=== PATIENT | female | born 1950 | race Caucasian/White ===

== ENCOUNTER 2020-07-26 09:29 | Inpatient (IN) | payer MEDICARE, MEDICAID, SELFPAY ==
[2020-07-26] VITALS (23 sets, daily range): BP systolic 81–150; BP diastolic 50–74; PULSE 65–108; RESP 18–30; TEMP 34.8–37.7; O2SAT 77–100; BMI 16.1; BMI 17.1
--- NOTE | 2020-07-26 | XR_ITS ---
EXAMINATION: XR CHEST CLINICAL INFORMATION: Central line placement. COMPARISON: Chest CT from today. TECHNIQUE: Frontal view of the chest was obtained. FINDINGS: Support devices: Endotracheal tube tip is positioned approximately 3 cm proximal to kojo. A nasogastric tube is seen with tip overlying the left upper quadrant the level the gastric fundus. A right central venous catheter seen with tip terminating in the superior vena cava. There is generalized hyperinflation with minimal blunting of the costophrenic angles bilaterally. An opacity seen in the left apex. The heart and mediastinal structures are unremarkable. XR/XR chest 1V IMPRESSION: 1. Interval right internal jugular catheter placement that appears in good position. No pneumothorax. 2. Left apical opacity consistent with the patient's known left apical mass. 3. COPD.
--- NOTE | 2020-07-26 09:36 | ECG_ITS ---
Test Reason : UNRESPONSIVE Blood Pressure : / mmHG Vent. Rate : 101 BPM Atrial Rate : 101 BPM P-R Int : 130 ms QRS Dur : 082 ms QT Int : 344 ms P-R-T Axes : 087 083 068 degrees QTc Int : 446 ms Sinus tachycardia Possible left atrial enlargement Borderline ECG No previous ECGs available Referred By: Taya Madison Electronically Signed By:Jared Wisdom
--- NOTE | 2020-07-26 09:36 | CT_ITS ---
EXAMINATION: CT CHEST WITHOUT CONTRAST CLINICAL INFORMATION: Hypoxia. COMPARISON: None TECHNIQUE: Multidetector volumetric CT imaging of the chest was done. Axial MIP volume rendering provided. Sagittal and coronal reformatted images were obtained. This CT examination was performed using dose optimization techniques as appropriate, variously including the following: *Automated exposure control *Adjustment of mA and/or kV according to patient size (this includes techniques or standardized protocols for targeted exams where dose is matched to indication/reason for exam; i.e. extremities or head) *Use of iterative reconstruction technique DLP: 752 mGy-cm FINDINGS: LUNGS/PLEURA/AIRWAYS: Severe diffuse centrilobular emphysema is seen. An irregular mass is seen in the left apex measuring approximately 3.1 x 2.2 x 2.2 cm (image 29, series 19; image 52, series 17). There is tethering to the adjacent left apical pleural with mild thickening as well as posteriorly to the major fissure. An adjacent fissural nodule measures 0.8 cm (image 105, series 17). A few scattered nodules are seen as well. A nodule posteromedially in the superior segment of the left lower lobe measures 0.4 cm (image 197, series 17). A nodule posteriorly in the superior segment of the right lower lobe measures 0.4 cm (image 199, series 17). Linear atelectasis versus scarring is seen at the lung bases. There are no pleural effusions. The airways are patent.Endotracheal tube is seen with tip approximately 2 cm superior to the kojo. MEDIASTINUM: Enteric tube is incompletely visualized, but seen extending into the visualized stomach. The thyroid gland is unremarkable. Mild atherosclerosis is seen in the aortic arch and descending aorta without significant ectasia. Mild to moderate coronary artery calcifications. No pericardial effusion. AXILLA: No lymphadenopathy. UPPER ABDOMEN: Unremarkable. OSSEOUS STRUCTURES: Superior endplate compression deformity at T9 without other significant abnormality. CT/CT chest wo con IMPRESSION: 1. Left apical mass concerning for malignancy. Further evaluation with PET/CT scan and/or CT-guided biopsy is recommended. An adjacent left major fissural lymph node is abnormally enlarged and may be metastatic. Other smaller pulmonary nodules measuring up to 0.4 cm are nonspecific. 2. Diffuse severe centrilobular emphysema. No acute cardiopulmonary process. 3. Superior endplate compression deformity without overt underlying abnormality does not appear acute. Correlate with physical exam. This critical result was discussed with Jerry Grace APRN at 12:10 PM on 07/26/2020 and it was ascertained that the content and urgency of the report was understood at the time of direct communication.
--- NOTE | 2020-07-26 09:36 | CT_ITS ---
EXAMINATION: CT HEAD WITHOUT CONTRAST CLINICAL INFORMATION: Altered mental status. COMPARISON: None TECHNIQUE: Contiguous axial imaging was performed from the skull base to vertex without intravenous administration of contrast. This CT examination was performed using dose optimization techniques as appropriate, variously including the following: *Automated exposure control *Adjustment of mA and/or kV according to patient size (this includes techniques or standardized protocols for targeted exams where dose is matched to indication/reason for exam; i.e. extremities or head) *Use of iterative reconstruction technique DLP: 611 mGy-cm FINDINGS: A metallic lead overlying the soft tissues of the head creates artifacts anteriorly. There is no evidence of acute intracranial hemorrhage or territorial infarction. No abnormal mass effect or midline shift is seen. Anderson to white matter differentiation is well preserved. Mild age-appropriate volume loss. No extra-axial fluid collections are identified. The ventricles are normal in size. There is no abnormal attenuation within the brain parenchyma. Carotid artery calcifications are seen at the level of the carotid siphon. The osseous structures and soft tissues are normal. The mastoid air cells and visualized portions of the paranasal sinuses are well aerated. CT/CT head/brain wo con IMPRESSION: No acute intracranial pathology.
--- NOTE | 2020-07-26 09:38 | ED_ITS ---
HPI - SOB/Dyspnea General Chief Complaint: Dyspnea Stated Complaint: SOB,COPD,LETHARGIC,COUGH Time Seen by Provider: 07/26/20 09:35 Source: EMS Mode of arrival: EMS Limitations: altered mental status History of Present Illness HPI Narrative: found 68% by EMS on 2L NC, AMS - cyanotic, given duoneb, CPAP highest sat 78%, IV 125mg solumedrol, 2GM magnesium, IM epi - no improvement en route, FULL CODE per EMS, son found patient altered on his way to work, told EMS she was just treated at [facility] for lung infection MD elicited complaint: shortness of breath (AMS) Pertinent past history: COPD Onset (ago): unknown Context: recent illness Timing: constant Severity: severe Exacerbating factors: nothing Relieving factors: nothing Known history of: COPD Associated symptoms: other (AMS) Treatment prior to arrival: oxygen, bronchodilator, NIPPV and other (IV steroids, IV magnesium) Related Data Allergies Allergy/AdvReac Type Severity Reaction Status Date / Time amoxicillin [AMOXICILLIN] Allergy Unknown HIVES Verified 07/26/20 09:52 Sulfa (Sulfonamide Allergy Unknown DIFFICULTY Verified 07/26/20 09:52 Antibiotics) BREATHING [SULFA (SULFONAMIDE ANTIBIOTICS)] cephalexin [From Keflex] Allergy Unknown Verified 07/26/20 09:52 Review of Systems Review of Systems: ROS unable to be obtained due to altered mental status, severe respiratory distress PMFSH Past Medical History Attestation statement: The following information was validated with the patient. Source: unable to obtain Medical History (Updated 07/26/20 @ 12:19 by Taya Madison DO) COPD (chronic obstructive pulmonary disease) Pneumonia Social History Social History (Updated 07/26/20 @ 09:56 by Taya Madison DO) Smoking Status: Current some day smoker Use of substances other than those prescribed or required for medical reasons: No Advance Directives: No Advance Directives Information Provided: No Physical Exam Vital Signs: Vital Signs: Last Vital Signs Temp 94.6 F L 07/26/20 11:30 Pulse 81 07/26/20 11:50 Resp 18 07/26/20 11:50 BP 81/55 L 07/26/20 11:50 Pulse Ox 98 07/26/20 11:50 Body Mass Index 17.1 Appearance: Cyanotic, altered, disoriented, unable to speak, severe acute distress. frail, cachectic Eyes: Pupils equal, round and reactive to light. ENT: central cyanosis, dry MMM Neck: Normal inspection. Neck supple. + bilateral JVD CVS: Normal heart rate and rhythm. Pulses normal. Respiratory: Severe respiratory distress. Breath sounds decrease throughout, poor effort Abdomen: Soft and non-tender. Skin: Skin warm and dry. Normal skin color. Normal skin turgor. Extremities: No lower extremity edema. No calf ttp Neuro: Confused, altered, unable to perform exam. Course Course Course Narrative: hypotension post RSI likely related to medications and not infection or severe sepsis, 1500cc bolus ordered at this time discussion with son [id number]: patient was not at [facility] it was a zoom call - she started prednisone yesterday, no antibiotics, he did not see her since last night before bed, agrees to central line if she needs it. he plans to go home, wants to be called with updates BP 170/90 now was transient due to RSI medications fluids held given JVD is not on diuretics at home BP stable at this time pateint given 2mg versed after CT scan - her BP bottomed to 40 systolic afterwards - this is directly related to the medication and not infection or severe sepsis, she was given 50mcg push of phenylephrine with BP > 100 response, HR remained 80s BPs still dip down at times, will place central line for access given verbal okay by son on initial arrival - BP have been somewhat soft low 90s, has put out 300cc of urine after 1000cc fluid Dr. Pérez to admit 1218pm Procedures Central Line Placement Right IJ: Time Out Performed: Yes Patient Placed on Monitor/Pulse Ox: Yes MD Prep: mask, gown and gloves Central Line Prep: Chlorhexidine scrub and sterile drapes applied Local Anesthetic: lidocaine 1% Amount of anesthesia used (mL): 3 Ultrasound Used for Placement: Yes Central Line Lumen Inserted: triple Post Procedure: sutured in place, good blood return, all ports aspirated, flushed, capped and sterile dressing applied Post Procedure X-Ray: tip of catheter in good position and no pneumothorax seen Patient Tolerated Procedure: well Complications: none EJ/Peripheral Line Neck L: Time Out Performed: Yes Skin Cleansed in Sterile Fashion: Yes Size (gauge): 18 IV Secured and Dressing Applied: Yes Patient Tolerated Procedure: well and no complications Intubation Time out performed: Yes sedative: Etomidate Mg Given: 10 paralytic: Rocuronium Mg Given: 50 Laryngoscope: Schaefer ET Tube Size: 7.5 ET Tube Uncuffed: Yes Tube Secured Depth (cm): 22 Tube Secured Location: teeth Tube Placement Confirmation: visualized tube passing through cords, equal breath sounds bilaterally and confirmation by capnometry Patient Tolerated Procedure: well Intubation Complications: none MDM - SOB/Dyspnea MDM Narrative Medical decision making narrative: 69 yo female only known history of COPD on home O2 just seen at [facility] for lung infection records requested came in altered with cyanosis and 74% on NIPPV she was in severe distress at this time she required intubation for respiratory failure, already given mag and steroids, labs, ABG, CT chest and head for AMS/pneumonia, start empiric levofloxacin, planned admit to ICU Lab Data Result diagrams: 07/26/20 10:05 07/26/20 10:05 Labs: Lab Results 07/26/20 07/26/20 07/26/20 Range/Units 10:05 10:05 10:05 WBC 7.9 (4.8-10.8) X10*3/uL RBC 4.15 L (4.20-5.50) X10*6/uL Hgb 11.8 L (12.0-16.0) g/dl Hct 38.8 (37-47) % MCV 93.5 (80-98) fL MCH 28.4 (27.0-33.0) pg MCHC 30.4 L (31.0-35.0) g/dl RDW 12.2 (11.0-16.0) % Plt Count 188 (160-400) X10*3/uL MPV 10.1 (9.4-12.3) fL Immature Gran % (Auto) 0.4 (0.0-0.4) % Neut % (Auto) 75.7 H (45-73) % Lymph % (Auto) 17.1 L (20-40) % Gillespie % (Auto) 6.2 (2-11) % Eos % (Auto) 0.1 (0-4) % Baso % (Auto) 0.5 (0-2) % Lymph # (Auto) 1.3 (1.2-4.9) X10*3/uL Gillespie # (Auto) 0.5 (0.1-1.2) X10*3/uL Eos # (Auto) 0.0 (0.0-0.4) X10*3/uL Baso # (Auto) 0.0 (0.0-0.2) X10*3/uL Abs Immat Gran (auto) 0.03 (0.00-0.03) X10*3/uL Absolute Neuts (auto) 5.9 (2.0-8.3) X10*3/uL Absolute Nucleated RBC 0.000 (0.0-0.012) X10*3/uL Nucleated RBC % (auto) 0.0 (0.0-0.2) /100WBC PT (10.8-13.0) SEC INR (0.9-1.1) APTT (24.1-38.0) SEC ABG pH (7.35-7.45) ABG pCO2 (32-45) mmhg ABG pO2 (83-108) mmhg ABG HCO3 (22-26) mmol/l ABG O2 Saturation % ABG Base Excess Oxygen Given Sodium 148 H (135-145) mmol/L Potassium 4.2 (3.3-5.1) mmol/l Chloride 99 (96-108) mmol/L Carbon Dioxide 41 H* (22-29) mmol/L Anion Gap 12 (12-20) BUN 21 H (9-16) mg/dL Creatinine 0.65 (0.5-1.4) mg/dL Estim Creat Clear Calc 51.2 Estimated GFR > 60 Random Glucose 195 H (60-115) mg/dL Lactic Acid (0.5-2.0) mmol/L Calcium 8.6 (8.4-10.2) mg/dL Magnesium 3.0 H (1.6-2.6) mg/dL Ferritin 268 H (10-250) ng/mL Total Bilirubin 0.3 (0.0-1.0) mg/dL Direct Bilirubin < 0.2 (0.0-0.5) mg/dL AST 43 H (5-31) U/L ALT 36 H (0-31) U/L Alkaline Phosphatase 78 (39-117) U/L Lactate Dehydrogenase 270 H (122-220) U/L Troponin I High Sens (<3.5-17.0) ng/L B-Natriuretic Peptide Cancelled Total Protein 5.7 L (6.5-8.0) g/dL Albumin 3.5 (3.5-5.0) g/dL Procalcitonin ng/mL Urine Color Urine Appearance Urine pH (5.0-8.0) Ur Specific [place] (1.005-1.025) Urine Protein (NEG-TRACE) MG/DL Urine Glucose (UA) (NEG) MG/DL Urine Ketones (NEG) MG/DL Urine Blood (NEG) Urine Nitrite (NEG) Ur Leukocyte Esterase (NEG) Urine RBC (0) /HPF Urine WBC (0-4) /HPF Ur Squamous Epith Cells /LPF Amorphous Sediment /LPF Urine Bacteria /LPF Hyaline Casts /LPF Granular Casts /LPF Urine Mucus /LPF Ethyl Alcohol mg/dL COVID-19 (STEFF) (Negative) COVID-19 Clin Com 07/26/20 07/26/20 07/26/20 Range/Units 10:05 10:05 10:06 WBC (4.8-10.8) X10*3/uL RBC (4.20-5.50) X10*6/uL Hgb (12.0-16.0) g/dl Hct (37-47) % MCV (80-98) fL MCH (27.0-33.0) pg MCHC (31.0-35.0) g/dl RDW (11.0-16.0) % Plt Count (160-400) X10*3/uL MPV (9.4-12.3) fL Immature Gran % (Auto) (0.0-0.4) % Neut % (Auto) (45-73) % Lymph % (Auto) (20-40) % Gillespie % (Auto) (2-11) % Eos % (Auto) (0-4) % Baso % (Auto) (0-2) % Lymph # (Auto) (1.2-4.9) X10*3/uL Gillespie # (Auto) (0.1-1.2) X10*3/uL Eos # (Auto) (0.0-0.4) X10*3/uL Baso # (Auto) (0.0-0.2) X10*3/uL Abs Immat Gran (auto) (0.00-0.03) X10*3/uL Absolute Neuts (auto) (2.0-8.3) X10*3/uL Absolute Nucleated RBC (0.0-0.012) X10*3/uL Nucleated RBC % (auto) (0.0-0.2) /100WBC PT 12.3 (10.8-13.0) SEC INR 1.0 (0.9-1.1) APTT 24.0 L (24.1-38.0) SEC ABG pH (7.35-7.45) ABG pCO2 (32-45) mmhg ABG pO2 (83-108) mmhg ABG HCO3 (22-26) mmol/l ABG O2 Saturation % ABG Base Excess Oxygen Given Sodium (135-145) mmol/L Potassium (3.3-5.1) mmol/l Chloride (96-108) mmol/L Carbon Dioxide (22-29) mmol/L Anion Gap (12-20) BUN (9-16) mg/dL Creatinine (0.5-1.4) mg/dL Estim Creat Clear Calc Estimated GFR Random Glucose (60-115) mg/dL Lactic Acid 1.5 (0.5-2.0) mmol/L Calcium (8.4-10.2) mg/dL Magnesium (1.6-2.6) mg/dL Ferritin (10-250) ng/mL Total Bilirubin (0.0-1.0) mg/dL Direct Bilirubin (0.0-0.5) mg/dL AST (5-31) U/L ALT (0-31) U/L Alkaline Phosphatase (39-117) U/L Lactate Dehydrogenase (122-220) U/L Troponin I High Sens 12.5 (<3.5-17.0) ng/L B-Natriuretic Peptide 47 Total Protein (6.5-8.0) g/dL Albumin (3.5-5.0) g/dL Procalcitonin ng/mL Urine Color Urine Appearance Urine pH (5.0-8.0) Ur Specific [place] (1.005-1.025) Urine Protein (NEG-TRACE) MG/DL Urine Glucose (UA) (NEG) MG/DL Urine Ketones (NEG) MG/DL Urine Blood (NEG) Urine Nitrite (NEG) Ur Leukocyte Esterase (NEG) Urine RBC (0) /HPF Urine WBC (0-4) /HPF Ur Squamous Epith Cells /LPF Amorphous Sediment /LPF Urine Bacteria /LPF Hyaline Casts /LPF Granular Casts /LPF Urine Mucus /LPF Ethyl Alcohol mg/dL COVID-19 (STEFF) (Negative) COVID-19 Clin Com 07/26/20 07/26/20 07/26/20 Range/Units 10:10 10:21 10:21 WBC (4.8-10.8) X10*3/uL RBC (4.20-5.50) X10*6/uL Hgb (12.0-16.0) g/dl Hct (37-47) % MCV (80-98) fL MCH (27.0-33.0) pg MCHC (31.0-35.0) g/dl RDW (11.0-16.0) % Plt Count (160-400) X10*3/uL MPV (9.4-12.3) fL Immature Gran % (Auto) (0.0-0.4) % Neut % (Auto) (45-73) % Lymph % (Auto) (20-40) % Gillespie % (Auto) (2-11) % Eos % (Auto) (0-4) % Baso % (Auto) (0-2) % Lymph # (Auto) (1.2-4.9) X10*3/uL Gillespie # (Auto) (0.1-1.2) X10*3/uL Eos # (Auto) (0.0-0.4) X10*3/uL Baso # (Auto) (0.0-0.2) X10*3/uL Abs Immat Gran (auto) (0.00-0.03) X10*3/uL Absolute Neuts (auto) (2.0-8.3) X10*3/uL Absolute Nucleated RBC (0.0-0.012) X10*3/uL Nucleated RBC % (auto) (0.0-0.2) /100WBC PT (10.8-13.0) SEC INR (0.9-1.1) APTT (24.1-38.0) SEC ABG pH 7.36 (7.35-7.45) ABG pCO2 61 H* (32-45) mmhg ABG pO2 156 H (83-108) mmhg ABG HCO3 35 H (22-26) mmol/l ABG O2 Saturation 99.2 % ABG Base Excess 6.9 Oxygen Given 40% Sodium (135-145) mmol/L Potassium (3.3-5.1) mmol/l Chloride (96-108) mmol/L Carbon Dioxide (22-29) mmol/L Anion Gap (12-20) BUN (9-16) mg/dL Creatinine (0.5-1.4) mg/dL Estim Creat Clear Calc Estimated GFR Random Glucose (60-115) mg/dL Lactic Acid (0.5-2.0) mmol/L Calcium (8.4-10.2) mg/dL Magnesium (1.6-2.6) mg/dL Ferritin (10-250) ng/mL Total Bilirubin (0.0-1.0) mg/dL Direct Bilirubin (0.0-0.5) mg/dL AST (5-31) U/L ALT (0-31) U/L Alkaline Phosphatase (39-117) U/L Lactate Dehydrogenase (122-220) U/L Troponin I High Sens (<3.5-17.0) ng/L B-Natriuretic Peptide Total Protein (6.5-8.0) g/dL Albumin (3.5-5.0) g/dL Procalcitonin 0.03 ng/mL Urine Color Urine Appearance Urine pH (5.0-8.0) Ur Specific [place] (1.005-1.025) Urine Protein (NEG-TRACE) MG/DL Urine Glucose (UA) (NEG) MG/DL Urine Ketones (NEG) MG/DL Urine Blood (NEG) Urine Nitrite (NEG) Ur Leukocyte Esterase (NEG) Urine RBC (0) /HPF Urine WBC (0-4) /HPF Ur Squamous Epith Cells /LPF Amorphous Sediment /LPF Urine Bacteria /LPF Hyaline Casts /LPF Granular Casts /LPF Urine Mucus /LPF Ethyl Alcohol < 10 mg/dL COVID-19 (STEFF) (Negative) COVID-19 Clin Com 07/26/20 07/26/20 Range/Units 10:35 10:35 WBC (4.8-10.8) X10*3/uL RBC (4.20-5.50) X10*6/uL Hgb (12.0-16.0) g/dl Hct (37-47) % MCV (80-98) fL MCH (27.0-33.0) pg MCHC (31.0-35.0) g/dl RDW (11.0-16.0) % Plt Count (160-400) X10*3/uL MPV (9.4-12.3) fL Immature Gran % (Auto) (0.0-0.4) % Neut % (Auto) (45-73) % Lymph % (Auto) (20-40) % Gillespie % (Auto) (2-11) % Eos % (Auto) (0-4) % Baso % (Auto) (0-2) % Lymph # (Auto) (1.2-4.9) X10*3/uL Gillespie # (Auto) (0.1-1.2) X10*3/uL Eos # (Auto) (0.0-0.4) X10*3/uL Baso # (Auto) (0.0-0.2) X10*3/uL Abs Immat Gran (auto) (0.00-0.03) X10*3/uL Absolute Neuts (auto) (2.0-8.3) X10*3/uL Absolute Nucleated RBC (0.0-0.012) X10*3/uL Nucleated RBC % (auto) (0.0-0.2) /100WBC PT (10.8-13.0) SEC INR (0.9-1.1) APTT (24.1-38.0) SEC ABG pH (7.35-7.45) ABG pCO2 (32-45) mmhg ABG pO2 (83-108) mmhg ABG HCO3 (22-26) mmol/l ABG O2 Saturation % ABG Base Excess Oxygen Given Sodium (135-145) mmol/L Potassium (3.3-5.1) mmol/l Chloride (96-108) mmol/L Carbon Dioxide (22-29) mmol/L Anion Gap (12-20) BUN (9-16) mg/dL Creatinine (0.5-1.4) mg/dL Estim Creat Clear Calc Estimated GFR Random Glucose (60-115) mg/dL Lactic Acid (0.5-2.0) mmol/L Calcium (8.4-10.2) mg/dL Magnesium (1.6-2.6) mg/dL Ferritin (10-250) ng/mL Total Bilirubin (0.0-1.0) mg/dL Direct Bilirubin (0.0-0.5) mg/dL AST (5-31) U/L ALT (0-31) U/L Alkaline Phosphatase (39-117) U/L Lactate Dehydrogenase (122-220) U/L Troponin I High Sens (<3.5-17.0) ng/L B-Natriuretic Peptide Total Protein (6.5-8.0) g/dL Albumin (3.5-5.0) g/dL Procalcitonin ng/mL Urine Color YELLOW Urine Appearance HAZY Urine pH 5.5 (5.0-8.0) Ur Specific [place] >= 1.030 H (1.005-1.025) Urine Protein 1+ H (NEG-TRACE) MG/DL Urine Glucose (UA) NEG (NEG) MG/DL Urine Ketones NEG (NEG) MG/DL Urine Blood TRACE (NEG) Urine Nitrite NEG (NEG) Ur Leukocyte Esterase NEG (NEG) Urine RBC 0-2 (0) /HPF Urine WBC 1-4 (0-4) /HPF Ur Squamous Epith Cells 2+ /LPF Amorphous Sediment 2+ /LPF Urine Bacteria NONE /LPF Hyaline Casts 10-14 /LPF Granular Casts 0-2 /LPF Urine Mucus 2+ /LPF Ethyl Alcohol mg/dL COVID-19 (STEFF) Negative (Negative) COVID-19 Clin Com See Note ECG Data Attestation: I personally reviewed and interpreted this ECG as follows: ECG interpretation date: 07/26/20 ECG interpretation time: 10:23 Interpretation: Rate: 101 Rhythm: sinus tachycardia [place]: normal biatrial enlargement Normal ELADIA. Normal QRS complex. ST T wave : normal no GAUTAM qTC: normal prior studies: no acute ischemia, not available The study has been interpreted contemporaneously by me. . Critical Care Time Critical Care Time Critical Care Time: Yes Total Critical Care Time: 90 Attestation: intubation, vent management, ABG, EKG, repeat checks, discussion with son I attest to this time spent taking care of the patient Discharge Plan Discharge Clinical Impression: Acute exacerbation of chronic obstructive airways disease, Lung mass Respiratory failure Qualifiers: Chronicity: acute on chronic Respiratory failure complication: hypoxia Qualified Code(s): J96.21 - Acute and chronic respiratory failure with hypoxia Patient Disposition: Admitted As Inpatient
[2020-07-26] MEDS: Rocuronium Bromide 50 MG/5 ML VIAL IVPUSH (09:42)
[2020-07-26] MEDS: Etomidate 20 MG/10 ML VIAL 10 MG IVPUSH (09:42)
[2020-07-26] MEDS: fentaNYL citrate/NS 1,000 MCG/100 ML PLAST..BAG 2.5 MCG IVCONT ×2 (09:43→23:53)
[2020-07-26] MEDS: 0.9 % Sodium Chloride 500 ML IV ×2 (09:45→11:36)
[2020-07-26] MEDS: Albuterol Sulfate (0.083%) 2.5 MG/3 ML VIAL.NEB 5 MG INHALE (09:46)
[2020-07-26 10:20] LABS: MANUAL DIFF FLAG NO
[2020-07-26 10:23] LABS: Pt Ventilation O2% 40%
[2020-07-26 10:26] LABS: Basophils Percent Auto 0.5 % (0-2); Eosinophils Percent Auto 0.1 % (0-4); Hematocrit 38.8 % (37-47); Hemoglobin 11.8 g/dl (12.0-16.0); Imm Gran Abs Auto 0.03 X10*3/uL (0.00-0.03); Imm Gran Pct Auto 0.4 % (0.0-0.4); Lymphocytes Absolute Auto 1.3 X10*3/uL (1.2-4.9); Lymphocytes Percent Auto 17.1 % (20-40); Mean Corpuscular HGB Conc 30.4 g/dl (31.0-35.0); Mean Corpuscular Hemoglobin 28.4 pg (27.0-33.0); Mean Corpuscular Volume 93.5 fL (80-98); Mean Platelet Volume 10.1 fL (9.4-12.3); Monocytes Absolute Auto 0.5 X10*3/uL (0.1-1.2); Monocytes Percent Auto 6.2 % (2-11); Neutrophils Absolute Auto 5.9 X10*3/uL (2.0-8.3); Neutrophils Percent Auto 75.7 % (45-73); Platelet Count 188 X10*3/uL (160-400); Red Blood Count 4.15 X10*6/uL (4.20-5.50); Red Cell Distribution Width 12.2 % (11.0-16.0); White Blood Count 7.9 X10*3/uL (4.8-10.8)
[2020-07-26] MEDS: Midazolam HCl/NS 50 MG/50 ML PLAST..BAG IVCONT (10:30)
[2020-07-26] MEDS: levoFLOXacin/D5W 500 MG/100 ML PIGGYBACK 100 MG IV (10:31)
[2020-07-26 10:40] LABS: pH ABG 7.36 (7.35-7.45)
[2020-07-26 10:41] LABS: Base Excess ABG 6.9; HCO3 ABG 35 mmol/l (22-26); Oxygen Saturation ABG 99.2 %; PO2 ABG 156 mmhg (83-108)
[2020-07-26 10:44] LABS: ABG PCO2 61 mmhg (32-45)
[2020-07-26 10:45] LABS: Glucose Urine UA NEG (NEG); Leukocyte Esterase Urine NEG (NEG); Nitrite Urine NEG (NEG); PH 5.5 (5.0-8.0); Specific Gravity - Urine >= 1.030 (1.005-1.025); Urine Blood TRACE (NEG); Urine Ketones NEG (NEG); Urine Protein 1+ MG/DL (NEG-TRACE)
--- NOTE | 2020-07-26 10:46 | PC.NURSE ---
Son states pt had telehealth appt and given one dose of prednisone. Last seen well was last night, found this am to be in resp distress and semi unresponsive. Upon EMS arrival pt tripod, tachypenic with no lung sounds, sat 78% with home 02. Pt arrived to ED in resp distress, on CPAP from the field without much relief. Intubated by Dr Madison successfully with 7.5 tube, 23 HENRY. AC settings on vent 24 350, 5 and 40% Fi02. Skin pale, cool to touch, cyanotic to fingertips and toes. temp sensing isaac reading 93.7 core temp. Pt sedated with Fentanyl 50mcg/hr and Versed 2mg/hr. OG tube placed after intubation, yellow stomach contents noted in tube, +placement via auscultation, awaiting imaging verification. Two peripheral lines from EMS infiltrated, left EJ placed by Dr Madison and two additional lines to b/l AC placed by staff. Vitals stable at this time, see paper print out for additional vitals. Pt to CT scan with Micha KINGSLEY at this time
[2020-07-26 10:50] LABS: Lactic Acid 1.5 mmol/L (0.5-2.0)
[2020-07-26 10:50] LABS: Prothrombin Time 12.3 SEC (10.8-13.0)
[2020-07-26 10:50] LABS: Appearance Urine HAZY; Color Urine YELLOW
[2020-07-26 10:55] LABS: Ethanol < 10 mg/dL
[2020-07-26 10:57] LABS: Amorphous Sediment Urine 2+ /LPF; Granular Casts Urine 0-2 /LPF; Mucus Urine 2+ /LPF; RBC Urine 0-2 /HPF (0); Squamous Epithelial Cell Urine 2+ /LPF; UACC CULT YES
[2020-07-26 11:00] LABS: COVID-19 Test Negative (Negative); IDNOW Serial# 9DD0AD1C
[2020-07-26 11:00] LABS: B Type Natriuretic Peptide 47 pg/mL (<100); Troponin-I High Sensitivity 12.5 ng/L (<3.5-17.0)
[2020-07-26] MEDS: Midazolam HCl/PF 2 MG/2 ML VIAL IVPUSH (11:00)
[2020-07-26 11:14] LABS: Procalcitonin 0.03 ng/mL
[2020-07-26 11:15] LABS: Alanine Aminotransferase 36 U/L (0-31); Albumin Level 3.5 g/dL (3.5-5.0); Alkaline Phosphatase 78 U/L (39-117); Anion Gap 12 (12-20); Aspartate Amino Transferase 43 U/L (5-31); Bilirubin Direct < 0.2 mg/dL (0.0-0.5); Bilirubin Total 0.3 mg/dL (0.0-1.0); Blood Urea Nitrogen 21 mg/dL (9-16); Calcium 8.6 mg/dL (8.4-10.2); Carbon Dioxide 41 mmol/L (22-29); Chloride 99 mmol/L (96-108); Creatinine Clr Calc Pharmacy 51.2; Estimated Glomerular Filt Rate > 60; Glucose Random 195 mg/dL (60-115); Lactate Dehydrogenase 270 U/L (122-220); Potassium 4.2 mmol/l (3.3-5.1); Sodium 148 mmol/L (135-145); Total Protein 5.7 g/dL (6.5-8.0)
[2020-07-26 11:18] LABS: Ferritin 268 ng/mL (10-250)
[2020-07-26] MEDS: 0.9 % Sodium Chloride 1,000 ML 999 ML IVCONT (11:32)
[2020-07-26] MEDS: Phenylephrine HCL 10 MG/ML VIAL IVPUSH (11:33)
--- NOTE | 2020-07-26 12:27 | PC.NURSE ---
fentanyl increased from 50mcg/hr to 75 mcg /hr
--- NOTE | 2020-07-26 12:50 | P.HPCC_ITS ---
History of Present Illness Date of Service: 07/26/20 Chief Complaint: Shortness of breast 69-year-old lady, active 40+ pack-year smoker, with underlying history of COPD admitted on 07/26/2020 with several day history of progressive dyspnea. Patient has been started on p.o. prednisone by her PCP one day prior for COPD exacerbation. Patient has been seen by her son in the morning on the day of admission and was noted to be altered and short of breath. EMS was called and patient was noted to be significantly hypoxic. She has been transferred to emergency room where she was intubated for acute hypoxic and hypercapnic respiratory failure secondary to COPD exacerbation. Review of Systems Review of Systems: Yes unobtainable due to endotracheal tube and Unobtainable due to mental status PMFSH Past Medical History Medical History COPD (chronic obstructive pulmonary disease) Pneumonia Social History Social History Smoking Status: Current some day smoker Use of substances other than those prescribed or required for medical reasons: No Advance Directives: No Advance Directives Information Provided: No Meds Allergies Allergy/AdvReac Type Severity Reaction Status Date / Time amoxicillin [AMOXICILLIN] Allergy Unknown HIVES Verified 07/26/20 09:52 Sulfa (Sulfonamide Allergy Unknown DIFFICULTY Verified 07/26/20 09:52 Antibiotics) BREATHING [SULFA (SULFONAMIDE ANTIBIOTICS)] cephalexin [From Keflex] Allergy Unknown Verified 07/26/20 09:52 Physical Exam Vital Signs: Vital Signs: Last Vital Signs Temp 95 F L 07/26/20 12:22 Pulse 85 07/26/20 12:22 Resp 24 H 07/26/20 12:22 BP 92/53 L 07/26/20 12:22 Pulse Ox 100 07/26/20 12:22 Body Mass Index 17.1 Const: General: no acute distress and other (Sedated on the vent) Nutritional Appearance: cachectic Eyes: Sclerae: sclerae normal Neck: Neck: Yes no lymphadenopathy, Yes trachea midline and Yes supple Resp: Auscultation: wheezes expiratory wheezes Cardio: Rate: regular rate Rhythm: regular rhythm Heart sounds: no gallops, no murmurs and no rubs GI: Palpation (GI): Soft to palpation and Other GI palpation findings present ( Nontender) Auscultation: normal bowel sounds Extrem: General: Yes no pedal edema, No clubbing and No cyanosis Results Labs CBC and Chem 7: 07/26/20 10:05 07/26/20 10:05 Labs: Laboratory Results - last 24 hr 07/26/20 07/26/20 07/26/20 10:05 10:05 10:05 MCV 93.5 MCH 28.4 MCHC 30.4 L RDW 12.2 Plt Count 188 MPV 10.1 Immature Gran % (Auto) 0.4 Neut % (Auto) 75.7 H Lymph % (Auto) 17.1 L Saunders % (Auto) 6.2 Eos % (Auto) 0.1 Baso % (Auto) 0.5 Lymph # (Auto) 1.3 Saunders # (Auto) 0.5 Eos # (Auto) 0.0 Baso # (Auto) 0.0 Abs Immat Gran (auto) 0.03 Absolute Neuts (auto) 5.9 Absolute Nucleated RBC 0.000 Nucleated RBC % (auto) 0.0 PT INR APTT ABG pH ABG pCO2 ABG pO2 ABG HCO3 ABG O2 Saturation ABG Base Excess Oxygen Given Anion Gap 12 Estim Creat Clear Calc 51.2 Estimated GFR > 60 Random Glucose 195 H Lactic Acid Calcium 8.6 Magnesium 3.0 H Ferritin 268 H Total Bilirubin 0.3 Direct Bilirubin < 0.2 AST 43 H ALT 36 H Alkaline Phosphatase 78 Lactate Dehydrogenase 270 H Troponin I High Sens B-Natriuretic Peptide Cancelled Total Protein 5.7 L Albumin 3.5 Procalcitonin Urine Color Urine Appearance Urine pH Ur Specific [place] Urine Protein Urine Glucose (UA) Urine Ketones Urine Blood Urine Nitrite Ur Leukocyte Esterase Urine RBC Urine WBC Ur Squamous Epith Cells Amorphous Sediment Urine Bacteria Hyaline Casts Granular Casts Urine Mucus Ethyl Alcohol COVID-19 (STEFF) COVID-19 Clin Com 07/26/20 07/26/20 07/26/20 10:05 10:05 10:06 MCV MCH MCHC RDW Plt Count MPV Immature Gran % (Auto) Neut % (Auto) Lymph % (Auto) Saunders % (Auto) Eos % (Auto) Baso % (Auto) Lymph # (Auto) Saunders # (Auto) Eos # (Auto) Baso # (Auto) Abs Immat Gran (auto) Absolute Neuts (auto) Absolute Nucleated RBC Nucleated RBC % (auto) PT 12.3 INR 1.0 APTT 24.0 L ABG pH ABG pCO2 ABG pO2 ABG HCO3 ABG O2 Saturation ABG Base Excess Oxygen Given Anion Gap Estim Creat Clear Calc Estimated GFR Random Glucose Lactic Acid 1.5 Calcium Magnesium Ferritin Total Bilirubin Direct Bilirubin AST ALT Alkaline Phosphatase Lactate Dehydrogenase Troponin I High Sens 12.5 B-Natriuretic Peptide 47 Total Protein Albumin Procalcitonin Urine Color Urine Appearance Urine pH Ur Specific [place] Urine Protein Urine Glucose (UA) Urine Ketones Urine Blood Urine Nitrite Ur Leukocyte Esterase Urine RBC Urine WBC Ur Squamous Epith Cells Amorphous Sediment Urine Bacteria Hyaline Casts Granular Casts Urine Mucus Ethyl Alcohol COVID-19 (STEFF) COVID-19 [facility] 07/26/20 07/26/20 07/26/20 10:10 10:21 10:21 MCV MCH MCHC RDW Plt Count MPV Immature Gran % (Auto) Neut % (Auto) Lymph % (Auto) Saunders % (Auto) Eos % (Auto) Baso % (Auto) Lymph # (Auto) Saunders # (Auto) Eos # (Auto) Baso # (Auto) Abs Immat Gran (auto) Absolute Neuts (auto) Absolute Nucleated RBC Nucleated RBC % (auto) PT INR APTT ABG pH 7.36 ABG pCO2 61 H* ABG pO2 156 H ABG HCO3 35 H ABG O2 Saturation 99.2 ABG Base Excess 6.9 Oxygen Given 40% Anion Gap Estim Creat Clear Calc Estimated GFR Random Glucose Lactic Acid Calcium Magnesium Ferritin Total Bilirubin Direct Bilirubin AST ALT Alkaline Phosphatase Lactate Dehydrogenase Troponin I High Sens B-Natriuretic Peptide Total Protein Albumin Procalcitonin 0.03 Urine Color Urine Appearance Urine pH Ur Specific [place] Urine Protein Urine Glucose (UA) Urine Ketones Urine Blood Urine Nitrite Ur Leukocyte Esterase Urine RBC Urine WBC Ur Squamous Epith Cells Amorphous Sediment Urine Bacteria Hyaline Casts Granular Casts Urine Mucus Ethyl Alcohol < 10 COVID-19 (STEFF) COVID-19 [facility] 07/26/20 07/26/20 10:35 10:35 MCV MCH MCHC RDW Plt Count MPV Immature Gran % (Auto) Neut % (Auto) Lymph % (Auto) Saunders % (Auto) Eos % (Auto) Baso % (Auto) Lymph # (Auto) Saunders # (Auto) Eos # (Auto) Baso # (Auto) Abs Immat Gran (auto) Absolute Neuts (auto) Absolute Nucleated RBC Nucleated RBC % (auto) PT INR APTT ABG pH ABG pCO2 ABG pO2 ABG HCO3 ABG O2 Saturation ABG Base Excess Oxygen Given Anion Gap Estim Creat Clear Calc Estimated GFR Random Glucose Lactic Acid Calcium Magnesium Ferritin Total Bilirubin Direct Bilirubin AST ALT Alkaline Phosphatase Lactate Dehydrogenase Troponin I High Sens B-Natriuretic Peptide Total Protein Albumin Procalcitonin Urine Color YELLOW Urine Appearance HAZY Urine pH 5.5 Ur Specific [place] >= 1.030 H Urine Protein 1+ H Urine Glucose (UA) NEG Urine Ketones NEG Urine Blood TRACE Urine Nitrite NEG Ur Leukocyte Esterase NEG Urine RBC 0-2 Urine WBC 1-4 Ur Squamous Epith Cells 2+ Amorphous Sediment 2+ Urine Bacteria NONE Hyaline Casts 10-14 Granular Casts 0-2 Urine Mucus 2+ Ethyl Alcohol COVID-19 (STEFF) Negative COVID-19 Clin Com See Note Imaging Radiologist's Impressions: Impressions Chest X-Ray 07/26/20 00:00 IMPRESSION: 1. Interval right internal jugular catheter placement that appears in good position. No pneumothorax. 2. Left apical opacity consistent with the patient's known left apical mass. 3. COPD. Chest CT 07/26/20 09:36 IMPRESSION: 1. Left apical mass concerning for malignancy. Further evaluation with PET/CT scan and/or CT-guided biopsy is recommended. An adjacent left major fissural lymph node is abnormally enlarged and may be metastatic. Other smaller pulmonary nodules measuring up to 0.4 cm are nonspecific. 2. Diffuse severe centrilobular emphysema. No acute cardiopulmonary process. 3. Superior endplate compression deformity without overt underlying abnormality does not appear acute. Correlate with physical exam. This critical result was discussed with Jerry Grace APRN at 12:10 PM on 07/26/2020 and it was ascertained that the content and urgency of the report was understood at the time of direct communication. Head CT 07/26/20 09:36 IMPRESSION: No acute intracranial pathology. Assessment and Plan (1) Acute on chronic respiratory failure with hypoxia and hypercapnia: Status: Acute Assessment: 69-year-old lady, active smoker, admitted with acute hypoxic and hypercapnic respiratory failure secondary to COPD exacerbation requiring intubation and ventilatory support. Plan: Neuro: No acute issues. Cardiac: Hypotension secondary to requirements for sedation. No evidence of sepsis. Pulmonary: Acute hypoxic and hypercapnic respiratory failure secondary to COPD exacerbation requiring ventilatory support. Continue systemic glucocorticoids and bronchodilators. Continue to titrate off ventilatory support as tolerated. Started on azithromycin for anti-inflammatory effect in COPD exacerbations. CT chest with evidence of a left apical mass, to be further evaluated on outpatient basis. Renal: No acute issues. Endo: No acute issues. GI: No acute issues. ID: No acute issues Heme/Onc: No acute issues. Psych: No acute issues. Miscellaneous: No acute issues. Prophylaxis: Heparin, famotidine Diet: Tube feeds Critical care time spent: 45 minutes (2) Acute exacerbation of chronic obstructive airways disease: Status: Acute (3) Lung mass: Status: Acute (4) Severe protein-calorie malnutrition: Status: Acute Critical Care Time 45
[2020-07-26 13:27] LABS: PO2 ABG 383 mmhg (83-108); Pt Ventilation O2% 100%; pH ABG 7.31 (7.35-7.45)
[2020-07-26] MEDS: propofoL 1,000 MG/100 ML VIAL 4.76 MG IVCONT (13:27)
[2020-07-26 13:28] LABS: Base Excess ABG 3.7; HCO3 ABG 32 mmol/l (22-26); Oxygen Saturation ABG 99.7 %
[2020-07-26 13:29] LABS: ABG PCO2 65 mmhg (32-45)
[2020-07-26] MEDS: Heparin Sodium,Porcine 5,000 UNIT/ML VIAL 5000 UNIT SUBCUT ×2 (13:43→20:09)
[2020-07-26] MEDS: Albumin Human 25 % 100 ML IV ×2 (13:47→18:20)
[2020-07-26] MEDS: Chlorhexidine Gluc Oral Rinse 15 ML MOUTHWASH BUCCAL ×2 (13:47→20:09)
[2020-07-26] MEDS: Albuterol/Iprat 2.5/0.5MG 3 ML AMPUL.NEB INHALE (17:28)
--- NOTE | 2020-07-26 18:35 | PC.NURSE ---
PT ARRIVED VIA STRETCHER AND INTUBATED FROM ED AT 1245. PT SEDATED WITH FENANYL GTT FROM ED AND PROPOFOL GTT STARTED IN ICU. AWAKENS EASILY WITH TOUGH AND REPOSITIONING, ABLE TO FOLLOW SIMPLE COMMANDS. LEVOPHED GTT STARTED IN ED AND TITRATED PER MD ORDER. VENT SETTINGS INITALLY AC 24 TV 350 PEEP 5 FI02 100%, ABGS DRAWN AND VENT SETTINGS ADJUSTED. CURRENT VENT SETTINGS AC 26 TV 375 PEEP 5 FI02 30% ETT 7.5, 25 AT THE LIP. TUBE FEED STARTED AT 20 ML/HR AT 1430 AND INCREASED TO CURRENT RATE OF 30 ML/HR PER MD ORDER. TREJO OUTPUT 5-10 ML/HR. MD NOTIFIED. POC AT 1800 WAS 155, NO INSULIN GIVEN PER AUDIT SPECIALIST. Q2H REPO, BARRIER CREAM APPLIED, PINK FOAM TO COCCYX FOR PROTECTION. TOES NOTED TO BE CYONOTIC AND COLD WITH FAINT PULSES NOTED, SOCKS APPLIED AND ELEVATED ON PILLOWS. VANIA GIANG [phone] WILL BE PRIMARY CONTACT FOR ALL UPDATES. PT LIVES WITH VANIA KNOX AND RECEIVES HELP FROM AN STAND UP COMEDIAN FROM [facility]. BOTH SONS UPDATED BY THIS RN.
[2020-07-26 18:37] LABS: Glucose, Whole Blood 155 mg/dL (60-115)
[2020-07-26] MEDS: propofoL 1,000 MG/100 ML VIAL 8.34 MG IVCONT (20:09)
[2020-07-26] MEDS: Famotidine/PF 20 MG/2 ML VIAL IVPUSH (20:09)
[2020-07-27] VITALS (34 sets, daily range): BP systolic 100–141; BP diastolic 36–66; PULSE 63–95; RESP 12–34; TEMP 36.7–37.7; O2SAT 90–100; BMI 16.5
[2020-07-27 00:21] LABS: Glucose, Whole Blood 173 mg/dL (60-115)
[2020-07-27] MEDS: Albumin Human 25 % 100 ML IV ×2 (00:55→08:45)
[2020-07-27] MEDS: Albuterol/Iprat 2.5/0.5MG 3 ML AMPUL.NEB INHALE ×5 (01:07→23:53)
[2020-07-27] MEDS: propofoL 1,000 MG/100 ML VIAL 11.91 MG IVCONT ×2 (05:03→13:01)
[2020-07-27] MEDS: Chlorhexidine Gluc Oral Rinse 15 ML MOUTHWASH BUCCAL ×3 (05:03→20:44)
[2020-07-27] MEDS: Heparin Sodium,Porcine 5,000 UNIT/ML VIAL 5000 UNIT SUBCUT ×3 (05:03→20:44)
[2020-07-27 05:04] LABS: Glucose, Whole Blood 186 mg/dL (60-115)
[2020-07-27] MEDS: Insulin Lispro 100 UNIT/ML 3 ML VIAL SUBCUT ×2 (05:04→23:55)
[2020-07-27 05:51] LABS: Hemoglobin 9.2 g/dl (12.0-16.0); Neutrophils Absolute Auto 7.8 X10*3/uL (2.0-8.3); PLT CLUMP 1; SCAN SMEAR FLAG 1
[2020-07-27 05:53] LABS: Hematocrit 28.3 % (37-47); Imm Gran Abs Auto 0.04 X10*3/uL (0.00-0.03); Imm Gran Pct Auto 0.5 % (0.0-0.4); Lymphocytes Absolute Auto 0.5 X10*3/uL (1.2-4.9); Lymphocytes Percent Auto 5.3 % (20-40); Mean Corpuscular HGB Conc 32.5 g/dl (31.0-35.0); Mean Corpuscular Hemoglobin 28.8 pg (27.0-33.0); Mean Corpuscular Volume 88.7 fL (80-98); Mean Platelet Volume 10.5 fL (9.4-12.3); Monocytes Absolute Auto 0.3 X10*3/uL (0.1-1.2); Monocytes Percent Auto 3.7 % (2-11); Neutrophils Percent Auto 90.5 % (45-73); Platelet Count 144 X10*3/uL (160-400); Red Blood Count 3.19 X10*6/uL (4.20-5.50); Red Cell Distribution Width 12.2 % (11.0-16.0); White Blood Count 8.6 X10*3/uL (4.8-10.8)
[2020-07-27 05:57] LABS: MANUAL DIFF FLAG SCAN
[2020-07-27 06:05] LABS: Base Excess VBG 3.8 mmol/L; HCO3 VBG 28 mmol/L; Oxygen Saturation VBG 83.1 %; PCO2 VBG 38 mmhg; PO2 VBG 43 mmhg; pH VBG 7.48 (7.32-7.43)
[2020-07-27 06:19] LABS: SLIDE REVIEW VERIFIED
--- NOTE | 2020-07-27 06:29 | PC.NURSE ---
Aren updated at start of shift. Wanted to inform nursing staff that patient will be extremely anxious when sedation is turned off. He reports that she is very afraid of being intubated and will probably try to self-extubate. Patient rouses easily. Fearful/anxious. Tremulous. Tearful. Follows commands at times, mostly agitated and restless. Propofol up to 50 mcg/kg/min for comfort. Remains on levo for bp support. SR 70's-90's. Mostly synchronous with vent. Overbreathes w/ RR up to 28-30. Satting 99-100% on 30% fio2. Tolerating tube feed at goal with max residual 80 cc. No stool. UOP total 200 cc this shift. TRAINING ADMINISTRATOR aware. Toes cyanotic, improving over course of shift. Buttocks pink, blanchable, intact. Foam applied. Repo Q2H. Airloss in place. Will request Fyber system this am.
[2020-07-27 06:35] LABS: Albumin Level 4.1 g/dL (3.5-5.0); Anion Gap 10 (12-20); Blood Urea Nitrogen 31 mg/dL (9-16); Calcium 9.1 mg/dL (8.4-10.2); Carbon Dioxide 34 mmol/L (22-29); Chloride 104 mmol/L (96-108); Creatinine Clr Calc Pharmacy 41.1; Estimated Glomerular Filt Rate > 60; Glucose Random 165 mg/dL (60-115); Magnesium 2.3 mg/dL (1.6-2.6); Phosphorus 0.7 mg/dL (2.7-4.5); Potassium 4.1 mmol/l (3.3-5.1); Sodium 144 mmol/L (135-145)
[2020-07-27 08:22] LABS: Glucose, Whole Blood 225 mg/dL (60-115)
[2020-07-27] MEDS: Famotidine/PF 20 MG/2 ML VIAL IVPUSH ×2 (08:52→20:44)
[2020-07-27] MEDS: Potassium Phosphate 30 MMOL in 0.9 % Sodium Chloride 500 ML 85 MMOL IV (08:54)
--- NOTE | 2020-07-27 11:00 | CA_ITS ---
Transthoracic Echocardiogram Patient (Last, First, Middle): Mariam Thakkar, Gender: Female Date of : 1950 Age: 69 Procedure Date: 07/27/2020 Procedure Type: Transthoracic Echocardiogram Location: ICU Height: 152.4 cm Weight: 38.1 kg BSA: 1.29 m2 Heart Rate: bpm BP: 126 / 56 mmHg Pharmacy Technician Assistant: ERICA Referring MD: Deng Ruiz Adjunct Political Science Instructor: Francisco J Smith MD Symptoms: acute resp failure w bulging JVD; r/o right heart failure Study Quality: Fair ECG Rhythm: Sinus Conclusions: - 1. Normal LV systolic and diastolic function 2. RV size appears mildly dilated but these are off axis views 3. Oapl-qu-hwwzetje TR 4. RV systolic pressure cannot be accurately calculated but RV to RA gradient is at 32 mm of mercury 5. Right atrial pressure difficult to calculate as patient is on positive-pressure ventilator 6. No pericardial effusion Findings Left Ventricle Normal left ventricular size, thickness, and systolic function. The visually estimated ejection fraction is between 60-65%. Diastolic function is normal for age. Right Ventricle Mildly increased right ventricular cavity size. There is normal right ventricular systolic function. Atria Both atria are normal in size. There is no evidence of interatrial shunt. Aortic Valve The aortic valve structure and function is likely normal. There is no aortic valve stenosis. There is no aortic valve regurgitation. Mitral Valve Normal mitral valve structure and function. There is trace mitral valve regurgitation. There is no mitral valve stenosis. Pulmonic Valve The pulmonic valve was not well visualized. Tricuspid Valve Likely normal tricuspid valve structure and function. There is mild to moderate tricuspid valve regurgitation. Great Vessels All visible segments of the aorta are normal in size. Venous The inferior vena cava is collapsed, consistent with reduced intravascular volume and collapses less than 50% with inspiration. patient on positive pressure ventilation Pericardium/Pleural There is no evidence of pericardial effusion. Prior Study Comparison No prior study available for comparison. Measurements 2D Linear Measurements IVSd: 0.75 0.6-0.9/0.6-1.0 cm LVIDd: 2.74 3.9-5.3/4.2-5.9 cm LVIDd Index: 2.12 2.4-3.2/2.2-3.1 cm/m2 LVIDs: 1.46 2.0-3.6 cm LVPWd: 0.77 0.7-1.1 cm Ao Root: 2.80 2.1-3.5 cm LA Diam: 2.80 2.7-3.8/3.0-4.0 cm LAIDs Index: 2.17 1.5-2.3 cm/m2 LV Mass: 58.44 67-162/88-224 g LV Mass Index: 45.30 43-95/49-115 g/m2 LVOT Diam: 2.00 3.0+(-)1.3 cm Mitral Valve MV Pk E: 0.90 MV PK A: 0.71 MV Decel Time: 190.00 E/A: 1.30 E'Lateral: 7.54 E'Medial: 7.64 E/E' Med: 11.80 E/E' Lat: 12.00 PHT: 56.00 MVA PHT: 3.93 Decel [place]: 4.75 Aortic Valve AoV Pk Boris: 1.33 AoV Mn Boris: 0.79 AoV VTI: 0.30 AoV Pk Grad: 7.00 Aov Mn Grad: 3.00 REHAN Cont.VTI: 1.66 LVOT LVOT Pk Boris: 0.64 LVOT Mn Boris: 0.43 LVOT VTI: 0.16 LVOT Pk Grad: 2.00 LVOT Mn Grad: 1.00 LVOT Diam: 2.00 LVOT Area: 3.14 Diastolic Function MV Pk E: 0.90 MV Pk A: 0.71 E/A: 1.30 E'Medial: 7.64 E/E' Med: 11.80 E' Laterial: 7.54 E/E' Lat: 12.00 Tricuspid Valve TR Pk Boris: 2.81 TR Pk Grad: 32.00 Great Vessels Aorta Ao Root-2D: 2.80 2.0-3.7 cm Ao Asc: 3.30 2.1-3.4 cm Pulmonary Valve PV Pk Boris: 0.98 Peak PV Grad: 4.00 Updated in Other Vendor System with Status of Final Francisco J Smith MD electronically signed on 07/27/2020 4:41:05 PM with status of Final
--- NOTE | 2020-07-27 11:06 | MHC.CLN ---
RECOMMEND PROMOTE AT MAX GOAL RATE 45CC/HR PROVIDES 1080KCALS (1394 WITH SEDATION; 35KCALS/KG), 67.5G PROTEIN (1.7G/KG), 906CC WATER FROM FORMULA. PT WITH SEVERE MALNUTRITION. MONITOR FOR RE-FEEDING, LYTES, TOELRANCE AND RESIDUALS
[2020-07-27] MEDS: fentaNYL citrate/NS 1,000 MCG/100 ML PLAST..BAG 7.5 MCG IVCONT (11:07)
[2020-07-27 12:02] LABS: Glucose, Whole Blood 148 mg/dL (60-115)
--- NOTE | 2020-07-27 12:07 | MHC.CM.PN ---
Spoke with son, Aren, HCP [phone]. Per Aren, his mother has been failing over the last year. Has always been thin, but has been failing over the past 2 weeks. He lives in [place]. and last saw his mother last year, but speaks to her frequently and she has been too weak to speak with him lately. Aren tells me she has services through [facility], with a PCP 20 hours a week. Aren tells CM that his mother was in [facility] for rehab and contracted [facility] in March. Aren cannot confirm her PCP. Aren does tell me his mother has a psychiatrist and therapist, as she has panic and anxiety. Has not been diagnosed with depression, but Aren feels she is depressed and then does not eat. Aren tells me pt lives with his brother,Nick, who works 12 hour days for [employer] and his mother spends much time alone. He tells CM pt uses a walker and home oxygen. Call placed to [facility] and [facility] to verify service and HCP. Aren tells CM that Dr. Ruiz spoke to him today and informed him that his mother has a mass in her chest, as well as her current conditon. Intubated and vented. IMM reviewed with Aren and copy mailed per protocol. Will continue to follow for d/c needs.
[2020-07-27 12:31] LABS: SARS COV2 IgG Positive (Negative)
--- NOTE | 2020-07-27 14:26 | MHC.CM.PN ---
Received fax from [facility], including last visit and HCP. Of note, pt reported she did not feel safe at home and felt she needed to go to rehab in April. PT evaluation found her balance and coordination lacking, being impacted by her COPD. Also received her HCP. Will scan into [facility] and have scanned into her medical record.
[2020-07-27] MEDS: Azithromycin 500 MG in 0.9 % Sodium Chloride 250 ML 125 MG IV (14:38)
--- NOTE | 2020-07-27 15:52 | PM.CCPN ---
Subjective Subjective Date of Service: 07/28/20 Interval History: Mrs. Thakkar was admitted to ICU yesterday (07/26) for acute hypoxemic and hypercarbic respiratory failure. The patient is a 69-year-old female with a long history smoking and COPD. There is a question of whether she wears oxygen at home. In April, the patient had an ER visit at [facility] on April 29. Those records indicate that the patient was cachectic at that time, and that she had tested COVID positive 2 months earlier. She was treated that day in the ER for shortness of breath. She stayed in the ER overnight being treated with bronchodilators and steroids. During the course of her evaluation, she underwent a COVID PCR test which was negative, and a CT angiogram to rule out pulmonary embolism. There was no pulmonary embolism, but she was noted to have a 3.5 cm mass in her left upper lobe that was very suggestive of a malignancy. According to those chart notes, she was told about that left upper lobe mass and the implications there of. By the next day she was well enough to go to [place] for rehab. At baseline, the patient lives at home with her son. She lives in a single floor house (no stairs). She gets around by holding onto furniture. Does not use any aids. She has [employer] help. Her son is a [employer] boom truck driver, works 12hrs/day, doesn?t have much time to support his mother. I spoke by telephone today at some length with her other son Aren ([phone]) who lives in [place]. Neither of the two sons had in the idea that she has a lung mass that is probably a malignancy. When I asked Aren why she only weighs 86 lb, he couldn?t give me a good explanation. As far as he knew, she was eating OK. He also was of the understanding that she had stopped smoking months ago, but the patient had recently told him that she was smoking up until a week ago. Yesterday, EMS was called to the house in the morning because of altered mental status and shortness of breath culminating several days of dyspnea. At the scene, the patient was found to have a sat of 68% on 2L NC, with cyanosis and AMS. She was given DuoNeb, CPAP, solumedrol, magnesium, and IM epi - with no improvement en route. The patient was brought in by ambulance to the ED. Labs in the ED showed a bicarb of 41 (suggesting chronic CO2 retention). A blood gas in the ED supposedly on 40% oxygen showed 7.36/61/156/+6. The patient was intubated for acute hypoxic and hypercapnic respiratory failure secondary to COPD exacerbation. She was then admitted to ICU and started on a regimen of bronchodilators, steroids, Zithromax, and propofol/fentanyl for sedation. On exam this morning, she?s on Fent 75ug, propofol 50ug, and Levophed 0.09ug. She is well sedated. See vital signs below. Heart rate is 95. Blood pressure 124/63. On AC 16/380/25%/+5, PIP is 20cm, auto PEEP is +1, respiratory rate is 16, ETCO2 is 46, and the sat is 93%. She is afebrile. She has bulging JVD to the angle of the mandible. Chest is clear to auscultation, but I am unable to hear the expiratory phase. There is no wheeze but the expiratory phase seems slightly prolonged. Abdomen is benign. She has no peripheral edema. She is cachectic. LABORATORY DATA: As below. ECHOCARDIOGRAM: I watched the tech do the bedside echo. Findings: 1. The left ventricle is hyperdynamic with ejection fraction greater than 60%. No regional wall motion abnormalities were noted. 2. Right ventricle was top-normal sized or mildly dilated. 3. Tricuspid valve continuous wave Doppler signal measured 2.5 m/sec (gradient 25mm) 4. IVC was dilated with minimal inspiratory collapse, if any. Estimated CVP 15 mm. Estimated RVSP is therefore 40 mm. IMPRESSION: 1. Heavy tobacco abuse. 2. COPD with chronic CO2 retention 3. Acute on chronic respiratory failure with hypoxia and hypercapnia: 4. COPD exacerbation. Continue bronchodilators. Wean steroids. Continue Zithromax for anti-inflammatory effect. 5. Hypotension. Secondary to requirements for sedation. No evidence of sepsis. 6. ? Left apical malignancy. Workup as an outpatient. Will have Oncology see the patient while she is here. 7. Severe protein calorie malnutrition. Needs long-term solution. She might need a PEG. Critical care time (including extended d/w social work/case management, extended tel call with son, and extended rev of [facility] records): 90+ min. Physical Exam Vital Signs: Vital Signs: Last Vital Signs Temp 98.2 F 07/27/20 15:00 Pulse 89 07/27/20 15:00 Resp 16 07/27/20 15:00 BP 117/59 L 07/27/20 15:00 Pulse Ox 94 07/27/20 15:00 Body Mass Index 16.5 Objective Data Labs CBC & Chem 7: 07/27/20 05:25 07/28/20 08:55 Labs: Laboratory Results - last 24 hr 07/26/20 07/26/20 07/27/20 09:33 18:31 00:16 WBC RBC Hgb Hct MCV MCH MCHC RDW Plt Count MPV Immature Gran % (Auto) Neut % (Auto) Lymph % (Auto) Bailey % (Auto) Eos % (Auto) Baso % (Auto) Lymph # (Auto) Bailey # (Auto) Eos # (Auto) Baso # (Auto) Abs Immat Gran (auto) Absolute Neuts (auto) Absolute Nucleated RBC Nucleated RBC % (auto) Smear Tech's Comments VBG pH VBG pCO2 VBG pO2 VBG HCO3 VBG O2 Saturation VBG Base Excess Sodium Potassium Chloride Carbon Dioxide Anion Gap BUN Creatinine Estim Creat Clear Calc Estimated GFR POC Glucose 225 H 155 H 173 H Random Glucose Calcium Phosphorus Magnesium Albumin SARS-CoV-2 IgG Ab 07/27/20 07/27/20 07/27/20 05:01 05:25 05:25 WBC 8.6 RBC 3.19 L D Hgb 9.2 L D Hct 28.3 L D MCV 88.7 MCH 28.8 MCHC 32.5 RDW 12.2 Plt Count 144 L MPV 10.5 Immature Gran % (Auto) 0.5 H Neut % (Auto) 90.5 H Lymph % (Auto) 5.3 L Bailey % (Auto) 3.7 Eos % (Auto) 0.0 Baso % (Auto) 0.0 Lymph # (Auto) 0.5 L Bailey # (Auto) 0.3 Eos # (Auto) 0.0 Baso # (Auto) 0.0 Abs Immat Gran (auto) 0.04 H Absolute Neuts (auto) 7.8 Absolute Nucleated RBC 0.000 Nucleated RBC % (auto) 0.0 Smear Tech's Comments VERIFIED VBG pH VBG pCO2 VBG pO2 VBG HCO3 VBG O2 Saturation VBG Base Excess Sodium 144 Potassium 4.1 Chloride 104 Carbon Dioxide 34 H Anion Gap 10 L BUN 31 H Creatinine 0.81 Estim Creat Clear Calc 41.1 Estimated GFR > 60 POC Glucose 186 H Random Glucose 165 H Calcium 9.1 Phosphorus 0.7 L* Magnesium 2.3 Albumin 4.1 SARS-CoV-2 IgG Ab 07/27/20 07/27/20 07/27/20 05:25 05:25 06:35 WBC RBC Hgb Hct MCV MCH MCHC RDW Plt Count MPV Immature Gran % (Auto) Neut % (Auto) Lymph % (Auto) Bailey % (Auto) Eos % (Auto) Baso % (Auto) Lymph # (Auto) Bailey # (Auto) Eos # (Auto) Baso # (Auto) Abs Immat Gran (auto) Absolute Neuts (auto) Absolute Nucleated RBC Nucleated RBC % (auto) Smear Tech's Comments VBG pH 7.48 H VBG pCO2 38 VBG pO2 43 VBG HCO3 28 VBG O2 Saturation 83.1 VBG Base Excess 3.8 Sodium Potassium Chloride Carbon Dioxide Anion Gap BUN Creatinine Estim Creat Clear Calc Estimated GFR POC Glucose Random Glucose Calcium Phosphorus Cancelled Magnesium Albumin SARS-CoV-2 IgG Ab Positive 07/27/20 11:59 WBC RBC Hgb Hct MCV MCH MCHC RDW Plt Count MPV Immature Gran % (Auto) Neut % (Auto) Lymph % (Auto) Bailey % (Auto) Eos % (Auto) Baso % (Auto) Lymph # (Auto) Bailey # (Auto) Eos # (Auto) Baso # (Auto) Abs Immat Gran (auto) Absolute Neuts (auto) Absolute Nucleated RBC Nucleated RBC % (auto) Smear Tech's Comments VBG pH VBG pCO2 VBG pO2 VBG HCO3 VBG O2 Saturation VBG Base Excess Sodium Potassium Chloride Carbon Dioxide Anion Gap BUN Creatinine Estim Creat Clear Calc Estimated GFR POC Glucose 148 H Random Glucose Calcium Phosphorus Magnesium Albumin SARS-CoV-2 IgG Ab Microbiology Microbiology Results: Microbiology 07/26/20 10:05 Blood - Venous Blood Culture - Preliminary No growth after 24 hours. 07/26/20 10:05 Blood - Venous Blood Culture - Preliminary No growth after 24 hours. 07/26/20 00:00 Urine clean catch - Clean Catch Midstream Urine Culture - Preliminary No growth to date. Progress Note: A&P Time Spent With Patient Time: Total time spent is greater than 50% in coordination of care (as documented) at patient's floor/unit and/or counseling patient: Total time spent with greater than 50% in coordination of care (as documented) at patient's floor/unit and/or counseling patient:: 0 Critical Care Time Critical Care Time (minutes): 90
--- NOTE | 2020-07-27 16:10 | PC.NURSE ---
pt remains intubated this shift beggining at AC 26 TV 375 FiO3 30% peep 30. at 9am Dr Carterp decreased rate to 16 and FiO2 to 21%. pt proceeded to de-sat to 88%Resp increased FiO2 to 25% where it has stayed. Pt is arousable to voice and touch, no bucking or coughing. Pt has decreased urine output as well 15ml/hr dr jewell aware. @ 1600 Dr jewell decreased RR to 12 and requested fent and prop to be decreased. Pt remains with increased residuals 200 this AM feed cut to 20ml/hr and despite 150ml residual this PM Dr jewell remains constant on tube feed. Dr Jewell also wants cut back on levo for pressure support
[2020-07-27 18:20] LABS: Glucose, Whole Blood 107 mg/dL (60-115)
[2020-07-27] MEDS: propofoL 1,000 MG/100 ML VIAL 9.53 MG IVCONT (20:44)
[2020-07-27 23:46] LABS: Glucose, Whole Blood 156 mg/dL (60-115)
[2020-07-28] VITALS (32 sets, daily range): BP systolic 100–151; BP diastolic 42–116; PULSE 12–98; RESP 12–24; TEMP 36.7–37.7; O2SAT 88–100; BMI 20.1
[2020-07-28] MEDS: Chlorhexidine Gluc Oral Rinse 15 ML MOUTHWASH BUCCAL (04:18)
[2020-07-28] MEDS: propofoL 1,000 MG/100 ML VIAL 9.53 MG IVCONT (04:34)
[2020-07-28] MEDS: fentaNYL citrate/NS 1,000 MCG/100 ML PLAST..BAG 5 MCG IVCONT (04:39)
[2020-07-28] MEDS: Albuterol/Iprat 2.5/0.5MG 3 ML AMPUL.NEB INHALE ×3 (04:55→20:47)
[2020-07-28 06:00] LABS: Glucose, Whole Blood 129 mg/dL (60-115)
[2020-07-28] MEDS: Famotidine/PF 20 MG/2 ML VIAL IVPUSH ×2 (08:04→21:44)
[2020-07-28 09:16] LABS: Base Excess VBG 5.4 mmol/L; HCO3 VBG 32 mmol/L; Oxygen Saturation VBG 80.8 %; PCO2 VBG 59 mmhg; PO2 VBG 46 mmhg; pH VBG 7.36 (7.32-7.43)
[2020-07-28 09:52] LABS: Alanine Aminotransferase 34 U/L (0-31); Albumin Level 4.1 g/dL (3.5-5.0); Alkaline Phosphatase 51 U/L (39-117); Aspartate Amino Transferase 34 U/L (5-31); Bilirubin Total 0.2 mg/dL (0.0-1.0); Blood Urea Nitrogen 41 mg/dL (9-16); Calcium 8.7 mg/dL (8.4-10.2); Creatinine Clr Calc Pharmacy 48.9; Estimated Glomerular Filt Rate > 60; Glucose Random 93 mg/dL (60-115); Phosphorus 3.3 mg/dL (2.7-4.5); Total Protein 5.7 g/dL (6.5-8.0)
[2020-07-28 10:08] LABS: Anion Gap 9 (12-20); Carbon Dioxide 34 mmol/L (22-29); Chloride 106 mmol/L (96-108); Sodium 144 mmol/L (135-145)
--- NOTE | 2020-07-28 10:30 | PC.NURSE ---
Addendum entered by Wendy Ferraro RN 07/28/20 14:14: Spoke to Patient's son/HCP, Aren, to provide an update. Informed him patient was extubated, placed on BiPAP and now on 2L NC. Patient able to speak to Aren and other son Nick via telephone. Original Note: At start of shift patient sedated on propofol. Fentanyl previously decreased to 25 mg/hr around 0630 by night RN per . Patient arousable to verbal stimuli but unable to follow commands. Propofol decreased to 30 mcg/hr. 0930 Propofol and levophed turned off per Dr. Ruiz with good effect, patient awake and following commands. Educated patient on plan to extubated, patient nodding head to understanding. Fentanyl titrated up to 50 mcg/hr per . RT and MD at bedside and patient switched to PS settings of 12/5 and 30% fi02 with 02 sats trending in the high 90s. 1015 Patient extubated by RT per MD order. Patient tolerated well. Placed on BiPAP 12/5 30%fio2. O2 sats trending in the high 90s. Restraints removed. Patient reoriented to place, time, and situations. Patient appears to be comfortable, resting with eyes closed but easily arousable to verbal stimuli with no patient complaints at this time. Will continue to monitor.
--- NOTE | 2020-07-28 11:21 | MHC.CLN ---
F/U POSSIBLE EXTUBATION TODAY PER MD IF TPN NEEDED; RECOMMEND D15 AA5% DAY ONE AT 30CC/HR TO PROVIDE 511KCALS, 36G PROTEIN (.9G/KG) DAY 2 INCREASE TO 50CC/HR TO PROVIDE 852KCALS, 60G PROTEIN (1.5G/KG) CHECK TRIG LEVEL DAY 3 ADD 14ML OF 20% LIPID SOLUTION X 12 HRS TO PROVIDE 1188KCALS (29KCALS/KG) REPLETE LYTES NEEDED, DISCUSSED WITH PHARMACY
--- NOTE | 2020-07-28 12:09 | PM.CCPN ---
Subjective Subjective Date of Service: 07/28/20 Interval History: Mrs. Thakkar was admitted to ICU July 26 for acute hypoxemic and hypercarbic respiratory failure. The patient is a 69-year-old female with a long history smoking and COPD. There is a question of whether she wears oxygen at home. In April, the patient had an ER visit at [facility] on April 29. Those records indicate that the patient was cachectic at that time, and that she had tested COVID positive 2 months earlier. She was treated that day in the ER for shortness of breath. She stayed in the ER overnight being treated with bronchodilators and steroids. During the course of her evaluation, she underwent a COVID PCR test which was negative, and a CT angiogram to rule out pulmonary embolism. There was no pulmonary embolism, but she was noted to have a 3.5 cm mass in her left upper lobe that was very suggestive of a malignancy. According to those chart notes, she was told about that left upper lobe mass and the implications there of. By the next day she was well enough to go to [place] for rehab. At baseline, the patient lives at home with her son. She lives in a single floor house (no stairs). She gets around by holding onto furniture. Does not use any aids. She has Felipe help. Her son is a [employer] race car driver, works 12hrs/day, doesn?t have much time to support his mother. I spoke by telephone today at some length with her other son Aren ([phone]) who lives in [place]. Neither of the two sons had in the idea that she has a lung mass that is probably a malignancy. When I asked Aren why she only weighs 86 lb, he couldn?t give me a good explanation. As far as he knew, she was eating OK. He also was of the understanding that she had stopped smoking months ago, but the patient had recently told him that she was smoking up until a week ago. On Jul 26, EMS was called to the house in the morning because of altered mental status and shortness of breath culminating several days of dyspnea. At the scene, the patient was found to have a sat of 68% on 2L NC, with cyanosis and AMS. She was given DuoNeb, CPAP, solumedrol, magnesium, and IM epi - with no improvement en route. The patient was brought in by ambulance to the ED. Labs in the ED showed a bicarb of 41 (suggesting chronic CO2 retention). A blood gas in the ED supposedly on 40% oxygen showed 7.36/61/156/+6. The patient was intubated for acute hypoxic and hypercapnic respiratory failure secondary to COPD exacerbation. She was then admitted to ICU and started on a regimen of bronchodilators, steroids, Zithromax, and propofol/fentanyl for sedation. The next day, her vent settings and sedation were tapered. On exam this morning, she?s on Fent 25ug, propofol 30ug, and Levophed 0.08ug. She is lightly sedated. See Vital Signs below. Heart rate is 82. Blood pressure 130/65. On AC 12/380/25%/+5, PIP is 21cm, auto PEEP is +1, respiratory rate is 20, Ve 6.8L, and the sat is 94%. This morning?s CVBG showed 7.33/59/+5. She is afebrile. She still has bulging JVD to the angle of the mandible. Chest is clear to auscultation, but I am unable to hear the expiratory phase. There is no wheeze and the exp phase is prob normal today. Abdomen is benign. She has no peripheral edema. She is cachectic. LABORATORY DATA: As below. ECHOCARDIOGRAM yesterday: 1. Hyperdynamic w EF > 60%. No RWMAs. 2. RV mildly dilated. 3. Tricuspid valve CWD signal measured 2.5 m/sec (gradient 25mm) 4. IVC was dilated with minimal inspiratory collapse, if any. Estimated CVP 15 mm. Estimated RVSP is therefore 40 mm. IMPRESSION: 1. Heavy tobacco abuse. 2. COPD with chronic CO2 retention 3. Acute on chronic respiratory failure with hypoxia and hypercapnia: 4. COPD exacerbation. Continue bronchodilators. Wean steroids. Continue Zithromax for anti-inflammatory effect. 5. Hypotension. Secondary to requirements for sedation. No evidence of sepsis. 6. ? Left apical malignancy. Workup as an outpatient. Discussed with Dr. Cedeno. Refer to Oncology when she?s ready for discharge. 7. Severe protein calorie malnutrition. Needs long-term solution. She might need a PEG. Will start TPN now. Will discuss PEG with her tomorrow. We changed her over to PSV in the morning with no problem. Minute vol still reasonable. Extubated to BiPAP without incident later in the morning, then in early afternoon changed her over to 2L NC. Been doing well. Staying alert. Sat 91%. CVBG at 5pm showed 7.33/63/+4. Critical care time: 70+ min. Physical Exam Vital Signs: Vital Signs: Last Vital Signs Temp 98.8 F 07/28/20 10:59 Pulse 92 07/28/20 11:38 Resp 21 H 07/28/20 11:38 BP 145/64 H 07/28/20 10:59 Pulse Ox 92 07/28/20 10:59 Body Mass Index 20.1 Objective Data Labs CBC & Chem 7: 07/27/20 05:25 07/28/20 08:55 Labs: Laboratory Results - last 24 hr 07/27/20 07/27/20 07/27/20 06:35 18:15 23:42 VBG pH VBG pCO2 VBG pO2 VBG HCO3 VBG O2 Saturation VBG Base Excess Sodium Potassium Chloride Carbon Dioxide Anion Gap BUN Creatinine Estim Creat Clear Calc Estimated GFR POC Glucose 107 156 H Random Glucose Calcium Phosphorus Total Bilirubin AST ALT Alkaline Phosphatase Total Protein Albumin SARS-CoV-2 IgG Ab Positive 07/28/20 07/28/20 07/28/20 05:27 08:55 08:55 VBG pH 7.36 VBG pCO2 59 VBG pO2 46 VBG HCO3 32 VBG O2 Saturation 80.8 VBG Base Excess 5.4 Sodium 144 Potassium 5.0 D Chloride 106 Carbon Dioxide 34 H Anion Gap 9 L BUN 41 H Creatinine 0.78 Estim Creat Clear Calc 48.9 Estimated GFR > 60 POC Glucose 129 H Random Glucose 93 D Calcium 8.7 Phosphorus 3.3 Total Bilirubin 0.2 AST 34 H ALT 34 H Alkaline Phosphatase 51 D Total Protein 5.7 L Albumin 4.1 SARS-CoV-2 IgG Ab Microbiology Microbiology Results: Microbiology 07/26/20 00:00 Urine clean catch - Clean Catch Midstream Urine Culture - Final No growth. 07/26/20 10:05 Blood - Venous Blood Culture - Preliminary No growth after 24 hours. 07/26/20 10:05 Blood - Venous Blood Culture - Preliminary No growth after 24 hours. Progress Note: A&P Time Spent With Patient Time: Total time spent is greater than 50% in coordination of care (as documented) at patient's floor/unit and/or counseling patient: Total time spent with greater than 50% in coordination of care (as documented) at patient's floor/unit and/or counseling patient:: 0 Critical Care Time Critical Care Time (minutes): 60
[2020-07-28 12:16] LABS: Base Excess VBG 4.3 mmol/L; HCO3 VBG 31 mmol/L; Oxygen Saturation VBG 71.9 %; PCO2 VBG 56 mmhg; PO2 VBG 39 mmhg; pH VBG 7.36 (7.32-7.43)
[2020-07-28 12:24] LABS: Glucose, Whole Blood 127 mg/dL (60-115)
[2020-07-28] MEDS: Heparin Sodium,Porcine 5,000 UNIT/ML VIAL 5000 UNIT SUBCUT ×2 (13:31→23:26)
[2020-07-28] MEDS: Dextrose 5 % 250 ML IVCONT (13:32)
[2020-07-28] MEDS: Azithromycin 500 MG in 0.9 % Sodium Chloride 250 ML 125 MG IV (13:38)
--- NOTE | 2020-07-28 14:19 | MHC.CM.PN ---
Per MD rounds, will extubate today. Will start TPN today. Per RN notes, pt extubated today, BiPAP and eventual wean to 2L/ NC. Pt alert and orientated. Pt spoke with sons on telephone. Will reassess d/c plan with pt tomorrow. Anticipate STR.
[2020-07-28] MEDS: Dextrose 5 % 1,000 ML 75 ML IVCONT (14:42)
[2020-07-28] MEDS: LORazepam 0.5 MG TABLET PO ×2 (15:43→23:37)
[2020-07-28 17:44] LABS: PCO2 VBG 63 mmhg; PO2 VBG 44 mmhg; pH VBG 7.33 (7.32-7.43)
[2020-07-28 17:45] LABS: Base Excess VBG 4.6 mmol/L; Blood Gas Serial # 5414; HCO3 VBG 32 mmol/L; Oxygen Saturation VBG 77.1 %
[2020-07-28] MEDS: ondansetron HCL 4 MG/2 ML VIAL IVPUSH (18:08)
[2020-07-29] VITALS (26 sets, daily range): BP systolic 117–152; BP diastolic 50–78; PULSE 71–93; RESP 13–26; TEMP 36.7–37.6; O2SAT 88–100; BMI 19.1
[2020-07-29] MEDS: Albuterol/Iprat 2.5/0.5MG 3 ML AMPUL.NEB INHALE ×4 (01:25→18:10)
--- NOTE | 2020-07-29 02:31 | PC.NURSE ---
CARE ASSUMED 23;15...AWAKE...ORIENTED X3...REMAINS BIPAP 12/5 AND FIO2 25%..SAO2 89-93%...Ve 6-9 L/M...RESPIRATIONS EASY AT REST....HYPERAL 30 CC/HR...FENTANYL 25 MCG/HR...PER ICU PA FENTANYL WEANED TO 12.5 MCG/HR & D5W TO REMAIN ON HOLD....PATIENT C/O FEELING ANXIOUS WITH BIPAP...PRN ATIVAN PO GIVEN... I TAKE IT AT HOME WHEN I GET LIKE THIS ..RESTFUL AFTER ATIVAN...DENIES DISCOMFORT OR NAUSEA...TREJO YELLOW URINE
[2020-07-29 05:56] LABS: Imm Gran Abs Auto 0.04 X10*3/uL (0.00-0.03); Imm Gran Pct Auto 0.4 % (0.0-0.4); MANUAL DIFF FLAG SCAN; Mean Platelet Volume 10.8 fL (9.4-12.3); Monocytes Percent Auto 2.8 % (2-11); PLT CLUMP 1; SCAN SMEAR FLAG 1
[2020-07-29 05:58] LABS: Hematocrit 29.5 % (37-47); Lymphocytes Absolute Auto 0.4 X10*3/uL (1.2-4.9); Lymphocytes Percent Auto 3.9 % (20-40); Mean Corpuscular HGB Conc 30.5 g/dl (31.0-35.0); Mean Corpuscular Hemoglobin 28.5 pg (27.0-33.0); Mean Corpuscular Volume 93.4 fL (80-98); Monocytes Absolute Auto 0.3 X10*3/uL (0.1-1.2); Neutrophils Absolute Auto 8.6 X10*3/uL (2.0-8.3); Neutrophils Percent Auto 92.9 % (45-73); Platelet Count 109 X10*3/uL (160-400); Red Blood Count 3.16 X10*6/uL (4.20-5.50); Red Cell Distribution Width 13.2 % (11.0-16.0); White Blood Count 9.2 X10*3/uL (4.8-10.8)
[2020-07-29 06:22] LABS: SLIDE REVIEW VERIFIED
[2020-07-29 06:26] LABS: Anion Gap 9 (12-20); Blood Urea Nitrogen 31 mg/dL (9-16); Calcium 8.4 mg/dL (8.4-10.2); Carbon Dioxide 35 mmol/L (22-29); Chloride 101 mmol/L (96-108); Creatinine Clr Calc Pharmacy 54.4; Estimated Glomerular Filt Rate > 60; Glucose Random 146 mg/dL (60-115); Sodium 140 mmol/L (135-145)
[2020-07-29 06:35] LABS: Base Excess VBG 3.9 mmol/L; HCO3 VBG 30 mmol/L; Oxygen Saturation VBG 75.8 %; PCO2 VBG 55 mmhg; PO2 VBG 40 mmhg; pH VBG 7.36 (7.32-7.43)
[2020-07-29] MEDS: ondansetron HCL 4 MG/2 ML VIAL IVPUSH (10:31)
[2020-07-29] MEDS: Heparin Sodium,Porcine 5,000 UNIT/ML VIAL 5000 UNIT SUBCUT ×2 (11:08→21:39)
[2020-07-29] MEDS: Famotidine/PF 20 MG/2 ML VIAL IVPUSH ×2 (11:08→21:39)
--- NOTE | 2020-07-29 12:13 | MHC.CM.PN ---
Patient remains in ICU. Extubated 07/28. Currently on bipap. Per Dr Ruiz, he will discuss placing a Peg with the patient for nutritional replacement. Patient is from home with a [employer]. She will need a PT eval for home safety when medically stable. Continue to monitor for d/c needs.
--- NOTE | 2020-07-29 12:20 | MHC.CLN ---
F/U DAY 2 TPN INCREASE TO 50CC/HR TO PROVIDE 852KCALS (1158KCALS WITH D5W; 29KCALS/KG), 60G PROTEIN (1.5G/KG) CHECK TRIG LEVEL; DISCUSSED WITH PHARMACY MD TO DISCUSS POSSIBLE PEG PLACEMENT MONITOR VAN
--- NOTE | 2020-07-29 12:24 | P.PNCC_ITS ---
Subjective Subjective Date of Service: 07/29/20 Interval History: Mrs. Thakkar was admitted to ICU July 26 for acute hypoxemic and hypercarbic respiratory failure. The patient is a 69-year-old female with a long history of smoking and COPD. There is a question of whether she wears oxygen at home. In April, the patient had an ER visit at [facility] on April 29. Those records indicate that the patient was cachectic at that time, and that she had tested COVID positive 2 months earlier. She was treated that day in the ER for shortness of breath. She stayed in the ER overnight being treated with bronchodilators and steroids. During the course of her evaluation, she underwent a COVID PCR test which was negative, and a CT angiogram to rule out pulmonary embolism. There was no pulmonary embolism, but she was noted to have a 3.5 cm mass in her left upper lobe that was very suggestive of a malignancy. According to those chart notes, she was told about that left upper lobe mass and the implications thereof. By the next day she was well enough to go to [place] for rehab. At baseline, the patient lives at home with her son. [facility] She gets around by holding onto furniture. Does not use any aids. She has Felipe help. Her son is a [employer] driver's education instructor, works 12hrs/day, doesn?t have much time to support his mother. I spoke by telephone today at some length with her other son Aren ([phone]) who lives in [place]. Neither of the two sons had in the idea that she has a lung mass that is probably a malignancy. When I asked Aren why she only weighs 86 lb, he couldn?t give me a good explanation. As far as he knew, she was eating OK. He also was of the understanding that she had stopped smoking months ago, but the patient had recently told him that she was smoking up until a week ago. On the morning of Jul 26, EMS was called to the house because of altered mental status and shortness of breath culminating several days of dyspnea. At the scene, the patient was found to have a sat of 68% on 2L NC, with cyanosis and AMS. She was given DuoNeb, CPAP, solumedrol, magnesium, and IM epi - with no improvement en route. The patient was brought in by ambulance to the ED. Labs in the ED showed a bicarb of 41 (suggesting chronic CO2 retention). A blood gas in the ED supposedly on 40% oxygen showed 7.36/61/156/+6. The patient was intubated for acute hypoxemic and hypercapnic respiratory failure secondary to COPD exacerbation. She was then admitted to ICU and started on a regimen of bronchodilators, steroids, Zithromax, and propofol/fentanyl for sedation. On Jul 27 her vent settings and sedation were tapered. She was easily extubated to BiPAP the next morning (yesterday), and spent the day on 2L NC with Sat?s in the low 90?s. She spent last night on BiPAP electively, set on 1 2/5/25%. This morning central venous gas showed pH 7.36, pCO2 55, base excess +3. We took her off BiPAP onto 2L NC and she?s breathing easy, Sat 100%. See Vital Signs below. Turned NC down to 1L and she?s Sat?ing low 90?s. Heart rate is 22. Blood pressure 126/59. She is afebrile. She still has bulging JVD to the angle of the mandible. Chest is clear to auscultation, but I am unable to hear the expiratory phase. There is no wheeze and the exp phase is prob normal. Abdomen is benign. She has no peripheral edema. She is cachectic. LABORATORY DATA: As below. ECHOCARDIOGRAM on Jul 27: 1. Hyperdynamic w EF > 60%. No RWMAs. 2. RV mildly dilated. 3. Tricuspid valve CWD signal measured 2.5 m/sec (gradient 25mm) 4. IVC was dilated with minimal inspiratory collapse, if any. Estimated CVP 15 mm. Estimated RVSP is therefore 40 mm. IMPRESSION: 1. Heavy tobacco abuse. 2. COPD with chronic CO2 retention 3. Acute on chronic respiratory failure with hypoxemia and hypercapnia: 4. COPD exacerbation. Continue bronchodilators. Wean steroids: I?ll change her to prednison3 40mg. Continue Zithromax for anti-inflammatory effect: I?ll change her to 250 mg po daily. 5. Left apical lung mass, likely malignancy. Workup as an outpatient. Discussed with Dr. Cedeno. Refer to Oncology when she?s ready for discharge. 6. Protein calorie malnutrition. We started her on TPN for a few days but she needs long-term solution. She?ll need intensive dietary management and calorie checks on the outside, and if inadequate, might need a PEG. I spoke to her son Aren ([phone]) about this at length. She is [place] [facility] [place] Should not need noninvasive ventilation any further. Signed out to Dr. Bryan. Time: . Physical Exam Vital Signs: Vital Signs: Last Vital Signs Temp 99.3 F 07/29/20 11:00 Pulse 80 07/29/20 12:00 Resp 22 H 07/29/20 12:00 BP 126/59 L 07/29/20 12:00 Pulse Ox 100 07/29/20 12:00 Body Mass Index 19.1 Objective Data Labs CBC & Chem 7: 07/29/20 05:30 07/29/20 05:30 Labs: Laboratory Results - last 24 hr 07/28/20 07/28/20 07/29/20 12:20 17:31 05:30 WBC 9.2 RBC 3.16 L Hgb 9.0 L Hct 29.5 L MCV 93.4 MCH 28.5 MCHC 30.5 L RDW 13.2 Plt Count 109 L MPV 10.8 Immature Gran % (Auto) 0.4 Neut % (Auto) 92.9 H Lymph % (Auto) 3.9 L [place] % (Auto) 2.8 Eos % (Auto) 0.0 Baso % (Auto) 0.0 Lymph # (Auto) 0.4 L [place] # (Auto) 0.3 Eos # (Auto) 0.0 Baso # (Auto) 0.0 Abs Immat Gran (auto) 0.04 H Absolute Neuts (auto) 8.6 H Absolute Nucleated RBC 0.000 Nucleated RBC % (auto) 0.0 Smear Tech's Comments VERIFIED VBG pH 7.33 VBG pCO2 63 VBG pO2 44 VBG HCO3 32 VBG O2 Saturation 77.1 VBG Base Excess 4.6 Sodium Potassium Chloride Carbon Dioxide Anion Gap BUN Creatinine Estim Creat Clear Calc Estimated GFR POC Glucose 127 H Random Glucose Calcium Phosphorus Magnesium 07/29/20 07/29/20 05:30 05:30 WBC RBC Hgb Hct MCV MCH MCHC RDW Plt Count MPV Immature Gran % (Auto) Neut % (Auto) Lymph % (Auto) [place] % (Auto) Eos % (Auto) Baso % (Auto) Lymph # (Auto) [place] # (Auto) Eos # (Auto) Baso # (Auto) Abs Immat Gran (auto) Absolute Neuts (auto) Absolute Nucleated RBC Nucleated RBC % (auto) Smear Tech's Comments VBG pH 7.36 VBG pCO2 55 VBG pO2 40 VBG HCO3 30 VBG O2 Saturation 75.8 VBG Base Excess 3.9 Sodium 140 Potassium 5.0 Chloride 101 Carbon Dioxide 35 H Anion Gap 9 L BUN 31 H Creatinine 0.70 Estim Creat Clear Calc 54.4 Estimated GFR > 60 POC Glucose Random Glucose 146 H D Calcium 8.4 Phosphorus 3.0 Magnesium 2.0 Microbiology Microbiology Results: Microbiology 07/26/20 10:05 Blood - Venous Blood Culture - Preliminary No growth after 48 hours. 07/26/20 10:05 Blood - Venous Blood Culture - Preliminary No growth after 48 hours. 07/26/20 00:00 Urine clean catch - Clean Catch Midstream Urine Culture - Final No growth. Progress Note: A&P Time Spent With Patient Time: Total time spent is greater than 50% in coordination of care (as documented) at patient's floor/unit and/or counseling patient: Total time spent with greater than 50% in coordination of care (as documented) at patient's floor/unit and/or counseling patient:: 0
[2020-07-29] MEDS: Azithromycin 250 MG TABLET PO (14:09)
--- NOTE | 2020-07-29 14:56 | PC.NURSE ---
Pt alert and vague to time/place/situation, anxious at times, reoriented with good effect pt vomiting bile this am, zofran given with good effect pt initially on bipap this am, placed on nasal cannula per md by rt, on 2L pt noted to be desating after taking sips of water, md aware, speech consult ordered, pt to be NPO per speech, will need a barium swallow.
[2020-07-30] VITALS (11 sets, daily range): BP systolic 117–168; BP diastolic 57–72; PULSE 74–100; RESP 16–20; TEMP 36.2–37.1; O2SAT 93–100; BMI 18.5
[2020-07-30] MEDS: Albuterol/Iprat 2.5/0.5MG 3 ML AMPUL.NEB INHALE ×4 (01:37→23:48)
[2020-07-30] MEDS: Famotidine/PF 20 MG/2 ML VIAL IVPUSH ×2 (06:49→22:14)
[2020-07-30 07:05] LABS: Base Excess VBG 6.8 mmol/L; HCO3 VBG 34 mmol/L; Oxygen Saturation VBG 61.5 %; PCO2 VBG 59 mmhg; PO2 VBG 34 mmhg; pH VBG 7.37 (7.32-7.43)
[2020-07-30 07:09] LABS: Anion Gap 7 (12-20); Blood Urea Nitrogen 26 mg/dL (9-16); Calcium 8.4 mg/dL (8.4-10.2); Carbon Dioxide 37 mmol/L (22-29); Chloride 102 mmol/L (96-108); Creatinine Clr Calc Pharmacy 57.2; Estimated Glomerular Filt Rate > 60; Glucose Random 105 mg/dL (60-115); Magnesium 2.1 mg/dL (1.6-2.6); Phosphorus 3.1 mg/dL (2.7-4.5); Potassium 3.9 mmol/l (3.3-5.1); Sodium 142 mmol/L (135-145)
[2020-07-30] MEDS: Fluticasone/Vilanterol 200/25 BLST.W.DEV 1 PUFF INHALE (07:14)
[2020-07-30] MEDS: LORazepam 2 MG/ML VIAL 0.25 MG IVPUSH (10:32)
--- NOTE | 2020-07-30 11:04 | MHC.PIE ---
Patient anxious about barium swallow test - wants to eat. Patient getting TPN through central line at this time. Patient educated about plan and we can reassess diet w/ MD once test is complete. Initially refusing test. Dr Agosto made aware of patient anxiety. Dr Agosto came to bedside and reassured patient and educated her as well about test - Patient agreed to do test and also medicated w/ one time dose of 0.25mg IVP ativan @ 1032. Patient acting less anxious, agreeable to plan of care. Coccyx pink, blanchable. No open areas noted. Repos Q2h. Heels elevated on pillow.
--- NOTE | 2020-07-30 11:09 | MHC.SLORD ---
Patient is scheduled for MBSS at 1:30pm today. MD notified. Name: Mariam Thakkar Date of : 1950 Age: 69 Date of Registration: 07/26/20 Speech Language Pathology Order Status:
[2020-07-30] MEDS: Heparin Sodium,Porcine 5,000 UNIT/ML VIAL 5000 UNIT SUBCUT ×2 (12:48→22:14)
--- NOTE | 2020-07-30 13:30 | FL_ITS ---
EXAMINATION: FL MODIFIED BARIUM SWALLOW CLINICAL INFORMATION: Recently extubated. Hypoxia during feeding. Assess for aspiration.. COMPARISON: Chest radiographs 07/26/2020 TECHNIQUE: Modified barium swallow examination is performed with imaging in the lateral view and the presence of the speech pathologist using a variety of barium consistencies. The exam is performed with fluoroscopic evaluation, videofluoroscopy, and some fluoroscopic spot views. Fluoroscopy time: 2.8 minutes DAP: 0.991 Gycm2 Fluoroscopic spot images: 2 FINDINGS: Right internal jugular catheter overlies the neck. There is no nasopharyngeal or laryngeal penetration or aspiration. Some incidental transient undercoating of the epiglottis is seen during swallowing. There is some posterior lingual escape with filling of the vallecula during semisolid and solid barium consistency but this probably clears with swallowing. See speech pathologist report for further assessment and recommendation. FL/FL barium swallow modified IMPRESSION: 1. No aspiration or laryngeal penetration. 2. See speech pathologist report for further assessment and recommendation.
--- NOTE | 2020-07-30 14:05 | P.PNIM_ITS ---
Subjective Subjective Date of Service: 07/30/20 Interval History: PATIENT SEEN AND EXAMINED AT BEDSIDE patient was reporting being anxious and weakness Constitutional Constitutional: Reports weakness and Reports weight loss Cardiovascular Cardiovascular: Reports dyspnea Respiratory Respiratory: Reports cough and Reports dyspnea Gastrointestinal Gastrointestinal: Denies vomiting Neurologic Neurologic: Reports weakness Physical Exam Vital Signs: Vital Signs: Last Vital Signs Temp 97.9 F 07/30/20 12:00 Pulse 80 07/30/20 12:01 Resp 20 07/30/20 12:00 BP 168/72 H 07/30/20 12:00 Pulse Ox 97 07/30/20 12:00 Body Mass Index 18.5 Eyes: Sclerae: sclerae normal Neck: Neck: Yes no lymphadenopathy, Yes trachea midline and Yes supple Resp: Auscultation: wheezes expiratory wheezes Cardio: Rate: regular rate Rhythm: regular rhythm Heart sounds: no gallops, no murmurs and no rubs GI: Palpation (GI): Soft to palpation and Other GI palpation findings present ( Nontender) Auscultation: normal bowel sounds Extrem: General: Yes no pedal edema, No clubbing and No cyanosis Objective Data Current Medications Generic Name Dose Route Start Last Admin Trade Name Freq PRN Reason Stop Dose Admin Albuterol Sulfate 2 puff 07/29/20 16:44 Albuterol Sulfate 90 Mcg 8 Gm Inhaler INHALE Q4H PRN Shortness Of Breath Or Wheezing Albuterol/Ipratropium 3 ml 07/26/20 12:30 07/30/20 11:54 Albuterol/Iprat 2.5/0.5mg 3 Ml Ampul.Neb INHALE 3 ml Q6H SANDI Administration Azithromycin 250 mg 07/29/20 14:00 07/29/20 14:09 Azithromycin 250 Mg Tablet PO 250 mg Q24H SANDI Administration Famotidine 20 mg 07/26/20 21:00 07/30/20 06:49 Famotidine/Pf 20 Mg/2 Ml Vial IVPUSH 20 mg BID SANDI Administration Fluticasone/Vilanterol 1 puff 07/30/20 08:00 07/30/20 07:14 Fluticasone/Vilanterol 200/25 Blst.W.Dev INHALE 1 puff RDAILY SANDI Administration Heparin Sodium (Porcine) 5,000 unit 07/28/20 11:00 07/30/20 12:48 Heparin Sodium,Porcine 5,000 Unit/Ml Vial SUBCUT 5,000 unit Q12H SANDI Administration Magnesium Sulfate 16 meq/ 2,032.7 mls @ 50 mls/hr 07/29/20 18:00 07/29/20 19:58 Sodium Phosphate 30 mmol/ IVCONT 07/30/20 17:59 50 mls/hr Multivitamins 17 ml/ Trace DAILY@1800 SANDI Administration Metals 1.7 ml/ Amino Acids/ Dextrose Magnesium Sulfate 16 meq/ 1,200 mls @ 50 mls/hr 07/30/20 18:00 Sodium Phosphate 30 mmol/ IVCONT 07/31/20 17:59 Multivitamins 17 ml/ Trace DAILY@1800 SANDI Metals 1.7 ml/ Amino Acids/ Dextrose Lorazepam 0.5 mg 07/28/20 14:50 07/28/20 23:37 Lorazepam 0.5 Mg Tablet PO 0.5 mg Q8H PRN Administration Anxiety Lorazepam 0.5 mg 07/29/20 16:44 Lorazepam 0.5 Mg Tablet PO Q12H PRN anxiety Ondansetron HCl 4 mg 07/28/20 18:02 07/29/20 10:31 Ondansetron Hcl 4 Mg/2 Ml Vial IVPUSH 4 mg Q4H PRN Administration nausea/vomiting Prednisone 40 mg 07/29/20 13:00 07/30/20 06:50 Prednisone 20 Mg Tablet PO Not Given DAILY [facility] Tiotropium [place] 2 puff 07/30/20 08:00 07/30/20 07:14 Tiotropium [place] 18 Mcg Cap.W.Dev INHALE 2 puff RDAILY [facility] Administration Labs CBC & Chem 7: 07/29/20 05:30 07/30/20 05:41 Microbiology Microbiology Results: Microbiology 07/26/20 10:05 Blood - Venous Blood Culture - Preliminary No growth after 48 hours. 07/26/20 10:05 Blood - Venous Blood Culture - Preliminary No growth after 48 hours. 07/26/20 00:00 Urine clean catch - Clean Catch Midstream Urine Culture - Final No growth. Assessment and Plan (1) Acute on chronic respiratory failure with hypoxia and hypercapnia: Status: Acute Assessment and Plan: Assessment: 69-year-old lady, active smoker, admitted with acute hypoxic and hypercapnic respiratory failure secondary to COPD exacerbation requiring intubation and ventilatory support. patient was extubated given significant weight loss , and failed swallow evaluation patient was started on TPN, patient underwent modified barium swallow test and speech recommended ground mechanical and thin liquids Acute hypoxic and hypercapnic respiratory failure secondary to COPD exacerbation continue oxygen supplementation continue IV steroids continue nebulizer continue azithromycin CT chest with evidence of a left apical mass, given significant history of smoking follow-up Oncology as outpatient DVT prophylaxis heparin (2) Acute exacerbation of chronic obstructive airways disease: Status: Acute (3) Lung mass: Status: Acute (4) Severe protein-calorie malnutrition: Status: Acute
[2020-07-30] MEDS: Azithromycin 250 MG TABLET PO (15:21)
--- NOTE | 2020-07-30 16:41 | PC.NURSE ---
stitch welder recorded by ZARI confirmed by Kaylee DOSHI RN
--- NOTE | 2020-07-30 19:39 | PC.NURSE ---
awake overnight monitor recorded by ZARI,confirmed by GLENDA Quezada RN
[2020-07-31] VITALS (11 sets, daily range): BP systolic 117–144; BP diastolic 55–62; PULSE 80–108; RESP 18–20; TEMP 36.4–36.9; O2SAT 93–99
[2020-07-31] MEDS: Albuterol/Iprat 2.5/0.5MG 3 ML AMPUL.NEB INHALE ×3 (07:29→18:16)
[2020-07-31] MEDS: Fluticasone/Vilanterol 200/25 BLST.W.DEV 1 PUFF INHALE (07:30)
[2020-07-31] MEDS: Famotidine/PF 20 MG/2 ML VIAL IVPUSH ×2 (08:50→20:31)
[2020-07-31] MEDS: predniSONE 20 MG TABLET 40 MG PO (08:50)
[2020-07-31 11:56] LABS: Eosinophils Absolute Auto 0.1 X10*3/uL (0.0-0.4); Eosinophils Percent Auto 0.6 % (0-4); Hematocrit 32.4 % (37-47); Imm Gran Abs Auto 0.04 X10*3/uL (0.00-0.03); Imm Gran Pct Auto 0.4 % (0.0-0.4); Lymphocytes Absolute Auto 0.3 X10*3/uL (1.2-4.9); Lymphocytes Percent Auto 3.4 % (20-40); MANUAL DIFF FLAG SCAN; Mean Corpuscular HGB Conc 30.9 g/dl (31.0-35.0); Mean Corpuscular Hemoglobin 27.9 pg (27.0-33.0); Mean Corpuscular Volume 90.3 fL (80-98); Mean Platelet Volume 9.8 fL (9.4-12.3); Monocytes Absolute Auto 0.3 X10*3/uL (0.1-1.2); Monocytes Percent Auto 3.3 % (2-11); Neutrophils Absolute Auto 8.6 X10*3/uL (2.0-8.3); Neutrophils Percent Auto 92.3 % (45-73); Platelet Count 146 X10*3/uL (160-400); Red Blood Count 3.59 X10*6/uL (4.20-5.50); Red Cell Distribution Width 12.6 % (11.0-16.0); SCAN SMEAR FLAG 1; White Blood Count 9.3 X10*3/uL (4.8-10.8)
[2020-07-31 12:16] LABS: SLIDE REVIEW VERIFIED
[2020-07-31 12:18] LABS: Anion Gap 10 (12-20); Blood Urea Nitrogen 22 mg/dL (9-16); Calcium 8.6 mg/dL (8.4-10.2); Carbon Dioxide 35 mmol/L (22-29); Chloride 103 mmol/L (96-108); Creatinine Clr Calc Pharmacy 56.4; Estimated Glomerular Filt Rate > 60; Glucose Random 120 mg/dL (60-115); Potassium 4.3 mmol/l (3.3-5.1); Sodium 144 mmol/L (135-145)
--- NOTE | 2020-07-31 13:08 | HO.PM.IMPN ---
Subjective Subjective Date of Service: 07/31/20 Interval History: patient seen and examined at bedside patient was reporting being anxious and shortness of breath Constitutional Constitutional: Reports weakness and Reports weight loss Cardiovascular Cardiovascular: Reports dyspnea Respiratory Respiratory: Reports cough and Reports dyspnea Gastrointestinal Gastrointestinal: Denies vomiting Neurologic Neurologic: Reports weakness Physical Exam Vital Signs: Vital Signs: Last Vital Signs Temp 98.3 F 07/31/20 11:44 Pulse 94 07/31/20 11:44 Resp 18 07/31/20 11:44 BP 136/55 L 07/31/20 11:44 Pulse Ox 93 07/31/20 11:44 Body Mass Index 18.5 Eyes: Sclerae: sclerae normal Neck: Neck: Yes no lymphadenopathy, Yes trachea midline and Yes supple Resp: Auscultation: wheezes expiratory wheezes Cardio: Rate: regular rate Rhythm: regular rhythm Heart sounds: no gallops, no murmurs and no rubs GI: Palpation (GI): Soft to palpation and Other GI palpation findings present ( Nontender) Auscultation: normal bowel sounds Extrem: General: Yes no pedal edema, No clubbing and No cyanosis Objective Data Current Medications Generic Name Dose Route Start Last Admin Trade Name Freq PRN Reason Stop Dose Admin Albuterol Sulfate 2 puff 07/29/20 16:44 Albuterol Sulfate 90 Mcg 8 Gm Inhaler INHALE Q4H PRN Shortness Of Breath Or Wheezing Albuterol/Ipratropium 3 ml 07/26/20 12:30 07/31/20 11:22 Albuterol/Iprat 2.5/0.5mg 3 Ml Ampul.Neb INHALE 3 ml Q6H SANDI Administration Azithromycin 250 mg 07/29/20 14:00 07/30/20 15:21 Azithromycin 250 Mg Tablet PO 250 mg Q24H SANDI Administration Famotidine 20 mg 07/26/20 21:00 07/31/20 08:50 Famotidine/Pf 20 Mg/2 Ml Vial IVPUSH 20 mg BID SANDI Administration Fluticasone/Vilanterol 1 puff 07/30/20 08:00 07/31/20 07:30 Fluticasone/Vilanterol 200/25 Blst.W.Dev INHALE 1 puff RDAILY SANDI Administration Heparin Sodium (Porcine) 5,000 unit 07/28/20 11:00 07/31/20 12:18 Heparin Sodium,Porcine 5,000 Unit/Ml Vial SUBCUT Not Given Q12H REPLACED BY [facility] Magnesium Sulfate 16 meq/ 1,200 mls @ 50 mls/hr 07/30/20 18:00 07/30/20 18:50 Sodium Phosphate 30 mmol/ IVCONT 07/31/20 17:59 50 mls/hr Multivitamins 17 ml/ Trace DAILY@1800 [facility] Administration Metals 1.7 ml/ Amino Acids/ Dextrose Lorazepam 0.5 mg 07/28/20 14:50 07/28/20 23:37 Lorazepam 0.5 Mg Tablet PO 0.5 mg Q8H PRN Administration Anxiety Lorazepam 0.5 mg 07/29/20 16:44 Lorazepam 0.5 Mg Tablet PO Q12H PRN anxiety Ondansetron HCl 4 mg 07/28/20 18:02 07/29/20 10:31 Ondansetron Hcl 4 Mg/2 Ml Vial IVPUSH 4 mg Q4H PRN Administration nausea/vomiting Prednisone 40 mg 07/29/20 13:00 07/31/20 08:50 Prednisone 20 Mg Tablet PO 40 mg DAILY [facility]PL[facility] Administration Tiotropium [place] 2 puff 07/30/20 08:00 07/31/20 07:30 Tiotropium [place] 18 Mcg Cap.W.Dev INHALE 2 puff RDAILY REPLACED BY [facility] Administration Labs CBC & Chem 7: 07/31/20 11:44 07/31/20 11:44 Microbiology Microbiology Results: Microbiology 07/26/20 10:05 Blood - Venous Blood Culture - Final No growth after 5 days. 07/26/20 10:05 Blood - Venous Blood Culture - Final No growth after 5 days. 07/26/20 00:00 Urine clean catch - Clean Catch Midstream Urine Culture - Final No growth. Assessment and Plan (1) Acute on chronic respiratory failure with hypoxia and hypercapnia: Status: Acute Assessment and Plan: Assessment: 69-year-old lady, active smoker, admitted with acute hypoxic and hypercapnic respiratory failure secondary to COPD exacerbation requiring intubation and ventilatory support. patient was extubated given significant weight loss , and failed swallow evaluation patient was started on TPN, patient underwent modified barium swallow test and speech recommended ground mechanical and thin liquids Acute hypoxic and hypercapnic respiratory failure secondary to COPD exacerbation Still short of breath continue oxygen supplementation continue steroids continue nebulizer continue azithromycin CT chest with evidence of a left apical mass, Given significant history of smoking follow-up Oncology dr sellers as outpatient for further workup Severe malnutrition weight loss difficulty swallowing was on TPN underwent modified barium swallow test speech recommended ground mechanical and thin liquids p.o. intake improving will stop TPN continue ground mechanical and thin liquids continue nutrition supplements DVT prophylaxis heparin (2) Acute exacerbation of chronic obstructive airways disease: Status: Acute (3) Lung mass: Status: Acute (4) Severe protein-calorie malnutrition: Status: Acute
[2020-07-31] MEDS: Azithromycin 250 MG TABLET PO (14:08)
--- NOTE | 2020-07-31 15:22 | MHC.CM.PN ---
DP resumption of home services already in place Felipe vs STR. cm will follow to assess for dc needs.
--- NOTE | 2020-07-31 18:15 | PC.NURSE ---
Pt repos self, some assistance needed at times. Isaac removed at 1530, DTV [id number]. Pt up twice since isaac removal and voided 125 each time. Pt weak, needing assistance with getting to bedside commode. Pt able to make needs known. She is now eating well at meals.
[2020-07-31] MEDS: LORazepam 0.5 MG TABLET PO (20:32)
[2020-08-01] VITALS (9 sets, daily range): BP systolic 104–126; BP diastolic 50–59; PULSE 75–93; RESP 14–20; TEMP 36.6–37.1; O2SAT 94–100; BMI 19.0
[2020-08-01] MEDS: Fluticasone/Vilanterol 200/25 BLST.W.DEV 1 PUFF INHALE (07:27)
[2020-08-01] MEDS: Famotidine/PF 20 MG/2 ML VIAL IVPUSH ×2 (08:25→20:22)
[2020-08-01] MEDS: predniSONE 20 MG TABLET 40 MG PO (08:25)
--- NOTE | 2020-08-01 11:01 | MHC.CLN ---
F/U PT OFF TPN TRIAL PARALEGAL RECOMMENDS GRD/MS DIET PO INTAKE 75/100% YESTERDAY PT RECEIVING ENSURE TID PROVIDES 1050KCALS, 60G PROTEIN WT UP 10# SINCE ADMISSION FOLLOWING
[2020-08-01] MEDS: Albuterol Sulfate 90 MCG 8 GM INHALER 2 PUFF INHALE (11:17)
[2020-08-01] MEDS: Azithromycin 250 MG TABLET PO (15:10)
--- NOTE | 2020-08-01 15:44 | HO.PM.IMPN ---
Subjective Subjective Date of Service: 08/01/20 Interval History: Seen in f/u for resp failure due to copd and was in icu intubated and is doing better Review of Systems Gen: no fever Resp: no sob, no cough CV: no chest, no [place], no leg edema GI: No n/v, no abd pain Neuro: No confusion Physical Exam Vital Signs: Vital Signs: Last Vital Signs Temp 98.7 F 08/01/20 11:23 Pulse 88 08/01/20 11:23 Resp 18 08/01/20 11:23 BP 112/55 L 08/01/20 11:23 Pulse Ox 94 08/01/20 11:23 Body Mass Index 19.0 General: AO X 3, no acute distress Resp: CTA bilateral CVS: S1,S2,RRR GI: +BS, NT, no distention Skin: No rash Neuro: motor grossly intact Psych: appropriate affect Objective Data Current Medications Generic Name Dose Route Start Last Admin Trade Name Freq PRN Reason Stop Dose Admin Albuterol Sulfate 2 puff 07/29/20 16:44 08/01/20 11:17 Albuterol Sulfate 90 Mcg 8 Gm Inhaler INHALE 2 puff Q4H PRN Administration Shortness Of Breath Or Wheezing Albuterol/Ipratropium 3 ml 07/26/20 12:30 08/01/20 11:17 Albuterol/Iprat 2.5/0.5mg 3 Ml Ampul.Neb INHALE Not Given Q6H SANDI Azithromycin 250 mg 07/29/20 14:00 08/01/20 15:10 Azithromycin 250 Mg Tablet PO 250 mg Q24H SANDI Administration Famotidine 20 mg 07/26/20 21:00 08/01/20 08:25 Famotidine/Pf 20 Mg/2 Ml Vial IVPUSH 20 mg BID SANDI Administration Fluticasone/Vilanterol 1 puff 07/30/20 08:00 08/01/20 07:27 Fluticasone/Vilanterol 200/25 Blst.W.Dev INHALE 1 puff RDAILY SANDI Administration Heparin Sodium (Porcine) 5,000 unit 07/28/20 11:00 08/01/20 10:23 Heparin Sodium,Porcine 5,000 Unit/Ml Vial SUBCUT Not Given Q12H SANDI Lorazepam 0.5 mg 07/28/20 14:50 07/31/20 20:32 Lorazepam 0.5 Mg Tablet PO 0.5 mg Q8H PRN Administration Anxiety Lorazepam 0.5 mg 07/29/20 16:44 Lorazepam 0.5 Mg Tablet PO Q12H PRN anxiety Ondansetron HCl 4 mg 07/28/20 18:02 07/29/20 10:31 Ondansetron Hcl 4 Mg/2 Ml Vial IVPUSH 4 mg Q4H PRN Administration nausea/vomiting Prednisone 40 mg 07/29/20 13:00 08/01/20 08:25 Prednisone 20 Mg Tablet PO 40 mg DAILY SANDI Administration Tiotropium [place] 2 puff 07/30/20 08:00 08/01/20 07:27 Tiotropium [place] 18 Mcg Cap.W.Dev INHALE 2 puff RDAILY SANDI Administration Labs CBC & Chem 7: 07/31/20 11:44 07/31/20 11:44 Microbiology Microbiology Results: Microbiology 07/26/20 10:05 Blood - Venous Blood Culture - Final No growth after 5 days. 07/26/20 10:05 Blood - Venous Blood Culture - Final No growth after 5 days. 07/26/20 00:00 Urine clean catch - Clean Catch Midstream Urine Culture - Final No growth. Assessment and Plan (1) Acute on chronic respiratory failure with hypoxia and hypercapnia: Status: Acute (2) Acute exacerbation of chronic obstructive airways disease: Status: Acute (3) Lung mass: Status: Acute (4) Severe protein-calorie malnutrition: Status: Acute Assessment and Plan: 69-year-old lady, active smoker, admitted with acute hypoxic and hypercapnic respiratory failure secondary to COPD exacerbation requiring intubation and ventilatory support. She was on TPN for severe malnutrition and cechexia but is doing much better. Acute hypoxic and hypercapnic respiratory failure secondary to COPD exacerbation -much improved, wean off O2, wean off steroid a -continue bronchodilators Left Apical mass--likely malignant, will follow up Dr. Cedeno for full work up, she has extensive history of smoking Severe Protein calort malnutrition with marked weight loss. She is off TPN, to eat high calory food Malignancy work up as above DVT prophylaxis heparin
--- NOTE | 2020-08-01 17:57 | PC.NURSE ---
Pt a&o, up to bed side commode with 1 assist. Pt takes pill in crushed in apple sauce, tolerating ground mechanical diet. Spoke with pt about d/c to rehab, pt wants to go so she can build up strength.
[2020-08-01] MEDS: Albuterol/Iprat 2.5/0.5MG 3 ML AMPUL.NEB INHALE (18:24)
[2020-08-01] MEDS: LORazepam 0.5 MG TABLET PO (20:23)
[2020-08-02] VITALS (9 sets, daily range): BP systolic 106–144; BP diastolic 46–62; PULSE 73–99; RESP 14–20; TEMP 36.6–36.9; O2SAT 95–100; BMI 19.1
[2020-08-02] MEDS: Albuterol/Iprat 2.5/0.5MG 3 ML AMPUL.NEB INHALE ×3 (07:39→17:59)
[2020-08-02] MEDS: Fluticasone/Vilanterol 200/25 BLST.W.DEV 1 PUFF INHALE (07:39)
[2020-08-02] MEDS: Famotidine/PF 20 MG/2 ML VIAL IVPUSH (08:33)
[2020-08-02] MEDS: predniSONE 20 MG TABLET 40 MG PO (08:33)
--- NOTE | 2020-08-02 10:44 | HO.PM.IMPN ---
Subjective Subjective Date of Service: 08/02/20 Interval History: Seen in f/u for resp failure due to copd and was in icu intubated and is doing better Review of Systems Gen: no fever Resp: no sob, no cough CV: no chest, no [place], no leg edema GI: No n/v, no abd pain Neuro: No confusion Physical Exam Vital Signs: Vital Signs: Last Vital Signs Temp 98.0 F 08/02/20 07:24 Pulse 73 08/02/20 07:24 Resp 16 08/02/20 07:24 BP 114/59 L 08/02/20 07:24 Pulse Ox 98 08/02/20 07:24 Body Mass Index 19.1 Objective Data Current Medications Generic Name Dose Route Start Last Admin Trade Name Freq PRN Reason Stop Dose Admin Albuterol Sulfate 2 puff 07/29/20 16:44 08/01/20 11:17 Albuterol Sulfate 90 Mcg 8 Gm Inhaler INHALE 2 puff Q4H PRN Administration Shortness Of Breath Or Wheezing Albuterol/Ipratropium 3 ml 07/26/20 12:30 08/02/20 07:39 Albuterol/Iprat 2.5/0.5mg 3 Ml Ampul.Neb INHALE 3 ml Q6H SANDI Administration Azithromycin 250 mg 07/29/20 14:00 08/01/20 15:10 Azithromycin 250 Mg Tablet PO 250 mg Q24H SANDI Administration Famotidine 20 mg 07/26/20 21:00 08/02/20 08:33 Famotidine/Pf 20 Mg/2 Ml Vial IVPUSH 20 mg BID SANDI Administration Fluticasone/Vilanterol 1 puff 07/30/20 08:00 08/02/20 07:39 Fluticasone/Vilanterol 200/25 Blst.W.Dev INHALE 1 puff RDAILY SANDI Administration Heparin Sodium (Porcine) 5,000 unit 07/28/20 11:00 08/01/20 20:25 Heparin Sodium,Porcine 5,000 Unit/Ml Vial SUBCUT Not Given Q12H SANDI Lorazepam 0.5 mg 07/28/20 14:50 07/31/20 20:32 Lorazepam 0.5 Mg Tablet PO 0.5 mg Q8H PRN Administration Anxiety Lorazepam 0.5 mg 07/29/20 16:44 08/01/20 20:23 Lorazepam 0.5 Mg Tablet PO 0.5 mg Q12H PRN Administration anxiety Ondansetron HCl 4 mg 07/28/20 18:02 07/29/20 10:31 Ondansetron Hcl 4 Mg/2 Ml Vial IVPUSH 4 mg Q4H PRN Administration nausea/vomiting Prednisone 40 mg 07/29/20 13:00 08/02/20 08:33 Prednisone 20 Mg Tablet PO 40 mg DAILY SANDI Administration Tiotropium [place] 2 puff 07/30/20 08:00 08/02/20 07:39 Tiotropium [place] 18 Mcg Cap.W.Dev INHALE 2 puff RDAILY SANDI Administration Labs CBC & Chem 7: 07/31/20 11:44 07/31/20 11:44 Microbiology Microbiology Results: Microbiology 07/26/20 10:05 Blood - Venous Blood Culture - Final No growth after 5 days. 07/26/20 10:05 Blood - Venous Blood Culture - Final No growth after 5 days. 07/26/20 00:00 Urine clean catch - Clean Catch Midstream Urine Culture - Final No growth. Assessment and Plan (1) Acute on chronic respiratory failure with hypoxia and hypercapnia: Status: Acute (2) Acute exacerbation of chronic obstructive airways disease: Status: Acute (3) Lung mass: Status: Acute (4) Severe protein-calorie malnutrition: Status: Acute Assessment and Plan: 69-year-old female with a long history of smoking and COPD. At baseline she is on 1 to 2 liters by MT. In April, the patient had an ER visit at [facility] on April 29. Those records indicate that the patient was cachectic at that time, and that she had tested COVID positive 2 months earlier. She was treated that day in the ER for shortness of breath. She stayed in the ER overnight being treated with bronchodilators and steroids. During the course of her evaluation, she underwent a COVID PCR test which was negative, and a CT angiogram to rule out pulmonary embolism. There was no pulmonary embolism, but she was noted to have a 3.5 cm mass in her left upper lobe that was very suggestive of a malignancy. According to those chart notes, she was told about that left upper lobe mass and the implications thereof. By the next day she was well enough to go to [place] for rehab. At baseline, the patient lives at home with her son. She lives in a single floor house (no stairs). She gets around by holding onto furniture. Does not use any aids. She has Felipe help. Her son is a [employer] local tanker truck driver, works 12hrs/day, doesn?t have much time to support his mother. I spoke by telephone today at some length with her other son Aren ([phone]) who lives in [place]. Neither of the two sons had in the idea that she has a lung mass that is probably a malignancy. When I asked Aren why she only weighs 86 lb, he couldn?t give me a good explanation. As far as he knew, she was eating OK. He also was of the understanding that she had stopped smoking months ago, but the patient had recently told him that she was smoking up until a week ago. On the morning of Jul 26, EMS was called to the house because of altered mental status and shortness of breath culminating several days of dyspnea. At the scene, the patient was found to have a sat of 68% on 2L NC, with cyanosis and AMS. She was given DuoNeb, CPAP, solumedrol, magnesium, and IM epi - with no improvement en route. The patient was brought in by ambulance to the ED. Labs in the ED showed a bicarb of 41 (suggesting chronic CO2 retention). A blood gas in the ED supposedly on 40% oxygen showed 7.36/61/156/+6. The patient was intubated for acute hypoxemic and hypercapnic respiratory failure secondary to COPD exacerbation. She was then admitted to ICU and started on a regimen of bronchodilators, steroids, Zithromax, and propofol/fentanyl for sedation. On Jul 27 her vent settings and sedation were tapered. She was easily extubated to BiPAP the next on 07/28/20, and put on nasal canula and put on BiPAP at night electivelyt on 07/11/25%. On 07/29/20 She was transfered to [facility] where she continues to be making progresss. Of note while in in the ICU she was initiated on TPN due to cachexia but this has since been discontinud. Problems: Acute hypoxic and hypercapnic respiratory failure secondary to COPD exacerbation --She required intubation for 3 days in ICU and has since been doing well. 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 Dr. Cedeno is aware of this and should have more work up on outpatient basisis Anxiety--Ativan PRN Severe Protein calory malnutrition with marked weight loss. She was briefly on TPN in ICU. She was subsequently seen by Nutritional and is doing well with Arianna. She?ll need intensive dietary management and calorie checks on the outside, and if inadequate, might need a PEG
--- NOTE | 2020-08-02 10:44 | MHC.CM.PN ---
Addendum entered by Swathi Felix 08/02/20 12:45: [facility] application no longer available online. CM will contact facility Monday to request royce. Original Note: CM met with pt who reports she does not think she could go home at this time. Pt reports she feels she needs STR and has been to several in the area. Pt reports she has been to [facility] and that is the only one she is unwilling to go to again. Pt reports this is where she contracted Covid 19/ Pt reports she has also been to a STR in [place] and a different one in [place], she is willing to go to either of those. Pt reports she would like to go to an SNF. Pt reports she lives with her son who works and she is alone much f the day. pt reports she also lives on the second floor in an apartment building and she is unable to get out due to the stairs. Pt reports she is isolated and cannot even make it to her doctors appointments. CM discussed how applying for an SNF works and explained that they would require whatever income she has to be signed over to them and she would be given a small allowance. Pt reported she was definitely interested in an [facility]. Local facilities were discussed and she requested an application to [facility]. CM explained that it may take time for the application process to be completed and for a bed to open. Pt plans to go to STR from here and hopes that she can transition from there to the SNF. CM will print a list of STRs for pt to review and make referrals based on her preferences. CM will also attempt to locate an application for [facility]. Pt is aware that if one cannot be obtained today, CM will contact the director of the [facility], Swathi, tomorrow and have one faxed over.
--- NOTE | 2020-08-02 13:17 | MHC.CM.PN ---
Referrals sent to [facility] and [facility], her first and second choices for STR respectively. Pt likely to be ready for DC tomorrow but will need a PT eval for STR placement.
[2020-08-02] MEDS: Azithromycin 250 MG TABLET PO (14:47)
--- NOTE | 2020-08-02 17:29 | PC.NURSE ---
Pt up to reclinder for most of day today. 1 assist to commode for voiding. Pt eating well, almost all of meals. A&O, able to make needs known. Repo's self, occasional assistance. TLC to R IJ removed by this RN, tip in tact, pt tolerated well. Spoke with pt's Son Aren, gave update. Pt resting in bed.
[2020-08-02] MEDS: LORazepam 0.5 MG TABLET PO (19:58)
[2020-08-03 04:00] VITALS: BP 105/55; PULSE 79; RESP 18; TEMP 36.7; O2SAT 100
[2020-08-03 06:00] VITALS: BMI 18.9
--- NOTE | 2020-08-03 06:40 | PC.NURSE ---
7p-7a shift; educated patient on use of telesitter for safety, patient refuses telesitter camera. Patient rings appropriately, 1 assist to commode. Patient alert and oriented.
[2020-08-03 07:25] VITALS: BP 105/60; PULSE 74; RESP 16; TEMP 36.6; O2SAT 94
[2020-08-03] MEDS: predniSONE 20 MG TABLET PO (08:43)
--- NOTE | 2020-08-03 10:18 | MHC.CM.PN ---
CM contacted Swathi Vu ([phone]), admissions assistant at [facility] who reported the application has not changed since [facility] took over the facility. CM informed her that this pt would be completing the application today and t/w would send it to her once ready. Swathi provided an email address and indicated this is the best way to submit the application. [email or web address] Application given to pt who will fill it out this morning. Pt also informed [facility] is offering a bed. Pt aware she will likely be discharged today.
--- NOTE | 2020-08-03 10:26 | MHC.CM.PN ---
CM received a message from [facility]. they are offering this pt a bed however they will need the results of a new covid swab and they need her to arrive at the facility prior to one pt. CM will message MD and pts nurse and request early DC
--- NOTE | 2020-08-03 10:34 | P.DS_ITS ---
DS: Providers Provider Date of admission: 07/26/20 12:25 Primary care physician: Keegan Stover MD DS: Diagnosis Discharge Diagnosis (1) Acute on chronic respiratory failure with hypoxia and hypercapnia: Status: Acute (2) Acute exacerbation of chronic obstructive airways disease: Status: Acute (3) Lung mass: Status: Acute (4) Severe protein-calorie malnutrition: Status: Acute DS: Medications Discharge Medications Home Medications: Home Medications Medication Instructions Recorded Confirmed Breo Ellipta 1 inh INHALATION DAILY 07/26/20 07/27/20 Spiriva Respimat 2 puff INHALATION DAILY 07/26/20 07/27/20 albuterol sulfate 2 puff INHALATION Q4H PRN 07/26/20 07/27/20 lorazepam 1 tab PO Q12H PRN 07/26/20 07/27/20 prednisone 2 tab PO DAILY 07/26/20 07/27/20 venlafaxine 1 tab PO DAILY 07/26/20 07/27/20 Previous Rx's Medication Instructions Recorded ipratropium-albuterol 3 ml INHALATION Q6H PRN #180 ml 08/03/20 lorazepam 0.5 mg PO Q8H PRN #20 tab 08/03/20 prednisone 20 mg PO DAILY #2 tab 08/03/20 DS: Summary Hospital Course Hospital Course: 69-year-old female with a long history of smoking and COPD. At baseline she is on 1 to 2 liters by [place]. In April, the patient had an ER visit at [facility] on April 29. Those records indicate that the patient was cachectic at that time, and that she had tested COVID positive 2 months earlier. She was treated that day in the ER for shortness of breath. She stayed in the ER overnight being treated with bronchodilators and steroids. During the course of her evaluation, she underwent a COVID PCR test which was negative, and a CT angiogram to rule out pulmonary embolism. There was no pulmonary embolism, but she was noted to have a 3.5 cm mass in her left upper lobe that was very suggestive of a malignancy. According to those chart notes, she was told about that left upper lobe mass and the implications thereof. By the next day she was well enough to go to [place] for rehab. At baseline, the patient lives at home with her son. She lives in a single floor house (no stairs). She gets around by holding onto furniture. Does not use any aids. She has Felipe help. Her son is a [employer] jin[employer]ks[employer] driver, works 12 hrs/day, doesn?t have much time to support his mother. I spoke by telephone today at some length with her other son Aren ([phone]) who lives in [place]. Neither of the two sons had in the idea that she has a lung mass that is probably a malignancy. When I asked Aren why she only weighs 86 lb, he couldn?t give me a good explanation. As far as he knew, she was eating OK. He also was of the understanding that she had stopped smoking months ago, but the patient had recently told him that she was smoking up until a week ago. On the morning of Jul 26, EMS was called to the house because of altered mental status and shortness of breath culminating several days of dyspnea. At the scene, the patient was found to have a sat of 68% on 2L NC, with cyanosis and AMS. She was given DuoNeb, CPAP, solumedrol, magnesium, and IM epi - with no improvement en route. The patient was brought in by ambulance to the ED. Labs in the ED showed a bicarb of 41 (suggesting chronic CO2 retention). A blood gas in the ED supposedly on 40% oxygen showed 7.36/61/156/+6. The patient was intubated for acute hypoxemic and hypercapnic respiratory failure secondary to COPD exacerbation. She was then admitted to ICU and started on a regimen of bronchodilators, steroids, Zithromax, and propofol/fentanyl for sedation. On Jul 27 her vent settings and sedation were tapered. She was easily extub ated to BiPAP the next on 07/28/20, and put on nasal canula and put on BiPAP at night electivelyt on 07/11/25%. On 07/29/20 She was transfered to [facility] where she continues to be making progresss. Of note while in in the ICU she was initiated on TPN due to cachexia but this has since been discontinud. Problems: Acute hypoxic and hypercapnic respiratory failure secondary to COPD exacerbation --She required intubation for 3 days in ICU and has since been doing well. 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 Dr. Cedeno is aware of this and should have more work up on outpatient basisis Anxiety--Ativan PRN Severe Protein calory malnutrition with marked weight loss. She was briefly on TPN in ICU. She was subsequently seen by Nutritional and is doing well with Puree. She?ll need intensive Status at Discharge Overall status at discharge: patient is progressing back to baseline Time Spent with Patient Time attestation: Total time spent providing and/or coordinating discharge services: Discharge coordination time: Greater than 30 minutes Physical Exam Vital Signs: Vital Signs: Last Vital Signs Temp 98 F 08/03/20 07:25 Pulse 74 08/03/20 07:25 Resp 16 08/03/20 07:25 BP 105/60 08/03/20 07:25 Pulse Ox 94 08/03/20 07:25 Body Mass Index 18.9 General: AO X 3, no acute distress, chectic Resp: CTA bilateral CVS: S1,S2,RRR GI: +BS, NT, no distention Skin: No rash Neuro: motor grossly intact Psych: appropriate affect DS: Data Data Completed and Pending Labs on day of discharge: 07/26/20 XR chest 1V Stat 07/26/20 00:00 Urine Culture Routine 07/26/20 09:33 Glucose, Whole Blood Routine 07/26/20 09:35 Insert/maintain urinary catheter NOW Albuterol Sulfate (0.083%) [Ventolin (0.083%)] 5 mg INHALE ONCE ONE Consult Rx Perform Med Rec 1 each MISCELLANE ONCE PRN Etomidate [Amidate] 10 mg IVPUSH ONCE ONE Naloxone HCl [Narcan] 0.2 mg IVPUSH Q2M PRN Rocuronium [place] [Zemuron] 50 mg IVPUSH ONCE ONE fentaNYL citrate/NS [Sublimaze/NS] 1,000 mcg in 100 ml IVCONT As directed levoFLOXacin/D5W [Levaquin] 500 mg in 100 ml IV ONCE ABG (RT) ONCE 07/26/20 09:36 ECG 12 lead EKG Stat EKG Documentation DIRECTED CT chest wo con Stat CT head/brain wo con Stat 07/26/20 09:45 0.9 % Sodium Chloride [Ns] 500 ml IV 500 mls/hr Midazolam HCl/NS [Versed] 50 mg in 50 ml IVCONT 2 mg/hr fentaNYL citrate/NS [Sublimaze/NS] 1,000 mcg in 100 ml IVCONT Per Protocol mcg/hr 07/26/20 09:57 Magnesium Sulfate/H2O 2 gm in 50 ml IV As directed methylPREDNISolone Sod Succ/PF [SOLU-MedroL] 125 mg .ROUTE .STK-MED ONE 07/26/20 10:00 0.9 % Sodium Chloride [Ns] 1,000 ml IVCONT 999 mls/hr 0.9 % Sodium Chloride [Ns] 500 ml IV 500 mls/hr 07/26/20 10:05 B Type Natriuretic Peptide Stat Basic Metabolic Panel Stat Complete Blood Count Auto Diff Stat Ferritin Stat Lactate Dehydrogenase Stat Lactic Acid Stat Liver Panel Stat Magnesium Stat Troponin-I High Sensitivity Stat Blood Culture X2 [BC] Stat 07/26/20 10:06 Partial Thromboplastin Time Stat Prothrombin Time INR Stat 07/26/20 10:10 Arterial Blood Gas Routine 07/26/20 10:21 Ethanol Stat Procalcitonin Stat 07/26/20 10:35 COVID-19 ID NOW (Aguirre) Stat 07/26/20 10:55 Midazolam HCl/PF [Versed] 2 mg IVPUSH ONCE ONE 07/26/20 11:09 Phenylephrine HCL 0.05 mg IVPUSH ONCE ONE 07/26/20 11:12 Phenylephrine HCL 10 mg .ROUTE .STK-MED ONE 07/26/20 12:25 Bedrest ONGOING Cont. Telemetry w/Vital Sign limit ICU Q4HR Continuous pulse oximetry ONCE Insert/maintain urinary catheter NOW Intake and Output Q1HR Ventilator Assessment/Vent Bundle Q4HR Vital Signs Q1HR Vent Settings CONT 07/26/20 12:26 Glucose, blood poc Q6HR 07/26/20 12:30 Chlorhexidine Gluc Oral Rinse [Peridex] 15 ml BUCCAL Q8H Norepinephrine Bitartrate/NS [Levophed] 8 mg in 250 ml IVCONT Per Protocol mcg/kg/min methylPREDNISolone Sod Succ/PF [SOLU-MedroL] 40 mg 0.9 % Sodium Chloride [Ns] 100 ml IV Q6H propofoL [Diprivan] 1,000 mg in 100 ml IVCONT Per Protocol mcg/kg/min 07/26/20 12:45 Albumin Human 25 % [Kedbumin 25 %] 100 ml IV Q6H 07/26/20 12:58 ABG (RT) ONCE 07/26/20 13:00 NON-Behavioral Restraint Q24H Azithromycin [Zithromax] 250 mg 0.9 % Sodium Chloride [Ns] 250 ml IV Q24H Heparin Sodium,Porcine 5,000 unit SUBCUT Q8H 07/26/20 13:01 Non-behavioral order assessment ONCE 07/26/20 13:15 Arterial Blood Gas Routine 07/26/20 13:20 Azithromycin [Zithromax] 500 mg IV .STK-MED ONE methylPREDNISolone Sod Succ/PF [SOLU-MedroL] 125 mg .ROUTE .STK-MED ONE 07/26/20 14:53 Etomidate [Amidate] 20 mg IVPUSH .STK-MED ONE Midazolam HCl/PF [Versed] 2 mg .ROUTE .STK-MED ONE Rocuronium [place] [Zemuron] 50 mg .ROUTE .STK-MED ONE 07/26/20 Lunch Tube Feeding Diet 07/26/20 15:51 Airloss Bed ONCE Dietitian / Nutrition Consult .Routine RT Smoking Initial Cessation ONCE 07/26/20 18:08 methylPREDNISolone Sod Succ/PF [SOLU-MedroL] 125 mg .ROUTE .STK-MED ONE 07/26/20 18:31 Glucose, Whole Blood Routine 07/26/20 21:00 Famotidine/PF [Pepcid/PF] 20 mg IVPUSH BID 07/27/20 00:16 Glucose, Whole Blood Routine 07/27/20 00:53 methylPREDNISolone Sod Succ/PF [SOLU-MedroL] 125 mg .ROUTE .STK-MED ONE 07/27/20 05:01 Glucose, Whole Blood Routine 07/27/20 05:02 methylPREDNISolone Sod Succ/PF [SOLU-MedroL] 125 mg .ROUTE .STK-MED ONE 07/27/20 05:25 Albumin Level AM Basic Metabolic Panel AM Complete Blood Count Auto Diff AM Magnesium AM Phosphorus Routine SLIDE REVIEW Routine Venous Blood Gas AM 07/27/20 06:00 Insulin Lispro [Humalog] See Dose Instructions SUBCUT Q6H 07/27/20 06:35 SARS COV2 IgG Urgent 07/27/20 07:30 Potassium Phosphate [KPhos] 30 mmol 0.9 % Sodium Chloride [Ns] 500 ml IV ONCE 07/27/20 11:00 CA echo transthoracic complete Urgent 07/27/20 11:59 Glucose, Whole Blood Routine 07/27/20 12:55 Azithromycin [Zithromax] 500 mg IV .STK-MED ONE methylPREDNISolone Sod Succ/PF [SOLU-MedroL] 125 mg .ROUTE .STK-MED ONE 07/27/20 13:35 Azithromycin [Zithromax] 500 mg IV .STK-MED ONE 07/27/20 14:00 Azithromycin [Zithromax] 500 mg 0.9 % Sodium Chloride [Ns] 250 ml IV Q24H 07/27/20 14:32 Azithromycin [Zithromax] 500 mg IV .STK-MED ONE 07/27/20 18:15 Glucose, Whole Blood Routine 07/27/20 18:41 methylPREDNISolone Sod Succ/PF [SOLU-MedroL] 125 mg .ROUTE .STK-MED ONE 07/27/20 23:42 Glucose, Whole Blood Routine 07/27/20 23:46 Non-behavioral order assessment ONCE 07/28/20 00:00 Heparin Sodium,Porcine 5,000 unit SUBCUT Q12H 07/28/20 05:27 Glucose, Whole Blood Routine 07/28/20 07:53 methylPREDNISolone Sod Succ/PF [SOLU-MedroL] 125 mg .ROUTE .STK-MED ONE 07/28/20 08:15 methylPREDNISolone Sod Succ/PF [SOLU-MedroL] 40 mg IVPUSH Q12H 07/28/20 08:55 Comprehensive Met. Panel NOW Phosphorus NOW Venous Blood Gas Stat 07/28/20 10:08 Extubate NOW 07/28/20 10:09 RT BiPAP/CPAP DIRECTED 07/28/20 11:55 methylPREDNISolone Sod Succ/PF [SOLU-MedroL] 30 mg IVPUSH Q12H 07/28/20 12:02 Venous Blood Gas Routine 07/28/20 12:15 Dextrose 5 % [D5w] 1,000 ml IVCONT 75 mls/hr Dextrose 5 % [D5w] 250 ml IVCONT 250 mls/hr 07/28/20 12:20 Glucose, Whole Blood Routine 07/28/20 13:25 Azithromycin [Zithromax] 500 mg IV .STK-MED ONE 07/28/20 17:31 Venous Blood Gas Stat 07/28/20 18:00 MVI, Adult [Infuvite Adult] 14 ml Trace Elements w/o chromium [Tralement] 1.4 ml Amino Acids 5 %/Dextrose 15 % [Clinimix 5%-15%] 1,000 ml IVCONT DAILY@1800 07/28/20 18:05 ondansetron HCL [Zofran] 4 mg .ROUTE .STK-MED ONE 07/29/20 05:30 Basic Metabolic Panel AM Complete Blood Count Auto Diff AM Magnesium AM Phosphorus Routine SLIDE REVIEW Routine Venous Blood Gas AM 07/29/20 09:15 Add Laboratory Test Stat 07/29/20 12:57 Transfer Order Routine 07/29/20 13:00 predniSONE 40 mg PO DAILY 07/29/20 Lunch NPO Pending Swallow Eval Diet 07/29/20 18:00 Magnesium Sulfate 16 meq Sodium Phosphate,[place] 30 mmol MVI, Adult [Infuvite Adult] 17 ml Trace Elements w/o chromium [Tralement] 1.7 ml Amino A cids 5 %/Dextrose 15 % [Clinimix 5%-15%] 2,000 ml IVCONT DAILY@1800 07/30/20 05:41 Basic Metabolic Panel AM Magnesium AM Phosphorus AM Venous Blood Gas AM 07/30/20 09:36 LORazepam [Ativan] 0.25 mg IVPUSH ONCE ONE 07/30/20 13:30 FL barium swallow modified Routine 07/30/20 18:00 Magnesium Sulfate 16 meq Sodium Phosphate,[place] 30 mmol MVI, Adult [Infuvite Adult] 17 ml Trace Elements w/o chromium [Tralement] 1.7 ml Amino Acids 5 %/Dextrose 15 % [Clinimix 5%-15%] 2,000 ml IVCONT DAILY@1800 07/31/20 11:44 Basic Metabolic Panel Routine Complete Blood Count Auto Diff Routine SLIDE REVIEW Routine Laboratory Last Values WBC 9.3 X10*3/uL (4.8-10.8) 07/31/20 11:44 RBC 3.59 X10*6/uL (4.20-5.50) L 07/31/20 11:44 Hgb 10.0 g/dl (12.0-16.0) L 07/31/20 11:44 Hct 32.4 % (37-47) L 07/31/20 11:44 MCV 90.3 fL (80-98) 07/31/20 11:44 MCH 27.9 pg (27.0-33.0) 07/31/20 11:44 MCHC 30.9 g/dl (31.0-35.0) L 07/31/20 11:44 RDW 12.6 % (11.0-16.0) 07/31/20 11:44 Plt Count 146 X10*3/uL (160-400) L D 07/31/20 11:44 MPV 9.8 fL (9.4-12.3) 07/31/20 11:44 Immature Gran % (Auto) 0.4 % (0.0-0.4) 07/31/20 11:44 Neut % (Auto) 92.3 % (45-73) H 07/31/20 11:44 Lymph % (Auto) 3.4 % (20-40) L 07/31/20 11:44 [place] % (Auto) 3.3 % (2-11) 07/31/20 11:44 Eos % (Auto) 0.6 % (0-4) 07/31/20 11:44 Baso % (Auto) 0.0 % (0-2) 07/31/20 11:44 Lymph # (Auto) 0.3 X10*3/uL (1.2-4.9) L 07/31/20 11:44 [place] # (Auto) 0.3 X10*3/uL (0.1-1.2) 07/31/20 11:44 Eos # (Auto) 0.1 X10*3/uL (0.0-0.4) 07/31/20 11:44 Baso # (Auto) 0.0 X10*3/uL (0.0-0.2) 07/31/20 11:44 Abs Immat Gran (auto) 0.04 X10*3/uL (0.00-0.03) H 07/31/20 11:44 Absolute Neuts (auto) 8.6 X10*3/uL (2.0-8.3) H 07/31/20 11:44 Absolute Nucleated RBC 0.000 X10*3/uL (0.0-0.012) 07/31/20 11:44 Nucleated RBC % (auto) 0.0 /100WBC (0.0-0.2) 07/31/20 11:44 Smear Tech's Comments VERIFIED 07/31/20 11:44 PT 12.3 SEC (10.8-13.0) 07/26/20 10:06 INR 1.0 (0.9-1.1) 07/26/20 10:06 APTT 24.0 SEC (24.1-38.0) L 07/26/20 10:06 ABG pH 7.31 (7.35-7.45) L 07/26/20 13:15 ABG pCO2 65 mmhg (32-45) H* 07/26/20 13:15 ABG pO2 383 mmhg (83-108) H 07/26/20 13:15 ABG HCO3 32 mmol/l (22-26) H 07/26/20 13:15 ABG O2 Saturation 99.7 % 07/26/20 13:15 ABG Base Excess 3.7 07/26/20 13:15 VBG pH 7.37 (7.32-7.43) 07/30/20 05:41 VBG pCO2 59 mmhg 07/30/20 05:41 VBG pO2 34 mmhg 07/30/20 05:41 VBG HCO3 34 mmol/L 07/30/20 05:41 VBG O2 Saturation 61.5 % 07/30/20 05:41 VBG Base Excess 6.8 mmol/L 07/30/20 05:41 Oxygen Given 100% 07/26/20 13:15 Sodium 144 mmol/L (135-145) 07/31/20 11:44 Potassium 4.3 mmol/l (3.3-5.1) 07/31/20 11:44 Chloride 103 mmol/L (96-108) 07/31/20 11:44 Carbon Dioxide 35 mmol/L (22-29) H 07/31/20 11:44 Anion Gap 10 (12-20) L 07/31/20 11:44 BUN 22 mg/dL (9-16) H 07/31/20 11:44 Creatinine 0.64 mg/dL (0.5-1.4) 07/31/20 11:44 Estim Creat Clear Calc 56.4 07/31/20 11:44 Estimated GFR > 60 07/31/20 11:44 POC Glucose 127 mg/dL (60-115) H 07/28/20 12:20 Random Glucose 120 mg/dL (60-115) H 07/31/20 11:44 Lactic Acid 1.5 mmol/L (0.5-2.0) 07/26/20 10:05 Calcium 8.6 mg/dL (8.4-10.2) 07/31/20 11:44 Phosphorus 3.1 mg/dL (2.7-4.5) 07/30/20 05:41 Magnesium 2.1 mg/dL (1.6-2.6) 07/30/20 05:41 Ferritin 268 ng/mL (10-250) H 07/26/20 10:05 Total Bilirubin 0.2 mg/dL (0.0-1.0) 07/28/20 08:55 Direct Bilirubin < 0.2 mg/dL (0.0-0.5) 07/26/20 10:05 AST 34 U/L (5-31) H 07/28/20 08:55 ALT 34 U/L (0-31) H 07/28/20 08:55 Alkaline Phosphatase 51 U/L (39-117) D 07/28/20 08:55 Lactate Dehydrogenase 270 U/L (122-220) H 07/26/20 10:05 Troponin I High Sens 12.5 ng/L (<3.5-17.0) 07/26/20 10:05 B-Natriuretic Peptide 47 pg/mL (<100) 07/26/20 10:05 B-Natriuretic Peptide Cancelled 07/26/20 10:05 Total Protein 5.7 g/dL (6.5-8.0) L 07/28/20 08:55 Albumin 4.1 g/dL (3.5-5.0) 07/28/20 08:55 Procalcitonin 0.03 ng/mL 07/26/20 10:21 Urine Color YELLOW 07/26/20 10:35 Urine Appearance HAZY 07/26/20 10:35 Urine pH 5.5 (5.0-8.0) 07/26/20 10:35 Ur Specific [place] >= 1.030 (1.005-1.025) H 07/26/20 10:35 Urine Protein 1+ MG/DL (NEG-TRACE) H 07/26/20 10:35 Urine Glucose (UA) NEG MG/DL (NEG) 07/26/20 10:35 Urine Ketones NEG MG/DL (NEG) 07/26/20 10:35 Urine Blood TRACE (NEG) 07/26/20 10:35 Urine Nitrite NEG (NEG) 07/26/20 10:35 Ur Leukocyte Esterase NEG (NEG) 07/26/20 10:35 Urine RBC 0-2 /HPF (0) 07/26/20 10:35 Urine WBC 1-4 /HPF (0-4) 07/26/20 10:35 Ur Squamous Epith Cells 2+ /LPF 07/26/20 10:35 Amorphous Sediment 2+ /LPF 07/26/20 10:35 Urine Bacteria NONE /LPF 07/26/20 10:35 Hyaline Casts 10-14 /LPF 07/26/20 10:35 Granular Casts 0-2 /LPF 07/26/20 10:35 Urine Mucus 2+ /LPF 07/26/20 10:35 Ethyl Alcohol < 10 mg/dL 07/26/20 10:21 COVID-19 (STEFF) Negative (Negative) 07/26/20 10:35 COVID-19 Clin Com See Note 07/26/20 10:35 SARS-CoV-2 IgG Ab Positive (Negative) 07/27/20 06:35 Discharge Plan Discharge Anticipated Discharge Date/Time: 08/03/20 10:21 Patient Disposition: Xfer SNF Referrals: [facility] [Other] Keegan Stover MD [Primary Care Provider] - Discharge Medications: New ipratropium-albuterol 0.5 mg-3 mg(2.5 mg base)/3 mL Solution For Nebulization 3 ml inhalation Q6H PRN (Reason: shortness of breath) Qty: 180 RF: 0 prednisone 20 mg Tablet 20 mg PO DAILY Qty: 2 RF: 0 lorazepam 0.5 mg Tablet 0.5 mg PO Q8H PRN (Reason: Anxiety) Qty: 20 RF: 0 Continued prednisone 20 mg tablet 2 tab PO DAILY RF: 0 lorazepam 0.5 mg tablet 1 tab PO Q12H PRN (Reason: anxiety) RF: 0 venlafaxine 37.5 mg tablet 1 tab PO DAILY RF: 0 albuterol sulfate 90 mcg/actuation HFA aerosol inhaler 2 puff inhalation Q4H PRN (Reason: Shortness Of Breath Or Wheezing) RF: 0 Spiriva Respimat 2.5 mcg/actuation mist 2 puff inhalation DAILY RF: 0 Breo Ellipta 200-25 mcg/dose blister with device 1 inh inhalation DAILY RF: 0 Discharge Orders: Discharge Order (Routine); Ordered 08/03/20 Ordered By: Javier meryl Diet: advance to usual diet Activity on Discharge: As tolerated Discharge Date/Time: 08/03/20 12:39 Visit Report Forms: Patient Portal Discharge page Care Plan Goals: full recovery from respiratoyr failure and to gain wake and work up for lung mass Health Concerns: lung mass , malnutrion Plan of Treatment: To short term rehab and follow up with oncology for work up for lung mass. Diet shuld be ground mechanical diet
--- NOTE | 2020-08-03 10:45 | W.MHC.ACPN ---
Advanced Care Planning Note Advanced Care Planning Note Time spent (in minutes): 18 Narrative: gaols of care discussed with patient in light of severe malnutrition, lung mass that is likely malignant. She would like to purusuit worker and then weight all treatment options. She will follow up with oncologist to discuss this further. Problems Discussed (1) Acute on chronic respiratory failure with hypoxia and hypercapnia: (2) Acute exacerbation of chronic obstructive airways disease: (3) Lung mass: (4) Severe protein-calorie malnutrition:
--- NOTE | 2020-08-03 10:49 | MHC.INPTTRAN ---
very weak, transfers with assist, pivot only, Gets SOB with slight activity. On o2 at 2L via N/C. Appetite improving slightly. Is alert, pleasant. coccyx slightly red. VSS. takes meds crushed in applesauce. Denies pain.
[2020-08-03] MEDS: Albuterol Sulfate 90 MCG 8 GM INHALER 2 PUFF INHALE (10:51)
[2020-08-03 10:54] VITALS: PULSE 90; O2SAT 98
[2020-08-03 11:00] LABS: COVID-19 Test Negative (Negative)
[2020-08-03] MEDS: Fluticasone/Vilanterol 200/25 BLST.W.DEV 1 PUFF INHALE (11:03)
[2020-08-03 11:06] VITALS: PULSE 90; O2SAT 98
[2020-08-03 11:08] VITALS: PULSE 90; O2SAT 98
[2020-08-03] MEDS: LORazepam 0.5 MG TABLET PO (11:28)
--- NOTE | 2020-08-03 12:06 | MHC.CM.PN ---
PT COMPLETED AN APPLICATION FOR [facility]. CM WILL EMAIL COMPLETED APPLICATION TO LOCAL AREA NETWORK SYSTEMS ADMINSTRATOR, DARA ([email or web address])ALONG WITH MED LIST AND DC SUMMARY. RELEASE OF INFO SIGNED. PT WILL DC TODAY TO [facility]IA [facility]. PT HOPES TO TRANSITION FROM REHAB TO [facility].
== END 2020-08-03 12:39 | disposition skilled nursing facility (03) | DRG 208 ==
LOC: HO.ED 12:19 → HO.ICU 12:55 → HO.IMC 07-29 14:19
PROVIDERS: Anesthesiology; Internal Medicine; Admitting Provider Internal Medicine Pulmonary Disease; Emergency Provider Emergency Medicine; PCP Internal Medicine; Visit Provider Internal Medicine
DX: J44.1 Chronic obstructive pulmonary disease with (acute) exacerbation (principal); J96.21 Acute and chronic respiratory failure with hypoxia; E43 Unspecified severe protein-calorie malnutrition; J96.22 Acute and chronic respiratory failure with hypercapnia; Z68.1 Body mass index [BMI] 19.9 or less, adult; C34.12 Malignant neoplasm of upper lobe, left bronchus or lung; Z86.19 Personal history of other infectious and parasitic diseases; F41.9 Anxiety disorder, unspecified; I95.9 Hypotension, unspecified; F17.210 Nicotine dependence, cigarettes, uncomplicated; Z71.6 Tobacco abuse counseling; Z88.0 Allergy status to penicillin; Z88.2 Allergy status to sulfonamides; Z79.52 Long term (current) use of systemic steroids; Z79.899 Other long term (current) drug therapy
CPT/HCPCS: 36415; 36600; 70450; 71045; 71250; 74230; 80048; 80053; 80076; 80320; 81001; 82040; 82728; 82803; 82947; 83605; 83615; 83735; 83880; 84100; 84145; 84484; 85025; 85610; 85730; 86769; 87040; 87086; 87635; 92526; 92610; 92611; 93005; 93306; 94002; 94003; 94640; 94660; 94799; 96365; 96366; 96375; 97162; 97166; 99283; 99291; 99292; J0456; J1956; J2060; J2250; J2370; J2405; J2920; J2930; J3010; J3475; P9047

== ENCOUNTER 2020-09-02 15:59 | Inpatient (IN) | payer MEDICARE, MEDICAID, SELFPAY ==
[2020-09-02] VITALS (10 sets, daily range): BP systolic 101–155; BP diastolic 60–80; PULSE 94–104; RESP 19–30; TEMP 37.1; O2SAT 94–100; BMI 15.7
--- NOTE | 2020-09-02 17:13 | ECG_ITS ---
Test Reason : DYSPENA Blood Pressure : / mmHG Vent. Rate : 089 BPM Atrial Rate : 089 BPM P-R Int : 132 ms QRS Dur : 076 ms QT Int : 348 ms P-R-T Axes : 088 082 070 degrees QTc Int : 423 ms Sinus rhythm with Premature atrial complexes Right atrial enlargement Borderline ECG When compared with ECG of 26-JUL-2020 10:16, Premature atrial complexes are now Present Referred By: Rina Walker Electronically Signed By:Jared Wisdom
--- NOTE | 2020-09-02 17:13 | ED_ITS ---
HPI - SOB/Dyspnea General Chief Complaint: Dyspnea Stated Complaint: SOB,FEVER Time Seen by Provider: 09/02/20 16:55 Source: patient Mode of arrival: ambulatory Limitations: altered mental status History of Present Illness HPI Narrative: 70-year-old female with past medical history of lung mass, COPD, and recurrent pneumonia presents with fevers, chills, shortness of breath and lethargy. Patient is not the best historian and is in respiratory distress at this time. MD elicited complaint: shortness of breath Pertinent past history: COPD and congestive heart failure Onset (ago): day(s) Timing: constant Severity: severe Exacerbating factors: exertion, movement, coughing and talking Relieving factors: nothing Known history of: COPD, asthma and congestive heart failure Associated symptoms: fever, cough and wheezing Treatment prior to arrival: none Related Data Home oxygen amount: none Home Medications Medication Instructions Recorded Confirmed Breo Ellipta 1 inh INHALATION DAILY 07/26/20 09/02/20 Spiriva Respimat 2 puff INHALATION DAILY 07/26/20 09/02/20 albuterol sulfate 2 puff INHALATION Q4H PRN 07/26/20 09/02/20 lorazepam 0.5 mg PO Q12H PRN 07/26/20 09/02/20 venlafaxine 37.5 mg PO DAILY 07/26/20 09/02/20 Previous Rx's Medication Instructions Recorded lorazepam 0.5 mg PO Q8H PRN #20 tab 08/03/20 Allergies Allergy/AdvReac Type Severity Reaction Status Date / Time amoxicillin [AMOXICILLIN] Allergy Unknown HIVES Verified 07/26/20 09:52 Sulfa (Sulfonamide Allergy Unknown DIFFICULTY Verified 07/26/20 09:52 Antibiotics) BREATHING [SULFA (SULFONAMIDE ANTIBIOTICS)] cephalexin [From Keflex] Allergy Unknown Verified 07/26/20 09:52 Review of Systems Review of Systems: Constitutional: Positive Fever, positive Chills ENT/Mouth: No sore throat, No Rhinorrhea, No Swallowing Difficulty Eyes: No Eye Pain, No Swelling, No Redness Cardiovascular: No Chest Pain, positive SOB, No Orthopnea, no Edema Respiratory: Fossa Cough, No Sputum, No Wheezing, positive dyspnea Gastrointestinal: No Nausea, No Vomiting, No Diarrhea, No abdominal Pain, No Hematochezia, No Melena Genitourinary: No Dysuria, No Urinary Frequency, No Hematuria Musculoskeletal: No joint pain, No Myalgias Skin: No Skin Lesions, No rash Neuro: No Weakness, No Numbness, No Dizziness, No Headache Psych: No Anxiety/Panic, No Depression Heme/Lymph: No Bruising, No Lymphadenopathy Endocrine: No Polyuria, No Polydipsia Please note, review of systems completed after several hours of BiPAP. Yes all other systems are reviewed and are negative [facility] Past Medical History Attestation statement: The following information was validated with the patient. Source: old records reviewed Medical History COPD (chronic obstructive pulmonary disease) Pneumonia Social History Social History Household Members: Children Housing: Apartment Alcohol intake: unknown Smoking Status: Unknown if ever smoked Tobacco Type: Cigarette Use of substances other than those prescribed or required for medical reasons: Unknown Substance Use Type: Marijuana Advance Directives: No Advance Directives Information Provided: Yes service: No Current occupational status: retired Physical Exam Vital Signs: Vital Signs: Last Vital Signs Temp 98.7 F 09/02/20 22:35 Pulse 102 H 09/02/20 23:49 Resp 21 H 09/03/20 00:05 BP 101/63 09/02/20 23:49 Pulse Ox 96 09/02/20 23:49 Body Mass Index 15.7 Appearance: Alert. Oriented X to. Moderate distress. Tachypneic at 40 respirations per minute Eyes: Pupils equal, round and reactive to light. ENT: Pharynx normal. Neck: Normal inspection. Neck supple. CVS: Tachycardic heart rate and rhythm. Pulses normal. Respiratory: Moderate respiratory distress. Lung sounds coarse and diminished throughout Abdomen: Soft and nontender. Skin: Skin warm and dry. Normal skin color. Normal skin turgor. Extremities: No lower extremity edema. Neuro: No motor deficit. No sensory deficit. Course Course Course Narrative: 70-year-old female with past medical history of lung mass, pneumonia, and COPD presents with malaise, fevers and chills and shortness of breath. Patient's respiration rate upon my initial exam was approximately 40, plan for BiPAP, CBC, Chem 7, lactic, cultures, VBG and urinalysis. VBG shows CO2 of 150. At 23 50 urinalysis complete indicates UTI. Reevaluation(s) Reevaluation #2: Patient is alert, updated on plan for admission, patient states that she does not want to stay and would like to go home. Plans to wean patient off of CPAP. Time: 21:40 Reevaluation #3: Patient taken off of BiPAP, of the ABGs indicate CO2 of 71 which is improved from value of 150. However is not improved to her baseline will place her back on a BiPAP. Discussion with spin tank tender Dr. Aparicio off. Time: 23:02 Consultations Consultation #1: Hussain Lewis Time: 21:25 Consultation #2: Davi Time: 23:30 MDM - SOB/Dyspnea Differential Diagnosis Differential diagnosis: Likely acute exacerbation of chronic obstructive airways disease and pneumonia Medical Records Attestation: I reviewed the patient's medical records. Lab Data Attestation: I reviewed the patient's lab results. Result diagrams: 09/02/20 18:26 09/02/20 18:26 Labs: Lab Results 09/02/20 09/02/20 09/02/20 Range/Units 17:40 18:25 18:25 WBC (4.8-10.8) X10*3/uL RBC (4.20-5.50) X10*6/uL Hgb (12.0-16.0) g/dl Hct (37-47) % MCV (80-98) fL MCH (27.0-33.0) pg MCHC (31.0-35.0) g/dl RDW (11.0-16.0) % Plt Count (160-400) X10*3/uL MPV (9.4-12.3) fL Immature Gran % (Auto) (0.0-0.4) % Neut % (Auto) (45-73) % Lymph % (Auto) (20-40) % Douglas % (Auto) (2-11) % Eos % (Auto) (0-4) % Baso % (Auto) (0-2) % Lymph # (Auto) (1.2-4.9) X10*3/uL Douglas # (Auto) (0.1-1.2) X10*3/uL Eos # (Auto) (0.0-0.4) X10*3/uL Baso # (Auto) (0.0-0.2) X10*3/uL Abs Immat Gran (auto) (0.00-0.03) X10*3/uL Absolute Neuts (auto) (2.0-8.3) X10*3/uL Absolute Nucleated RBC (0.0-0.012) X10*3/uL Nucleated RBC % (auto) (0.0-0.2) /100WBC PT 12.9 (10.8-13.0) SEC INR 1.1 (0.9-1.1) APTT 33.0 D (24.1-38.0) SEC VBG pH (7.32-7.43) VBG pCO2 mmHg VBG pO2 mmHg VBG HCO3 mmol/L VBG O2 Saturation % VBG Base Excess mmol/L Sodium (135-145) mmol/L Potassium (3.3-5.1) mmol/l Chloride (96-108) mmol/L Carbon Dioxide (22-29) mmol/L Anion Gap (12-20) BUN (9-16) mg/dL Creatinine (0.5-1.4) mg/dL Estim Creat Clear Calc Estimated GFR Random Glucose (60-115) mg/dL Lactic Acid 1.0 (0.5-2.0) mmol/L Calcium (8.4-10.2) mg/dL Magnesium (1.6-2.6) mg/dL Ferritin (10-250) ng/mL Total Bilirubin (0.0-1.0) mg/dL Direct Bilirubin (0.0-0.5) mg/dL AST (5-31) U/L ALT (0-31) U/L Alkaline Phosphatase (39-117) U/L Lactate Dehydrogenase (122-220) U/L Troponin I High Sens 18.4 H (<3.5-17.0) ng/L C-Reactive Protein (< or = 0.50) mg/dL Total Protein (6.5-8.0) g/dL Albumin (3.5-5.0) g/dL Lipase (8-78) U/L Procalcitonin ng/mL Urine Color Urine Appearance Urine pH (5.0-8.0) Ur Specific [place] (1.005-1.025) Urine Protein (NEG-TRACE) MG/DL Urine Glucose (UA) (NEG) MG/DL Urine Ketones (NEG) MG/DL Urine Blood (NEG) Urine Nitrite (NEG) Ur Leukocyte Esterase (NEG) Urine RBC (0) /HPF Urine WBC (0-4) /HPF Ur Squamous Epith Cells /LPF Urine Bacteria /LPF Urine Mucus /LPF Coronavirus (PCR) (Negative) Influenza Type A (PCR) (Negative) Influenza Type B (PCR) (Negative) RSV RNA Qual (PCR) (Negative) 09/02/20 09/02/20 09/02/20 Range/Units 18:25 18:25 18:26 WBC 7.1 (4.8-10.8) X10*3/uL RBC 4.34 D (4.20-5.50) X10*6/uL Hgb 12.4 D (12.0-16.0) g/dl Hct 40.7 D (37-47) % MCV 93.8 (80-98) fL MCH 28.6 (27.0-33.0) pg MCHC 30.5 L (31.0-35.0) g/dl RDW 12.1 (11.0-16.0) % Plt Count 242 D (160-400) X10*3/uL MPV 9.8 (9.4-12.3) fL Immature Gran % (Auto) 0.4 (0.0-0.4) % Neut % (Auto) 68.6 (45-73) % Lymph % (Auto) 21.6 (20-40) % Douglas % (Auto) 8.5 (2-11) % Eos % (Auto) 0.3 (0-4) % Baso % (Auto) 0.6 (0-2) % Lymph # (Auto) 1.5 (1.2-4.9) X10*3/uL Douglas # (Auto) 0.6 (0.1-1.2) X10*3/uL Eos # (Auto) 0.0 (0.0-0.4) X10*3/uL Baso # (Auto) 0.0 (0.0-0.2) X10*3/uL Abs Immat Gran (auto) 0.03 (0.00-0.03) X10*3/uL Absolute Neuts (auto) 4.9 (2.0-8.3) X10*3/uL Absolute Nucleated RBC 0.000 (0.0-0.012) X10*3/uL Nucleated RBC % (auto) 0.0 (0.0-0.2) /100WBC PT (10.8-13.0) SEC INR (0.9-1.1) APTT (24.1-38.0) SEC VBG pH (7.32-7.43) VBG pCO2 mmHg VBG pO2 mmHg VBG HCO3 mmol/L VBG O2 Saturation % VBG Base Excess mmol/L Sodium (135-145) mmol/L Potassium (3.3-5.1) mmol/l Chloride (96-108) mmol/L Carbon Dioxide (22-29) mmol/L Anion Gap (12-20) BUN (9-16) mg/dL Creatinine (0.5-1.4) mg/dL Estim Creat Clear Calc Estimated GFR Random Glucose (60-115) mg/dL Lactic Acid (0.5-2.0) mmol/L Calcium (8.4-10.2) mg/dL Magnesium (1.6-2.6) mg/dL Ferritin (10-250) ng/mL Total Bilirubin (0.0-1.0) mg/dL Direct Bilirubin (0.0-0.5) mg/dL AST (5-31) U/L ALT (0-31) U/L Alkaline Phosphatase (39-117) U/L Lactate Dehydrogenase (122-220) U/L Troponin I High Sens (<3.5-17.0) ng/L C-Reactive Protein (< or = 0.50) mg/dL Total Protein (6.5-8.0) g/dL Albumin (3.5-5.0) g/dL Lipase (8-78) U/L Procalcitonin 0.03 ng/mL Urine Color Urine Appearance Urine pH (5.0-8.0) Ur Specific [place] (1.005-1.025) Urine Protein (NEG-TRACE) MG/DL Urine Glucose (UA) (NEG) MG/DL Urine Ketones (NEG) MG/DL Urine Blood (NEG) Urine Nitrite (NEG) Ur Leukocyte Esterase (NEG) Urine RBC (0) /HPF Urine WBC (0-4) /HPF Ur Squamous Epith Cells /LPF Urine Bacteria /LPF Urine Mucus /LPF Coronavirus (PCR) NEGATIVE (Negative) Influenza Type A (PCR) NEGATIVE (Negative) Influenza Type B (PCR) NEGATIVE (Negative) RSV RNA Qual (PCR) NEGATIVE (Negative) 09/02/20 09/02/20 09/02/20 Range/Units 18:26 18:26 22:23 WBC (4.8-10.8) X10*3/uL RBC (4.20-5.50) X10*6/uL Hgb (12.0-16.0) g/dl Hct (37-47) % MCV (80-98) fL MCH (27.0-33.0) pg MCHC (31.0-35.0) g/dl RDW (11.0-16.0) % Plt Count (160-400) X10*3/uL MPV (9.4-12.3) fL Immature Gran % (Auto) (0.0-0.4) % Neut % (Auto) (45-73) % Lymph % (Auto) (20-40) % Douglas % (Auto) (2-11) % Eos % (Auto) (0-4) % Baso % (Auto) (0-2) % Lymph # (Auto) (1.2-4.9) X10*3/uL [place] # (Auto) (0.1-1.2) X10*3/uL Eos # (Auto) (0.0-0.4) X10*3/uL Baso # (Auto) (0.0-0.2) X10*3/uL Abs Immat Gran (auto) (0.00-0.03) X10*3/uL Absolute Neuts (auto) (2.0-8.3) X10*3/uL Absolute Nucleated RBC (0.0-0.012) X10*3/uL Nucleated RBC % (auto) (0.0-0.2) /100WBC PT (10.8-13.0) SEC INR (0.9-1.1) APTT (24.1-38.0) SEC VBG pH 7.22 L (7.32-7.43) VBG pCO2 150 mmHg VBG pO2 54 mmHg VBG HCO3 63 mmol/L VBG O2 Saturation 81.0 % VBG Base Excess 27.6 mmol/L Sodium 146 H (135-145) mmol/L Potassium 5.0 (3.3-5.1) mmol/l Chloride 96 (96-108) mmol/L Carbon Dioxide 44 H* D (22-29) mmol/L Anion Gap 11 L (12-20) BUN 17 H (9-16) mg/dL Creatinine 0.69 (0.5-1.4) mg/dL Estim Creat Clear Calc 46.8 Estimated GFR > 60 Random Glucose 104 (60-115) mg/dL Lactic Acid (0.5-2.0) mmol/L Calcium 9.5 D (8.4-10.2) mg/dL Magnesium 2.3 (1.6-2.6) mg/dL Ferritin 322 H (10-250) ng/mL Total Bilirubin 0.3 (0.0-1.0) mg/dL Direct Bilirubin < 0.2 (0.0-0.5) mg/dL AST 21 (5-31) U/L ALT 14 (0-31) U/L Alkaline Phosphatase 98 D (39-117) U/L Lactate Dehydrogenase 206 (122-220) U/L Troponin I High Sens 13.9 (<3.5-17.0) ng/L C-Reactive Protein 0.22 (< or = 0.50) mg/dL Total Protein 6.5 (6.5-8.0) g/dL Albumin 4.0 (3.5-5.0) g/dL Lipase 8 (8-78) U/L Procalcitonin ng/mL Urine Color Urine Appearance Urine pH (5.0-8.0) Ur Specific [place] (1.005-1.025) Urine Protein (NEG-TRACE) MG/DL Urine Glucose (UA) (NEG) MG/DL Urine Ketones (NEG) MG/DL Urine Blood (NEG) Urine Nitrite (NEG) Ur Leukocyte Esterase (NEG) Urine RBC (0) /HPF Urine WBC (0-4) /HPF Ur Squamous Epith Cells /LPF Urine Bacteria /LPF Urine Mucus /LPF Coronavirus (PCR) (Negative) Influenza Type A (PCR) (Negative) Influenza Type B (PCR) (Negative) RSV RNA Qual (PCR) (Negative) 09/02/20 09/02/20 Range/Units 22:24 22:53 WBC (4.8-10.8) X10*3/uL RBC (4.20-5.50) X10*6/uL Hgb (12.0-16.0) g/dl Hct (37-47) % MCV (80-98) fL MCH (27.0-33.0) pg MCHC (31.0-35.0) g/dl RDW (11.0-16.0) % Plt Count (160-400) X10*3/uL MPV (9.4-12.3) fL Immature Gran % (Auto) (0.0-0.4) % Neut % (Auto) (45-73) % Lymph % (Auto) (20-40) % Douglas % (Auto) (2-11) % Eos % (Auto) (0-4) % Baso % (Auto) (0-2) % Lymph # (Auto) (1.2-4.9) X10*3/uL [place] # (Auto) (0.1-1.2) X10*3/uL Eos # (Auto) (0.0-0.4) X10*3/uL Baso # (Auto) (0.0-0.2) X10*3/uL Abs Immat Gran (auto) (0.00-0.03) X10*3/uL Absolute Neuts (auto) (2.0-8.3) X10*3/uL Absolute Nucleated RBC (0.0-0.012) X10*3/uL Nucleated RBC % (auto) (0.0-0.2) /100WBC PT (10.8-13.0) SEC INR (0.9-1.1) APTT (24.1-38.0) SEC VBG pH 7.50 H (7.32-7.43) VBG pCO2 71 mmHg VBG pO2 195 mmHg VBG HCO3 56 mmol/L VBG O2 Saturation 99.0 % VBG Base Excess 28.0 mmol/L Sodium (135-145) mmol/L Potassium (3.3-5.1) mmol/l Chloride (96-108) mmol/L Carbon Dioxide (22-29) mmol/L Anion Gap (12-20) BUN (9-16) mg/dL Creatinine (0.5-1.4) mg/dL Estim Creat Clear Calc Estimated GFR Random Glucose (60-115) mg/dL Lactic Acid (0.5-2.0) mmol/L Calcium (8.4-10.2) mg/dL Magnesium (1.6-2.6) mg/dL Ferritin (10-250) ng/mL Total Bilirubin (0.0-1.0) mg/dL Direct Bilirubin (0.0-0.5) mg/dL AST (5-31) U/L ALT (0-31) U/L Alkaline Phosphatase (39-117) U/L Lactate Dehydrogenase (122-220) U/L Troponin I High Sens (<3.5-17.0) ng/L C-Reactive Protein (< or = 0.50) mg/dL Total Protein (6.5-8.0) g/dL Albumin (3.5-5.0) g/dL Lipase (8-78) U/L Procalcitonin ng/mL Urine Color YELLOW Urine Appearance HAZY Urine pH 6.0 (5.0-8.0) Ur Specific [place] >= 1.030 H (1.005-1.025) Urine Protein TRACE (NEG-TRACE) MG/DL Urine Glucose (UA) NEG (NEG) MG/DL Urine Ketones 15 (NEG) MG/DL Urine Blood 1+ H (NEG) Urine Nitrite POS H (NEG) Ur Leukocyte Esterase NEG (NEG) Urine RBC 1-4 (0) /HPF Urine WBC 10-14 H (0-4) /HPF Ur Squamous Epith Cells 1+ /LPF Urine Bacteria 4+ /LPF Urine Mucus 1+ /LPF Coronavirus (PCR) (Negative) Influenza Type A (PCR) (Negative) Influenza Type B (PCR) (Negative) RSV RNA Qual (PCR) (Negative) Imaging Data Chest x-ray: Attestation: I personally reviewed and interpreted this imaging study as follows: Radiologist's impression: EXAMINATION: XR CHEST CLINICAL INFORMATION: Shortness of breath COMPARISON: 07/26/2020 TECHNIQUE: Frontal view of the chest was obtained. FINDINGS: Again seen are markedly hyperinflated lungs. Findings are compatible with COPD. A left upper lobe scar is again noted. No infiltrates effusions or suspicious lung masses. The heart size is normal. XR/XR chest 1V IMPRESSION: Marked hyperinflation and COPD. No acute intrathoracic disease. Critical Care Time Critical Care Time Critical Care Time: Yes Total Critical Care Time: 65 Attestation: I have personally provided critical care time exclusive of time spent on separately billable procedures. Time includes review of laboratory data, radiology results, discussion with consultants, and monitoring for potential decompensation. Interventions were performed as documented. Discharge Plan Discharge Clinical Impression: Lung mass, Acute exacerbation of chronic obstructive airways disease, Acute UTI Patient Disposition: Admitted As Inpatient
[2020-09-02 18:40] LABS: MANUAL DIFF FLAG NO
[2020-09-02 18:41] LABS: Base Excess VBG 27.6 mmol/L; HCO3 VBG 63 mmol/L; PCO2 VBG 150 mmHg; PO2 VBG 54 mmHg; pH VBG 7.22 (7.32-7.43)
[2020-09-02 18:42] LABS: Basophils Percent Auto 0.6 % (0-2); Eosinophils Percent Auto 0.3 % (0-4); Hematocrit 40.7 % (37-47); Hemoglobin 12.4 g/dl (12.0-16.0); Imm Gran Abs Auto 0.03 X10*3/uL (0.00-0.03); Imm Gran Pct Auto 0.4 % (0.0-0.4); Lymphocytes Absolute Auto 1.5 X10*3/uL (1.2-4.9); Lymphocytes Percent Auto 21.6 % (20-40); Mean Corpuscular HGB Conc 30.5 g/dl (31.0-35.0); Mean Corpuscular Hemoglobin 28.6 pg (27.0-33.0); Mean Corpuscular Volume 93.8 fL (80-98); Mean Platelet Volume 9.8 fL (9.4-12.3); Monocytes Absolute Auto 0.6 X10*3/uL (0.1-1.2); Monocytes Percent Auto 8.5 % (2-11); Neutrophils Absolute Auto 4.9 X10*3/uL (2.0-8.3); Neutrophils Percent Auto 68.6 % (45-73); Platelet Count 242 X10*3/uL (160-400); Red Blood Count 4.34 X10*6/uL (4.20-5.50); Red Cell Distribution Width 12.1 % (11.0-16.0); White Blood Count 7.1 X10*3/uL (4.8-10.8)
[2020-09-02 18:48] LABS: INTERNATIONAL NORM RATIO 1.1 (0.9-1.1); Prothrombin Time 12.9 SEC (10.8-13.0)
[2020-09-02 19:08] LABS: Alanine Aminotransferase 14 U/L (0-31); Alkaline Phosphatase 98 U/L (39-117); Anion Gap 11 (12-20); Aspartate Amino Transferase 21 U/L (5-31); Bilirubin Direct < 0.2 mg/dL (0.0-0.5); Bilirubin Total 0.3 mg/dL (0.0-1.0); Blood Urea Nitrogen 17 mg/dL (9-16); C Reactive Protein 0.22 mg/dL (< or = 0.50); Calcium 9.5 mg/dL (8.4-10.2); Carbon Dioxide 44 mmol/L (22-29); Chloride 96 mmol/L (96-108); Creatinine Clr Calc Pharmacy 46.8; Estimated Glomerular Filt Rate > 60; Glucose Random 104 mg/dL (60-115); Lactate Dehydrogenase 206 U/L (122-220); Lipase 8 U/L (8-78); Magnesium 2.3 mg/dL (1.6-2.6); Sodium 146 mmol/L (135-145); Total Protein 6.5 g/dL (6.5-8.0)
[2020-09-02 19:20] LABS: Troponin-I High Sensitivity 18.4 ng/L (<3.5-17.0)
[2020-09-02 19:22] LABS: Influenza A PCR NEGATIVE (Negative); Influenza B PCR NEGATIVE (Negative); Resp Syncy Virus RNA Qual PCR NEGATIVE (Negative); SARS COV2 PCR INHOUSE NEGATIVE (Negative)
[2020-09-02 19:23] LABS: Procalcitonin 0.03 ng/mL
[2020-09-02 19:25] LABS: Ferritin 322 ng/mL (10-250)
[2020-09-02] MEDS: cefTRIAXone sodium 1 GM in 0.9 % Sodium Chloride 50 ML IV (19:56)
[2020-09-02] MEDS: methylPREDNISolone Sod Succ/PF 125 MG/2 ML VIAL IVPUSH (22:32)
--- NOTE | 2020-09-02 22:33 | PC.NURSE ---
Per [employer] OPERATOR HELPER, Repeat VBG done. wean off at bipap. @room air o2 dropped down to 89-90%. RT at bedside. Pt on 2 l of o2 via nc. o2 at 93%, speak full clear sentence. pt awake and alert. increase wob. rr at 35. will continue to monitor.
[2020-09-02 22:34] LABS: PCO2 VBG 71 mmHg
[2020-09-02 22:35] LABS: HCO3 VBG 56 mmol/L; PO2 VBG 195 mmHg
[2020-09-02 22:54] LABS: Troponin-I High Sensitivity 13.9 ng/L (<3.5-17.0)
[2020-09-02 23:05] LABS: Glucose Urine UA NEG (NEG); Leukocyte Esterase Urine NEG (NEG); Nitrite Urine POS (NEG); Specific Gravity - Urine >= 1.030 (1.005-1.025); UACC Culture Trigger YES; Urine Blood 1+ (NEG); Urine Ketones 15 MG/DL (NEG); Urine Protein TRACE MG/DL (NEG-TRACE)
[2020-09-02 23:20] LABS: Appearance Urine HAZY; Color Urine YELLOW
[2020-09-02 23:43] LABS: Bacteria Urine 4+ /LPF; Mucus Urine 1+ /LPF; Squamous Epithelial Cell Urine 1+ /LPF
--- NOTE | 2020-09-02 23:50 | PC.NURSE ---
pt put back on bipap setting at 4L/ 28% O2 Maintaining at 96%. awaiting for icu bed.
[2020-09-03] VITALS (14 sets, daily range): BP systolic 103–158; BP diastolic 56–78; PULSE 80–110; RESP 18–27; TEMP 36.4–36.9; O2SAT 92–98; BMI 14.7
--- NOTE | 2020-09-03 00:46 | P.HPCC_ITS ---
History of Present Illness Date of Service: 09/03/20 Chief Complaint: Shortness of breath The patient is a 69-year-old female with a past medical history of 40+ pack-year smoker, with underlying history of COPD who presented to the emergency room with acute shortness of breath. On initial assessment patient afebrile, tachypneic to 30s, setting 100% 3 L via nasal cannula but subsequently did require BiPAP support. Initial VB.22/150/54/63/81. Patient requests to go home, but continued to have increase respiratory effort and repeat VBG continued to show CO2 of 71 which is above her 50-60 baseline. Admitted to the ICU for COPD exacerbation requiring BiPAP support Review of Systems Constitutional: Constitutional: Reports fatigue ENT: Denies dizziness Cardiovascular: Cardiovascular: Denies chest pain and Reports dyspnea Respiratory: Respiratory: Reports cough, Denies pain with cough and Reports dyspnea Gastrointestinal: Gastrointestinal: Denies nausea and Denies vomiting Musculoskeletal: Musculoskeletal: Reports myalgias Neurologic: Denies dizziness Endocrine: Endocrine: Reports fatigue PMFSH Past Medical History Medical History COPD (chronic obstructive pulmonary disease) Pneumonia Social History Social History Household Members: Children Housing: Apartment Alcohol intake: unknown Smoking Status: Unknown if ever smoked Tobacco Type: Cigarette Use of substances other than those prescribed or required for medical reasons: Unknown Substance Use Type: Marijuana Advance Directives: No Advance Directives Information Provided: Yes service: No Current occupational status: retired Meds Allergies Allergy/AdvReac Type Severity Reaction Status Date / Time amoxicillin [AMOXICILLIN] Allergy Unknown HIVES Verified 07/26/20 09:52 Sulfa (Sulfonamide Allergy Unknown DIFFICULTY Verified 07/26/20 09:52 Antibiotics) BREATHING [SULFA (SULFONAMIDE ANTIBIOTICS)] cephalexin [From Keflex] Allergy Unknown Verified 07/26/20 09:52 Home Medications Medication Instructions Recorded Confirmed Type Breo Ellipta 1 inh INHALATION DAILY 07/26/20 09/02/20 History Spiriva Respimat 2 puff INHALATION DAILY 07/26/20 09/02/20 History albuterol sulfate 2 puff INHALATION Q4H PRN 07/26/20 09/02/20 History lorazepam 0.5 mg PO Q12H PRN 07/26/20 09/02/20 History venlafaxine 37.5 mg PO DAILY 07/26/20 09/02/20 History Physical Exam Vital Signs: Vital Signs: Last Vital Signs Temp 98.7 F 09/02/20 22:35 Pulse 102 H 09/02/20 23:49 Resp 21 H 09/03/20 00:05 BP 101/63 09/02/20 23:49 Pulse Ox 96 09/02/20 23:49 Body Mass Index 15.7 Const: General: cooperative, alert and awake Nutritional Appearance: cachectic Orientation/consciousness: patient oriented x3 Eyes: General: appearance normal, both eyes and all related structures Neck: Neck: Yes supple and Yes no JVD Resp: Effort & Inspection: normal respiratory effort Auscultation: rhonchi and diminished lung sounds Cardio: Rate: regular rate Heart sounds: S1 normal heart sound present and S2 normal heart sound present GI: Inspection: Yes normal to inspection Palpation (GI): Soft to palpation Auscultation: normal bowel sounds Skin: Lesions: no lesions Rashes: no rashes Neuro: General: patient oriented x3 Extrem: General: Yes no clubbing, cyanosis or edema Results Labs CBC and Chem 7: 09/02/20 18:26 09/02/20 18:26 Labs: Laboratory Results - last 24 hr 09/02/20 09/02/20 09/02/20 17:40 18:25 18:25 MCV MCH MCHC RDW Plt Count MPV Immature Gran % (Auto) Neut % (Auto) Lymph % (Auto) [place] % (Auto) Eos % (Auto) Baso % (Auto) Lymph # (Auto) [place] # (Auto) Eos # (Auto) Baso # (Auto) Abs Immat Gran (auto) Absolute Neuts (auto) Absolute Nucleated RBC Nucleated RBC % (auto) PT 12.9 INR 1.1 APTT 33.0 D VBG pH VBG pCO2 VBG pO2 VBG HCO3 VBG O2 Saturation VBG Base Excess Anion Gap Estim Creat Clear Calc Estimated GFR Random Glucose Lactic Acid 1.0 Calcium Magnesium Ferritin Total Bilirubin Direct Bilirubin AST ALT Alkaline Phosphatase Lactate Dehydrogenase Troponin I High Sens 18.4 H C-Reactive Protein Total Protein Albumin Lipase Procalcitonin Urine Color Urine Appearance Urine pH Ur Specific [place] Urine Protein Urine Glucose (UA) Urine Ketones Urine Blood Urine Nitrite Ur Leukocyte Esterase Urine RBC Urine WBC Ur Squamous Epith Cells Urine Bacteria Urine Mucus Coronavirus (PCR) Influenza Type A (PCR) Influenza Type B (PCR) RSV RNA Qual (PCR) 09/02/20 09/02/20 09/02/20 18:25 18:25 18:26 MCV 93.8 MCH 28.6 MCHC 30.5 L RDW 12.1 Plt Count 242 D MPV 9.8 Immature Gran % (Auto) 0.4 Neut % (Auto) 68.6 Lymph % (Auto) 21.6 [place] % (Auto) 8.5 Eos % (Auto) 0.3 Baso % (Auto) 0.6 Lymph # (Auto) 1.5 [place] # (Auto) 0.6 Eos # (Auto) 0.0 Baso # (Auto) 0.0 Abs Immat Gran (auto) 0.03 Absolute Neuts (auto) 4.9 Absolute Nucleated RBC 0.000 Nucleated RBC % (auto) 0.0 PT INR APTT VBG pH VBG pCO2 VBG pO2 VBG HCO3 VBG O2 Saturation VBG Base Excess Anion Gap Estim Creat Clear Calc Estimated GFR Random Glucose Lactic Acid Calcium Magnesium Ferritin Total Bilirubin Direct Bilirubin AST ALT Alkaline Phosphatase Lactate Dehydrogenase Troponin I High Sens C-Reactive Protein Total Protein Albumin Lipase Procalcitonin 0.03 Urine Color Urine Appearance Urine pH Ur Specific [place] Urine Protein Urine Glucose (UA) Urine Ketones Urine Blood Urine Nitrite Ur Leukocyte Esterase Urine RBC Urine WBC Ur Squamous Epith Cells Urine Bacteria Urine Mucus Coronavirus (PCR) NEGATIVE Influenza Type A (PCR) NEGATIVE Influenza Type B (PCR) NEGATIVE RSV RNA Qual (PCR) NEGATIVE 09/02/20 09/02/20 09/02/20 18:26 18:26 22:23 MCV MCH MCHC RDW Plt Count MPV Immature Gran % (Auto) Neut % (Auto) Lymph % (Auto) [place] % (Auto) Eos % (Auto) Baso % (Auto) Lymph # (Auto) [place] # (Auto) Eos # (Auto) Baso # (Auto) Abs Immat Gran (auto) Absolute Neuts (auto) Absolute Nucleated RBC Nucleated RBC % (auto) PT INR APTT VBG pH 7.22 L VBG pCO2 150 VBG pO2 54 VBG HCO3 63 VBG O2 Saturation 81.0 VBG Base Excess 27.6 Anion Gap 11 L Estim Creat Clear Calc 46.8 Estimated GFR > 60 Random Glucose 104 Lactic Acid Calcium 9.5 D Magnesium 2.3 Ferritin 322 H Total Bilirubin 0.3 Direct Bilirubin < 0.2 AST 21 ALT 14 Alkaline Phosphatase 98 D Lactate Dehydrogenase 206 Troponin I High Sens 13.9 C-Reactive Protein 0.22 Total Protein 6.5 Albumin 4.0 Lipase 8 Procalcitonin Urine Color Urine Appearance Urine pH Ur Specific [place] Urine Protein Urine Glucose (UA) Urine Ketones Urine Blood Urine Nitrite Ur Leukocyte Esterase Urine RBC Urine WBC Ur Squamous Epith Cells Urine Bacteria Urine Mucus Coronavirus (PCR) Influenza Type A (PCR) Influenza Type B (PCR) RSV RNA Qual (PCR) 09/02/20 09/02/20 22:24 22:53 MCV MCH MCHC RDW Plt Count MPV Immature Gran % (Auto) Neut % (Auto) Lymph % (Auto) [place] % (Auto) Eos % (Auto) Baso % (Auto) Lymph # (Auto) [place] # (Auto) Eos # (Auto) Baso # (Auto) Abs Immat Gran (auto) Absolute Neuts (auto) Absolute Nucleated RBC Nucleated RBC % (auto) PT INR APTT VBG pH 7.50 H VBG pCO2 71 VBG pO2 195 VBG HCO3 56 VBG O2 Saturation 99.0 VBG Base Excess 28.0 Anion Gap Estim Creat Clear Calc Estimated GFR Random Glucose Lactic Acid Calcium Magnesium Ferritin Total Bilirubin Direct Bilirubin AST ALT Alkaline Phosphatase Lactate Dehydrogenase Troponin I High Sens C-Reactive Protein Total Protein Albumin Lipase Procalcitonin Urine Color YELLOW Urine Appearance HAZY Urine pH 6.0 Ur Specific [place] >= 1.030 H Urine Protein TRACE Urine Glucose (UA) NEG Urine Ketones 15 Urine Blood 1+ H Urine Nitrite POS H Ur Leukocyte Esterase NEG Urine RBC 1-4 Urine WBC 10-14 H Ur Squamous Epith Cells 1+ Urine Bacteria 4+ Urine Mucus 1+ Coronavirus (PCR) Influenza Type A (PCR) Influenza Type B (PCR) RSV RNA Qual (PCR) Imaging Radiologist's Impressions: Impressions Chest X-Ray 09/02/20 17:13 IMPRESSION: Marked hyperinflation and COPD. No acute intrathoracic disease. Assessment and Plan (1) Acute exacerbation of chronic obstructive airways disease: Status: Acute Plan: Neuro: No acute issues. Cardiac: Hypotension secondary to requirements for sedation. No evidence of sepsis. Pulmonary: Acute hypercapnic respiratory failure secondary to COPD exacerbation requiring BIPAP. Continue systemic glucocorticoids and bronchodilators. Continue to titrate off BIPAP support as tolerated. Started on azithromycin for anti-inflammatory effect in COPD exacerbations Renal: No acute issues. Endo: No acute issues. GI: No acute issues. ID: Urine with positive nitrate an increased WBC. Patient denies any UTI- related symptoms. The ABCs only 7.1. This is likely asymptomatic bacteriuria, will not benefit from antibiotic treatment at this time. Heme/Onc: No acute issues. Psych: No acute issues. Miscellaneous: No acute issues. Prophylaxis: Heparin, does not require GI prophylaxis Diet: NPO Code status: Full code Critical care time spent: 60 minutes (2) Severe protein-calorie malnutrition: Status: Acute (3) Abnormal urine: Status: Acute
[2020-09-03] MEDS: Enoxaparin Sodium 40 MG/0.4 ML SYRINGE SUBCUT (02:07)
[2020-09-03] MEDS: Azithromycin 250 MG TABLET PO ×2 (02:08→21:23)
[2020-09-03 05:36] LABS: Base Excess VBG 23.8 mmol/L; HCO3 VBG 51 mmol/L; PCO2 VBG 69 mmHg; PO2 VBG 174 mmHg; pH VBG 7.47 (7.32-7.43)
[2020-09-03 05:37] LABS: Basophils Percent Auto 0.2 % (0-2); Hematocrit 35.8 % (37-47); Hemoglobin 11.2 g/dl (12.0-16.0); Imm Gran Abs Auto 0.02 X10*3/uL (0.00-0.03); Imm Gran Pct Auto 0.3 % (0.0-0.4); Lymphocytes Absolute Auto 0.4 X10*3/uL (1.2-4.9); Lymphocytes Percent Auto 7.5 % (20-40); MANUAL DIFF FLAG SCAN; Mean Corpuscular HGB Conc 31.3 g/dl (31.0-35.0); Mean Corpuscular Hemoglobin 28.6 pg (27.0-33.0); Mean Corpuscular Volume 91.3 fL (80-98); Mean Platelet Volume 9.8 fL (9.4-12.3); Monocytes Percent Auto 0.7 % (2-11); Neutrophils Absolute Auto 5.4 X10*3/uL (2.0-8.3); Neutrophils Percent Auto 91.3 % (45-73); Platelet Count 208 X10*3/uL (160-400); Red Blood Count 3.92 X10*6/uL (4.20-5.50); Red Cell Distribution Width 12.1 % (11.0-16.0); SCAN SMEAR FLAG 1; White Blood Count 5.9 X10*3/uL (4.8-10.8)
[2020-09-03 05:43] LABS: SLIDE REVIEW VERIFIED
[2020-09-03 06:24] LABS: Anion Gap 15 (12-20); Blood Urea Nitrogen 23 mg/dL (9-16); Calcium 9.1 mg/dL (8.4-10.2); Carbon Dioxide 36 mmol/L (22-29); Chloride 96 mmol/L (96-108); Estimated Glomerular Filt Rate > 60; Glucose Random 150 mg/dL (60-115); Magnesium 2.1 mg/dL (1.6-2.6); Phosphorus 3.7 mg/dL (2.7-4.5); Potassium 4.7 mmol/l (3.3-5.1); Sodium 142 mmol/L (135-145)
--- NOTE | 2020-09-03 07:57 | PC.NURSE ---
Admitted patient to ICU @ 0340 for COPD exac to room 255. Patient taken off bipap and put on 2 liters nasal cannula. Patient tolerating without any SOB. RR 22-27, O2sat mid 90's. Answering questions appropriately. mild anxiety - able to fall asleep after assessment. Vitals stable. Afebrile. Cooperative w/ care. Coccyx bony, pink, but blanchable, no open areas noted.
[2020-09-03] MEDS: Albuterol/Iprat 2.5/0.5MG 3 ML AMPUL.NEB INHALE ×3 (08:57→20:09)
--- NOTE | 2020-09-03 10:25 | MHC.CLN ---
PT IS SEVERELY MALNOURISHED CURRENTLY NPO WHEN DIET TO ADVANCE, RECOMMEND ADDING ENSURE BID TO INCREASE KCALS SEE ALSO CLINICAL NUTRITION ASSESSMENT
[2020-09-03] MEDS: LORazepam 0.5 MG TABLET PO (12:44)
[2020-09-03] MEDS: predniSONE 20 MG TABLET 40 MG PO (12:44)
--- NOTE | 2020-09-03 12:53 | PC.NURSE ---
PAtient extreemly anxious, requesting multiple times to check my oxygen I just need to know what it is at all times Oxygen checked per requests, ot noted to be between 91-93% on 0.5L O2. Attempted to removed oxygen and titrate to room air, however patient refused and said I need this to live . Pt educated with COPD information and goal of O2 and )2 sats, however patient is too anxious to comprehend. Pt states she takes PRN Lorazepam at home, Text out to who re-ordered home med. 0.5mg PO ativan given, see MAR. PT aware of plan of care, sitting upright in bed eating lunch.
--- NOTE | 2020-09-03 13:12 | MHC.CM.PN ---
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 PT REPORTS TAKING VENLAFAXINE THROUGH HER PSYCHIATRIST AND REPORTS SHE LIKES ATIVAN 0.5MG SEVERAL TIMES A DAY, PT WAS EDUCATED ON EFFECTS BENZODIAZAPINES CAN HAVE ON BREATHING AND ENCOURAGED HER TO TRY OTHER MEDICATION HER PSYCHIATRIST SUGGESTS IN PLACE OF ATIVAN. 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 CM MESSAGED ATTENDING. COPY OF HCP ON FILE: PADMAJA OSEI (SON) [phone] ALTERNATE ABILIO FARNAZ [phone]
--- NOTE | 2020-09-03 15:14 | PM.CCN ---
Critical Care Event Note Summary Code activated: No Narrative: Patient has been evaluated by myself. 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 Agree with documented with the following additions/corrections: On my exam patient is: Awake and alert, answering appropriately, requiring 1 L of supplemental oxygen to maintain normoxemia, lung exam significant for mild expiratory wheeze. Laboratory studies and imaging reviewed. Assessment and Plan: 70-year-old lady with known advanced supplemental oxygen dependent COPD and lung mass admitted with COPD exacerbation briefly requiring BiPAP support, now titrated off. Continue with systemic glucocorticoids, nebulized bronchodilators, and azithromycin. Patient requires outpatient pulmonary follow-up for the lung mass. Total critical care time: No additional critical care time. Critical Care Time (minutes): 0
--- NOTE | 2020-09-03 15:38 | MHC.CM.PN ---
CM SPOKE WITH PT AND PT'S VNA WHO REPORTS PT RECEIVES SERVICES THROUGH [facility] AND HAS BIWEEKLY NURSING VISITS AND PT/OT, PER [facility]NA PT HAS APPROXIMATELY 2 MORE MONTHS OF VNA SERVICES. REFERRAL FOR RESUMPTION OF CARE SENT 09/03/20. DISCHARGE PLAN HOME W/RESUMPTION OF [facility], SON ABILIO TO TRANSPORT PCP: DR. SERRATO
[2020-09-04] VITALS (9 sets, daily range): BP systolic 117–152; BP diastolic 56–72; PULSE 89–100; RESP 16–18; TEMP 36–36.7; O2SAT 91–96
[2020-09-04] MEDS: Enoxaparin Sodium 40 MG/0.4 ML SYRINGE SUBCUT (00:33)
[2020-09-04 06:23] LABS: Base Excess VBG 25.3 mmol/L; HCO3 VBG 54 mmol/L; PCO2 VBG 88 mmHg; PO2 VBG 47 mmHg
[2020-09-04 06:27] LABS: MANUAL DIFF FLAG NO
[2020-09-04 06:45] LABS: Basophils Percent Auto 0.1 % (0-2); Eosinophils Percent Auto 0.1 % (0-4); Hematocrit 33.8 % (37-47); Hemoglobin 10.5 g/dl (12.0-16.0); Imm Gran Abs Auto 0.07 X10*3/uL (0.00-0.03); Imm Gran Pct Auto 0.4 % (0.0-0.4); Lymphocytes Absolute Auto 1.8 X10*3/uL (1.2-4.9); Lymphocytes Percent Auto 10.3 % (20-40); Mean Corpuscular HGB Conc 31.1 g/dl (31.0-35.0); Mean Corpuscular Hemoglobin 28.3 pg (27.0-33.0); Mean Corpuscular Volume 91.1 fL (80-98); Mean Platelet Volume 10.5 fL (9.4-12.3); Monocytes Absolute Auto 1.3 X10*3/uL (0.1-1.2); Monocytes Percent Auto 7.4 % (2-11); Neutrophils Absolute Auto 14.5 X10*3/uL (2.0-8.3); Neutrophils Percent Auto 81.7 % (45-73); Platelet Count 219 X10*3/uL (160-400); Red Blood Count 3.71 X10*6/uL (4.20-5.50); Red Cell Distribution Width 12.4 % (11.0-16.0); White Blood Count 17.7 X10*3/uL (4.8-10.8)
[2020-09-04 07:07] LABS: Albumin Level 3.6 g/dL (3.5-5.0); Anion Gap 14 (12-20); Blood Urea Nitrogen 31 mg/dL (9-16); Calcium 9.3 mg/dL (8.4-10.2); Carbon Dioxide 39 mmol/L (22-29); Chloride 98 mmol/L (96-108); Creatinine Clr Calc Pharmacy 37.7; Estimated Glomerular Filt Rate > 60; Glucose Random 101 mg/dL (60-115); Magnesium 2.3 mg/dL (1.6-2.6); Phosphorus 3.3 mg/dL (2.7-4.5); Potassium 4.9 mmol/l (3.3-5.1); Sodium 146 mmol/L (135-145)
[2020-09-04] MEDS: Fluticasone/Vilanterol 200/25 BLST.W.DEV 1 PUFF INHALE (08:27)
[2020-09-04] MEDS: Albuterol/Iprat 2.5/0.5MG 3 ML AMPUL.NEB INHALE ×3 (08:27→20:29)
[2020-09-04] MEDS: Dextrose 5 % 250 ML 50 ML IV (09:08)
[2020-09-04] MEDS: Venlafaxine HCL 25 MG TABLET 37.5 MG PO (09:08)
[2020-09-04] MEDS: predniSONE 20 MG TABLET 40 MG PO (09:09)
--- NOTE | 2020-09-04 12:21 | HO.PM.IMPN ---
Subjective Subjective Date of Service: 09/05/20 Interval History: Acute hypoxemic/hypercarbic respiratory failure secondary to COPD exacerbation Review of Systems Patient still intermittently short of breath, a stuffy nose Denies any chest pain or abdominal pain or fever or chills or weakness or numbness or any urinary complaints. Physical Exam Vital Signs: Vital Signs: Last Vital Signs Temp 97.7 F 09/04/20 11:34 Pulse 91 09/04/20 11:34 Resp 18 09/04/20 11:34 BP 138/70 09/04/20 11:34 Pulse Ox 94 09/04/20 11:34 Body Mass Index 14.7 Physical exam: Constitutional: Not in acute distress Cvs: [id number], [id number] , no murmur res: diminshed bretah sounds, wheezing abd: no rebound or guarding ,nt, bs present. ext pulses present , no cyanosis neuro: axo3 , nonfocal. Objective Data Current Medications Generic Name Dose Route Start Last Admin Trade Name Freq PRN Reason Stop Dose Admin Albuterol/Ipratropium 3 ml 09/03/20 08:00 09/04/20 08:27 Albuterol/Iprat 2.5/0.5mg 3 Ml Ampul.Neb INHALE 3 ml RQ6H WHILE AWAKE SANDI Administration Artificial Tears 2 drop 09/04/20 10:28 Artificial Tears 15 Ml Drops EYE-BOTH Q4H PRN dry eyes Azithromycin 250 mg 09/03/20 22:00 09/03/20 21:23 Azithromycin 250 Mg Tablet PO 250 mg Q24H SANDI Administration Enoxaparin Sodium 40 mg 09/03/20 01:00 09/04/20 00:33 Enoxaparin Sodium 40 Mg/0.4 Ml Syringe SUBCUT 40 mg Q24H SANDI Administration Fluticasone Propionate 1 spray 09/04/20 10:30 09/04/20 12:09 Fluticasone Propionate Nasal 16 Gm [place] NOSTRIL-B Not Given DAILY SANDI Fluticasone/Vilanterol 1 puff 09/04/20 09:00 09/04/20 08:27 Fluticasone/Vilanterol 200/25 Blst.W.Dev INHALE 1 puff DAILY SANDI Administration Dextrose 250 mls @ 50 mls/hr 09/04/20 07:45 09/04/20 09:08 D5w IV 09/04/20 12:44 50 mls/hr .Q5H SANDI Administration Loratadine 10 mg 09/04/20 10:30 09/04/20 12:09 Loratadine 10 Mg Tablet PO Not Given DAILY SANDI Lorazepam 0.5 mg 09/03/20 12:33 09/03/20 12:44 Lorazepam 0.5 Mg Tablet PO 0.5 mg Q8H PRN Administration Anxiety Prednisone 40 mg 09/03/20 10:20 09/04/20 09:09 Prednisone 20 Mg Tablet PO 09/10/20 10:19 40 mg DAILY SANDI Administration Tiotropium [place] 2 puff 09/04/20 09:41 Tiotropium [place] 18 Mcg Cap.W.Dev INHALE RDAILY SANDI Venlafaxine HCl 37.5 mg 09/04/20 09:00 09/04/20 09:08 Venlafaxine Hcl 25 Mg Tablet PO 37.5 mg DAILY SANID Administration Labs CBC & Chem 7: 09/04/20 06:14 09/04/20 12:32 Microbiology Microbiology Results: Microbiology 09/02/20 00:00 Urine clean catch - Clean Catch Midstream Urine Culture - Final 09/02/20 18:26 Blood - Venous Blood Culture - Preliminary No growth after 24 hours. 09/02/20 17:40 Blood - Venous Blood Culture - Preliminary No growth after 24 hours. Assessment and Plan (1) Acute exacerbation of chronic obstructive airways disease: Status: Acute Assessment and Plan: 1.Acute hypoxic and hypercapnic respiratory failure secondary to COPD exacerbation Patient downgraded by ICU yesterday requiring BiPAP Continue steroids, nebs, azithromycin, loratadine, Robitussin, oxygen slowly trend down 2.Left Apical mass--old diagnostic from [facility]--high likelyhood of maligancy. From last admission review patient is to follow up outpatient with Oncology and also discussed with Dr. Nagy patient is to follow up outpatient with Pulmonary after discharge. 3.Anxiety--Ativan PRN 4.Severe Protein calory malnutrition with marked weight loss. She was briefly on TPN in ICU. She was subsequently seen by Nutritional and is doing well with Afiae. She?ll need intensive dietary management and calorie checks on the outside, and if inadequate, might need a PEG
[2020-09-04 13:14] LABS: Sodium 143 mmol/L (135-145)
[2020-09-04] MEDS: LORazepam 0.5 MG TABLET PO (15:25)
[2020-09-04] MEDS: Azithromycin 250 MG TABLET PO (21:33)
[2020-09-05] VITALS (8 sets, daily range): BP systolic 116–153; BP diastolic 61–72; PULSE 81–95; RESP 15–21; TEMP 36.7–37.1; O2SAT 92–99; BMI 16.7
[2020-09-05] MEDS: predniSONE 20 MG TABLET 40 MG PO (09:10)
[2020-09-05] MEDS: Loratadine 10 MG TABLET PO (09:11)
[2020-09-05] MEDS: Venlafaxine HCL 25 MG TABLET 37.5 MG PO (09:11)
--- NOTE | 2020-09-05 13:26 | P.PNIM_ITS ---
Subjective Subjective Date of Service: 09/05/20 Interval History: Acute hypoxemic/hypercarbic respiratory failure secondary to COPD exacerbation Review of Systems Patient still feel anxious and short of breath, she is concerned that that burden she is on 2 L oxygen even though she is at home on 2 L oxygen . Denies any abdominal pain or urinary complaints or nausea or vomiting. Physical Exam Vital Signs: Vital Signs: Last Vital Signs Temp 98.3 F 09/05/20 12:00 Pulse 87 09/05/20 12:00 Resp 21 H 09/05/20 12:00 BP 134/69 09/05/20 12:00 Pulse Ox 92 09/05/20 12:00 Body Mass Index 16.7 Physical exam Constitutional: Noted acute distress Cvs: rrr, [id number] , no murmur res: Gross air entry slightly diminished, Still has bilateral wheezing abd: no rebound or guarding ,nt, bs present. ext pulses present , no cyanosis neuro: axo3 , nonfocal. Objective Data Current Medications Generic Name Dose Route Start Last Admin Trade Name Sudhirq PRN Reason Stop Dose Admin Albuterol/Ipratropium 3 ml 09/03/20 08:00 09/05/20 07:58 Albuterol/Iprat 2.5/0.5mg 3 Ml Ampul.Neb INHALE Not Given RQ6H WHILE AWAKE SANDI Artificial Tears 2 drop 09/04/20 10:28 Artificial Tears 15 Ml Drops EYE-BOTH Q4H PRN dry eyes Azithromycin 250 mg 09/03/20 22:00 09/04/20 21:33 Azithromycin 250 Mg Tablet PO 250 mg Q24H SANDI Administration Enoxaparin Sodium 40 mg 09/03/20 01:00 09/04/20 23:51 Enoxaparin Sodium 40 Mg/0.4 Ml Syringe SUBCUT 40 mg Q24H SANDI Administration Fluticasone Propionate 1 spray 09/04/20 10:30 09/05/20 09:11 Fluticasone Propionate Nasal 16 Gm [place] NOSTRIL-B Not Given DAILY SANDI Fluticasone/Vilanterol 1 puff 09/04/20 09:00 09/05/20 07:59 Fluticasone/Vilanterol 200/25 Blst.W.Dev INHALE Not Given DAILY SANDI Loratadine 10 mg 09/04/20 10:30 09/05/20 09:11 Loratadine 10 Mg Tablet PO 10 mg DAILY SANDI Administration Lorazepam 0.5 mg 09/03/20 12:33 09/04/20 15:25 Lorazepam 0.5 Mg Tablet PO 0.5 mg Q8H PRN Administration Anxiety Prednisone 40 mg 09/03/20 10:20 09/05/20 09:10 Prednisone 20 Mg Tablet PO 09/10/20 10:19 40 mg DAILY SANDI Administration Tiotropium [place] 2 puff 09/04/20 09:41 09/05/20 07:58 Tiotropium [place] 18 Mcg Cap.W.Dev INHALE Not Given RDAILY SANDI Venlafaxine HCl 37.5 mg 09/04/20 09:00 09/05/20 09:11 Venlafaxine Hcl 25 Mg Tablet PO 37.5 mg DAILY SANDI Administration Labs CBC & Chem 7: 09/04/20 06:14 09/04/20 12:32 Microbiology Microbiology Results: Microbiology 09/02/20 18:26 Blood - Venous Blood Culture - Preliminary No growth after 48 hours. 09/02/20 17:40 Blood - Venous Blood Culture - Preliminary No growth after 48 hours. 09/02/20 00:00 Urine clean catch - Clean Catch Midstream Urine Culture - Final Assessment and Plan (1) Acute exacerbation of chronic obstructive airways disease: Status: Acute Assessment and Plan: 1.Acute hypoxic and hypercapnic respiratory failure secondary to COPD exacerbat ion Patient downgraded by ICU yesterday requiring BiPAP Continue steroids, nebs, azithromycin, loratadine, Robitussin, oxygen slowly trend down Patient will need repeat home oxygen evaluation even though she is on home oxygen because she is saying that she probably does not need that much oxygen. 2.Left Apical mass--old diagnostic from [facility]--high likelyhood of maligancy. From last admission review patient is to follow up outpatient with Oncology and also discussed with Dr. Nagy patient is to follow up outpatient with Pulmonary after discharge. 3.Anxiety--Ativan PRN 4.Severe Protein calory malnutrition with marked weight loss. She was briefly on TPN in ICU. She was subsequently seen by Nutritional and is doing well with Puree. She?ll need intensive dietary management and calorie checks on the outside, and if inadequate, might need a PEG (2) Severe protein-calorie malnutrition: Status: Acute
--- NOTE | 2020-09-05 14:57 | MHC.CM.PN ---
LAVELLE TEIXEIRAA UPDATED IN ALLCTRIPTS
[2020-09-05] MEDS: Albuterol/Iprat 2.5/0.5MG 3 ML AMPUL.NEB INHALE ×2 (15:19→20:16)
[2020-09-05] MEDS: LORazepam 0.5 MG TABLET PO ×2 (15:20→22:26)
[2020-09-05] MEDS: Azithromycin 250 MG TABLET PO (22:14)
[2020-09-06] VITALS (11 sets, daily range): BP systolic 116–148; BP diastolic 59–72; PULSE 80–97; RESP 12–20; TEMP 36.3–37.2; O2SAT 93–97; BMI 16.3
[2020-09-06] MEDS: Albuterol/Iprat 2.5/0.5MG 3 ML AMPUL.NEB INHALE ×3 (08:03→20:10)
[2020-09-06] MEDS: Fluticasone/Vilanterol 200/25 BLST.W.DEV 1 PUFF INHALE (08:07)
[2020-09-06] MEDS: Venlafaxine HCL 25 MG TABLET 37.5 MG PO (09:02)
[2020-09-06] MEDS: Loratadine 10 MG TABLET PO (09:03)
[2020-09-06] MEDS: predniSONE 20 MG TABLET 40 MG PO (09:03)
--- NOTE | 2020-09-06 11:07 | HO.PM.IMPN ---
Subjective Subjective Date of Service: 09/06/20 Interval History: seen and examined this AM still feeling sob with movement long discussion held with her re: goals of care (see separate ACP note) ROS General - no fevers or chills Cardiovascular - no chest pain Respiratory - +SOB Abdominal- no abdominal pain, nausea, vomiting, diarrhea Physical Exam Vital Signs: Vital Signs: Last Vital Signs Temp 97.6 F 09/06/20 07:57 Pulse 80 09/06/20 08:07 Resp 19 09/06/20 07:57 BP 148/70 H 09/06/20 07:57 Pulse Ox 95 09/06/20 07:57 Body Mass Index 16.7 Const: Other: General - no acute distress, appears comfortable, cachectic Cardiovascular - regular rate and rhythm, S1-S2 Lungs - dim sounds Abdomen - soft, nontender, no rebound or guarding Extremities - no edema bilaterally Neuro - awake and alert, no focal deficits Objective Data Current Medications Generic Name Dose Route Start Last Admin Trade Name Freq PRN Reason Stop Dose Admin Albuterol/Ipratropium 3 ml 09/03/20 08:00 09/06/20 08:03 Albuterol/Iprat 2.5/0.5mg 3 Ml Ampul.Neb INHALE 3 ml RQ6H WHILE AWAKE SANDI Administration Artificial Tears 2 drop 09/04/20 10:28 Artificial Tears 15 Ml Drops EYE-BOTH Q4H PRN dry eyes Azithromycin 250 mg 09/03/20 22:00 09/05/20 22:14 Azithromycin 250 Mg Tablet PO 250 mg Q24H SANDI Administration Enoxaparin Sodium 40 mg 09/03/20 01:00 09/06/20 02:27 Enoxaparin Sodium 40 Mg/0.4 Ml Syringe SUBCUT Not Given Q24H SANDI Fluticasone Propionate 1 spray 09/04/20 10:30 09/06/20 09:03 Fluticasone Propionate Nasal 16 Gm [place] NOSTRIL-B Not Given DAILY SANDI Fluticasone/Vilanterol 1 puff 09/04/20 09:00 09/06/20 08:07 Fluticasone/Vilanterol 200/25 Blst.W.Dev INHALE 1 puff DAILY SANDI Administration Loratadine 10 mg 09/04/20 10:30 09/06/20 09:03 Loratadine 10 Mg Tablet PO 10 mg DAILY SANDI Administration Lorazepam 0.5 mg 09/03/20 12:33 09/05/20 22:26 Lorazepam 0.5 Mg Tablet PO 0.5 mg Q8H PRN Administration Anxiety Prednisone 40 mg 09/03/20 10:20 09/06/20 09:03 Prednisone 20 Mg Tablet PO 09/10/20 10:19 40 mg DAILY SANDI Administration Tiotropium [place] 2 puff 09/04/20 09:41 09/06/20 08:07 Tiotropium [place] 18 Mcg Cap.W.Dev INHALE 2 puff RDAILY SANDI Administration Venlafaxine HCl 37.5 mg 09/04/20 09:00 09/06/20 09:02 Venlafaxine Hcl 25 Mg Tablet PO 37.5 mg DAILY SANDI Administration Labs CBC & Chem 7: 09/04/20 06:14 09/04/20 12:32 Microbiology Microbiology Results: Microbiology 09/02/20 18:26 Blood - Venous Blood Culture - Preliminary No growth after 48 hours. 09/02/20 17:40 Blood - Venous Blood Culture - Preliminary No growth after 48 hours. 09/02/20 00:00 Urine clean catch - Clean Catch Midstream Urine Culture - Final Assessment and Plan (1) Acute exacerbation of chronic obstructive airways disease: Status: Acute Assessment and Plan: This is a 70-year-old female with a past medical history of chronic respiratory failure on home O2 at 2 L, end-stage COPD who presents to the hospital with respiratory distress and was initially admitted to the intensive care unit for acute on chronic respiratory failure with hypoxia and hypercarbia requiring BiPAP. She was weaned and transferred out of the intensive care unit on 09/03/2019. 1. Acute on chronic respiratory failure with hypoxia and hypercarbia Due to COPD Appears to be improving 2. COPD exacerbation/end-stage P.o. prednisone and scheduled updrafts 3. Generalized weakness Due to her end-stage COPD. Will get physical therapy evaluation for home safety 4. L Apical Mass known from last admission d/w the patient -- given her history of smoking, concerning for cancer. She tells me that he goal is to get as much time with her family and even admits that she is fearful and avoiding doing further testing at this time. Long discussion held with her re: goals of care. Offered palliative and hospice options to be considered. Will touch base with her again. Full Code DVT pptx, lovenox
--- NOTE | 2020-09-06 11:19 | W.MHC.ACPN ---
Advanced Care Planning Note Advanced Care Planning Note Discussed with: patient Time spent (in minutes): 25 Narrative: Discussed with the patient her goals of care. This is her 2nd hospitalization for COPD exacerbation and acute on chronic respiratory failure with hypoxia and hypercarbia within the last 1 month. She also has a diagnosis of a apical lung mass which given her history is very suspicious for cancer. She has been too afraid to have this diagnosed by her own reporting. She tells me her primary wishes are to spend time with her family. I explained to her that this may be best accomplished by transitioning to hospice/palliative care. We talked in detail about what these entail and she did seem to be interested. She however did express that she needs more time to think and at this time is not ready to make that transition. See tells me that she will continue this conversation with her family as well as her outpatient providers. Total Time:25 minutes Problems Discussed (1) Acute exacerbation of chronic obstructive airways disease:
[2020-09-06] MEDS: LORazepam 0.5 MG TABLET PO (16:13)
[2020-09-06] MEDS: Azithromycin 250 MG TABLET PO (20:17)
[2020-09-07] VITALS (8 sets, daily range): BP systolic 104–149; BP diastolic 47–70; PULSE 70–96; RESP 19–20; TEMP 36.3–36.9; O2SAT 94–100
[2020-09-07] MEDS: LORazepam 0.5 MG TABLET PO ×2 (01:35→16:38)
[2020-09-07] MEDS: Albuterol/Iprat 2.5/0.5MG 3 ML AMPUL.NEB INHALE ×2 (07:24→13:23)
[2020-09-07] MEDS: Fluticasone/Vilanterol 200/25 BLST.W.DEV 1 PUFF INHALE (07:26)
--- NOTE | 2020-09-07 10:24 | MHC.CM.PN ---
PATIENT ASKS THIS LEMON PICKER FOR A REFERRAL TO [facility] [place]; NOW PLACED. IF THIS FACILITY IS UNABLE TO OFFER, SHE ASKLS THAT THE ([facility]) REFERRAL BE PLACED. CASE MANAGEMENT FOLLOWING
[2020-09-07] MEDS: Fluticasone Propionate Nasal 16 GM SPRAY 1 SPRAY NOSTRIL-B (10:43)
[2020-09-07] MEDS: Venlafaxine HCL 25 MG TABLET 37.5 MG PO (10:43)
[2020-09-07] MEDS: Loratadine 10 MG TABLET PO (10:44)
[2020-09-07] MEDS: predniSONE 20 MG TABLET 40 MG PO (10:44)
--- NOTE | 2020-09-07 12:17 | MHC.CM.PN ---
PATIENT IS DISCHARGED TO [facility] FOR 17:30 [facility]IA [facility]. RN AND UNIT AWARE OF PLAN. PATIENT HAS INFORMED FAMILY. IMM 2/ IN CHART.
--- NOTE | 2020-09-07 12:48 | PM.DS ---
DS: Providers Provider Date of Service: 09/07/20 Date of admission: 09/02/20 23:57 Primary care physician: Unknown Physician DS: Diagnosis Discharge Diagnosis (1) Acute and chronic respiratory failure with hypercapnia: Status: Acute (2) Acute exacerbation of chronic obstructive airways disease: Status: Acute (3) Severe protein-calorie malnutrition: Status: Acute (4) Lung mass: Status: Acute DS: Medications Discharge Medications Home Medications: Home Medications Medication Instructions Recorded Confirmed Breo Ellipta 1 inh INHALATION DAILY 07/26/20 09/02/20 Spiriva Respimat 2 puff INHALATION DAILY 07/26/20 09/02/20 albuterol sulfate 2 puff INHALATION Q4H PRN 07/26/20 09/02/20 venlafaxine 37.5 mg PO DAILY 07/26/20 09/02/20 Previous Rx's Medication Instructions Recorded lorazepam 0.5 mg PO Q8H PRN #20 tab 08/03/20 lorazepam 0.5 mg PO Q12H PRN #10 tab 09/07/20 DS: Summary Hospital Course Hospital Course: Patient presented with worsening shortness of breath and was noted to be in acute on chronic respiratory failure with hypoxia and hypercapnia. She was started on systemic steroids, updraft treatments, Zithromax and initially did require a short stay in the intensive care unit for BiPAP treatment. She was subsequently transitioned out to the medical floors were her treatment for COPD was continued. She was transition from IV to oral steroids and was able to be weaned down to her baseline of 2 L by nasal cannula. A long discussion was held with the patient regarding her end-stage COPD/chronic respiratory failure as well as known apical mass which she has not elected for workup yet. Phos is/palliative care transition was offered but in the end patient reported not being ready for that transition. She was evaluated by Physical therapy and will be transitioned to short-term rehab. Time Spent with Patient Time attestation: Total time spent providing and/or coordinating discharge services: Discharge coordination time: Greater than 30 minutes Physical Exam Vital Signs: Vital Signs: Last Vital Signs Temp 98.5 F 09/07/20 11:37 Pulse 92 09/07/20 11:37 Resp 19 09/07/20 11:37 BP 127/60 09/07/20 11:37 Pulse Ox 95 09/07/20 11:37 Body Mass Index 16.3 Const: Other: General - no acute distress, appears comfortable, cachectic Cardiovascular - regular rate and rhythm, S1-S2 Lungs - dim sounds Abdomen - soft, nontender, no rebound or guarding Extremities - no edema bilaterally Neuro - awake and alert, no focal deficits DS: Data Data Completed and Pending Completed studies during hospitalization [Text1]: Procedures Assistance with Respiratory Ventilation, Less than 24 Consecutive Hours, Continuous Positive Airway Pressure (07/26/20) Insertion of Endotracheal Airway into Trachea, Via Natural or Artificial Opening (07/26/20) Insertion of Infusion Device into Superior Vena Cava, Percutaneous Approach (07/26/20) Respiratory Ventilation, 24-96 Consecutive Hours (07/26/20) Ultrasonography of Superior Vena Cava, Guidance (07/26/20) Labs on day of discharge: Laboratory Tests 09/02/20 09/02/20 09/02/20 17:40 18:25 18:25 WBC RBC Hgb Hct MCV MCH MCHC RDW Plt Count MPV Immature Gran % (Auto) Neut % (Auto) Lymph % (Auto) [place] % (Auto) Eos % (Auto) Baso % (Auto) Lymph # (Auto) [place] # (Auto) Eos # (Auto) Baso # (Auto) Abs Immat Gran (auto) Absolute Neuts (auto) Absolute Nucleated RBC Nucleated RBC % (auto) Smear Tech's Comments PT 12.9 INR 1.1 APTT 33.0 D VBG pH VBG pCO2 VBG pO2 VBG HCO3 VBG O2 Saturation VBG Base Excess Sodium Potassium Chloride Carbon Dioxide Anion Gap BUN Creatinine Estim Creat Clear Calc Estimated GFR Random Glucose Lactic Acid 1.0 Calcium Phosphorus Magnesium Ferritin Total Bilirubin Direct Bilirubin AST ALT Alkaline Phosphatase Lactate Dehydrogenase Troponin I High Sens 18.4 H C-Reactive Protein Total Protein Albumin Lipase Procalcitonin Urine Color Urine Appearance Urine pH Ur Specific [place] Urine Protein Urine Glucose (UA) Urine Ketones Urine Blood Urine Nitrite Ur Leukocyte Esterase Urine RBC Urine WBC Ur Squamous Epith Cells Urine Bacteria Urine Mucus Coronavirus (PCR) Influenza Type A (PCR) Influenza Type B (PCR) RSV RNA Qual (PCR) 09/02/20 09/02/20 09/02/20 18:25 18:25 18:26 WBC 7.1 RBC 4.34 D Hgb 12.4 D Hct 40.7 D MCV 93.8 MCH 28.6 MCHC 30.5 L RDW 12.1 Plt Count 242 D MPV 9.8 Immature Gran % (Auto) 0.4 Neut % (Auto) 68.6 Lymph % (Auto) 21.6 [place] % (Auto) 8.5 Eos % (Auto) 0.3 Baso % (Auto) 0.6 Lymph # (Auto) 1.5 [place] # (Auto) 0.6 Eos # (Auto) 0.0 Baso # (Auto) 0.0 Abs Immat Gran (auto) 0.03 Absolute Neuts (auto) 4.9 Absolute Nucleated RBC 0.000 Nucleated RBC % (auto) 0.0 Smear Tech's Comments PT INR APTT VBG pH VBG pCO2 VBG pO2 VBG HCO3 VBG O2 Saturation VBG Base Excess Sodium Potassium Chloride Carbon Dioxide Anion Gap BUN Creatinine Estim Creat Clear Calc Estimated GFR Random Glucose Lactic Acid Calcium Phosphorus Magnesium Ferritin Total Bilirubin Direct Bilirubin AST ALT Alkaline Phosphatase Lactate Dehydrogenase Troponin I High Sens C-Reactive Protein Total Protein Albumin Lipase Procalcitonin 0.03 Urine Color Urine Appearance Urine pH Ur Specific [place] Urine Protein Urine Glucose (UA) Urine Ketones Urine Blood Urine Nitrite Ur Leukocyte Esterase Urine RBC Urine WBC Ur Squamous Epith Cells Urine Bacteria Urine Mucus Coronavirus (PCR) NEGATIVE Influenza Type A (PCR) NEGATIVE Influenza Type B (PCR) NEGATIVE RSV RNA Qual (PCR) NEGATIVE 09/02/20 09/02/20 09/02/20 18:26 18:26 22:23 WBC RBC Hgb Hct MCV MCH MCHC RDW Plt Count MPV Immature Gran % (Auto) Neut % (Auto) Lymph % (Auto) [place] % (Auto) Eos % (Auto) Baso % (Auto) Lymph # (Auto) [place] # (Auto) Eos # (Auto) Baso # (Auto) Abs Immat Gran (auto) Absolute Neuts (auto) Absolute Nucleated RBC Nucleated RBC % (auto) Smear Tech's Comments PT INR APTT VBG pH 7.22 L VBG pCO2 150 VBG pO2 54 VBG HCO3 63 VBG O2 Saturation 81.0 VBG Base Excess 27.6 Sodium 146 H Potassium 5.0 Chloride 96 Carbon Dioxide 44 H* D Anion Gap 11 L BUN 17 H Creatinine 0.69 Estim Creat Clear Calc 46.8 Estimated GFR > 60 Random Glucose 104 Lactic Acid Calcium 9.5 D Phosphorus Magnesium 2.3 Ferritin 322 H Total Bilirubin 0.3 Direct Bilirubin < 0.2 AST 21 ALT 14 Alkaline Phosphatase 98 D Lactate Dehydrogenase 206 Troponin I High Sens 13.9 C-Reactive Protein 0.22 Total Protein 6.5 Albumin 4.0 Lipase 8 Procalcitonin Urine Color Urine Appearance Urine pH Ur Specific [place] Urine Protein Urine Glucose (UA) Urine Ketones Urine Blood Urine Nitrite Ur Leukocyte Esterase Urine RBC Urine WBC Ur Squamous Epith Cells Urine Bacteria Urine Mucus Coronavirus (PCR) Influenza Type A (PCR) Influenza Type B (PCR) RSV RNA Qual (PCR) 09/02/20 09/02/20 09/03/20 22:24 22:53 05:17 WBC 5.9 RBC 3.92 L Hgb 11.2 L Hct 35.8 L MCV 91.3 MCH 28.6 MCHC 31.3 RDW 12.1 Plt Count 208 MPV 9.8 Immature Gran % (Auto) 0.3 Neut % (Auto) 91.3 H Lymph % (Auto) 7.5 L [place] % (Auto) 0.7 L Eos % (Auto) 0.0 Baso % (Auto) 0.2 Lymph # (Auto) 0.4 L [place] # (Auto) 0.0 L Eos # (Auto) 0.0 Baso # (Auto) 0.0 Abs Immat Gran (auto) 0.02 Absolute Neuts (auto) 5.4 Absolute Nucleated RBC 0.000 Nucleated RBC % (auto) 0.0 Smear Tech's Comments VERIFIED PT INR APTT VBG pH 7.50 H VBG pCO2 71 VBG pO2 195 VBG HCO3 56 VBG O2 Saturation 99.0 VBG Base Excess 28.0 Sodium Potassium Chloride Carbon Dioxide Anion Gap BUN Creatinine Estim Creat Clear Calc Estimated GFR Random Glucose Lactic Acid Calcium Phosphorus Magnesium Ferritin Total Bilirubin Direct Bilirubin AST ALT Alkaline Phosphatase Lactate Dehydrogenase Troponin I High Sens C-Reactive Protein Total Protein Albumin Lipase Procalcitonin Urine Color YELLOW Urine Appearance HAZY Urine pH 6.0 Ur Specific [place] >= 1.030 H Urine Protein TRACE Urine Glucose (UA) NEG Urine Ketones 15 Urine Blood 1+ H Urine Nitrite POS H Ur Leukocyte Esterase NEG Urine RBC 1-4 Urine WBC 10-14 H Ur Squamous Epith Cells 1+ Urine Bacteria 4+ Urine Mucus 1+ Coronavirus (PCR) Influenza Type A (PCR) Influenza Type B (PCR) RSV RNA Qual (PCR) 09/03/20 09/03/20 09/04/20 05:27 05:27 06:14 WBC 17.7 H RBC 3.71 L Hgb 10.5 L Hct 33.8 L MCV 91.1 MCH 28.3 MCHC 31.1 RDW 12.4 Plt Count 219 MPV 10.5 Immature Gran % (Auto) 0.4 Neut % (Auto) 81.7 H Lymph % (Auto) 10.3 L [place] % (Auto) 7.4 Eos % (Auto) 0.1 Baso % (Auto) 0.1 Lymph # (Auto) 1.8 [place] # (Auto) 1.3 H Eos # (Auto) 0.0 Baso # (Auto) 0.0 Abs Immat Gran (auto) 0.07 H Absolute Neuts (auto) 14.5 H Absolute Nucleated RBC 0.000 Nucleated RBC % (auto) 0.0 Smear Tech's Comments PT INR APTT VBG pH 7.47 H VBG pCO2 69 VBG pO2 174 VBG HCO3 51 VBG O2 Saturation 100.0 VBG Base Excess 23.8 Sodium 142 Potassium 4.7 Chloride 96 Carbon Dioxide 36 H Anion Gap 15 BUN 23 H Creatinine 0.75 Estim Creat Clear Calc 43.0 Estimated GFR > 60 Random Glucose 150 H D Lactic Acid Calcium 9.1 Phosphorus 3.7 Magnesium 2.1 Ferritin Total Bilirubin Direct Bilirubin AST ALT Alkaline Phosphatase Lactate Dehydrogenase Troponin I High Sens C-Reactive Protein Total Protein Albumin Lipase Procalcitonin Urine Color Urine Appearance Urine pH Ur Specific [place] Urine Protein Urine Glucose (UA) Urine Ketones Urine Blood Urine Nitrite Ur Leukocyte Esterase Urine RBC Urine WBC Ur Squamous Epith Cells Urine Bacteria Urine Mucus Coronavirus (PCR) Influenza Type A (PCR) Influenza Type B (PCR) RSV RNA Qual (PCR) 09/04/20 09/04/20 09/04/20 06:14 06:14 12:32 WBC RBC Hgb Hct MCV MCH MCHC RDW Plt Count MPV Immature Gran % (Auto) Neut % (Auto) Lymph % (Auto) [place] % (Auto) Eos % (Auto) Baso % (Auto) Lymph # (Auto) [place] # (Auto) Eos # (Auto) Baso # (Auto) Abs Immat Gran (auto) Absolute Neuts (auto) Absolute Nucleated RBC Nucleated RBC % (auto) Smear Tech's Comments PT INR APTT VBG pH 7.40 VBG pCO2 88 VBG pO2 47 VBG HCO3 54 VBG O2 Saturation 75.0 VBG Base Excess 25.3 Sodium 146 H 143 Potassium 4.9 Chloride 98 Carbon Dioxide 39 H Anion Gap 14 BUN 31 H Creatinine 0.80 Estim Creat Clear Calc 37.7 Estimated GFR > 60 Random Glucose 101 Lactic Acid Calcium 9.3 Phosphorus 3.3 Magnesium 2.3 Ferritin Total Bilirubin Direct Bilirubin AST ALT Alkaline Phosphatase Lactate Dehydrogenase Troponin I High Sens C-Reactive Protein Total Protein Albumin 3.6 Lipase Procalcitonin Urine Color Urine Appearance Urine pH Ur Specific [place] Urine Protein Urine Glucose (UA) Urine Ketones Urine Blood Urine Nitrite Ur Leukocyte Esterase Urine RBC Urine WBC Ur Squamous Epith Cells Urine Bacteria Urine Mucus Coronavirus (PCR) Influenza Type A (PCR) Influenza Type B (PCR) RSV RNA Qual (PCR) Preliminary micro results at discharge 09/02/20 18:26 Blood Culture - Preliminary Blood - Venous No growth after 48 hours. 09/02/20 17:40 Blood Culture - Preliminary Blood - Venous No growth after 48 hours. Discharge Plan Discharge Patient Disposition: er SNF Referrals: [facility] [Outside] (PATIENT TO TRANSFER TO [facility]. TIME SCHEDULED FOR 1729.) Physician,Unknown [Primary Care Provider] - Discharge Medications: New azithromycin 250 mg Tablet 250 mg PO Q24H Qty: 3 RF: 0 prednisone 20 mg Tablet 40 mg PO DAILY Qty: 5 RF: 0 Continued lorazepam 0.5 mg tablet 0.5 mg PO Q12H PRN (Reason: anxiety) Qty: 10 RF: 0 venlafaxine 37.5 mg tablet 37.5 mg PO DAILY RF: 0 albuterol sulfate 90 mcg/actuation HFA aerosol inhaler 2 puff inhalation Q4H PRN (Reason: Shortness Of Breath Or Wheezing) RF: 0 Spiriva Respimat 2.5 mcg/actuation mist 2 puff inhalation DAILY RF: 0 Breo Ellipta 200-25 mcg/dose blister with device 1 inh inhalation DAILY RF: 0 Discontinued lorazepam 0.5 mg Tablet 0.5 mg PO Q8H PRN (Reason: Anxiety) Qty: 20 RF: 0 Discharge Orders: Discharge Order (Routine); Ordered 09/07/20 Ordered By: Adrian Sweet Diet: advance to usual diet Activity on Discharge: As tolerated Stand Alone Forms: Patient Portal Discharge page Care Plan Goals: To stay healthy and out of the hospital. Health Concerns: COPD Known Lung Mass Plan of Treatment: COPD - Take prednisone for 5 more days and azithromycin for 3 more days. Use your inhalers / nebulizers as you have been doing so. Lung Mass - follow up with your doctors from [facility] for further care.
[2020-09-07 14:17] LABS: COVID-19 Test Negative (Negative); IDNOW Serial# 9DD0AD1C
--- NOTE | 2020-09-07 15:45 | PC.NURSE ---
pt has been ambulatory to commode with walker. she is anxious at baseline, denies pain. Attempted to call report to [facility], no answer at number provided. Pt awaits ambulance transfer to SNF
== END 2020-09-07 19:28 | disposition skilled nursing facility (03) | DRG 190 ==
LOC: HO.ED 23:38 → HO.EDOVER 09-03 00:09 → HO.ICU 09-03 01:16 → HO.S3 09-03 09:10
PROVIDERS: Internal Medicine; Nurse Practitioner Family; Registered Nurse Community Health; Admitting Provider Internal Medicine Pulmonary Disease; Emergency Provider Emergency Medicine; Visit Provider Family Medicine
DX: J44.1 Chronic obstructive pulmonary disease with (acute) exacerbation (principal); E43 Unspecified severe protein-calorie malnutrition; J96.22 Acute and chronic respiratory failure with hypercapnia; J96.21 Acute and chronic respiratory failure with hypoxia; N39.0 Urinary tract infection, site not specified; Z68.1 Body mass index [BMI] 19.9 or less, adult; C34.92 Malignant neoplasm of unspecified part of left bronchus or lung; F41.9 Anxiety disorder, unspecified; Z20.822 Contact with and (suspected) exposure to COVID-19; Z87.891 Personal history of nicotine dependence; Z88.0 Allergy status to penicillin; Z88.2 Allergy status to sulfonamides; Z79.899 Other long term (current) drug therapy
CPT/HCPCS: 0241U; 36415; 71045; 80048; 80076; 81001; 81003; 82040; 82728; 82803; 83605; 83615; 83690; 83735; 84100; 84145; 84295; 84484; 85025; 85610; 85730; 86140; 87040; 87086; 87635; 93005; 94640; 94660; 96365; 96375; 97162; 99285; 99291; J0696; J1650; J2920; J2930

== ENCOUNTER 2021-07-24 12:33 | Inpatient (IN) | payer MEDICARE, MEDICAID, SELFPAY ==
[2021-07-24] VITALS (19 sets, daily range): BP systolic 121–167; BP diastolic 51–75; PULSE 84–117; RESP 10–31; TEMP 36.4–37.3; O2SAT 82–100; BMI 17.2; BMI 21.4
--- NOTE | ~2021-07-24 | CT_ITS ---
EXAMINATION: CT CHEST WITHOUT CONTRAST CLINICAL INFORMATION: Shortness of breath. Rule out pneumonia or tuberculosis. COMPARISON: Radiograph 07/24/2021. CT 07/26/2020 TECHNIQUE: Multidetector volumetric CT imaging of the chest was done. Axial MIP volume rendering provided. Sagittal and coronal reformatted images were obtained. This CT examination was performed using dose optimization techniques as appropriate, variously including the following: *Automated exposure control *Adjustment of mA and/or kV according to patient size (this includes techniques or standardized protocols for targeted exams where dose is matched to indication/reason for exam; i.e. extremities or head) *Use of iterative reconstruction technique DLP: 291 mGy-cm FINDINGS: MILL HAND: Cardiac leads overlie the chest. LUNGS: The central airways are patent. Severe centrilobular and paraseptal emphysema. Mild bronchial wall thickening. There is very subtle groundglass opacity anteriorly in the right upper lobe near the midline as well as anteriorly in the left upper lobe near the midline. There is an area of stellate consolidation internal gas at the left apex is decreased in prominence from prior. This measures 1.8 x 1.3 cm on series 5 image 56. When measured at a similar level on prior this had measured 2.3 x 2.1 cm. This extends to an area of mild nodularity along the left major fissure which is similar to prior measuring 0.9 x 0.6 cm on image 102. No new consolidation. No pneumothorax. No pleural effusion. MEDIASTINUM: Normal heart size. No pericardial effusion. No mediastinal lymphadenopathy. Coronary artery calcifications. AXILLA: No lymphadenopathy. UPPER ABDOMEN: Cholecystectomy. No acute abnormality. OSSEOUS STRUCTURES: No acute or suspicious osseous abnormality. Mild height loss at the mid thoracic spine is unchanged. CT/CT chest wo con IMPRESSION: Severe emphysema. Minimal groundglass opacity anteriorly in both the left and right upper lobe near the midline could be infectious or inflammatory. There is no dense consolidation. Stellate nodular density at the left apex with internal focus of gas is decreased in size from prior. Fleischner guidelines were followed.
--- NOTE | ~2021-07-24 | XR_ITS ---
EXAMINATION: XR CHEST CLINICAL INFORMATION: SOB COMPARISON: Chest 09/02/2020 TECHNIQUE: Frontal view of the chest was obtained. FINDINGS: Lungs are hyperinflated but clear of acute process. There is left apical scarring, stable. The heart size and pulmonary vascularity is normal. No gross bony abnormality seen. XR/XR chest 1V IMPRESSION: Hyperinflated lungs without any acute pneumonic process. Left upper lobe scarring is stable.
--- NOTE | 2021-07-24 12:40 | ECG_ITS ---
Test Reason : DIFFICULTY BREATHING Blood Pressure : / mmHG Vent. Rate : 104 BPM Atrial Rate : 104 BPM P-R Int : 134 ms QRS Dur : 078 ms QT Int : 334 ms P-R-T Axes : 086 076 090 degrees QTc Int : 439 ms Sinus tachycardia Otherwise normal ECG When compared with ECG of 02-SEP-2020 17:08, Premature atrial complexes are no longer Present Referred By: Oz Lee Electronically Signed By:RITU GIBSON MD
[2021-07-24] MEDS: methylPREDNISolone Sod Succ 125 MG/2 ML VIAL IVPUSH (12:48)
[2021-07-24] MEDS: Magnesium Sulfate/H2O 2 GM/50 ML PIGGYBACK IV (12:48)
[2021-07-24 12:57] LABS: ABG Base Excess 12.5 mmol/L; ABG HCO3 45 mmol/L (22-26); ABG pCO2 106 mmHg (32-45); ABG pH 7.23 (7.35-7.45); ABG pO2 49 mmHg (83-108)
[2021-07-24 13:03] LABS: MANUAL DIFF FLAG NO
[2021-07-24 13:05] LABS: Basophils Absolute Auto 0.1 X10*3/uL (0.0-0.2); Basophils Percent Auto 0.7 % (0-2); Eosinophils Percent Auto 0.4 % (0-4); Hematocrit 39.7 % (37.0-47.0); Hemoglobin 12.5 g/dl (12.0-16.0); Imm Gran Abs Auto 0.05 X10*3/uL (0.00-0.03); Imm Gran Pct Auto 0.5 % (0.0-0.4); Lymphocytes Absolute Auto 1.4 X10*3/uL (1.2-4.9); Lymphocytes Percent Auto 12.8 % (20-40); Mean Corpuscular HGB Conc 31.5 g/dl (31.0-35.0); Mean Corpuscular Hemoglobin 29.1 pg (27.0-33.0); Mean Corpuscular Volume 92.5 fL (80.0-98.0); Mean Platelet Volume 9.2 fL (9.4-12.3); Monocytes Absolute Auto 0.9 X10*3/uL (0.1-1.2); Neutrophils Absolute Auto 8.4 x10*3/uL (2.0-8.3); Neutrophils Percent Auto 77.6 % (45-73); Platelet Count 280 X10*3/uL (160-400); Red Blood Count 4.29 X10*6/uL (4.20-5.50); Red Cell Distribution Width 12.7 % (11.0-16.0); White Blood Count 10.8 X10*3/uL (4.8-10.8)
[2021-07-24] MEDS: Albuterol Sulfate (0.083%) 2.5 MG/3 ML VIAL.NEB 5 MG INHALE (13:21)
[2021-07-24 13:22] LABS: B Type Natriuretic Peptide 50 pg/mL (<100); Troponin-I High Sensitivity 22.4 ng/L (<3.5-17.0)
[2021-07-24] MEDS: Albuterol/Iprat 2.5/0.5MG 3 ML AMPUL.NEB INHALE (13:22)
[2021-07-24 13:24] LABS: Lactic Acid 1.1 mmol/L (0.5-2.0)
[2021-07-24] MEDS: levoFLOXacin/D5W 500 MG/100 ML PIGGYBACK 100 MG IV (13:30)
[2021-07-24] MEDS: 0.9 % Sodium Chloride 1,360.77 ML 1360.77 ML IV (13:30)
--- NOTE | 2021-07-24 13:51 | PC.NURSE ---
On Bipap settings 18/8/40% Fi02 Pt responsive to voice, answer appropriately. Skin pale, warm. Sinus tach 103 on tele. Fluids and Levaquin infusing. Riddle inserted, spec collected.
[2021-07-24 13:56] LABS: Influenza A PCR NEGATIVE (Negative); Influenza B PCR NEGATIVE (Negative); Resp Syncy Virus RNA Qual PCR NEGATIVE (Negative); SARS COV2 PCR INHOUSE NEGATIVE (Negative)
[2021-07-24 13:56] LABS: Appearance Urine HAZY; Color Urine YELLOW; Glucose Urine UA NEG (NEG); Leukocyte Esterase Urine NEG (NEG); Nitrite Urine NEG (NEG); Specific Gravity - Urine >= 1.030 (1.005-1.025); UACC Culture Trigger NO; Urine Blood 1+ (NEG); Urine Ketones NEG (NEG); Urine Protein 2+ MG/DL (NEG-TRACE)
[2021-07-24 14:03] LABS: Mucus Urine 3+ /LPF; Renal Epithelial Cells Urine TRACE /LPF; Squamous Epithelial Cell Urine 1+ /LPF
[2021-07-24 14:04] LABS: Bacteria Urine TRACE /LPF; UACC CULT YES
[2021-07-24 14:10] LABS: Barbiturates, Urine Not Detected (Not Detect); Benzodiazepines Screen Urine Not Detected (Not Detect); Cannabinoid Screen Urine POSITIVE (Not Detect); Cocaine Screen Urine Not Detected (Not Detect); Fentanyl, urine Not Detected (Not Detect); Opiate Screen Urine Not Detected (Not Detect); Phencyclidine Screen Urine Not Detected (Not Detect)
[2021-07-24 14:12] LABS: Amphetamine Screen Urine Not Detected (Not Detect)
--- NOTE | 2021-07-24 14:44 | ED.SOB ---
HPI - SOB/Dyspnea General Chief Complaint: Dyspnea Stated Complaint: diff breathing Time Seen by Provider: 07/24/21 12:40 Source: patient, EMS and old records reviewed Mode of arrival: EMS Limitations: no limitations and physical limitation (Respiratory distress and lethargy.) History of Present Illness HPI Narrative: 70-year-old female came in by ambulance for evaluation of shortness of breath. Patient's symptoms started 2 days ago, patient is a former smoker with history of COPD with progressively worsening of shortness of breath and wheezing with dry cough, noticed at home patient is less responsive to her family, on arrival patient appear in apparent respiratory distress placed on CPAP by EMS patient initially is lethargic but arousable to verbal stimuli, for screening physical exam is consistent with COPD exacerbation. Patient was placed on BiPAP, patient started to show improvement especially after given DuoNeb of bronchodilator and Solu-Medrol with magnesium. Patient had prior ICU admission secondary to respiratory failure. Related Data Home Medications Medication Instructions Recorded Confirmed albuterol sulfate 90 mcg/actuation 2 puff INHALATION Q4H PRN 07/26/20 07/24/21 aerosol inhaler fluticasone furoate 200 1 inh INHALATION DAILY 07/26/20 07/24/21 mcg-vilanterol 25 mcg/dose inhalation powder (Breo Ellipta) tiotropium bromide 2.5 2 puff INHALATION DAILY 07/26/20 07/24/21 mcg/actuation mist for inhalation (Spiriva Respimat) venlafaxine 37.5 mg tablet 37.5 mg PO BID 07/26/20 07/24/21 buspirone 10 mg tablet 1 tab PO BID 07/24/21 07/24/21 Previous Rx's Medication Instructions Recorded azithromycin 250 mg tablet 250 mg PO Q24H #3 tab 09/07/20 lorazepam 0.5 mg tablet 0.5 mg PO Q12H PRN #10 tab 09/07/20 Allergies Allergy/AdvReac Type Severity Reaction Status Date / Time amoxicillin [AMOXICILLIN] Allergy Unknown HIVES Verified 07/26/20 09:52 Sulfa (Sulfonamide Allergy Unknown DIFFICULTY Verified 07/26/20 09:52 Antibiotics) BREATHING [SULFA (SULFONAMIDE ANTIBIOTICS)] cephalexin [From Keflex] Allergy Unknown Verified 07/26/20 09:52 Review of Systems Review of Systems: Yes Unobtainable due to mental condition PMFSH Past Medical History Medical History Acute exacerbation of chronic obstructive airways disease COPD (chronic obstructive pulmonary disease) Lung mass Pneumonia Severe protein-calorie malnutrition Social History Social History Household Members: Other Household Members Other:: son Housing: House Do you presently have visiting nurse or other home services: No (Felipe) Alcohol intake: unknown Patient Tobacco Use Status: Former Tobacco user Use of substances other than those prescribed or required for medical reasons: No Substance Use Type: Marijuana Advance Directives: No Advance Directives Information Provided: Yes service: No Current occupational status: retired Physical Exam Vital Signs: Vital Signs: Last Vital Signs Temp 97.5 F 07/24/21 15:14 Pulse 96 07/24/21 15:14 Resp 20 07/24/21 15:14 BP 152/64 H 07/24/21 15:14 Pulse Ox 100 07/24/21 15:14 BMI result Body Mass Index 17.2 Vital signs have been reviewed as appeared to be correct. Blood pressure normal. Heart rate normal. Respiration rate normal. Temperature normal. Oxygen saturation normal. Appearance: Lethargic, arousable to verbal stimuli, moderate acute respiratory distress. Head: Normal external exam. Normocephalic. Atraumatic. No Tanner signs noted. No raccoon eyes noted Eyes: PERRLA. EOMI. Conjunctiva and sclera normal. Eyelids normal. ENT: TM's Normal. Pharynx normal. Uvula midline. Moist mucous membranes. No trismus noted. No drooling noted. No muffled voice noted. Neck: Normal inspection. Neck supple. FROM. No adenopathy. Thyroid Normal. No meningeal signs. No neck mass noted. CVS: Normal heart rate and rhythm. Heart sound normal. No murmurs noted. Pulses normal throughout. Respiratory: Diffuse bilateral expiratory wheezing, intercostal retraction, prolonged expiration, decreased breathing sound bilaterally in all lung bailey, Abdomen: Soft and nontender. Bowel sounds normal in all 4 quadrants. No distention noted. No organomegaly noted. No visible injury noted. Back: No CVA tenderness. Full range of motion noted. Skin: Skin warm and dry. Normal skin color. Normal skin turgor. No rashes/lesions/lacerations noted. Extremities: No lower extremity edema. Extremities exhibit normal range of motion. Extremities nontender. Neuro: Lethargic arousable to painful stimuli. Cranial nerve exam: II-XII are grossly intact No motor deficit. No sensory deficit. Reflexes normal. Course Course Course Narrative: Patient acute respiratory distress due to COPD exacerbation, patient on CPAP, with decreased mental status patient is lethargic patient now on BiPAP instead of CPAP. Patient met criteria for SIRS patient had lactic acid/blood culture/given IV fluid/antibiotic. Reevaluation(s) Reevaluation #1: Patient was placed on BiPAP, ABG was drawn showing respiratory acidosis with hypercarbia, will remove the patient from bed 11 to bed 5 for potential possible intubation. Time: 12:50 Reevaluation #2: Patient is more awake, respond to examiner briskly, ABG was drawn awaiting for results. Time: 14:58 Reevaluation #3: Patient still on rescue BiPAP, ABG showing pH of 7.2 acute respiratory acidosis with hypercarbia slightly improved, patient Oral need to continue with BiPAP probably for overnight, Dr. Smith at the bedside to evaluate the patient for ICU admission. Time: 15:25 MDM - SOB/Dyspnea Lab Data Result diagrams: 07/24/21 12:56 07/24/21 14:22 Labs: Lab Results 07/24/21 07/24/21 07/24/21 Range/Units 12:50 12:56 12:56 WBC 10.8 (4.8-10.8) X10*3/uL RBC 4.29 (4.20-5.50) X10*6/uL Hgb 12.5 (12.0-16.0) g/dl Hct 39.7 (37.0-47.0) % MCV 92.5 (80.0-98.0) fL MCH 29.1 (27.0-33.0) pg MCHC 31.5 (31.0-35.0) g/dl RDW 12.7 (11.0-16.0) % Plt Count 280 (160-400) X10*3/uL MPV 9.2 L (9.4-12.3) fL Immature Gran % (Auto) 0.5 H (0.0-0.4) % Neut % (Auto) 77.6 H (45-73) % Lymph % (Auto) 12.8 L (20-40) % Pierce % (Auto) 8.0 (2-11) % Eos % (Auto) 0.4 (0-4) % Baso % (Auto) 0.7 (0-2) % Lymph # (Auto) 1.4 (1.2-4.9) X10*3/uL Pierce # (Auto) 0.9 (0.1-1.2) X10*3/uL Eos # (Auto) 0.0 (0.0-0.4) X10*3/uL Baso # (Auto) 0.1 (0.0-0.2) X10*3/uL Abs Immat Gran (auto) 0.05 H (0.00-0.03) X10*3/uL Absolute Neuts (auto) 8.4 H (2.0-8.3) x10*3/uL Absolute Nucleated RBC 0.000 (0.0-0.012) X10*3/uL Nucleated RBC % (auto) 0.0 (0.0-0.2) /100WBC O2 Saturation 73.0 % ABG pH at Pt Temp 7.23 L (7.35-7.45) ABG pCO2 at Pt Temp 106 H* (32-45) mmHg ABG pO2 at Pt Temp 49 L* (83-108) mmHg ABG HCO3 45 H (22-26) mmol/L ABG Base Excess (Actual) 12.5 mmol/L Sodium (135-145) mmol/L Potassium (3.3-5.1) mmol/L Chloride (96-108) mmol/L Carbon Dioxide (22-29) mmol/L Anion Gap (12-20) BUN (9-16) mg/dL Creatinine (0.5-1.4) mg/dL Estim Creat Clear Calc Estimated GFR Random Glucose (60-115) mg/dL Lactic Acid (0.5-2.0) mmol/L Calcium (8.4-10.2) mg/dL Magnesium (1.6-2.6) mg/dL Total Bilirubin (0.0-1.0) mg/dL Direct Bilirubin (0.0-0.5) mg/dL AST (5-31) U/L ALT (0-31) U/L Alkaline Phosphatase (39-117) U/L Troponin I High Sens 22.4 H (<3.5-17.0) ng/L B-Natriuretic Peptide 50 (<100) pg/mL Total Protein (6.5-8.0) g/dL Albumin (3.5-5.0) g/dL Lipase (8-78) U/L Urine Color Urine Appearance Urine pH (5.0-8.0) Ur Specific [place] (1.005-1.025) Urine Protein (NEG-TRACE) MG/DL Urine Glucose (UA) (NEG) MG/DL Urine Ketones (NEG) MG/DL Urine Blood (NEG) Urine Nitrite (NEG) Ur Leukocyte Esterase (NEG) Urine RBC (0) /HPF Urine WBC (0-4) /HPF Ur Squamous Epith Cells /LPF Ur Renal Epithelial Cell /LPF Urine Bacteria /LPF Hyaline Casts /LPF Urine Mucus /LPF Urine Opiates Screen (Not Detect) Urine Fentanyl Screen (Not Detect) Ur Barbiturates Screen (Not Detect) Ur Phencyclidine Scrn (Not Detect) Ur Amphetamines Screen (Not Detect) U Benzodiazepines Scrn (Not Detect) Urine Cocaine Screen (Not Detect) U Marijuana (THC) Screen (Not Detect) Influenza Type A (PCR) (Negative) Influenza Type B (PCR) (Negative) RSV RNA Qual (PCR) (Negative) SARS-CoV-2 RNA (RT-PCR) (Negative) 07/24/21 07/24/21 07/24/21 Range/Units 13:08 13:08 13:49 WBC (4.8-10.8) X10*3/uL RBC (4.20-5.50) X10*6/uL Hgb (12.0-16.0) g/dl Hct (37.0-47.0) % MCV (80.0-98.0) fL MCH (27.0-33.0) pg MCHC (31.0-35.0) g/dl RDW (11.0-16.0) % Plt Count (160-400) X10*3/uL MPV (9.4-12.3) fL Immature Gran % (Auto) (0.0-0.4) % Neut % (Auto) (45-73) % Lymph % (Auto) (20-40) % Pierce % (Auto) (2-11) % Eos % (Auto) (0-4) % Baso % (Auto) (0-2) % Lymph # (Auto) (1.2-4.9) X10*3/uL [place] # (Auto) (0.1-1.2) X10*3/uL Eos # (Auto) (0.0-0.4) X10*3/uL Baso # (Auto) (0.0-0.2) X10*3/uL Abs Immat Gran (auto) (0.00-0.03) X10*3/uL Absolute Neuts (auto) (2.0-8.3) x10*3/uL Absolute Nucleated RBC (0.0-0.012) X10*3/uL Nucleated RBC % (auto) (0.0-0.2) /100WBC O2 Saturation % ABG pH at Pt Temp (7.35-7.45) ABG pCO2 at Pt Temp (32-45) mmHg ABG pO2 at Pt Temp (83-108) mmHg ABG HCO3 (22-26) mmol/L ABG Base Excess (Actual) mmol/L Sodium (135-145) mmol/L Potassium (3.3-5.1) mmol/L Chloride (96-108) mmol/L Carbon Dioxide (22-29) mmol/L Anion Gap (12-20) BUN (9-16) mg/dL Creatinine (0.5-1.4) mg/dL Estim Creat Clear Calc Estimated GFR Random Glucose (60-115) mg/dL Lactic Acid 1.1 (0.5-2.0) mmol/L Calcium (8.4-10.2) mg/dL Magnesium (1.6-2.6) mg/dL Total Bilirubin (0.0-1.0) mg/dL Direct Bilirubin (0.0-0.5) mg/dL AST (5-31) U/L ALT (0-31) U/L Alkaline Phosphatase (39-117) U/L Troponin I High Sens (<3.5-17.0) ng/L B-Natriuretic Peptide (<100) pg/mL Total Protein (6.5-8.0) g/dL Albumin (3.5-5.0) g/dL Lipase (8-78) U/L Urine Color YELLOW Urine Appearance HAZY Urine pH 6.0 (5.0-8.0) Ur Specific [place] >= 1.030 H (1.005-1.025) Urine Protein 2+ H (NEG-TRACE) MG/DL Urine Glucose (UA) NEG (NEG) MG/DL Urine Ketones NEG (NEG) MG/DL Urine Blood 1+ H (NEG) Urine Nitrite NEG (NEG) Ur Leukocyte Esterase NEG (NEG) Urine RBC 5-9 H (0) /HPF Urine WBC 5-9 H (0-4) /HPF Ur Squamous Epith Cells 1+ /LPF Ur Renal Epithelial Cell TRACE /LPF Urine Bacteria TRACE /LPF Hyaline Casts 1-4 /LPF Urine Mucus 3+ /LPF Urine Opiates Screen (Not Detect) Urine Fentanyl Screen (Not Detect) Ur Barbiturates Screen (Not Detect) Ur Phencyclidine Scrn (Not Detect) Ur Amphetamines Screen (Not Detect) U Benzodiazepines Scrn (Not Detect) Urine Cocaine Screen (Not Detect) U Marijuana (THC) Screen (Not Detect) Influenza Type A (PCR) NEGATIVE (Negative) Influenza Type B (PCR) NEGATIVE (Negative) RSV RNA Qual (PCR) NEGATIVE (Negative) SARS-CoV-2 RNA (RT-PCR) NEGATIVE (Negative) 07/24/21 07/24/21 07/24/21 Range/Units 13:49 14:22 15:01 WBC (4.8-10.8) X10*3/uL RBC (4.20-5.50) X10*6/uL Hgb (12.0-16.0) g/dl Hct (37.0-47.0) % MCV (80.0-98.0) fL MCH (27.0-33.0) pg MCHC (31.0-35.0) g/dl RDW (11.0-16.0) % Plt Count (160-400) X10*3/uL MPV (9.4-12.3) fL Immature Gran % (Auto) (0.0-0.4) % Neut % (Auto) (45-73) % Lymph % (Auto) (20-40) % Pierce % (Auto) (2-11) % Eos % (Auto) (0-4) % Baso % (Auto) (0-2) % Lymph # (Auto) (1.2-4.9) X10*3/uL Pierce # (Auto) (0.1-1.2) X10*3/uL Eos # (Auto) (0.0-0.4) X10*3/uL Baso # (Auto) (0.0-0.2) X10*3/uL Abs Immat Gran (auto) (0.00-0.03) X10*3/uL Absolute Neuts (auto) (2.0-8.3) x10*3/uL Absolute Nucleated RBC (0.0-0.012) X10*3/uL Nucleated RBC % (auto) (0.0-0.2) /100WBC O2 Saturation 52.0 % ABG pH at Pt Temp 7.21 L (7.35-7.45) ABG pCO2 at Pt Temp 99 H* (32-45) mmHg ABG pO2 at Pt Temp 37 L* (83-108) mmHg ABG HCO3 40 H (22-26) mmol/L ABG Base Excess (Actual) 8.9 mmol/L Sodium 142 (135-145) mmol/L Potassium 4.4 (3.3-5.1) mmol/L Chloride 101 (96-108) mmol/L Carbon Dioxide 32 H (22-29) mmol/L Anion Gap 13 (12-20) BUN 17 H (9-16) mg/dL Creatinine 0.83 (0.5-1.4) mg/dL Estim Creat Clear Calc 45.1 Estimated GFR > 60 Random Glucose 154 H (60-115) mg/dL Lactic Acid (0.5-2.0) mmol/L Calcium 8.8 (8.4-10.2) mg/dL Magnesium 2.7 H (1.6-2.6) mg/dL Total Bilirubin 0.3 (0.0-1.0) mg/dL Direct Bilirubin < 0.2 (0.0-0.5) mg/dL AST 27 (5-31) U/L ALT 18 (0-31) U/L Alkaline Phosphatase 83 (39-117) U/L Troponin I High Sens (<3.5-17.0) ng/L B-Natriuretic Peptide (<100) pg/mL Total Protein 6.0 L (6.5-8.0) g/dL Albumin 3.4 L (3.5-5.0) g/dL Lipase 4 L (8-78) U/L Urine Color Urine Appearance Urine pH (5.0-8.0) Ur Specific [place] (1.005-1.025) Urine Protein (NEG-TRACE) MG/DL Urine Glucose (UA) (NEG) MG/DL Urine Ketones (NEG) MG/DL Urine Blood (NEG) Urine Nitrite (NEG) Ur Leukocyte Esterase (NEG) Urine RBC (0) /HPF Urine WBC (0-4) /HPF Ur Squamous Epith Cells /LPF Ur Renal Epithelial Cell /LPF Urine Bacteria /LPF Hyaline Casts /LPF Urine Mucus /LPF Urine Opiates Screen Not Detected (Not Detect) Urine Fentanyl Screen Not Detected (Not Detect) Ur Barbiturates Screen Not Detected (Not Detect) Ur Phencyclidine Scrn Not Detected (Not Detect) Ur Amphetamines Screen Not Detected (Not Detect) U Benzodiazepines Scrn Not Detected (Not Detect) Urine Cocaine Screen Not Detected (Not Detect) U Marijuana (THC) Screen POSITIVE H (Not Detect) Influenza Type A (PCR) (Negative) Influenza Type B (PCR) (Negative) RSV RNA Qual (PCR) (Negative) SARS-CoV-2 RNA (RT-PCR) (Negative) Critical Care Time Critical Care Time Critical Care Time: Yes Total Critical Care Time: 60 Attestation: I spent 60 minutes providing critical care service to the patient, this including time spent at the bedside to evaluate the patient, reassess the patient, monitoring vital signs, review labs, and radiographic studies, counseling the patient/family, discussing the case with consultants, disposition the patient. Discharge Plan Discharge Clinical Impression: Acute and chronic respiratory failure with hypercapnia, Acute exacerbation of chronic obstructive airways disease Patient Disposition: Admitted As Inpatient
[2021-07-24 14:45] LABS: Alanine Aminotransferase 18 U/L (0-31); Albumin Level 3.4 g/dL (3.5-5.0); Alkaline Phosphatase 83 U/L (39-117); Anion Gap 13 (12-20); Aspartate Amino Transferase 27 U/L (5-31); Bilirubin Direct < 0.2 mg/dL (0.0-0.5); Bilirubin Total 0.3 mg/dL (0.0-1.0); Blood Urea Nitrogen 17 mg/dL (9-16); Calcium 8.8 mg/dL (8.4-10.2); Carbon Dioxide 32 mmol/L (22-29); Chloride 101 mmol/L (96-108); Creatinine Clr Calc Pharmacy 45.1; Estimated Glomerular Filt Rate > 60; Glucose Random 154 mg/dL (60-115); Lipase 4 U/L (8-78); Magnesium 2.7 mg/dL (1.6-2.6); Potassium 4.4 mmol/L (3.3-5.1); Sodium 142 mmol/L (135-145)
[2021-07-24 15:07] LABS: ABG Base Excess 8.9 mmol/L; ABG HCO3 40 mmol/L (22-26); ABG pCO2 99 mmHg (32-45); ABG pH 7.21 (7.35-7.45); ABG pO2 37 mmHg (83-108)
--- NOTE | 2021-07-24 15:34 | P.HPCC_ITS ---
History of Present Illness Date of Service: 07/24/21 Attending physician on admission: Barney Smith Chief Complaint: Altered mental status 70-year-old female very asthenic presents with unarousable state and she has known COPD blood gas revealing an acute on chronic hypercarbic respiratory failure placed on BiPAP and despite a very Hussain tree reduction of pCO2 to 98 and still acidotic at 7.21 her of state of awareness cognitive function is much improved with this at hypoxia is more than adequately compensated 4 but she still has prolonged expiratory time and be initially noticed that her diaphragmatic effort for expiration is significant so I do believe that her very poor tidal volumes on the BiPAP despite to success in reversing mental state is simply because of significant diffuse small airway bronchospasm in all likelihood and I suspect that remaining on the BiPAP mechanism and receiving bronchodilator therapy will alleviate and improve her volume Review of Systems Review of Systems: No fever no chills no constitutional complaints no productive cough and no chest pain Yes all other systems are reviewed and are negative PMFSH Past Medical History Medical History Acute exacerbation of chronic obstructive airways disease COPD (chronic obstructive pulmonary disease) Lung mass Pneumonia Severe protein-calorie malnutrition Social History Social History Household Members: Other Household Members Other:: son Housing: House Do you presently have visiting nurse or other home services: No (Felipe) Alcohol intake: unknown Patient Tobacco Use Status: Former Tobacco user Use of substances other than those prescribed or required for medical reasons: No Substance Use Type: Marijuana Advance Directives: No Advance Directives Information Provided: Yes service: No Current occupational status: retired Meds Allergies Allergy/AdvReac Type Severity Reaction Status Date / Time amoxicillin [AMOXICILLIN] Allergy Unknown HIVES Verified 07/26/20 09:52 Sulfa (Sulfonamide Allergy Unknown DIFFICULTY Verified 07/26/20 09:52 Antibiotics) BREATHING [SULFA (SULFONAMIDE ANTIBIOTICS)] cephalexin [From Keflex] Allergy Unknown Verified 07/26/20 09:52 Active Medications: Current Medications Pharmacy Consult (Consult Rx Perform Med Rec) 1 each MISCELLANE ONCE PRN PRN Reason: Consult order Home Medications Medication Instructions Recorded Confirmed Last Taken Type albuterol sulfate 90 mcg/actuation 2 puff INHALATION Q4H PRN 07/26/20 07/24/21 Unknown History aerosol inhaler fluticasone furoate 200 1 inh INHALATION DAILY 07/26/20 07/24/21 Unknown History mcg-vilanterol 25 mcg/dose inhalation powder (Breo Ellipta) tiotropium bromide 2.5 2 puff INHALATION DAILY 07/26/20 07/24/21 Unknown History mcg/actuation mist for inhalation (Spiriva Respimat) venlafaxine 37.5 mg tablet 37.5 mg PO BID 07/26/20 07/24/21 Unknown History buspirone 10 mg tablet 1 tab PO BID 07/24/21 07/24/21 Unknown History Physical Exam Vital Signs: Vital Signs: Last Vital Signs Temp 97.5 F 07/24/21 15:14 Pulse 96 07/24/21 15:14 Resp 20 07/24/21 15:14 BP 152/64 H 07/24/21 15:14 Pulse Ox 100 07/24/21 15:14 BMI result Body Mass Index 17.2 Afebrile and now awake and very appropriate nonfocal neurologically Urine toxicology only positive for THC negative for fentanyl and conventional opioids Bedside echo showing normal LV and RV size and systolic reserve no atrial enlargement no significant primary valve or pericardial disease Abdomen is soft no organomegaly Increased diaphragmatic effort and prolonged expiratory time but diminished bilateral breath sounds No peripheral edema warm well perfused Results Labs CBC and Chem 7: 07/24/21 12:56 07/24/21 14:22 Labs: Laboratory Results - last 24 hr 07/24/21 07/24/21 07/24/21 12:50 12:56 12:56 MCV 92.5 MCH 29.1 MCHC 31.5 RDW 12.7 Plt Count 280 MPV 9.2 L Immature Gran % (Auto) 0.5 H Neut % (Auto) 77.6 H Lymph % (Auto) 12.8 L [place] % (Auto) 8.0 Eos % (Auto) 0.4 Baso % (Auto) 0.7 Lymph # (Auto) 1.4 [place] # (Auto) 0.9 Eos # (Auto) 0.0 Baso # (Auto) 0.1 Abs Immat Gran (auto) 0.05 H Absolute Neuts (auto) 8.4 H Absolute Nucleated RBC 0.000 Nucleated RBC % (auto) 0.0 O2 Saturation 73.0 ABG pH at Pt Temp 7.23 L ABG pCO2 at Pt Temp 106 H* ABG pO2 at Pt Temp 49 L* ABG HCO3 45 H ABG Base Excess (Actual) 12.5 Anion Gap Estim Creat Clear Calc Estimated GFR Random Glucose Lactic Acid Calcium Magnesium Total Bilirubin Direct Bilirubin AST ALT Alkaline Phosphatase Troponin I High Sens 22.4 H B-Natriuretic Peptide 50 Total Protein Albumin Lipase Urine Color Urine Appearance Urine pH Ur Specific [place] Urine Protein Urine Glucose (UA) Urine Ketones Urine Blood Urine Nitrite Ur Leukocyte Esterase Urine RBC Urine WBC Ur Squamous Epith Cells Ur Renal Epithelial Cell Urine Bacteria Hyaline Casts Urine Mucus Urine Opiates Screen Urine Fentanyl Screen Ur Barbiturates Screen Ur Phencyclidine Scrn Ur Amphetamines Screen U Benzodiazepines Scrn Urine Cocaine Screen U Marijuana (THC) Screen Influenza Type A (PCR) Influenza Type B (PCR) RSV RNA Qual (PCR) SARS-CoV-2 RNA (RT-PCR) 07/24/21 07/24/21 07/24/21 13:08 13:08 13:49 MCV MCH MCHC RDW Plt Count MPV Immature Gran % (Auto) Neut % (Auto) Lymph % (Auto) [place] % (Auto) Eos % (Auto) Baso % (Auto) Lymph # (Auto) [place] # (Auto) Eos # (Auto) Baso # (Auto) Abs Immat Gran (auto) Absolute Neuts (auto) Absolute Nucleated RBC Nucleated RBC % (auto) O2 Saturation ABG pH at Pt Temp ABG pCO2 at Pt Temp ABG pO2 at Pt Temp ABG HCO3 ABG Base Excess (Actual) Anion Gap Estim Creat Clear Calc Estimated GFR Random Glucose Lactic Acid 1.1 Calcium Magnesium Total Bilirubin Direct Bilirubin AST ALT Alkaline Phosphatase Troponin I High Sens B-Natriuretic Peptide Total Protein Albumin Lipase Urine Color YELLOW Urine Appearance HAZY Urine pH 6.0 Ur Specific [place] >= 1.030 H Urine Protein 2+ H Urine Glucose (UA) NEG Urine Ketones NEG Urine Blood 1+ H Urine Nitrite NEG Ur Leukocyte Esterase NEG Urine RBC 5-9 H Urine WBC 5-9 H Ur Squamous Epith Cells 1+ Ur Renal Epithelial Cell TRACE Urine Bacteria TRACE Hyaline Casts 1-4 Urine Mucus 3+ Urine Opiates Screen Urine Fentanyl Screen Ur Barbiturates Screen Ur Phencyclidine Scrn Ur Amphetamines Screen U Benzodiazepines Scrn Urine Cocaine Screen U Marijuana (THC) Screen Influenza Type A (PCR) NEGATIVE Influenza Type B (PCR) NEGATIVE RSV RNA Qual (PCR) NEGATIVE SARS-CoV-2 RNA (RT-PCR) NEGATIVE 07/24/21 07/24/21 07/24/21 13:49 14:22 15:01 MCV MCH MCHC RDW Plt Count MPV Immature Gran % (Auto) Neut % (Auto) Lymph % (Auto) [place] % (Auto) Eos % (Auto) Baso % (Auto) Lymph # (Auto) [place] # (Auto) Eos # (Auto) Baso # (Auto) Abs Immat Gran (auto) Absolute Neuts (auto) Absolute Nucleated RBC Nucleated RBC % (auto) O2 Saturation 52.0 ABG pH at Pt Temp 7.21 L ABG pCO2 at Pt Temp 99 H* ABG pO2 at Pt Temp 37 L* ABG HCO3 40 H ABG Base Excess (Actual) 8.9 Anion Gap 13 Estim Creat Clear Calc 45.1 Estimated GFR > 60 Random Glucose 154 H Lactic Acid Calcium 8.8 Magnesium 2.7 H Total Bilirubin 0.3 Direct Bilirubin < 0.2 AST 27 ALT 18 Alkaline Phosphatase 83 Troponin I High Sens B-Natriuretic Peptide Total Protein 6.0 L Albumin 3.4 L Lipase 4 L Urine Color Urine Appearance Urine pH Ur Specific [place] Urine Protein Urine Glucose (UA) Urine Ketones Urine Blood Urine Nitrite Ur Leukocyte Esterase Urine RBC Urine WBC Ur Squamous Epith Cells Ur Renal Epithelial Cell Urine Bacteria Hyaline Casts Urine Mucus Urine Opiates Screen Not Detected Urine Fentanyl Screen Not Detected Ur Barbiturates Screen Not Detected Ur Phencyclidine Scrn Not Detected Ur Amphetamines Screen Not Detected U Benzodiazepines Scrn Not Detected Urine Cocaine Screen Not Detected U Marijuana (THC) Screen POSITIVE H Influenza Type A (PCR) Influenza Type B (PCR) RSV RNA Qual (PCR) SARS-CoV-2 RNA (RT-PCR) Imaging Radiologist's Impressions: Impressions Chest X-Ray 07/24/21 13:14 IMPRESSION: Hyperinflated lungs without any acute pneumonic process. Left upper lobe scarring is stable. Assessment and Plan (1) Acute exacerbation of chronic obstructive airways disease: Status: Acute (2) Acute and chronic respiratory failure with hypercapnia: Status: Acute (3) Status asthmaticus: Status: Acute Continue around the clock bronchodilator therapy and steroids covering her with empiric Levaquin and obtain a dry chest CT scan and keep the by PACS support mechanism and I think that will be able to document improving return volumes as bronchospasm is relieved
[2021-07-24] MEDS: Lactated Ringers 1,000 ML 100 ML IVCONT (16:02)
[2021-07-24] MEDS: Heparin Sodium,Porcine 5,000 UNIT/ML VIAL 5000 UNIT SUBCUT (16:04)
--- NOTE | 2021-07-24 19:14 | PC.NURSE ---
report given to chantelle in ICU
[2021-07-24] MEDS: methylPREDNISolone Sod Succ 125 MG/2 ML VIAL 80 MG IVPUSH (19:30)
--- NOTE | 2021-07-24 19:33 | PC.NURSE ---
Pt resting on stretcher, on bipap, RT at bedside providing neb tx. This RN medicated per OCT. Pt offers no complaints/concerns at this time, speaking to the RN and verbalizing understanding of medication and its purpose.
[2021-07-24] MEDS: Morphine Sulfate 2 MG/ML CARTRIDGE IVPUSH ×2 (19:51→20:18)
--- NOTE | 2021-07-24 19:52 | PC.NURSE ---
pt requests to sit up in bed, head of bed raised into high wilkinson's. Pt attempting to remove mask, tearful, asking this RN to take mask off stating I'm choking. This RN removes mask, pt coughing, tearful stating get this off of me. Take it away! I can't breathe. I need ativan! Pt speaking in 2-3 word sentences, desat to 89%. This RN offers reassurance, encourages pt to accept bipap once again and calls Sincere ROLLE in ICU to notify of pt's requests. Sincere ordered morphine, meds given per OCT. Pt reports I'm feeling better. I feel safe with you. Per Jacob, RN Sup, pt to have CT scan prior to departure from ED to ICU. Mimi, primary RN aware. Pt aware of plan for this RN to trial pt in supine position to see how pt tolerates it prior to attempting CT scan. Pt is agreeable.
--- NOTE | 2021-07-24 20:14 | PC.NURSE ---
This rn medicated pt per orders and pt reports improvement in sx of anxiety. Pt trialed into supine position as plan is for CT prior to transport to ICU. Pt able to tolerate. Pt reminded of plan for CT scan prior to transport and pt reported increase in anxiety, stating No, I can't do that. No, I'm not going to do that. Sincere ROLLE TT to be notified, instructed this RN to medicate with additional 2mg morphine.
[2021-07-24] MEDS: Famotidine/PF 20 MG/2 ML VIAL IVPUSH (22:02)
[2021-07-24] MEDS: HYDROmorphone HCl 1 MG/ML SYRINGE IVPUSH (22:15)
[2021-07-25] VITALS (35 sets, daily range): BP systolic 107–150; BP diastolic 55–77; PULSE 79–120; RESP 12–109; TEMP 36.2–37.4; O2SAT 89–100
[2021-07-25] MEDS: methylPREDNISolone Sod Succ 125 MG/2 ML VIAL 80 MG IVPUSH ×4 (00:17→17:46)
[2021-07-25] MEDS: Lactated Ringers 1,000 ML 100 ML IVCONT ×2 (00:17→10:01)
[2021-07-25] MEDS: Heparin Sodium,Porcine 5,000 UNIT/ML VIAL 5000 UNIT SUBCUT ×3 (00:18→14:55)
--- NOTE | 2021-07-25 01:12 | PC.NURSE ---
Pt trialed lying supine once arrived to the unit to see if she would tolerate getting a ct scan done. Pt did not tolerate, became very anxious, teary eyed, and wanted to be sitting up. AQUILINO Post notified that she did not tolerate laying supine, he ordered 1mg hydromorphone to be given prior to ct. Medication given and had good effect. pt remained calm while laying supine. This RN then brought her to radiology attached to the zole to monitor hr. pt remained stable on bipap, with hr ranging from 85-92 sinus rhythm. Respiratory went with patient and rn to control bipap. Tolerated procedure and was brought back to her room without issue. Pt repositioned, call easton in reach, bed alarm on and in lowest position, 2x rails up.
--- NOTE | 2021-07-25 03:29 | PC.NURSE ---
Addendum entered by Gary Veliz RN 07/25/21 06:21: AWAKENED FOR AM LAB-WORK..ALERT..MENTATING APPROPRIATELY...CONVERSES...OFF BIPAP BRIEFLY FOR ORAL CARE...DYSPNEIC/INCREASED WORK OF BREATHING OFF BIPAP..RETURNED TO BIPAP WITH RESOLUTION OF DYSPNEA..RESTFUL ON BIPAP Original Note: CARE ASSUMED 23:15...REMAINS BIPAP 20/8 FIO2 30% BACK UP RATE 12....SAO2 95%....DOZING...RECEIVED DILAUDID 10;15PM FOR CT PREVIOUSLY...AROUSES TO VERBAL STIMULI..ALERT..CONVERSES..MENTATING APPROPRIATELY...DENIES SOB OR DISCOMFORT...RESTFUL...STATED I JUST NEED TO GET SOME REST ...NSR..NO ECTOPY..BP STABLE...LR 100 CC/HR///TREJO DRAINING 15-20 CC/HR YELLOW URINE...ICU PA PRESENT AND AWARE..FOR BIPAP OVERNIGHT AND ASSESS AM LAB WORK PER PA
[2021-07-25 06:08] LABS: VBG Base Excess 12.4 mmol/L; VBG HCO3 40 mmol/L (22-26); VBG pCO2 67 mmHg; VBG pH 7.38 (7.32-7.43); VBG pO2 40 mmHg
[2021-07-25 06:41] LABS: Venous Blood Gas Refer to POC result
[2021-07-25 07:11] LABS: Alanine Aminotransferase 24 U/L (0-31); Albumin Level 3.5 g/dL (3.5-5.0); Alkaline Phosphatase 79 U/L (39-117); Anion Gap 14 (12-20); Aspartate Amino Transferase 29 U/L (5-31); Bilirubin Total 0.2 mg/dL (0.0-1.0); Blood Urea Nitrogen 21 mg/dL (9-16); Carbon Dioxide 28 mmol/L (22-29); Chloride 104 mmol/L (96-108); Creatinine Clr Calc Pharmacy 52.6; Estimated Glomerular Filt Rate > 60; Glucose Random 143 mg/dL (60-115); Potassium 5.3 mmol/L (3.3-5.1); Sodium 141 mmol/L (135-145)
[2021-07-25 07:24] LABS: Hematocrit 36.8 % (37.0-47.0); Hemoglobin 11.4 g/dl (12.0-16.0); Imm Gran Abs Auto 0.04 X10*3/uL (0.00-0.03); Imm Gran Pct Auto 0.6 % (0.0-0.4); Lymphocytes Absolute Auto 0.4 X10*3/uL (1.2-4.9); Lymphocytes Percent Auto 5.4 % (20-40); MANUAL DIFF FLAG SCAN; Mean Corpuscular Hemoglobin 28.9 pg (27.0-33.0); Mean Corpuscular Volume 93.4 fL (80.0-98.0); Mean Platelet Volume 9.3 fL (9.4-12.3); Monocytes Absolute Auto 0.1 X10*3/uL (0.1-1.2); Monocytes Percent Auto 1.3 % (2-11); Neutrophils Absolute Auto 6.5 x10*3/uL (2.0-8.3); Neutrophils Percent Auto 92.7 % (45-73); Platelet Count 216 X10*3/uL (160-400); Red Blood Count 3.94 X10*6/uL (4.20-5.50); Red Cell Distribution Width 12.7 % (11.0-16.0); SCAN SMEAR FLAG 1
[2021-07-25] MEDS: Morphine Sulfate 2 MG/ML CARTRIDGE IVPUSH ×3 (07:31→22:04)
[2021-07-25] MEDS: Famotidine/PF 20 MG/2 ML VIAL IVPUSH ×2 (07:32→19:53)
[2021-07-25] MEDS: ondansetron HCL 4 MG/2 ML VIAL IVPUSH ×2 (07:37→14:55)
[2021-07-25 07:49] LABS: SLIDE REVIEW VERIFIED
[2021-07-25 10:17] LABS: ABG Base Excess 14.9 mmol/L; ABG HCO3 44 mmol/L (22-26); ABG pCO2 80 mmHg (32-45); ABG pCO2 TC 79 mmHg (32-45); ABG pH 7.34 (7.35-7.45); ABG pH TC 7.35 (7.35-7.45); ABG pO2 85 mmHg (83-108); ABG pO2 TC 83 (83-108)
[2021-07-25 10:17] LABS: ABG Refer to POC result
[2021-07-25] MEDS: levoFLOXacin/D5W 750 MG/150 ML PIGGYBACK 100 MG IV (11:43)
--- NOTE | 2021-07-25 15:42 | MHC.CM.PN ---
Addendum entered by Alisson Lozoya 07/25/21 16:02: Met with Pt in ICU. She is [facility] with [facility]. Her new PCP is Melonie Hall. Original Note: IMM 07/25/21 Female 70 DX COPD Exacerbation She lives w her son. Info for CM assessment was gathered thru Family interview and EMR. She has [facility] and [facility] thru [facility]. Pts son is not sure of agency. He could not confirm the name of his mothers PCP. Dr Sullivan listed in the past. HCP is on file. DP to be determined by the Pts recovery, as well as a PT eval. Pts son did not want to give preferences for STR at this time. Pt will travel via BLS if STR is dispo.
--- NOTE | 2021-07-25 15:53 | PM.CCPN ---
Subjective Subjective Date of Service: 07/25/21 Interval History: 70-year-old female with severe smoking related COPD with clear-cut superimposed asthma presented with status epilepticus but altered mental status due to acute on chronic hypercarbic respiratory failure which responded very well to BiPAP and empiric Levaquin and of course aggressive bronchodilator therapy and steroids as well which she began to a to wake up even went pCO2 was 98 and by calculation she chronically lives at pCO2 is 60-70 and by this morning she achieved the pCO2 of 68 was fully awake we allowed her nasal high-flow and she ate breakfast and she ate lunch with and tolerated and went back at 2:00 a.m. on BiPAP because pCO2 had climbed to 80 so she still needs a little bit more bronchodilator therapy and then hopefully she will just require nocturnal noninvasive ventilation bedside echo demonstrating normal LV and RV reserve and no primary valve or pericardial disease Critical Care Time (minutes): 45 Physical Exam Vital Signs: Vital Signs: Last Vital Signs Temp 98.8 F 07/25/21 15:00 Pulse 100 07/25/21 15:00 Resp 12 07/25/21 15:00 BP 121/68 07/25/21 15:00 Pulse Ox 99 07/25/21 15:00 Oxygen Flow Rate 30 07/25/21 07:42 BMI result Body Mass Index 20.0 awake alert an oriented and nonfocal neurologically class 1 cardiovascular exam by echo no diaphragmatic effort or accessory muscle use today abdomen benign with no organomegaly skin intact with no edema Objective Data Labs CBC & Chem 7: 07/25/21 07:09 07/25/21 06:11 Labs: Laboratory Results - last 24 hr 07/25/21 07/25/21 07/25/21 06:00 06:11 07:09 WBC 7.0 RBC 3.94 L Hgb 11.4 L Hct 36.8 L MCV 93.4 MCH 28.9 MCHC 31.0 RDW 12.7 Plt Count 216 MPV 9.3 L Immature Gran % (Auto) 0.6 H Neut % (Auto) 92.7 H Lymph % (Auto) 5.4 L [place] % (Auto) 1.3 L Eos % (Auto) 0.0 Baso % (Auto) 0.0 Lymph # (Auto) 0.4 L [place] # (Auto) 0.1 Eos # (Auto) 0.0 Baso # (Auto) 0.0 Abs Immat Gran (auto) 0.04 H Absolute Neuts (auto) 6.5 Absolute Nucleated RBC 0.000 Nucleated RBC % (auto) 0.0 Smear Tech's Comments VERIFIED O2 Saturation ABG pH at Pt Temp ABG pH (Temp Correct) ABG pCO2 at Pt Temp ABG pCO2 (Temp Corrct ABG pO2 at Pt Temp ABG pO2 (Temp Correct ABG HCO3 ABG Base Excess (Actual) VBG pH 7.38 VBG pCO2 67 VBG pO2 40 VBG HCO3 40 H VBG O2 Saturation 70.0 VBG Base Excess 12.4 Sodium 141 Potassium 5.3 H D Chloride 104 Carbon Dioxide 28 Anion Gap 14 BUN 21 H Creatinine 0.83 Estim Creat Clear Calc 52.6 Estimated GFR > 60 Random Glucose 143 H Calcium 9.0 Total Bilirubin 0.2 AST 29 ALT 24 Alkaline Phosphatase 79 Total Protein 6.0 L Albumin 3.5 07/25/21 10:08 WBC RBC Hgb Hct MCV MCH MCHC RDW Plt Count MPV Immature Gran % (Auto) Neut % (Auto) Lymph % (Auto) [place] % (Auto) Eos % (Auto) Baso % (Auto) Lymph # (Auto) [place] # (Auto) Eos # (Auto) Baso # (Auto) Abs Immat Gran (auto) Absolute Neuts (auto) Absolute Nucleated RBC Nucleated RBC % (auto) Smear Tech's Comments O2 Saturation 96.0 ABG pH at Pt Temp 7.34 L ABG pH (Temp Correct) 7.35 ABG pCO2 at Pt Temp 80 H* ABG pCO2 (Temp Corrct 79 H* ABG pO2 at Pt Temp 85 ABG pO2 (Temp Correct 83 ABG HCO3 44 H ABG Base Excess (Actual) 14.9 VBG pH VBG pCO2 VBG pO2 VBG HCO3 VBG O2 Saturation VBG Base Excess Sodium Potassium Chloride Carbon Dioxide Anion Gap BUN Creatinine Estim Creat Clear Calc Estimated GFR Random Glucose Calcium Total Bilirubin AST ALT Alkaline Phosphatase Total Protein Albumin Microbiology Microbiology Results: Microbiology 07/24/21 13:08 Blood - Venous Blood Culture - Preliminary No growth after 24 hours. 07/24/21 12:56 Blood - Venous Blood Culture - Preliminary No growth after 24 hours. 07/24/21 Unknown Urine Catheterized - Straight Catheter Urine Culture - Final No growth. Progress Note: A&P Assessment and plan (1) Acute and chronic respiratory failure with hypercapnia: Status: Acute (2) Acute exacerbation of chronic obstructive airways disease: Status: Acute (3) Status asthmaticus: Status: Acute Assessment and Plan: so the plan again is be periods of nasal cannula use for eating purposes and then back for rest on BiPAP re-evaluate her needs in the morning and hopefully transfer up to [facility] where follow-up from Pulmonary to qualify her for a home device Quality Stroke Does the patient have a stroke diagnosis?: No VTE Prior VTE?: No VTE Risk Level:: Medical - moderate - high VTE Device Contraindication: N/A - Device Ordered VTE Drug Contraindication: N/A - Med Ordered
--- NOTE | 2021-07-25 19:36 | PC.NURSE ---
TRANSITIONED FROM BIPAP 20/8 ON 30% TO HIGH FLOW 50L/30%. INCREASED AND NOW AT HIGH FLOW 60L/30%. TREJO OUTPUT 15-30 ML/HR. POOR PO INTAKE. NO BM. NAUSEA X 2 TREATED WITH PRN ZOFRAN WITH POSITIVE EFFECT. ANXIETY TREATED X 2 WITH PRN MORPHINE WITH POSITIVE EFFECT.
[2021-07-26] VITALS (24 sets, daily range): BP systolic 116–155; BP diastolic 54–72; PULSE 80–110; RESP 10–36; TEMP 36.6–37.4; O2SAT 92–100; BMI 20.8
[2021-07-26] MEDS: ondansetron HCL 4 MG/2 ML VIAL IVPUSH (00:06)
[2021-07-26] MEDS: methylPREDNISolone Sod Succ 125 MG/2 ML VIAL 80 MG IVPUSH ×2 (00:06→05:17)
[2021-07-26] MEDS: Heparin Sodium,Porcine 5,000 UNIT/ML VIAL 5000 UNIT SUBCUT ×3 (00:08→14:42)
[2021-07-26] MEDS: Lactated Ringers 1,000 ML 50 ML IVCONT (02:10)
[2021-07-26 05:44] LABS: VBG Base Excess 13.3 mmol/L; VBG HCO3 39 mmol/L (22-26); VBG pCO2 57 mmHg; VBG pH 7.44 (7.32-7.43); VBG pO2 42 mmHg
[2021-07-26 05:45] LABS: Venous Blood Gas Refer to POC result
[2021-07-26 06:07] LABS: Basophils Percent Auto 0.1 % (0-2); Hematocrit 32.6 % (37.0-47.0); Hemoglobin 9.9 g/dl (12.0-16.0); Imm Gran Pct Auto 0.6 % (0.0-0.4); Lymphocytes Absolute Auto 0.4 X10*3/uL (1.2-4.9); MANUAL DIFF FLAG SCAN; Mean Corpuscular HGB Conc 30.4 g/dl (31.0-35.0); Mean Corpuscular Hemoglobin 28.3 pg (27.0-33.0); Mean Corpuscular Volume 93.1 fL (80.0-98.0); Mean Platelet Volume 9.7 fL (9.4-12.3); Monocytes Absolute Auto 0.5 X10*3/uL (0.1-1.2); Monocytes Percent Auto 2.8 % (2-11); Neutrophils Absolute Auto 16.8 x10*3/uL (2.0-8.3); Neutrophils Percent Auto 94.5 % (45-73); Platelet Count 234 X10*3/uL (160-400); Red Cell Distribution Width 12.8 % (11.0-16.0); SCAN SMEAR FLAG 1; White Blood Count 17.7 X10*3/uL (4.8-10.8)
[2021-07-26 06:25] LABS: Alanine Aminotransferase 26 U/L (0-31); Albumin Level 3.4 g/dL (3.5-5.0); Alkaline Phosphatase 68 U/L (39-117); Anion Gap 10 (12-20); Aspartate Amino Transferase 27 U/L (5-31); Bilirubin Total 0.2 mg/dL (0.0-1.0); Blood Urea Nitrogen 30 mg/dL (9-16); Calcium 9.1 mg/dL (8.4-10.2); Carbon Dioxide 33 mmol/L (22-29); Chloride 104 mmol/L (96-108); Creatinine Clr Calc Pharmacy 41.4; Estimated Glomerular Filt Rate 50; Glucose Random 150 mg/dL (60-115); Potassium 4.7 mmol/L (3.3-5.1); Sodium 142 mmol/L (135-145); Total Protein 5.5 g/dL (6.5-8.0)
[2021-07-26 06:34] LABS: SLIDE REVIEW VERIFIED
[2021-07-26 10:22] LABS: Phosphorus 2.4 mg/dL (2.7-4.5)
[2021-07-26] MEDS: Famotidine/PF 20 MG/2 ML VIAL IVPUSH (11:22)
--- NOTE | 2021-07-26 13:15 | P.PNCC_ITS ---
Subjective Subjective Date of Service: 07/26/21 Interval History: Mrs. Thakkar was admitted to ICU July 24 for acute hypercarbic respiratory failure. The patient is a 69-year-old female with a long history of smoking and COPD. ?She wears 1.5L NC at home.? 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 The patient had COVID in the summer. 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 The patient tells me that her doctors have been following it and she had a recent CT scan that showed that it has not changed.? No other diagnostic workup.? It?s also notable that she had an admission to the ICU here in July of last year for hypercarbic respiratory failure.? At that time, the patient weighed 86 lb.? Since then, she has put on weight by eating more.. At baseline, the patient lives in a single floor house (no stairs) with her son Micky.? She tells me that he is very helpful. ?She gets around by holding onto furniture and uses a walker.? She stop smoking 8 months ago. HISTORY OF PRESENT ILLNESS:? Patient was brought in by ambulance on July 24 because of decreased mental status. ?She was immediately put on BiPAP.? On 40% FiO2 on BiPAP, sat was a 100%. ?ABG showed 7.23/106/49/+12 (unstated FiO2).? No leukocytosis.? BUN/creat 17/0.8, bicarb 32. Normal lactate, trop, and BNP.? Chest x-ray showed only hyperinflated lung bailey.? CT showed severe emphysema; no infiltrates.? The patient was admitted to ICU and treated with BD?s, steroids, BiPAP, and Levaquin (not sure why she was given the Levaquin). She came off BiPAP on to high-flow nasal cannula yesterday morning, and then this morning came off the high-flow on to regular nasal cannula. ?This morning?s central venous gas showed pH 7.44/57/+13 (just about the lowest pCO2 she?s ever had).? See Vital Signs below. ?On 1.5L NC, RR is 20-24, with mild access muscle use and pursed lips breathing.? She says that her respiratory effort is still not back to baseline yet.? She feels much better after her bronchodilator treatments.? Chest shows diminished breath sounds, but I heard no wheezes and the expiratory phase is normal warm minimally prolonged.? Heart tones are soft.? I heard no murmur or gallops.? The abdomen is benign.? She has no peripheral edema.? She no longer looks cachectic like she did back when I saw her 1 year ago. LABORATORY DATA: ?As below.? I assume the leukocytosis today secondary to the steroids.? BUN and creatinine are also up very slightly. Transthoracic ECHOCARDIOGRAM on Jul 27 showed: 1. Normal LV systolic and diastolic function. 2. RV size mildly dilated. 3. Isim-ge-kmzxmgbv TR, CWD signal measured 2.5 m/sec (gradient 25mm) 4. IVC was dilated with minimal inspiratory collapse, if any. ?Estimated CVP 15 mm. ?Estimated RVSP 40 mm. IMPRESSION: 1. Severe emphysema 2 ? heavy tobacco abuse.? She retains CO2 and is oxygen dependent. 2. Acute on chronic respiratory failure with hypoxemia and hypercapnia.? I?ll start her on low dose Diamox. 4. COPD exacerbation. ?Continue bronchodilators. ?I will drop her Solu-Medrol to 60 mg q6, but wouldn?t taper further at this time.? I?ll change the Levaquin to Zithromax for anti-inflammatory effect, 250 mg daily x 5 days for now. 5. Left apical lung mass.? Looks slightly smaller on the current CT compared to her CT here from one year ago.? The patient is fully aware and, from which she tells me, is following it appropriately. She is stable for transfer to [facility]. ?The patient can use BiPAP prn on IMC if symptomatically she feels like she needs it.? THE PATIENT SHOULD HAVE A VENOUS BLOOD GAS DRAWN EVERY TIME SHE HAS ROUTINE MORNING LABS DRAWN. Will sign out to the hospitalists. Time: ?[id number]. Critical Care Time (minutes): 0 Physical Exam Vital Signs: Vital Signs: Last Vital Signs Temp 99.0 F 07/26/21 13:00 Pulse 106 H 07/26/21 13:00 Resp 28 H 07/26/21 13:00 BP 138/70 07/26/21 13:00 Pulse Ox 95 07/26/21 13:00 Oxygen Flow Rate 30 07/25/21 07:42 BMI result Body Mass Index 20.8 Objective Data Labs CBC & Chem 7: 07/26/21 05:33 07/26/21 05:33 Labs: Laboratory Results - last 24 hr 07/26/21 07/26/21 07/26/21 05:33 05:33 05:38 WBC 17.7 H RBC 3.50 L Hgb 9.9 L Hct 32.6 L MCV 93.1 MCH 28.3 MCHC 30.4 L RDW 12.8 Plt Count 234 MPV 9.7 Immature Gran % (Auto) 0.6 H Neut % (Auto) 94.5 H Lymph % (Auto) 2.[address] [place] % (Auto) 2.8 Eos % (Auto) 0.0 Baso % (Auto) 0.1 Lymph # (Auto) 0.[address] [place] # (Auto) 0.5 Eos # (Auto) 0.0 Baso # (Auto) 0.0 Abs Immat Gran (auto) 0.10 H Absolute Neuts (auto) 16.8 H Absolute Nucleated RBC 0.000 Nucleated RBC % (auto) 0.0 Smear Tech's Comments VERIFIED VBG pH 7.44 H VBG pCO2 57 VBG pO2 42 VBG HCO3 39 H VBG O2 Saturation 73.0 VBG Base Excess 13.3 Sodium 142 Potassium 4.7 Chloride 104 Carbon Dioxide 33 H Anion Gap 10 L BUN 30 H Creatinine 1.09 Estim Creat Clear Calc 41.4 Estimated GFR 50 Random Glucose 150 H Calcium 9.1 Phosphorus 2.4 L Total Bilirubin 0.2 AST 27 ALT 26 Alkaline Phosphatase 68 Total Protein 5.5 L Albumin 3.4 L Microbiology Microbiology Results: Microbiology 07/24/21 13:08 Blood - Venous Blood Culture - Preliminary No growth after 24 hours. 07/24/21 12:56 Blood - Venous Blood Culture - Preliminary No growth after 24 hours. 07/24/21 Unknown Urine Catheterized - Straight Catheter Urine Culture - Final No growth. Quality Stroke Does the patient have a stroke diagnosis?: No VTE Prior VTE?: No VTE Risk Level:: Medical - moderate - high VTE Device Contraindication: N/A - Device Ordered VTE Drug Contraindication: N/A - Med Ordered
[2021-07-26] MEDS: Azithromycin 250 MG TABLET PO (13:35)
[2021-07-26] MEDS: acetaZOLAMIDE 250 MG TABLET PO ×2 (13:35→20:35)
[2021-07-26] MEDS: methylPREDNISolone Sod Succ 125 MG/2 ML VIAL 60 MG IVPUSH ×2 (13:35→20:35)
--- NOTE | 2021-07-26 13:53 | PC.NURSE ---
Riddle dc'd at this time without incident. patient tolerated well. 900cc in drainage bag. clear yellow urine
[2021-07-26] MEDS: LORazepam 0.5 MG TABLET PO (14:37)
[2021-07-26] MEDS: busPIRone HCl 10 MG TABLET PO ×2 (16:27→20:35)
[2021-07-26] MEDS: Venlafaxine HCL 25 MG TABLET 37.5 MG PO (20:35)
[2021-07-26] MEDS: hydrOXYzine HCL 25 MG TABLET PO (20:36)
[2021-07-27] VITALS (8 sets, daily range): BP systolic 107–138; BP diastolic 60–71; PULSE 75–104; RESP 18–24; TEMP 36.6–37.3; O2SAT 91–99; BMI 20.5
[2021-07-27] MEDS: Heparin Sodium,Porcine 5,000 UNIT/ML VIAL 5000 UNIT SUBCUT ×3 (01:03→17:28)
[2021-07-27] MEDS: methylPREDNISolone Sod Succ 125 MG/2 ML VIAL 60 MG IVPUSH ×4 (01:03→19:47)
[2021-07-27] MEDS: busPIRone HCl 10 MG TABLET PO (08:39)
[2021-07-27] MEDS: acetaZOLAMIDE 250 MG TABLET PO ×2 (08:39→19:46)
[2021-07-27] MEDS: Venlafaxine HCL 25 MG TABLET 37.5 MG PO ×2 (08:39→19:46)
[2021-07-27] MEDS: Famotidine/PF 20 MG/2 ML VIAL IVPUSH (08:39)
--- NOTE | 2021-07-27 08:42 | P.DS_ITS ---
DS: Providers Provider Date of Service: 07/28/21 Date of admission: 07/24/21 15:29 Primary care physician: Unknown Physician DS: Diagnosis Discharge Diagnosis (1) Acute and chronic respiratory failure with hypercapnia: Status: Acute (2) Acute exacerbation of chronic obstructive airways disease: Status: Acute (3) Status asthmaticus: Status: Acute DS: Summary Hospital Course Hospital Course: Chief Complaint: Altered mental status 70-year-old female very asthenic presents with unarousable state and she has known COPD blood gas revealing an acute on chronic hypercarbic respiratory f ailure placed on BiPAP and despite a very Hussain tree reduction of pCO2 to 98 and still acidotic at 7.21 her of state of awareness cognitive function is much improved with this at hypoxia is more than adequately compensated 4 but she still has prolonged expiratory time and be initially noticed that her diaphragmatic effort for expiration is significant so I do believe that her very poor tidal volumes on the BiPAP despite to success in reversing mental state is simply because of significant diffuse small airway bronchospasm in all likelihood and I suspect that remaining on the BiPAP mechanism and receiving bronchodilator therapy will alleviate and improve her volume Hospital course: Patient was brought in by ambulance on July 24 because of decreased mental status. ?She was immediately put on BiPAP.? On 40% FiO2 on BiPAP, sat was a 100%. ?ABG showed 7.23/106/49/+12 (unstated FiO2).? No leukocytosis.? BUN/creat 17/0.8, bicarb 32. Normal lactate, trop, and BNP.? Chest x-ray showed only hyperinflated lung bailey.? CT showed severe emphysema; no infiltrates.? The patient was admitted to ICU and treated with BD?s, steroids, BiPAP, and Levaquin (not sure why she was given the Levaquin). She came off BiPAP on to high-flow nasal cannula yesterday morning, and then this morning came off the high-flow on to regular nasal cannula. ?This morning?s central venous gas showed pH 7.44/57/+13 (just about the lowest pCO2 she?s ever had).? See Vital Signs below. ?On 1.5L NC, RR is 20-24, with mild access muscle use and pursed lips breathing.? She says that her respiratory effort is still not back to baseline yet.? She feels much better after her bronchodilator treatments.? Chest shows diminished breath sounds, but I heard no wheezes and the expiratory phase is normal warm minimally prolonged.? Heart tones are soft.? I heard no murmur or gallops.? The abdomen is benign.? She has no peripheral edema.? She no longer looks cachectic like she did back when I saw her 1 year ago. Transthoracic ECHOCARDIOGRAM on Jul 26 showed: 1. Normal LV systolic and diastolic function. 2. RV size mildly dilated. 3. Xacl-rn-zpqknces TR, CWD signal measured 2.5 m/sec (gradient 25mm) ?4. IVC was dilated with minimal inspiratory collapse, if any. ?Estimated CVP 15 mm. ?Estimated RVSP 40 mm. Problems: ?1. Severe emphysema 2 ? heavy tobacco abuse.? She retains CO2 and is oxygen dependent at 1.5 liters at home, she is to continue this presently O2 sat ins 98 on 1 L ?2. Acute on chronic respiratory failure with hypoxemia and hypercapnia.?She was on BiPAP an was given Diamox, she doing well at this point. ?4. COPD exacerbation. ?Continue bronchodilators. She was on IV Solumedrol and will be transitioned to oral prednisone and tappered off just after a week, Azithro for antinflamatory 250 mg daily x 5 days for now. ?5. Left apical lung mass.? Looks slightly smaller on the current CT compared to her CT here from one year ago.? The patient is fully aware and, from which she tells me, is following it appropriately. Time Spent with Patient Time attestation: Total time spent providing and/or coordinating discharge services: Discharge coordination time: Greater than 30 minutes Quality: Stroke Does the patient have a stroke diagnosis?: No Physical Exam Verdana 4l Vital Signs: Verdana 4d Verdana 4d Vital Signs: Verdana 4d Verdana 4Bd Selected Entries Verdana 4d Fabrication And Layout Craftsman New 4d Fabrication And Layout Craftsman New 4d 07/28/21 07:43 Fab[employer]ation And Layout Craftsman New 4d Temperature 99.3 F [employer]ation [employer] Layout Craftsman New 4d Pulse Rate 90 Fabrication And Layout Craftsman New 4d RespiratoryRespiratory Rate 20 Blood Pressure 135/73 Pulse Oximetry 95 Oxygen Delivery Me thod Room Air DS: Data Data Completed and Pending Completed studies during hospitalization [Text1]: Procedures Assistance with Respiratory Ventilation, Less than 24 Consecutive Hours, Continuous Positive Airway Pressure (09/02/20) Insertion of Endotracheal Airway into Trachea, Via Natural or Artificial Opening (07/26/20) Insertion of Infusion Device into Superior Vena Cava, Percutaneous Approach (07/26/20) Respiratory Ventilation, 24-96 Consecutive Hours (07/26/20) Ultrasonography of Superior Vena Cava, Guidance (07/26/20) Labs on day of discharge: Laboratory Results - last 24 hr 07/26/21 05:33 Phosphorus 2.4 L Preliminary micro results at discharge 07/24/21 13:08 Blood Culture - Preliminary Blood - Venous No growth after 48 hours. 07/24/21 12:56 Blood Culture - Preliminary Blood - Venous No growth after 48 hours. Discharge Plan Discharge Anticipated Discharge Date/Time: 07/28/21 10:12 Patient Disposition: Home Health Service Discharge Diagnosis: Acute respiratory failure due to COPD exacerbation Referrals: allen [Other] - 1 Week Physician,Gregg J [Primary Care Provider] - 1 Week Discharge Medications: New prednisone 10 mg tablet See Taper mg PO DAILY Qty: 20 RF: 0 Continued azithromycin 250 mg Tablet 250 mg PO Q24H Qty: 3 RF: 0 lorazepam 0.5 mg tablet 0.5 mg PO Q12H PRN (Reason: anxiety) Qty: 10 RF: 0 venlafaxine 37.5 mg tablet 37.5 mg PO BID RF: 0 albuterol sulfate 90 mcg/actuation HFA aerosol inhaler 2 puff inhalation Q4H PRN (Reason: Shortness Of Breath Or Wheezing) RF: 0 Spiriva Respimat 2.5 mcg/actuation mist 2 puff inhalation DAILY RF: 0 Breo Ellipta 200-25 mcg/dose blister with device 1 inh inhalation DAILY RF: 0 buspirone 10 mg tablet 1 tab PO BID RF: 0 Discharge Orders: Discharge Order (Routine); Ordered 07/28/21 Ordered By: Javier Bryan Diet: advance to usual diet Activity on Discharge: As tolerated Stand Alone Forms: Patient Portal Discharge page Care Plan Goals: Prevent rehospitalization from respiratory failure Health Concerns: chronic respriatory failure due to copd Plan of Treatment: Use inhalers and take prednisone as ordered and follow up with your Doctor in a week, call for appointment Assessment: As above
--- NOTE | 2021-07-27 08:57 | MHC.CM.PN ---
pt dcd home today with allen agarwal
[2021-07-27] MEDS: LORazepam 0.5 MG TABLET PO ×2 (09:24→19:46)
[2021-07-27] MEDS: Azithromycin 250 MG TABLET PO (14:02)
--- NOTE | 2021-07-27 14:19 | P.PNIM_ITS ---
Subjective Subjective Date of Service: 07/27/21 Interval History: f/u for copd exaerbation, no resp issues, feels tired hasn't slept in 3 days Review of Systems no sob, no confusion Physical Exam Vital Signs: Vital Signs: Last Vital Signs Temp 98.3 F 07/27/21 11:33 Pulse 95 07/27/21 11:33 Resp 18 07/27/21 11:33 BP 134/65 07/27/21 11:33 Pulse Ox 97 07/27/21 11:33 Oxygen Flow Rate 30 07/25/21 07:42 BMI result Body Mass Index 20.5 General: AO X 3, no acute distress Resp: CTA bilateral CVS: S1,S2,RRR GI: +BS, NT, no distention Skin: No rash Neuro: motor grossly intact Psych: appropriate affect Objective Data Active Medications Acetazolamide (Acetazolamide 250 Mg Tablet) 250 mg PO BID [facility] Last Admin: 07/27/21 08:39 Dose: 250 mg Documented by: CELESTINO Albuterol/Ipratropium (Albuterol/Iprat 2.5/0.5mg 3 Ml Ampul.Neb) 3 ml INHALE Q20M PRN PRN Reason: Dyspnea Azithromycin (Azithromycin 250 Mg Tablet) 250 mg PO Q24H [facility] Stop: 07/31/21 13:14 Last Admin: 07/27/21 14:02 Dose: 250 mg Documented by: CELESTINO Buspirone HCl (Buspirone Hcl 10 Mg Tablet) 10 mg PO BID [facility] Last Admin: 07/27/21 08:39 Dose: 10 mg Documented by: CELESTINO Famotidine (Famotidine/Pf 20 Mg/2 Ml Vial) 20 mg IVPUSH DAILY [facility] Last Admin: 07/27/21 08:39 Dose: 20 mg Documented by: CELESTINO Fluticasone/Vilanterol (Fluticasone/Vilanterol 200/25 Blst.W.Dev) 1 puff INHALE RDAILY [facility] Last Admin: 07/27/21 07:34 Dose: Not Given Documented by: NOLA Non-Admin Reason: Patient Refused Heparin Sodium (Porcine) (Heparin Sodium,Porcine 5,000 Unit/Ml Vial) 5,000 unit SUBCUT Q8H [facility] Last Admin: 07/27/21 08:38 Dose: 5,000 unit Documented by: CELESTINO Levalbuterol HCl (Levalbuterol Hcl 1.25 Mg/0.5 Ml Vial.Neb) 1.25 mg INHALE RQ4H WHILE AWAKE [facility] Last Admin: 07/27/21 11:19 Dose: 1.25 mg Documented by: NOLA Lorazepam (Lorazepam 0.5 Mg Tablet) 0.5 mg PO Q12H PRN PRN Reason: anxiety Last Admin: 07/27/21 09:24 Dose: 0.5 mg Documented by: BRUNO Methylprednisolone Sodium Succinate (Methylprednisolone Sod Succ 125 Mg/2 Ml Vial) 60 mg IVPUSH Q6H [facility] Last Admin: 07/27/21 14:02 Dose: 60 mg Documented by: CELESTINO Morphine Sulfate (Morphine Sulfate 2 Mg/Ml Cartridge) 2 mg IVPUSH Q2H PRN; Protocol PRN Reason: anxiety/restlessness Last Admin: 07/25/21 22:04 Dose: 2 mg Documented by: ALEC Naloxone HCl (Naloxone Hcl 0.4 Mg/Ml Vial) 0.2 mg IVPUSH Q2M PRN PRN Reason: Sedation Ondansetron HCl (Ondansetron Hcl 4 Mg/2 Ml Vial) 4 mg IVPUSH Q8H PRN PRN Reason: Nausea Last Admin: 07/26/21 00:06 Dose: 4 mg Documented by: ALEC Pharmacy Consult (Consult Rx Perform Med Rec) 1 each MISCELLANE ONCE PRN PRN Reason: Consult order Tiotropium Florence (Tiotropium Florence 18 Mcg Cap.W.Dev) 1 puff INHALE RDAILY [facility] Last Admin: 07/27/21 07:34 Dose: Not Given Documented by: NOLA Non-Admin Reason: Patient Refused Venlafaxine HCl (Venlafaxine Hcl 25 Mg Tablet) 37.5 mg PO BID [facility] Last Admin: 07/27/21 08:39 Dose: 37.5 mg Documented by: CELESTINO Labs CBC & Chem 7: 07/26/21 05:33 07/26/21 05:33 Microbiology Microbiology Results: Microbiology 07/24/21 13:08 Blood Culture - Preliminary Blood - Venous No growth after 48 hours. 07/24/21 12:56 Blood Culture - Preliminary Blood - Venous No growth after 48 hours. Assessment and Plan (1) Acute and chronic respiratory failure with hypercapnia: Status: Acute (2) Acute exacerbation of chronic obstructive airways disease: Status: Acute Assessment and Plan: 70/F with chronic respirator failure d/t copd admitted through ICU with copd exacerbation with acute on chronic resp failure and required rescue bipap 1. Severe emphysema 2 ? heavy tobacco abuse.? She retains CO2 and is oxygen dependent at 1.5 liters at home, she is to continue this presently O2 sat ins 98 on 1 L ?2. Acute on chronic respiratory failure with hypoxemia and hypercapnia.?She was on BiPAP an was given Diamox, she doing well at this point. ?4. COPD exacerbation. ?Continue bronchodilators. She was on IV Solumedrol and will be transitioned to oral prednisone and tappered off just after a week, Azithro for antinflamatory? 250 mg daily x 5 days for now. ?5. Left apical lung mass.? Looks slightly smaller on the current CT compared to her CT here from one year ago.?The patient is fully aware and, from which she tells me, is following it appropriately. Dispo: home later today if not tomorrow Out of bed, ambulate DVT prophylaxis; Heparin Quality Stroke Does the patient have a stroke diagnosis?: No VTE Prior VTE?: No VTE Risk Level:: Medical - moderate - high VTE Device Contraindication: N/A - Device Ordered VTE Drug Contraindication: N/A - Med Ordered
--- NOTE | 2021-07-27 17:42 | PC.NURSE ---
Discharge Order was placed. Patient felt she was unwell to go home yet. Dr. Bryan notified, and ok'd.
[2021-07-28] MEDS: methylPREDNISolone Sod Succ 125 MG/2 ML VIAL 60 MG IVPUSH ×3 (01:16→14:13)
[2021-07-28] MEDS: Heparin Sodium,Porcine 5,000 UNIT/ML VIAL 5000 UNIT SUBCUT ×2 (01:16→08:29)
[2021-07-28 03:47] VITALS: BP 140/67; PULSE 84; RESP 18; TEMP 37.7; O2SAT 94
[2021-07-28 05:46] VITALS: BMI 20.6
[2021-07-28 07:43] VITALS: BP 135/73; PULSE 90; RESP 20; TEMP 37.4; O2SAT 95
[2021-07-28] MEDS: Venlafaxine HCL 25 MG TABLET 37.5 MG PO (08:28)
[2021-07-28] MEDS: busPIRone HCl 10 MG TABLET PO (08:29)
[2021-07-28] MEDS: acetaZOLAMIDE 250 MG TABLET PO (08:29)
[2021-07-28] MEDS: Famotidine/PF 20 MG/2 ML VIAL IVPUSH (10:17)
[2021-07-28 11:11] VITALS: BP 146/69; PULSE 89; PULSE 96; RESP 20; RESP 32; TEMP 37.4; O2SAT 100; O2SAT 93
--- NOTE | 2021-07-28 12:17 | MHC.CM.PN ---
spoke with pts son with whom he lives darron will come to take pt home at 2 he will bring her 02 tank with him
[2021-07-28] MEDS: Azithromycin 250 MG TABLET PO (14:14)
--- NOTE | 2021-08-10 12:40 | P.CDIR_ITS ---
Documented by User: Jeanette Pham CCS, CDIS 08/10/21 12:44 Retrospective Query PHYSICIAN'S DOCUMENTATION REQUEST Date of Query: 08/10/21 1240 Patient Name: Mariam Thakkar Admit Date: 07/24/21 Dear Doctor, A review of the medical record indicates additional documentation may be needed. Please review below and update the documentation accordingly. [facility] 4Bd Risk Factors/Clinical Indicators/Treatments [facility] 4[facility] Nutrition note 07/27 - severe malnutrition in context of acute illness/injury. Severe depletion of muscle mass and subcutaneous fat. BMI 17.1 Patient requires nutritional support. If possible, please provide an associated diagnosis related to the abnormal BMI, such as: For a BMI <= 19: Malnutrition, protein calorie, mild, moderate or severe * Underweight * Weight loss * Cachexia * Anorexia * Other or undetermined Use of terms such as suspected, likely, concern for, or probable (associated with a specific diagnosis that is being evaluated, monitored, or treated as if it exists) are acceptable and can be coded in the inpatient setting, when documented at the time of discharge. Thank you, Jeanette Pham [facility], CDIS Extension: [phone] Please use your independent medical judgment in providing your response. THIS QUERY IS PART OF THE PERMANENT MEDICAL RECORD Documented by User: Javier Bryan MD 09/09/21 11:20 Retrospective Query Provider Response: Mild Protein-Calorie Malnutrition
== END 2021-07-28 15:00 | disposition home health service (06) | DRG 190 ==
LOC: HO.ED 15:01 → HO.EDOVER 15:37 → HO.ICU 17:54 → HO.IMC 07-26 13:30
PROVIDERS: Anesthesiology; Physician Assistant Medical; Admitting Provider Internal Medicine Cardiovascular Disease; Emergency Provider Emergency Medicine; PCP Internal Medicine; Visit Provider Internal Medicine
DX: J43.9 Emphysema, unspecified (principal); J96.22 Acute and chronic respiratory failure with hypercapnia; J45.902 Unspecified asthma with status asthmaticus; E44.1 Mild protein-calorie malnutrition; R91.8 Other nonspecific abnormal finding of lung field; Z20.822 Contact with and (suspected) exposure to COVID-19; Z87.891 Personal history of nicotine dependence; Z68.20 Body mass index [BMI] 20.0-20.9, adult; Z99.81 Dependence on supplemental oxygen; Z80.0 Family history of malignant neoplasm of digestive organs; Z88.2 Allergy status to sulfonamides; Z79.899 Other long term (current) drug therapy
CPT/HCPCS: 0241U; 36415; 36600; 71045; 71250; 80048; 80053; 80076; 80307; 81001; 82803; 83605; 83690; 83735; 83880; 84100; 84484; 85025; 87040; 87086; 93005; 94640; 94644; 94660; 96365; 96366; 96375; 99285; 99291; J1170; J1956; J2270; J2405; J2930; J3475

== ENCOUNTER 2021-08-23 | Outpatient (REF) | payer SELFPAY ==
[2021-08-23 07:48] LABS: Hematocrit 34.2 % (37.0-47.0); Hemoglobin 10.5 g/dl (12.0-16.0); Mean Corpuscular HGB Conc 30.7 g/dl (31.0-35.0); Mean Corpuscular Hemoglobin 28.2 pg (27.0-33.0); Mean Corpuscular Volume 91.7 fL (80.0-98.0); Mean Platelet Volume 9.5 fL (9.4-12.3); NRBC Pct Auto 0.2 /100WBC (0.0-0.2); Platelet Count 313 X10*3/uL (160-400); Red Blood Count 3.73 X10*6/uL (4.20-5.50)
[2021-08-23 08:17] LABS: Anion Gap 11 (12-20); Blood Urea Nitrogen 19 mg/dL (9-16); Calcium 8.6 mg/dL (8.4-10.2); Carbon Dioxide 31 mmol/L (22-29); Chloride 104 mmol/L (96-108); Estimated Glomerular Filt Rate 58; Glucose Random 79 mg/dL (60-115); Potassium 4.3 mmol/L (3.3-5.1); Sodium 142 mmol/L (135-145)
== END 2021-08-23 00:01 | disposition home or self-care (01) ==
LOC: HO.MMNH2L
PROVIDERS: Visit Provider Family Medicine
DX: J44.9 Chronic obstructive pulmonary disease, unspecified (principal); N18.9 Chronic kidney disease, unspecified
CPT/HCPCS: 36415; 80048; 85027

== ENCOUNTER 2021-12-23 20:05 | Inpatient (IN) | payer MEDICARE, MEDICAID, SELFPAY ==
--- NOTE | ~2021-12-23 | XR_ITS ---
EXAMINATION: PORTABLE CHEST 1 VIEW CLINICAL INFORMATION: sob . COMPARISON: 07/24/2021. TECHNIQUE: Portable frontal view of the chest was obtained. FINDINGS: The lungs are well expanded. No focal infiltrate, effusion, edema, or pneumothorax. Linear scarring at the left lung apex again seen. Cardiac and mediastinal silhouettes are within normal limits for size with vascular calcification in the aorta. No acute bony abnormality seen. XR/XR chest 1V IMPRESSION: No evidence of acute disease compared to 07/24/2021.
--- NOTE | ~2021-12-23 | CT_ITS ---
EXAMINATION: CT CHEST WITHOUT CONTRAST CLINICAL INFORMATION: Respiratory failure. COMPARISON: Radiographs from the same date and CTs dated 07/24/2021 and 07/26/2020. TECHNIQUE: Multidetector volumetric CT imaging of the chest was done. Axial MIP volume rendering provided. Sagittal and coronal reformatted images were obtained. This CT examination was performed using dose optimization techniques as appropriate, variously including the following: *Automated exposure control *Adjustment of mA and/or kV according to patient size (this includes techniques or standardized protocols for targeted exams where dose is matched to indication/reason for exam; i.e. extremities or head) *Use of iterative reconstruction technique DLP: Degenerative mGy-cm FINDINGS: PET CARE WORKER: Lungs are hyperexpanded with flattened hemidiaphragms. LUNGS: Severe centrilobular emphysema is again noted with a upper lobe predominance. Bronchial wall thickening with areas of endoluminal opacification and the segmental and subsegmental level is similar to prior. As on the prior study, there is a stellate, cavitary focus of consolidation at the apex of the left lung measuring 1.8 x 1.2 cm (image 80/541 of series 5), not significantly changed from 1.8 x 1.3 cm on the prior study and decreased in size from 2.3 x 2.1 cm on the study from 07/26/2020. Adjacent linear bands of pleural parenchymal scarring extending from this opacity to the pleural surface. A second, new stellate opacity is evident at the left upper lobe just inferior to this, measuring up to 1.4 x 0.9 cm on image 123/541 of series 5. A perifissural nodule is again seen at the left major fissure, measuring up to 1 x 0.7 cm in cross-section on image 141/541 of series 5, unchanged. Multiple smaller calcified and noncalcified pulmonary nodules are in both lungs which is not appreciably changed as compared to prior. These include a 3 mm (average diameter) nodule in the anterolateral aspect of the right middle lobe on image 263. No new areas of airspace consolidation. Ill-defined groundglass opacity in the medial aspects of the upper lobes anteriorly near the midline is similar to prior and may correspond to regions of atelectasis, particularly given the presence of intraluminal opacification in the bronchi to these regions. No new consolidation. MEDIASTINUM: Heart is normal in size. Atherosclerotic calcifications are present in the coronary arteries and thoracic aorta. Vascularity is normal in caliber. No mediastinal or hilar adenopathy. Thyroid gland is unremarkable. No pericardial effusion PLEURA: There is no pleural effusion. No pleural mass or thickening. AXILLA: No lymphadenopathy. UPPER ABDOMEN: Status post cholecystectomy. Calcific atherosclerosis in the abdominal aorta. OSSEOUS STRUCTURES: There is a superior endplate compression deformity at the T9 level which is unchanged. A superior endplate compression deformity at T7 is associated with 25 percent loss of vertebral body height anteriorly and, new as compared to 07/24/2021. CT/CT chest wo con IMPRESSION: 1. Severe pulmonary emphysema. Bronchial wall thickening and multifocal segmental and subsegmental intraluminal bronchial mucous likely correspond to chronic bronchitis. No new airspace consolidation. 2. Stellate, cavitary nodule in the left lung apex is not significantly change from prior. An adjacent 1.4 x 0.9 cm nodule in the left upper lobe is new as compared to prior and may correspond to a similar inflammatory process. Neoplasm cannot be excluded. Multiple small subcentimeter nodules are unchanged as compared to prior studies. According to the UPDATED 2017 Fleischner Society recommendations, the advised follow-up imaging for a single solid nodule measuring 8 mm or greater is: Consider CT, PET/CT, or tissue sampling at 3 months.
--- NOTE | 2021-12-23 20:10 | ED.SOB ---
HPI - SOB/Dyspnea General Chief Complaint: Dyspnea Stated Complaint: difficuilty Breathing Time Seen by Provider: 12/23/21 20:08 Source: patient Mode of arrival: EMS Limitations: no limitations History of Present Illness HPI Narrative: Patient is 71 years old history of smoking COPD oxygen dependent COVID in 2020 with chronic hypercarbic respiratory failure with history of left apical lung mass no tissue diagnosis, Comes here for increased shortness of breath for last 3 days her son was unable to wake her up and she called the EMS on arrival patient was saturating 88% on 1 L of oxygen at home improved after DuoNeb treatment on arrival patient was saturating 100% on 2 L. Patient denies any chest pain palpitation no fever no chills patient does have chronic cough with mucopurulent phlegm which is getting more thicker and yellowish lately Related Data Home Medications Medication Instructions Recorded Confirmed albuterol sulfate 90 mcg/actuation 2 puff INHALATION Q4H PRN 07/26/20 07/24/21 aerosol inhaler fluticasone furoate 200 1 inh INHALATION DAILY 07/26/20 07/24/21 mcg-vilanterol 25 mcg/dose inhalation powder (Breo Ellipta) tiotropium bromide 2.5 2 puff INHALATION DAILY 07/26/20 07/24/21 mcg/actuation mist for inhalation (Spiriva Respimat) venlafaxine 37.5 mg tablet 37.5 mg PO BID 07/26/20 07/24/21 buspirone 10 mg tablet 1 tab PO BID 07/24/21 07/24/21 Previous Rx's Medication Instructions Recorded azithromycin 250 mg tablet 250 mg PO Q24H #3 tab 09/07/20 lorazepam 0.5 mg tablet 0.5 mg PO Q12H PRN #10 tab 09/07/20 prednisone 10 mg tablet See Taper PO DAILY #20 tab 07/27/21 Allergies Allergy/AdvReac Type Severity Reaction Status Date / Time amoxicillin [AMOXICILLIN] Allergy Unknown HIVES Verified 07/26/20 09:52 Sulfa (Sulfonamide Allergy Unknown DIFFICULTY Verified 07/26/20 09:52 Antibiotics) BREATHING [SULFA (SULFONAMIDE ANTIBIOTICS)] cephalexin [From Keflex] Allergy Unknown Verified 07/26/20 09:52 Review of Systems Review of Systems: Yes all other systems are reviewed and are negative PMFSH Past Medical History Medical History Acute exacerbation of chronic obstructive airways disease COPD (chronic obstructive pulmonary disease) Lung mass Pneumonia Severe protein-calorie malnutrition Surgical History History of cholecystectomy History of hysterectomy Hx of appendectomy Social History Social History Household Members: Children Household Members Other:: son Housing: House Do you presently have visiting nurse or other home services: Yes (ship's officer/rn) Alcohol intake: former Patient Tobacco Use Status: Former Tobacco user Smoked in Last 30 Days: No Use of substances other than those prescribed or required for medical reasons: No Substance Use Type: Marijuana Advance Directives: No Advance Directives Information Provided: No service: No Current occupational status: retired Physical Exam Vital Signs: Vital Signs: Last Vital Signs Temp 98.3 F 12/23/21 22:24 Pulse 105 H 12/23/21 22:24 Resp 17 12/23/21 22:24 BP 118/63 12/23/21 22:24 Pulse Ox 98 12/23/21 22:24 Oxygen Flow Rate 2 12/23/21 20:13 BMI result Body Mass Index 20.5 Appearance: Alert. Oriented X3. Moderate distress speaking short sentences ENT: Pharynx normal. Oral Mucosa moist Neck: Normal inspection. Neck supple. CVS: Normal heart rate and rhythm. Pulses normal. Respiratory: Moderate respiratory distress with decreased air entry bilateral, prolonged expiration no rales Abdomen: Soft and nontender. Bowel sounds are present, no mass palpable, no CVA tenderness Skin: Skin warm and dry. Normal skin color. Normal skin turgor. Extremities: No lower extremity edema. No calf tenderness Neuro: Oriented X 3. No motor deficit. MDM - SOB/Dyspnea MDM Narrative Medical decision making narrative: Patient with acute on chronic respiratory failure with hypercapnia with history of COPD no acute infiltrate in the chest x-ray. Patient started on IV steroids IV antibiotics placed on BiPAP admit to ICU at this time patient does not want to be intubated Differential Diagnosis Differential diagnosis: Likely acute exacerbation of chronic obstructive airways disease Medical Records Attestation: I reviewed the patient's medical records. Lab Data Attestation: I reviewed the patient's lab results. Result diagrams: 12/23/21 20:43 12/23/21 20:43 Labs: Lab Results 12/23/21 12/23/21 12/23/21 Range/Units 20:43 20:43 20:43 WBC 8.4 (4.8-10.8) X10*3/uL RBC 4.53 D (4.20-5.50) X10*6/uL Hgb 13.1 D (12.0-16.0) g/dl Hct 42.3 D (37.0-47.0) % MCV 93.4 (80.0-98.0) fL MCH 28.9 (27.0-33.0) pg MCHC 31.0 (31.0-35.0) g/dl RDW 12.7 (11.0-16.0) % Plt Count 256 D (160-400) X10*3/uL MPV 9.8 (9.4-12.3) fL Immature Gran % (Auto) 0.7 H (0.0-0.4) % Neut % (Auto) 67.5 (45-73) % Lymph % (Auto) 21.6 (20-40) % Mckean % (Auto) 7.0 (2-11) % Eos % (Auto) 2.6 (0-4) % Baso % (Auto) 0.6 (0-2) % Lymph # (Auto) 1.8 (1.2-4.9) X10*3/uL Mckean # (Auto) 0.6 (0.1-1.2) X10*3/uL Eos # (Auto) 0.2 (0.0-0.4) X10*3/uL Baso # (Auto) 0.1 (0.0-0.2) X10*3/uL Abs Immat Gran (auto) 0.06 H (0.00-0.03) X10*3/uL Absolute Neuts (auto) 5.7 (2.0-8.3) x10*3/uL Absolute Nucleated RBC 0.000 (0.0-0.012) X10*3/uL Nucleated RBC % (auto) 0.0 (0.0-0.2) /100WBC VBG pH (7.32-7.43) VBG pCO2 mmHg VBG pO2 mmHg VBG HCO3 (22-26) mmol/L VBG O2 Saturation % VBG Base Excess mmol/L Sodium 143 (135-145) mmol/L Potassium 5.0 (3.3-5.1) mmol/L Chloride 98 (96-108) mmol/L Carbon Dioxide 38 H (22-29) mmol/L Anion Gap 12 (12-20) BUN 11 (9-16) mg/dL Creatinine 0.83 (0.5-1.4) mg/dL Estim Creat Clear Calc 49.1 Estimated GFR > 60 Random Glucose 124 H (60-115) mg/dL Lactic Acid (0.5-2.0) mmol/L Calcium 9.7 D (8.4-10.2) mg/dL Total Bilirubin 0.3 (0.0-1.0) mg/dL AST 22 D (5-31) U/L ALT 15 (0-31) U/L Alkaline Phosphatase 133 H D (39-117) U/L Troponin I High Sens 14.1 (<3.5-17.0) ng/L Total Protein 6.9 D (6.5-8.0) g/dL Albumin 3.8 (3.5-5.0) g/dL COVID-19 (STEFF) (Negative) COVID-19 Clin Com 12/23/21 12/23/21 12/23/21 Range/Units 20:43 20:44 20:49 WBC (4.8-10.8) X10*3/uL RBC (4.20-5.50) X10*6/uL Hgb (12.0-16.0) g/dl Hct (37.0-47.0) % MCV (80.0-98.0) fL MCH (27.0-33.0) pg MCHC (31.0-35.0) g/dl RDW (11.0-16.0) % Plt Count (160-400) X10*3/uL MPV (9.4-12.3) fL Immature Gran % (Auto) (0.0-0.4) % Neut % (Auto) (45-73) % Lymph % (Auto) (20-40) % Mckean % (Auto) (2-11) % Eos % (Auto) (0-4) % Baso % (Auto) (0-2) % Lymph # (Auto) (1.2-4.9) X10*3/uL Mckean # (Auto) (0.1-1.2) X10*3/uL Eos # (Auto) (0.0-0.4) X10*3/uL Baso # (Auto) (0.0-0.2) X10*3/uL Abs Immat Gran (auto) (0.00-0.03) X10*3/uL Absolute Neuts (auto) (2.0-8.3) x10*3/uL Absolute Nucleated RBC (0.0-0.012) X10*3/uL Nucleated RBC % (auto) (0.0-0.2) /100WBC VBG pH 7.32 (7.32-7.43) VBG pCO2 114 mmHg VBG pO2 46 mmHg VBG HCO3 59 H (22-26) mmol/L VBG O2 Saturation 75.0 % VBG Base Excess 25.6 mmol/L Sodium (135-145) mmol/L Potassium (3.3-5.1) mmol/L Chloride (96-108) mmol/L Carbon Dioxide (22-29) mmol/L Anion Gap (12-20) BUN (9-16) mg/dL Creatinine (0.5-1.4) mg/dL Estim Creat Clear Calc Estimated GFR Random Glucose (60-115) mg/dL Lactic Acid 0.9 (0.5-2.0) mmol/L Calcium (8.4-10.2) mg/dL Total Bilirubin (0.0-1.0) mg/dL AST (5-31) U/L ALT (0-31) U/L Alkaline Phosphatase (39-117) U/L Troponin I High Sens (<3.5-17.0) ng/L Total Protein (6.5-8.0) g/dL Albumin (3.5-5.0) g/dL COVID-19 (STEFF) Negative (Negative) COVID-19 Clin Com See Note ECG Data Attestation: I personally reviewed and interpreted this ECG as follows: Interpretation: Sinus tachycardia heart rate of 109 beats per minute normal interval normal axis no acute ST T wave changes no acute ischemia Critical Care Time Critical Care Time Critical Care Time: Yes Total Critical Care Time: 60 Attestation: I spent 60 minutes of critical care, with interventions, assessments, speaking to patient, consultants, and family. Discharge Plan Discharge Clinical Impression: Acute and chronic respiratory failure with hypercapnia Patient Disposition: Admitted As Inpatient
[2021-12-23 20:13] VITALS: BP 123/84; BP 133/64; PULSE 110; PULSE 115; RESP 22; TEMP 36.8; O2SAT 91; O2SAT 93; BMI 20.5
--- NOTE | 2021-12-23 20:20 | ECG_ITS ---
Test Reason : SOB Blood Pressure : / mmHG Vent. Rate : 109 BPM Atrial Rate : 109 BPM P-R Int : 126 ms QRS Dur : 064 ms QT Int : 310 ms P-R-T Axes : 086 069 066 degrees QTc Int : 417 ms Artifact in tracing Sinus tachycardia Otherwise normal ECG When compared with ECG of 24-JUL-2021 12:54, No significant change was found Referred By: Brady Duong Electronically Signed By:YANI AKINS
[2021-12-23] MEDS: Albuterol Sulfate (0.083%) 2.5 MG/3 ML VIAL.NEB 5 MG INHALE (20:42)
[2021-12-23 20:43] VITALS: PULSE 109; RESP 18; O2SAT 91
[2021-12-23] MEDS: methylPREDNISolone Sod Succ 125 MG/2 ML VIAL 60 MG IVPUSH (20:50)
[2021-12-23 20:51] LABS: MANUAL DIFF FLAG NO
[2021-12-23 20:54] LABS: Basophils Absolute Auto 0.1 X10*3/uL (0.0-0.2); Basophils Percent Auto 0.6 % (0-2); Eosinophils Absolute Auto 0.2 X10*3/uL (0.0-0.4); Eosinophils Percent Auto 2.6 % (0-4); Hematocrit 42.3 % (37.0-47.0); Hemoglobin 13.1 g/dl (12.0-16.0); Imm Gran Abs Auto 0.06 X10*3/uL (0.00-0.03); Imm Gran Pct Auto 0.7 % (0.0-0.4); Lymphocytes Absolute Auto 1.8 X10*3/uL (1.2-4.9); Lymphocytes Percent Auto 21.6 % (20-40); Mean Corpuscular Hemoglobin 28.9 pg (27.0-33.0); Mean Corpuscular Volume 93.4 fL (80.0-98.0); Mean Platelet Volume 9.8 fL (9.4-12.3); Monocytes Absolute Auto 0.6 X10*3/uL (0.1-1.2); Neutrophils Absolute Auto 5.7 x10*3/uL (2.0-8.3); Neutrophils Percent Auto 67.5 % (45-73); Platelet Count 256 X10*3/uL (160-400); Red Blood Count 4.53 X10*6/uL (4.20-5.50); Red Cell Distribution Width 12.7 % (11.0-16.0); Venous Blood Gas Refer to POC result; White Blood Count 8.4 X10*3/uL (4.8-10.8)
[2021-12-23 20:55] LABS: VBG Base Excess 25.6 mmol/L; VBG HCO3 59 mmol/L (22-26); VBG pCO2 114 mmHg; VBG pH 7.32 (7.32-7.43); VBG pO2 46 mmHg
[2021-12-23 21:04] LABS: Lactic Acid 0.9 mmol/L (0.5-2.0)
[2021-12-23 21:14] LABS: Troponin-I High Sensitivity 14.1 ng/L (<3.5-17.0)
[2021-12-23 21:15] LABS: Alanine Aminotransferase 15 U/L (0-31); Albumin Level 3.8 g/dL (3.5-5.0); Alkaline Phosphatase 133 U/L (39-117); Anion Gap 12 (12-20); Aspartate Amino Transferase 22 U/L (5-31); Bilirubin Total 0.3 mg/dL (0.0-1.0); Blood Urea Nitrogen 11 mg/dL (9-16); Calcium 9.7 mg/dL (8.4-10.2); Carbon Dioxide 38 mmol/L (22-29); Chloride 98 mmol/L (96-108); Creatinine Clr Calc Pharmacy 49.1; Estimated Glomerular Filt Rate > 60; Glucose Random 124 mg/dL (60-115); Sodium 143 mmol/L (135-145); Total Protein 6.9 g/dL (6.5-8.0)
[2021-12-23 21:21] VITALS: BP 126/69; PULSE 102; RESP 28; TEMP 36.8; O2SAT 92
[2021-12-23 21:28] LABS: COVID-19 Test Negative (Negative)
[2021-12-23] MEDS: Doxycycline Hyclate 100 MG in 0.9 % Sodium Chloride 250 ML 166.67 MG IV (21:43)
[2021-12-23 22:10] VITALS: O2SAT 95
--- NOTE | 2021-12-23 22:20 | PM.CCHP ---
History of Present Illness Date of Service: 12/23/21 <Rona Fan PA-C - Last Filed: 12/24/21 01:06> Attending physician on admission: Barney Smith <Rona Fan PA-C - Last Filed: 12/24/21 01:06> Chief Complaint: sob <Rona Fan PA-C - Last Filed: 12/24/21 01:06> patient is a 71-year-old female past medical history of smoking, COPD oxygen dependent, COVID in 2019 with chronic hypercarbic respiratory failure with history of left apical lung mass no tissue diagnosis was BIBA after being found at home, unable to be woken up. EMS found patient to be satting 88% on 1 L, when they bumped her up to 2 L oxygen and gave her a Duoneb tx, she was satting at 100%. The patient states she has been feeling sick for the past few days, she describes this as worsening of baseline cough with increasing yellowish secretions, increasingly short of breath despite taking her normal at home COPD medications, she feels more tired, headaches and presyncopal but no actual loss of consciousness. she states she has to choose between breathing or eating , when I asked her to describe this she said that if she eats, she can not breathe so she chooses to breathe which has caused her to have significant weight loss but states she is actually up from her all time low being 75 lb. She states she is typically around 110 lb but was told today she is 103 lb. Patient denies any sick contacts, denies chest pain, fevers, nausea, vomiting or diarrhea. She states she fell asleep this afternoon and then apparently she was told her son could not wake her up so they called 911. She states this has happened to her before, as recently as last July. She states she knows she has some kind of small lung mass but she does not want a biopsy because she has no plans to do anything about it so she does not see the point. She states she already cannot eat so why take any medicine that is going to make her feel even worse . VS upon arrival HR105, 105/63, 98.3F, RR17, 98% on 2L NC. Labs remarkable for WBC WNL 8.4, serum bicarb 38, VBG 732/114/46/59/75/25.6; Covid negative, CXR unremarkable. I discussed case with Dr. Smith, will admit patient to the ICU. Will get dry CT scan of the chest <Rona Fan PA-C - Last Filed: 12/24/21 01:06> Review of Systems Review of Systems: Yes all other systems are reviewed and are negative <Rona Fan PA-C - Last Filed: 12/24/21 01:06> [facility] Past Medical History Medical History: Medical History (Updated 12/24/21 @ 01:05 by Rona Fan PA-C) Acute exacerbation of chronic obstructive airways disease COPD (chronic obstructive pulmonary disease) Lung mass Pneumonia Severe protein-calorie malnutrition <Rona Fan PA-C - Last Filed: 12/24/21 01:06> Surgical History Surgical History: Surgical History History of cholecystectomy History of hysterectomy Hx of appendectomy <Rona Fan PA-C - Last Filed: 12/24/21 01:06> Social History Social History: Social History Household Members: Children Household Members Other:: son Housing: House 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) Alcohol intake: former Patient Tobacco Use Status: Former Tobacco user Smoked in Last 30 Days: No Use of substances other than those prescribed or required for medical reasons: No Substance Use Type: Marijuana Currently Displaying Signs/Symptoms of Drug Intoxication Withdrawal: No Advance Directives: No Advance Directives Information Provided: No service: No Current occupational status: retired <Rona Fan PA-C - Last Filed: 12/24/21 01:06> Meds Allergies/Adverse reactions: Allergies Allergy/AdvReac Type Severity Reaction Status Date / Time amoxicillin [AMOXICILLIN] Allergy Unknown HIVES Verified 07/26/20 09:52 Sulfa (Sulfonamide Allergy Unknown DIFFICULTY Verified 07/26/20 09:52 Antibiotics) BREATHING [SULFA (SULFONAMIDE ANTIBIOTICS)] cephalexin [From Keflex] Allergy Unknown Verified 07/26/20 09:52 <Rona Fan PA-C - Last Filed: 12/24/21 01:06> Active Medications: Current Medications Albuterol Sulfate (Albuterol Sulfate (0.083%) 2.5 Mg/3 Ml Vial.Neb) 2.5 mg INHALE RQ4H SANDI Albuterol/Ipratropium (Albuterol/Iprat 2.5/0.5mg 3 Ml Ampul.Neb) 3 ml INHALE Q2H PRN PRN Reason: sob Heparin Sodium (Porcine) (Heparin Sodium,Porcine 5,000 Unit/Ml Vial) 5,000 unit SUBCUT Q12H SANDI Doxycycline Hyclate 100 mg/ (Sodium Chloride) 250 mls @ 166.67 mls/hr IV ONCE ONE Stop: 12/23/21 22:56 Last Admin: 12/23/21 21:43 Dose: 166.67 mls/hr Documented by: Azithromycin 500 mg/ Sodium (Chloride) 250 mls @ 125 mls/hr IV ONCE ONE Stop: 12/23/21 23:26 <Rona Fan PA-C - Last Filed: 12/24/21 01:06> Home medications: Home Medications Medication Instructions Recorded Confirmed Last Taken Type albuterol sulfate 90 mcg/actuation 2 puff INHALATION Q4H PRN 07/26/20 12/24/21 Unknown History aerosol inhaler fluticasone furoate 200 1 inh INHALATION DAILY 07/26/20 12/24/21 12/23/21 History mcg-vilanterol 25 mcg/dose inhalation powder (Breo Ellipta) tiotropium bromide 2.5 2 puff INHALATION DAILY 07/26/20 12/24/21 12/23/21 History mcg/actuation mist for inhalation (Spiriva Respimat) venlafaxine 37.5 mg tablet 37.5 mg PO BID 07/26/20 12/24/21 12/23/21 History buspirone 10 mg tablet 1 tab PO BID 07/24/21 12/24/21 12/23/21 History cetirizine 10 mg tablet 10 mg PO DAILY 12/24/21 12/24/21 12/23/21 History <Rona Fan PA-C - Last Filed: 12/24/21 01:06> Physical Exam Vital Signs: Vital Signs: Last Vital Signs Temp 98.3 F 12/23/21 21:21 Pulse 102 H 05/19/22 21:21 Resp 28 H 12/23/21 21:21 BP 126/69 12/23/21 21:21 Pulse Ox 92 12/23/21 21:21 Oxygen Flow Rate 2 12/23/21 20:13 BMI result Body Mass Index 20.5 <GANESH Currie Last Filed: 12/24/21 01:06> Const: Other: laying in bed with BiPap mask on <GANESH Currie Last Filed: 12/24/21 01:06> General: cooperative, comfortable, no acute distress and well developed <Rona Fan PA-C - Last Filed: 12/24/21 01:06> Nutritional Appearance: thin <GANESH Currie Last Filed: 12/24/21 01:06> Orientation/consciousness: patient oriented x3 <Rona Fan PA-C - Last Filed: 12/24/21 01:06> Limitations: no limitations <GANESH Currie Last Filed: 12/24/21 01:06> HEENT: Head: Yes normal to inspection, Yes normocephalic and Yes atraumatic <Rona Fan PA-C - Last Filed: 12/24/21 01:06> Eyes: General: appearance normal, both eyes and all related structures <GANESH Currie Last Filed: 12/24/21 01:06> EOM: EOMs intact bilaterally <GANESH Currie Last Filed: 12/24/21 01:06> Neck: Neck: Yes normal visual inspection, Yes full ROM, Yes trachea midline and Yes supple <GANESH Currie Last Filed: 12/24/21 01:06> Resp: Effort & Inspection: normal respiratory effort and able to speak in complete sentences <GANESH Currie Last Filed: 12/24/21 01:06> Auscultation: diminished lung sounds <GANESH Currie Last Filed: 12/24/21 01:06> Cardio: Rate: tachycardic (low 100's) <GANESH Currie Last Filed: 12/24/21 01:06> Rhythm: regular rhythm <Rona Fan PA-C - Last Filed: 12/24/21 01:06> Heart sounds: normal S1 and S2 <Rona Fan PA-C - Last Filed: 12/24/21 01:06> GI: Inspection: Yes normal to inspection <Rona Fan PA-C - Last Filed: 12/24/21 01:06> Palpation (GI): Soft to palpation and nontender <Rona Fan PA-C - Last Filed: 12/24/21 01:06> Skin: General skin exam: no rashes or lesions noted <Rona Fan PA-C - Last Filed: 12/24/21 01:06> Neuro: General: patient oriented x3 <GANESH Currie Last Filed: 12/24/21 01:06> Extrem: General: Yes normal to inspection and Yes no pedal edema <Rona Fan PA-C - Last Filed: 12/24/21 01:06> Results Labs CBC and Chem 7: : 12/24/21 05:17 12/24/21 05:17 <Rona Fan PA-C - Last Filed: 12/24/21 01:06> Labs: Laboratory Results - last 24 hr 12/23/21 12/23/21 12/23/21 20:43 20:43 20:43 MCV 93.4 MCH 28.9 MCHC 31.0 RDW 12.7 Plt Count 256 D MPV 9.8 Immature Gran % (Auto) 0.7 H Neut % (Auto) 67.5 Lymph % (Auto) 21.6 [place] % (Auto) 7.0 Eos % (Auto) 2.6 Baso % (Auto) 0.6 Lymph # (Auto) 1.8 [place] # (Auto) 0.6 Eos # (Auto) 0.2 Baso # (Auto) 0.1 Abs Immat Gran (auto) 0.06 H Absolute Neuts (auto) 5.7 Absolute Nucleated RBC 0.000 Nucleated RBC % (auto) 0.0 VBG pH VBG pCO2 VBG pO2 VBG HCO3 VBG O2 Saturation VBG Base Excess Anion Gap 12 Estim Creat Clear Calc 49.1 Estimated GFR > 60 Random Glucose 124 H Lactic Acid Calcium 9.7 D Total Bilirubin 0.3 AST 22 D ALT 15 Alkaline Phosphatase 133 H D Troponin I High Sens 14.1 Total Protein 6.9 D Albumin 3.8 COVID-19 (STEFF) COVID-19 Clin Com 12/23/21 12/23/21 12/23/21 20:43 20:44 20:49 MCV MCH MCHC RDW Plt Count MPV Immature Gran % (Auto) Neut % (Auto) Lymph % (Auto) [place] % (Auto) Eos % (Auto) Baso % (Auto) Lymph # (Auto) [place] # (Auto) Eos # (Auto) Baso # (Auto) Abs Immat Gran (auto) Absolute Neuts (auto) Absolute Nucleated RBC Nucleated RBC % (auto) VBG pH 7.32 VBG pCO2 114 VBG pO2 46 VBG HCO3 59 H VBG O2 Saturation 75.0 VBG Base Excess 25.6 Anion Gap Estim Creat Clear Calc Estimated GFR Random Glucose Lactic Acid 0.9 Calcium Total Bilirubin AST ALT Alkaline Phosphatase Troponin I High Sens Total Protein Albumin COVID-19 (STEFF) Negative COVID-19 Clin Com See Note <GANESH Currie Last Filed: 12/24/21 01:06> Imaging Radiologist's Impressions: Impressions Chest X-Ray 12/23/21 20:50 IMPRESSION: No evidence of acute disease compared to 07/24/2021. <Rona Fan PA-C - Last Filed: 12/24/21 01:06> Assessment and Plan (1) Acute and chronic respiratory failure with hypercapnia: Status: Acute <GANESH Currie Last Filed: 12/24/21 01:06> Continue rescue bipap overnight, monitor vbg, bronchodilators, steroids, chest CT ordered <GANESH Currie Last Filed: 12/24/21 01:06> (2) Acute bronchitis: Status: Acute <GANESH Currie Last Filed: 12/24/21 01:06> CPAP, steroids and bronchodilators <GANESH Currie Last Filed: 12/24/21 01:06> (3) Lung mass: Status: Acute <GANESH Currie Last Filed: 12/24/21 01:06> patient is aware of lung mass and does not want to have it biopsied, as discussed with this hospital last July and noted in her file, she would not pursue any surgery, chemotherapy or radiation if it were found to be cancer so she does not see the point of pursuing it. She would prefer to spend her time enjoying her family. We did review that she is a full code at this time. <Rona Fan PA-C - Last Filed: 12/24/21 01:06> Plan DVT PPX heparin <Rona Fan PA-C - Last Filed: 12/24/21 01:06> Critical Care Time Critical Care Time (minutes): 60 <Rona Fan PA-C - Last Filed: 12/24/21 01:06>
[2021-12-23 22:24] VITALS: BP 118/63; PULSE 105; PULSE 97; RESP 15; RESP 17; TEMP 36.8; O2SAT 98
[2021-12-23] MEDS: Azithromycin 500 MG in 0.9 % Sodium Chloride 250 ML 125 MG IV (23:02)
[2021-12-23 23:05] VITALS: BP 141/57; PULSE 102; RESP 14; O2SAT 96
[2021-12-23] MEDS: LORazepam 2 MG/ML VIAL 0.5 MG IVPUSH (23:06)
[2021-12-23] MEDS: Heparin Sodium,Porcine 5,000 UNIT/ML VIAL 5000 UNIT SUBCUT (23:07)
[2021-12-24] VITALS (31 sets, daily range): BP systolic 102–143; BP diastolic 44–75; PULSE 11–117; RESP 18–34; TEMP 36.6–37.7; O2SAT 91–99; BMI 21.0; BMI 20.9
[2021-12-24] MEDS: methylPREDNISolone Sod Succ 40 MG/ML VIAL IVPUSH ×4 (00:05→21:16)
[2021-12-24] MEDS: Albuterol Sulfate (0.083%) 2.5 MG/3 ML VIAL.NEB INHALE ×6 (00:08→19:49)
--- NOTE | 2021-12-24 03:23 | PC.NURSE ---
Addendum entered by Gary Veliz RN 12/24/21 04:43: TREJO WITH LOW OUTPUT...NPO AND NO IV FLUIDS AT PRESENT..ICU PA PRESENT AND AWARE..BP STABLE..TO REVIEW AM LABS AND TO RE-ASSESS IN AM PER PA Original Note: ADMIT TO 252-1 FROM ER DEPT..ALERT...ORIENTED X3...SINUS TACH HR 100'S...BP STABLE..PATIENT O2 2 L/M CANNULA FOR TRANSPORT FROM ER TO CT TO ICU..PREVIOUSLY ON BIPAP FOR ELEVATED PCO2 IN ER DEPT..RETURNED TO BIPAP / AND FIO2 40% ON ARRIVAL TO ICU...SAO2 95-96%...Ve 7-8 L/M....TREJO PLACED PER ICU PA...CLEAR YELLOW URINE OBTAINED...DENIES DISCOMFORT..FOR AM LABS/VBG PER CPOE..RESTFUL..MENTATION UNCHANGED 3AM..DENIES DISCOMFORT..BIPAP REMAINS IN PLACE
[2021-12-24 05:28] LABS: Basophils Percent Auto 0.2 % (0-2); Hematocrit 37.6 % (37.0-47.0); Hemoglobin 11.5 g/dl (12.0-16.0); Imm Gran Abs Auto 0.03 X10*3/uL (0.00-0.03); Imm Gran Pct Auto 0.4 % (0.0-0.4); Lymphocytes Absolute Auto 0.4 X10*3/uL (1.2-4.9); Lymphocytes Percent Auto 4.4 % (20-40); MANUAL DIFF FLAG SCAN; Mean Corpuscular HGB Conc 30.6 g/dl (31.0-35.0); Mean Corpuscular Hemoglobin 28.2 pg (27.0-33.0); Mean Corpuscular Volume 92.2 fL (80.0-98.0); Mean Platelet Volume 9.4 fL (9.4-12.3); Monocytes Percent Auto 0.4 % (2-11); Neutrophils Absolute Auto 7.8 x10*3/uL (2.0-8.3); Neutrophils Percent Auto 94.6 % (45-73); Platelet Count 204 X10*3/uL (160-400); Red Blood Count 4.08 X10*6/uL (4.20-5.50); Red Cell Distribution Width 12.7 % (11.0-16.0); SCAN SMEAR FLAG 1; White Blood Count 8.3 X10*3/uL (4.8-10.8)
[2021-12-24 05:31] LABS: VBG Base Excess 12.3 mmol/L; VBG HCO3 41 mmol/L (22-26); VBG pCO2 77 mmHg; VBG pH 7.33 (7.32-7.43); VBG pO2 48 mmHg
[2021-12-24 05:49] LABS: Anion Gap 14 (12-20); Blood Urea Nitrogen 15 mg/dL (9-16); Calcium 9.1 mg/dL (8.4-10.2); Carbon Dioxide 32 mmol/L (22-29); Chloride 101 mmol/L (96-108); Creatinine Clr Calc Pharmacy 45.8; Estimated Glomerular Filt Rate > 60; Glucose Random 175 mg/dL (60-115); Magnesium 1.9 mg/dL (1.6-2.6); Phosphorus 2.8 mg/dL (2.7-4.5); Potassium 5.1 mmol/L (3.3-5.1); Sodium 142 mmol/L (135-145)
[2021-12-24 06:28] LABS: Venous Blood Gas Refer to POC result
[2021-12-24 06:32] LABS: SLIDE REVIEW VERIFIED
--- NOTE | 2021-12-24 09:04 | PHA.MEDREC ---
MED REC COMPLETE, NO ISSUES Pharmacy Consult ? Medication Reconciliation Pharmacy has completed the medication reconciliation.
--- NOTE | 2021-12-24 09:10 | MHC.CLN ---
PT IS MODERATELY MALNOURISHED PT WITH MILDLY DEPLETED SUBCUTANEOUS FAT AND MUSCLE MASS, AND PT REPORTS DIFFICULTIES EATING R/T COPD WITH CHRONIC POOR PO INTAKE AND HX SEVERE PCM PT'S UBW 110# PREVIOUS WT HX SLOWLY IMPROVING SINCE PREVIOUS ADMISSIONS BUT WT LOW 37.5KG (07/26/20) DIET RX: REGULAR-APPROPRIATE RECOMMEND ADDING ENSURE ENLIVE BID TO PROVIDE 700KCALS, 40G PROTEIN MONITOR PO INTAKE CLOSELY SEE ALSO FULL CLINICAL NUTRITION ASSESSMENT
--- NOTE | 2021-12-24 09:26 | MHC.CM.PN ---
IMM 12/24/21, EMR REVIEWED ADMITED TO ICU W/ACUTE ON CHRONIC RESP FAILURE W/HYPERCAPNIA, PT CURRENTLY ON HIGH FLOW O2, CM MET W/PT WHO IS A&OX4, PT REPORTS SHE LIVES W/ADULT SON KAREN [phone] WHO DOES ALL THE COOKING/CLEANING AND ASSISTS PT WHO BATHING, PT REPORTS ONLY DME IS A WALKER, PT VERIFIES PCP CHEYENNE FITCH AND THAT SHE IS GOING TO SEE DR ARREGUIN FOR PULMONOLOGY BUT HASN'S SEEN HIM YET SHE BEEN UNABLE TO GET OUT OF HER TOWN HOUSE TO GO TO APPT'S, PT REPORTS SHE LIVES IN A 2/3 FLOORS AND HAS NOT HAD ENERGY TO LEAVE. PT REPORTS SHE IS OPEN TO A VNA IF RECOMMENDED HOWEVER DOES NOT WANT TO GO TO [place]. PT REPORTS SHE HAS REFUSED CPAP IN PAST HOWEVER NOW WANTS ONE SO SHE DOES NOT HAVE TO RETURN TO HOSPITAL, PT REPORTS SHE DECLINED IN THE PAST SHE GETS CLAUSTROPHOBIC, PT HAS NOT HAD A SLEEP STUDY OR SEEN PULMONOLOGIS, PT WAS COMPLIANT W/BIPAP IN ICU ALL NIGHT. CM DID NOTIFY HEAD OF RESPIRATORY TO LET HIM KNOW AND HE REPORTED ONCE PT IS DOWNGRADED FROM ICU THEY WILL NEED TO DUE AN OVERNIGHT OXIMETRY W/BLOOD GASSES IN AM AND PT WILL NEED TO REMOVED FROM O2. PT WILL NEED A SLEEP STUDY WELL. ICU NURSE RECOMMENDING NASAL PILLOW D/T CLAUSTROPHOBIA. D/C PLAN: HOME VS HOME W/NEW VNA, SON ABILIO FOR TRANSPORT. PCP: CHEYENNE FITCH [facility] X3
[2021-12-24 09:51] LABS: ABG Base Excess 10.7 mmol/L; ABG HCO3 38 mmol/L (22-26); ABG pCO2 62 mmHg (32-45); ABG pH 7.39 (7.35-7.45); ABG pO2 88 mmHg (83-108)
[2021-12-24 10:34] LABS: ABG Refer to POC result
[2021-12-24] MEDS: Heparin Sodium,Porcine 5,000 UNIT/ML VIAL 5000 UNIT SUBCUT ×2 (11:21→21:16)
[2021-12-24] MEDS: LORazepam 2 MG/ML VIAL 0.5 MG IVPUSH ×2 (14:47→21:17)
[2021-12-24 14:59] LABS: ABG Base Excess 13.4 mmol/L; ABG HCO3 41 mmol/L (22-26); ABG pCO2 67 mmHg (32-45); ABG pH 7.39 (7.35-7.45); ABG pO2 37 mmHg (83-108)
--- NOTE | 2021-12-24 15:27 | P.PNCC_ITS ---
Subjective Subjective Date of Service: 12/24/21 Interval History: 71-year-old female presents with acute on chronic hypercarbic and hypoxic respiratory failure but no fever no chills no productive cough no chest discomfort so there is no apparent precipitating reason The CT scan of the chest showed severe Ca is COPD and interstitial fibrosis no distinct infiltrate but there is a lot of peribronchial thickening and some mild tree in bud so aspiration might play a role EKG was normal sinus rhythm and no evidence of ischemia Critical Care Time (minutes): 45 Physical Exam Vital Signs: Vital Signs: Last Vital Signs Temp 100 F 12/24/21 15:00 Pulse 117 H 12/24/21 15:07 Resp 24 H 12/24/21 15:07 BP 102/51 L 12/24/21 15:00 Pulse Ox 92 12/24/21 15:00 Oxygen Flow Rate 2 12/23/21 20:13 BMI result Body Mass Index 20.9 Awake alert an oriented no focal abnormality Cardiovascular with good bilateral carotid upstrokes and no neck vein distension and no gallops Diminished breath sounds bilaterally but no use of accessory muscles and no other adventitious sounds Abdomen benign Periphery shows no evidence of acrocyanosis Objective Data Labs CBC & Chem 7: 12/24/21 05:17 12/24/21 05:17 Labs: Laboratory Results - last 24 hr 12/23/21 12/23/21 12/23/21 20:43 20:43 20:43 WBC 8.4 RBC 4.53 D Hgb 13.1 D Hct 42.3 D MCV 93.4 MCH 28.9 MCHC 31.0 RDW 12.7 Plt Count 256 D MPV 9.8 Immature Gran % (Auto) 0.7 H Neut % (Auto) 67.5 Lymph % (Auto) 21.6 [place] % (Auto) 7.0 Eos % (Auto) 2.6 Baso % (Auto) 0.6 Lymph # (Auto) 1.8 [place] # (Auto) 0.6 Eos # (Auto) 0.2 Baso # (Auto) 0.1 Abs Immat Gran (auto) 0.06 H Absolute Neuts (auto) 5.7 Absolute Nucleated RBC 0.000 Nucleated RBC % (auto) 0.0 Smear Tech's Comments O2 Saturation ABG pH at Pt Temp ABG pCO2 at Pt Temp ABG pO2 at Pt Temp ABG HCO3 ABG Base Excess (Actual) VBG pH VBG pCO2 VBG pO2 VBG HCO3 VBG O2 Saturation VBG Base Excess Sodium 143 Potassium 5.0 Chloride 98 Carbon Dioxide 38 H Anion Gap 12 BUN 11 Creatinine 0.83 Estim Creat Clear Calc 49.1 Estimated GFR > 60 Random Glucose 124 H Lactic Acid Calcium 9.7 D Phosphorus Magnesium Total Bilirubin 0.3 AST 22 D ALT 15 Alkaline Phosphatase 133 H D Troponin I High Sens 14.1 Total Protein 6.9 D Albumin 3.8 COVID-19 (STEFF) COVID-19 Clin Com 12/23/21 12/23/21 12/23/21 20:43 20:44 20:49 WBC RBC Hgb Hct MCV MCH MCHC RDW Plt Count MPV Immature Gran % (Auto) Neut % (Auto) Lymph % (Auto) [place] % (Auto) Eos % (Auto) Baso % (Auto) Lymph # (Auto) [place] # (Auto) Eos # (Auto) Baso # (Auto) Abs Immat Gran (auto) Absolute Neuts (auto) Absolute Nucleated RBC Nucleated RBC % (auto) Smear Tech's Comments O2 Saturation ABG pH at Pt Temp ABG pCO2 at Pt Temp ABG pO2 at Pt Temp ABG HCO3 ABG Base Excess (Actual) VBG pH 7.32 VBG pCO2 114 VBG pO2 46 VBG HCO3 59 H VBG O2 Saturation 75.0 VBG Base Excess 25.6 Sodium Potassium Chloride Carbon Dioxide Anion Gap BUN Creatinine Estim Creat Clear Calc Estimated GFR Random Glucose Lactic Acid 0.9 Calcium Phosphorus Magnesium Total Bilirubin AST ALT Alkaline Phosphatase Troponin I High Sens Total Protein Albumin COVID-19 (STEFF) Negative COVID-19 Clin Com See Note 12/24/21 12/24/21 12/24/21 05:17 05:17 05:25 WBC 8.3 RBC 4.08 L Hgb 11.5 L Hct 37.6 MCV 92.2 MCH 28.2 MCHC 30.6 L RDW 12.7 Plt Count 204 MPV 9.4 Immature Gran % (Auto) 0.4 Neut % (Auto) 94.6 H Lymph % (Auto) 4.4 L [place] % (Auto) 0.4 L Eos % (Auto) 0.0 Baso % (Auto) 0.2 Lymph # (Auto) 0.4 L [place] # (Auto) 0.0 L Eos # (Auto) 0.0 Baso # (Auto) 0.0 Abs Immat Gran (auto) 0.03 Absolute Neuts (auto) 7.8 Absolute Nucleated RBC 0.000 Nucleated RBC % (auto) 0.0 Smear Tech's Comments VERIFIED O2 Saturation ABG pH at Pt Temp ABG pCO2 at Pt Temp ABG pO2 at Pt Temp ABG HCO3 ABG Base Excess (Actual) VBG pH 7.33 VBG pCO2 77 VBG pO2 48 VBG HCO3 41 H VBG O2 Saturation 79.0 VBG Base Excess 12.3 Sodium 142 Potassium 5.1 Chloride 101 Carbon Dioxide 32 H Anion Gap 14 BUN 15 Creatinine 0.89 Estim Creat Clear Calc 45.8 Estimated GFR > 60 Random Glucose 175 H Lactic Acid Calcium 9.1 D Phosphorus 2.8 Magnesium 1.9 Total Bilirubin AST ALT Alkaline Phosphatase Troponin I High Sens Total Protein Albumin COVID-19 (STEFF) COVID-19 Consult A Doctor 12/24/21 12/24/21 09:45 14:52 WBC RBC Hgb Hct MCV MCH MCHC RDW Plt Count MPV Immature Gran % (Auto) Neut % (Auto) Lymph % (Auto) [place] % (Auto) Eos % (Auto) Baso % (Auto) Lymph # (Auto) [place] # (Auto) Eos # (Auto) Baso # (Auto) Abs Immat Gran (auto) Absolute Neuts (auto) Absolute Nucleated RBC Nucleated RBC % (auto) Smear Tech's Comments O2 Saturation 97.0 65.0 ABG pH at Pt Temp 7.39 7.39 ABG pCO2 at Pt Temp 62 H* 67 H* ABG pO2 at Pt Temp 88 37 L* ABG HCO3 38 H 41 H ABG Base Excess (Actual) 10.7 13.4 VBG pH VBG pCO2 VBG pO2 VBG HCO3 VBG O2 Saturation VBG Base Excess Sodium Potassium Chloride Carbon Dioxide Anion Gap BUN Creatinine Estim Creat Clear Calc Estimated GFR Random Glucose Lactic Acid Calcium Phosphorus Magnesium Total Bilirubin AST ALT Alkaline Phosphatase Troponin I High Sens Total Protein Albumin COVID-19 (STEFF) COVID-19 Clin Com Progress Note: A&P Assessment and plan (1) COPD (chronic obstructive pulmonary disease): Status: Acute (2) Asthmatic bronchitis: Status: Acute Plan Plan is to again periodically rest her a off the nasal high-flow which she tolerated all day and give her a brief intervals of support with BiPAP and then removed for meals and after all day on on the nasal high-flow pCO2 is 66 and pH of 7.39 Quality Stroke Does the patient have a stroke diagnosis?: No VTE Prior VTE?: No VTE Risk Level:: Medical - low VTE Device Contraindication: N/A - Device Ordered VTE Drug Contraindication: N/A - Med Ordered
--- NOTE | 2021-12-24 17:59 | PM.EVENT ---
Event Note Date of Service: 12/25/21 Event Note: Patient admitted to to ICU for acute hypoxemic /hypercarbic respiratory failure secondary to COPD With nebs and steroid seems to be improving also using BiPAP right now Physical exam: Unchanged from ICu note Assessment and plan: Discussed with ICU attending in detail will continue current says nebs, steroids and monitor patient.
--- NOTE | 2021-12-24 19:56 | PC.NURSE ---
Assumed care at 07:00. Patient alert and oriented, drowsy often but arousable to tactile stimuli or voice. Was able to follow commands and responds appropirately. Was initially placed on Hi-flow from BiPap 12/6 and 40%, and tolerated well throughout the day. Was able to eat 75% of breakfast and 50% of lunch. Was noted to have inspiratory rhonchi throughout. Patient did refuse to get OOB today and had repeated naps, and in the late afternoon had what she described as a panic episode--discussed with MD and new order for 0.5 mg IV ativan administered with good effect. Patient said she has not had her home medications including Buspar and ativan, and discussed with MD and new order for buspar and venlafaxine to start at bedtime, and ABG was drawn to assure this was not related to hypercapnia. ABG was unremarkable and essentially unchanged. Patient at the time had sinus tachycardia in 120's and a fine tremor of both hands she said was not normal for her. IV ativan was with good effect, but patient was placed back on bipap as a precaution at that time, and slept through dinner time. Low urine output all night and day; average about 10 cc/hour. MD notified, and pushing PO fluids with minimal improvement. Patient is amenable to home CPAP, discussed with RT that nasal pillows might be better for her claustrophobia per patient. Report given to [facility] nurse, and patient transferred to [facility].
[2021-12-24 20:40] LABS: ABG Refer to POC result
[2021-12-24] MEDS: busPIRone HCl 10 MG TABLET PO (21:16)
[2021-12-24] MEDS: Venlafaxine HCL 25 MG TABLET 37.5 MG PO (21:47)
[2021-12-25] VITALS (13 sets, daily range): BP systolic 109–162; BP diastolic 49–70; PULSE 71–115; RESP 18–26; TEMP 36.3–37.4; O2SAT 94–100
[2021-12-25] MEDS: Albuterol Sulfate (0.083%) 2.5 MG/3 ML VIAL.NEB INHALE ×6 (00:19→20:57)
[2021-12-25] MEDS: methylPREDNISolone Sod Succ 40 MG/ML VIAL IVPUSH ×3 (05:49→21:43)
[2021-12-25 06:34] LABS: Basophils Percent Auto 0.1 % (0-2); Hemoglobin 11.6 g/dl (12.0-16.0); Imm Gran Abs Auto 0.17 X10*3/uL (0.00-0.03); Imm Gran Pct Auto 0.8 % (0.0-0.4); Lymphocytes Absolute Auto 0.6 X10*3/uL (1.2-4.9); Lymphocytes Percent Auto 2.7 % (20-40); MANUAL DIFF FLAG SCAN; Mean Corpuscular HGB Conc 31.4 g/dl (31.0-35.0); Mean Corpuscular Hemoglobin 28.4 pg (27.0-33.0); Mean Corpuscular Volume 90.7 fL (80.0-98.0); Mean Platelet Volume 9.5 fL (9.4-12.3); Monocytes Absolute Auto 0.7 X10*3/uL (0.1-1.2); Neutrophils Absolute Auto 20.8 x10*3/uL (2.0-8.3); Neutrophils Percent Auto 93.4 % (45-73); Platelet Count 218 X10*3/uL (160-400); Red Blood Count 4.08 X10*6/uL (4.20-5.50); Red Cell Distribution Width 12.8 % (11.0-16.0); SCAN SMEAR FLAG 1; White Blood Count 22.3 X10*3/uL (4.8-10.8)
[2021-12-25 06:52] LABS: Anion Gap 10 (12-20); Blood Urea Nitrogen 30 mg/dL (9-16); Calcium 9.3 mg/dL (8.4-10.2); Carbon Dioxide 36 mmol/L (22-29); Chloride 99 mmol/L (96-108); Creatinine Clr Calc Pharmacy 48.5; Estimated Glomerular Filt Rate > 60; Glucose Random 149 mg/dL (60-115); Magnesium 2.1 mg/dL (1.6-2.6); Phosphorus 2.5 mg/dL (2.7-4.5); Sodium 140 mmol/L (135-145)
[2021-12-25 07:03] LABS: SLIDE REVIEW VERIFIED
[2021-12-25 07:06] LABS: VBG Base Excess 14.4 mmol/L; VBG HCO3 42 mmol/L (22-26); VBG pCO2 68 mmHg; VBG pO2 50 mmHg
[2021-12-25 07:07] LABS: Venous Blood Gas Refer to POC result
[2021-12-25] MEDS: Heparin Sodium,Porcine 5,000 UNIT/ML VIAL 5000 UNIT SUBCUT ×2 (10:36→21:44)
[2021-12-25] MEDS: busPIRone HCl 10 MG TABLET PO ×2 (10:36→20:17)
[2021-12-25] MEDS: Venlafaxine HCL 25 MG TABLET 37.5 MG PO ×2 (10:36→20:18)
--- NOTE | 2021-12-25 12:54 | HO.PM.IMPN ---
Subjective Subjective Date of Service: 12/25/21 Interval History: Doing well overall no acute issues overnight Review of Systems Denies chest pain Admits to shortness of breath that has improved Denies nausea vomiting diarrhea Denies fever chills Physical Exam Vital Signs: Vital Signs: Last Vital Signs Temp 98.6 F 12/25/21 12:00 Pulse 106 H 12/25/21 12:00 Resp 20 12/25/21 12:00 BP 109/49 L 12/25/21 12:00 Pulse Ox 99 12/25/21 12:00 Oxygen Flow Rate 2 12/23/21 20:13 BMI result Body Mass Index 20.9 Const: Other: Awake alert no acute distress on high-flow Resp: Other: Diminished diffusely with scant expiratory wheezes at bases Cardio: Other: No S4; positive S1-S2; no S3 murmurs rubs or gallops GI: Other: Soft nontender nondistended normoactive sounds Extrem: Other: No edema bilaterally Objective Data Active Medications Albuterol Sulfate (Albuterol Sulfate (0.083%) 2.5 Mg/3 Ml Vial.Neb) 2.5 mg INHALE RQ4H [facility] Last Admin: 12/25/21 10:52 Dose: 2.5 mg Documented by: NOLA Albuterol/Ipratropium (Albuterol/Iprat 2.5/0.5mg 3 Ml Ampul.Neb) 3 ml INHALE Q2H PRN PRN Reason: sob Buspirone HCl (Buspirone Hcl 10 Mg Tablet) 10 mg PO BID [facility] Last Admin: 12/25/21 10:36 Dose: 10 mg Documented by: CALLIE Heparin Sodium (Porcine) (Heparin Sodium,Porcine 5,000 Unit/Ml Vial) 5,000 unit SUBCUT Q12H [facility] Last Admin: 12/25/21 10:36 Dose: 5,000 unit Documented by: CALLIE Lorazepam (Lorazepam 2 Mg/Ml Vial) 0.5 mg IVPUSH Q4H PRN PRN Reason: anxiety/restlessness Last Admin: 12/24/21 21:17 Dose: 0.5 mg Documented by: LINDA Methylprednisolone Sodium Succinate (Methylprednisolone Sod Succ 40 Mg/Ml Vial) 40 mg IVPUSH Q8H [facility] Last Admin: 12/25/21 05:49 Dose: 40 mg Documented by: LINDA Venlafaxine HCl (Venlafaxine Hcl 25 Mg Tablet) 37.5 mg PO BID [facility] Last Admin: 12/25/21 10:36 Dose: 37.5 mg Documented by: CALLIE Labs CBC & Chem 7: 12/25/21 06:21 12/25/21 06:21 Labs: Laboratory Results - last 24 hr 12/24/21 12/25/21 12/25/21 14:52 06:21 06:21 MCV 90.7 MCH 28.4 MCHC 31.4 RDW 12.8 Plt Count 218 MPV 9.5 Immature Gran % (Auto) 0.8 H Neut % (Auto) 93.4 H Lymph % (Auto) 2.7 L [place] % (Auto) 3.0 Eos % (Auto) 0.0 Baso % (Auto) 0.1 Lymph # (Auto) 0.6 L [place] # (Auto) 0.7 Eos # (Auto) 0.0 Baso # (Auto) 0.0 Abs Immat Gran (auto) 0.17 H Absolute Neuts (auto) 20.8 H Absolute Nucleated RBC 0.000 Nucleated RBC % (auto) 0.0 Smear Tech's Comments VERIFIED O2 Saturation 65.0 ABG pH at Pt Temp 7.39 ABG pCO2 at Pt Temp 67 H* ABG pO2 at Pt Temp 37 L* ABG HCO3 41 H ABG Base Excess (Actual) 13.4 VBG pH VBG pCO2 VBG pO2 VBG HCO3 VBG O2 Saturation VBG Base Excess Anion Gap 10 L Estim Creat Clear Calc 48.5 Estimated GFR > 60 Random Glucose 149 H Calcium 9.3 Phosphorus 2.5 L Magnesium 2.1 12/25/21 06:26 MCV MCH MCHC RDW Plt Count MPV Immature Gran % (Auto) Neut % (Auto) Lymph % (Auto) [place] % (Auto) Eos % (Auto) Baso % (Auto) Lymph # (Auto) [place] # (Auto) Eos # (Auto) Baso # (Auto) Abs Immat Gran (auto) Absolute Neuts (auto) Absolute Nucleated RBC Nucleated RBC % (auto) Smear Tech's Comments O2 Saturation ABG pH at Pt Temp ABG pCO2 at Pt Temp ABG pO2 at Pt Temp ABG HCO3 ABG Base Excess (Actual) VBG pH 7.40 VBG pCO2 68 VBG pO2 50 VBG HCO3 42 H VBG O2 Saturation 82.0 VBG Base Excess 14.4 Anion Gap Estim Creat Clear Calc Estimated GFR Random Glucose Calcium Phosphorus Magnesium Microbiology Microbiology Results: Microbiology 12/23/21 20:43 Blood Culture - Preliminary Blood - Venous No growth after 24 hours. 12/23/21 20:43 Blood Culture - Preliminary Blood - Venous No growth after 24 hours. Assessment and Plan (1) Acute and chronic respiratory failure with hypercapnia: Status: Acute (2) Lung mass: Status: Acute Plan 71-year-old female admitted to ICU initially on BiPAP for acute hypoxic hypercarbic respiratory failure secondary COPD. Patient improved greatly with BiPAP and steroids. Has been tolerating high-flow during the day and rest on BiPAP overnight 1. Hypercapnia hypercarbic respiratory failure secondary to COPD -continue high-flow during the day. . . Rest on BiPAP overnight -continue current dose of steroids; if continues to improve will taper as tolerated -DuoNebs as ordered 2. Lung mass -conservatives as patient requests (declines biopsy as would not move on results) 3. Anxiety -at hydroxyzine Full code Heparin Requires ongoing hospitalization for IV steroids and BiPAP to support respiratory effort Quality Stroke Does the patient have a stroke diagnosis?: No VTE Prior VTE?: No VTE Risk Level:: Medical - low VTE Device Contraindication: N/A - Device Ordered VTE Drug Contraindication: N/A - Med Ordered
[2021-12-25] MEDS: LORazepam 2 MG/ML VIAL 0.5 MG IVPUSH (21:43)
[2021-12-26] VITALS (10 sets, daily range): BP systolic 119–167; BP diastolic 64–81; PULSE 85–105; RESP 12–20; TEMP 36.5–36.8; O2SAT 94–99
[2021-12-26] MEDS: methylPREDNISolone Sod Succ 40 MG/ML VIAL IVPUSH ×3 (05:49→21:15)
[2021-12-26 06:30] LABS: Basophils Percent Auto 0.2 % (0-2); Hematocrit 34.5 % (37.0-47.0); Hemoglobin 10.7 g/dl (12.0-16.0); Imm Gran Abs Auto 0.22 X10*3/uL (0.00-0.03); Imm Gran Pct Auto 1.1 % (0.0-0.4); Lymphocytes Absolute Auto 0.5 X10*3/uL (1.2-4.9); Lymphocytes Percent Auto 2.7 % (20-40); MANUAL DIFF FLAG SCAN; Mean Corpuscular Hemoglobin 28.4 pg (27.0-33.0); Mean Corpuscular Volume 91.5 fL (80.0-98.0); Mean Platelet Volume 9.9 fL (9.4-12.3); Monocytes Absolute Auto 0.5 X10*3/uL (0.1-1.2); Monocytes Percent Auto 2.6 % (2-11); Neutrophils Absolute Auto 18.2 x10*3/uL (2.0-8.3); Neutrophils Percent Auto 93.4 % (45-73); Platelet Count 249 X10*3/uL (160-400); Red Blood Count 3.77 X10*6/uL (4.20-5.50); Red Cell Distribution Width 12.9 % (11.0-16.0); SCAN SMEAR FLAG 1; White Blood Count 19.5 X10*3/uL (4.8-10.8)
[2021-12-26 07:01] LABS: Alanine Aminotransferase 12 U/L (0-31); Albumin Level 3.2 g/dL (3.5-5.0); Alkaline Phosphatase 89 U/L (39-117); Anion Gap 7 (12-20); Aspartate Amino Transferase 15 U/L (5-31); Bilirubin Total < 0.2 mg/dL (0.0-1.0); Blood Urea Nitrogen 33 mg/dL (9-16); Carbon Dioxide 39 mmol/L (22-29); Chloride 99 mmol/L (96-108); Creatinine Clr Calc Pharmacy 49.1; Estimated Glomerular Filt Rate > 60; Glucose Fasting 129 mg/dL (60-99); Potassium 5.3 mmol/L (3.3-5.1); Sodium 140 mmol/L (135-145); Total Protein 5.6 g/dL (6.5-8.0)
[2021-12-26 07:11] LABS: SLIDE REVIEW VERIFIED
[2021-12-26] MEDS: Albuterol Sulfate (0.083%) 2.5 MG/3 ML VIAL.NEB INHALE ×3 (07:24→19:07)
[2021-12-26] MEDS: busPIRone HCl 10 MG TABLET PO ×2 (07:45→21:10)
[2021-12-26] MEDS: Venlafaxine HCL 25 MG TABLET 37.5 MG PO ×2 (07:45→21:10)
[2021-12-26] MEDS: Heparin Sodium,Porcine 5,000 UNIT/ML VIAL 5000 UNIT SUBCUT ×2 (10:31→22:30)
--- NOTE | 2021-12-26 12:33 | P.PNIM_ITS ---
Subjective Subjective Date of Service: 12/26/21 Interval History: Doing well overall no acute issues overnight;did not utilized BiPAP overnight Review of Systems Denies chest pain Admits to shortness of breath that has improved Denies nausea vomiting diarrhea Denies fever chills Physical Exam Vital Signs: Vital Signs: Last Vital Signs Temp 97.9 F 12/26/21 12:00 Pulse 105 H 12/26/21 12:00 Resp 16 12/26/21 12:00 BP 119/65 12/26/21 12:00 Pulse Ox 96 12/26/21 12:00 Oxygen Flow Rate 2 12/23/21 20:13 BMI result Body Mass Index 20.9 Const: Other: Awake alert no acute distress on high-flow Resp: Other: Diminished diffusely with scant expiratory wheezes at bases Cardio: Other: No S4; positive S1-S2; no S3 murmurs rubs or gallops GI: Other: Soft nontender nondistended normoactive sounds Extrem: Other: No edema bilaterally Objective Data Active Medications Albuterol Sulfate (Albuterol Sulfate (0.083%) 2.5 Mg/3 Ml Vial.Neb) 2.5 mg INHALE RQ4H [facility]PL[facility] BY [facility] Last Admin: 12/26/21 10:54 Dose: 2.5 mg Documented by: NOLA Albuterol/Ipratropium (Albuterol/Iprat 2.5/0.5mg 3 Ml Ampul.Neb) 3 ml INHALE Q2H PRN PRN Reason: sob Buspirone HCl (Buspirone Hcl 10 Mg Tablet) 10 mg PO BID [facility] Last Admin: 12/26/21 07:45 Dose: 10 mg Documented by: BINU Heparin Sodium (Porcine) (Heparin Sodium,Porcine 5,000 Unit/Ml Vial) 5,000 unit SUBCUT Q12H REPLACED BY [facility] Last Admin: 12/26/21 10:31 Dose: 5,000 unit Documented by: BINU Lorazepam (Lorazepam 2 Mg/Ml Vial) 0.5 mg IVPUSH Q4H PRN PRN Reason: anxiety/restlessness Last Admin: 12/25/21 21:43 Dose: 0.5 mg Documented by: PAKO Methylprednisolone Sodium Succinate (Methylprednisolone Sod Succ 40 Mg/Ml Vial) 40 mg IVPUSH Q8H REPLACED BY [facility] Last Admin: 12/26/21 05:49 Dose: 40 mg Documented by: BRIGETTE Venlafaxine HCl (Venlafaxine Hcl 25 Mg Tablet) 37.5 mg PO BID [facility] Last Admin: 12/26/21 07:45 Dose: 37.5 mg Documented by: BINU Labs CBC & Chem 7: 12/26/21 05:48 12/26/21 05:48 Labs: Laboratory Results - last 24 hr 12/23/21 12/23/21 12/24/21 20:43 20:43 05:17 WBC 8.4 8.3 MCV MCH MCHC RDW Plt Count MPV Immature Gran % (Auto) Neut % (Auto) Lymph % (Auto) [place] % (Auto) Eos % (Auto) Baso % (Auto) Lymph # (Auto) [place] # (Auto) Eos # (Auto) Baso # (Auto) Abs Immat Gran (auto) Absolute Neuts (auto) Absolute Nucleated RBC Nucleated RBC % (auto) Smear Tech's Comments Potassium 5.0 Anion Gap Estim Creat Clear Calc Estimated GFR Fasting Glucose Calcium Total Bilirubin AST ALT Alkaline Phosphatase Total Protein Albumin 12/24/21 12/25/21 12/25/21 05:17 06:21 06:21 WBC 22.3 H MCV MCH MCHC RDW Plt Count MPV Immature Gran % (Auto) Neut % (Auto) Lymph % (Auto) [place] % (Auto) Eos % (Auto) Baso % (Auto) Lymph # (Auto) [place] # (Auto) Eos # (Auto) Baso # (Auto) Abs Immat Gran (auto) Absolute Neuts (auto) Absolute Nucleated RBC Nucleated RBC % (auto) Smear Tech's Comments Potassium 5.1 5.0 Anion Gap Estim Creat Clear Calc Estimated GFR Fasting Glucose Calcium Total Bilirubin AST ALT Alkaline Phosphatase Total Protein Albumin 12/26/21 12/26/21 05:48 05:48 WBC 19.5 H MCV 91.5 MCH 28.4 MCHC 31.0 RDW 12.9 Plt Count 249 MPV 9.9 Immature Gran % (Auto) 1.1 H Neut % (Auto) 93.4 H Lymph % (Auto) 2.7 L [place] % (Auto) 2.6 Eos % (Auto) 0.0 Baso % (Auto) 0.2 Lymph # (Auto) 0.5 L [place] # (Auto) 0.5 Eos # (Auto) 0.0 Baso # (Auto) 0.0 Abs Immat Gran (auto) 0.22 H Absolute Neuts (auto) 18.2 H Absolute Nucleated RBC 0.000 Nucleated RBC % (auto) 0.0 Smear Tech's Comments VERIFIED Potassium 5.3 H Anion Gap 7 L Estim Creat Clear Calc 49.1 Estimated GFR > 60 Fasting Glucose 129 H Calcium 9.0 Total Bilirubin < 0.2 AST 15 ALT 12 Alkaline Phosphatase 89 D Total Protein 5.6 L Albumin 3.2 L Microbiology Microbiology Results: Microbiology 12/23/21 20:43 Blood Culture - Preliminary Blood - Venous No growth after 48 hours. 12/23/21 20:43 Blood Culture - Preliminary Blood - Venous No growth after 48 hours. Assessment and Plan (1) Acute and chronic respiratory failure with hypercapnia: Status: Acute (2) COPD (chronic obstructive pulmonary disease): Status: Acute (3) Lung mass: Status: Acute Plan 71-year-old female admitted to ICU initially on BiPAP for acute hypoxic hypercarbic respiratory failure secondary COPD. Patient improved greatly with BiPAP and steroids. Has been tolerating high-flow during the day and rest on BiPAP overnight 1. Hypercapnia hypercarbic respiratory failure secondary to COPD -titrated to nasal cannula; will hold BiPAP tonight and check VBGs in the morning -switch steroids to oral taper -DuoNebs as ordered 2. Lung mass -conservatives as patient requests (declines biopsy as would not move on results) 3. Anxiety -at hydroxyzine Full code Heparin Requires ongoing hospitalization to support respiratory effort Quality Stroke Does the patient have a stroke diagnosis?: No VTE Prior VTE?: No VTE Risk Level:: Medical - low VTE Device Contraindication: N/A - Device Ordered VTE Drug Contraindication: N/A - Med Ordered
[2021-12-26] MEDS: LORazepam 2 MG/ML VIAL 0.5 MG IVPUSH (21:08)
[2021-12-27] VITALS (12 sets, daily range): BP systolic 122–170; BP diastolic 57–73; PULSE 68–101; RESP 16–20; TEMP 36.1–37; O2SAT 92–100
[2021-12-27] MEDS: Albuterol Sulfate (0.083%) 2.5 MG/3 ML VIAL.NEB INHALE ×6 (00:32→23:06)
[2021-12-27] MEDS: methylPREDNISolone Sod Succ 40 MG/ML VIAL IVPUSH (05:24)
[2021-12-27 05:53] LABS: MANUAL DIFF FLAG NO
[2021-12-27 05:56] LABS: Basophils Percent Auto 0.2 % (0-2); Hematocrit 36.4 % (37.0-47.0); Hemoglobin 11.2 g/dl (12.0-16.0); Imm Gran Abs Auto 0.33 X10*3/uL (0.00-0.03); Imm Gran Pct Auto 2.7 % (0.0-0.4); Lymphocytes Absolute Auto 0.6 X10*3/uL (1.2-4.9); Lymphocytes Percent Auto 4.8 % (20-40); Mean Corpuscular HGB Conc 30.8 g/dl (31.0-35.0); Mean Corpuscular Hemoglobin 28.1 pg (27.0-33.0); Mean Corpuscular Volume 91.2 fL (80.0-98.0); Mean Platelet Volume 9.3 fL (9.4-12.3); Monocytes Absolute Auto 0.3 X10*3/uL (0.1-1.2); Monocytes Percent Auto 2.4 % (2-11); Neutrophils Percent Auto 89.9 % (45-73); Platelet Count 244 X10*3/uL (160-400); Red Blood Count 3.99 X10*6/uL (4.20-5.50); Red Cell Distribution Width 12.9 % (11.0-16.0); White Blood Count 12.3 X10*3/uL (4.8-10.8)
[2021-12-27 06:15] LABS: Alanine Aminotransferase 14 U/L (0-31); Albumin Level 3.3 g/dL (3.5-5.0); Alkaline Phosphatase 91 U/L (39-117); Anion Gap 11 (12-20); Aspartate Amino Transferase 14 U/L (5-31); Bilirubin Total < 0.2 mg/dL (0.0-1.0); Blood Urea Nitrogen 29 mg/dL (9-16); Calcium 8.8 mg/dL (8.4-10.2); Carbon Dioxide 38 mmol/L (22-29); Chloride 96 mmol/L (96-108); Creatinine Clr Calc Pharmacy 47.4; Estimated Glomerular Filt Rate > 60; Glucose Fasting 137 mg/dL (60-99); Potassium 5.5 mmol/L (3.3-5.1); Sodium 139 mmol/L (135-145); Total Protein 5.7 g/dL (6.5-8.0)
[2021-12-27] MEDS: busPIRone HCl 10 MG TABLET PO ×2 (07:55→20:10)
[2021-12-27] MEDS: Venlafaxine HCL 25 MG TABLET 37.5 MG PO ×2 (07:55→20:09)
--- NOTE | 2021-12-27 09:53 | MHC.CLN ---
F/U PT IS MODERATELY MALNOURISHED SEE FULL CLINICAL NUTRITION ASSESSMENT DATED 12/24/21 PO INTAKE VARIABLE DIET RX: REGULAR-APPROPRIATE PT RECEIVING ENSURE ENLIVE BID PROVIDES 700KCALS, 40G PROTEIN MONITOR PO INTAKE CLOSELY
[2021-12-27] MEDS: Heparin Sodium,Porcine 5,000 UNIT/ML VIAL 5000 UNIT SUBCUT (11:24)
--- NOTE | 2021-12-27 12:01 | HO.PM.IMPN ---
Subjective Subjective Date of Service: 12/27/21 Interval History: Doing well overall no acute issues overnight;did not utilized BiPAP overnight....nasal O2 Review of Systems Denies chest pain Admits to shortness of breath that has improved Denies nausea vomiting diarrhea Denies fever chills Physical Exam Vital Signs: Vital Signs: Last Vital Signs Temp 98.2 F 12/27/21 11:51 Pulse 97 12/27/21 11:51 Resp 20 12/27/21 11:51 BP 135/62 12/27/21 11:51 Pulse Ox 95 12/27/21 11:51 Oxygen Flow Rate 2 12/23/21 20:13 BMI result Body Mass Index 20.9 Const: Other: Awake alert no acute distress on high-flow Resp: Other: Diminished diffusely with scant expiratory wheezes at bases Cardio: Other: No S4; positive S1-S2; no S3 murmurs rubs or gallops GI: Other: Soft nontender nondistended normoactive sounds Extrem: Other: No edema bilaterally Objective Data Active Medications Albuterol Sulfate (Albuterol Sulfate (0.083%) 2.5 Mg/3 Ml Vial.Neb) 2.5 mg INHALE RQ4H [facility] Last Admin: 12/27/21 11:11 Dose: 2.5 mg Documented by: YOBANI Albuterol/Ipratropium (Albuterol/Iprat 2.5/0.5mg 3 Ml Ampul.Neb) 3 ml INHALE Q2H PRN PRN Reason: sob Buspirone HCl (Buspirone Hcl 10 Mg Tablet) 10 mg PO BID [facility] Last Admin: 12/27/21 07:55 Dose: 10 mg Documented by: RONAN Heparin Sodium (Porcine) (Heparin Sodium,Porcine 5,000 Unit/Ml Vial) 5,000 unit SUBCUT Q12H [facility] Last Admin: 12/27/21 11:24 Dose: 5,000 unit Documented by: RONAN Lorazepam (Lorazepam 2 Mg/Ml Vial) 0.5 mg IVPUSH Q4H PRN PRN Reason: anxiety/restlessness Last Admin: 12/26/21 21:08 Dose: 0.5 mg Documented by: PAKO Methylprednisolone Sodium Succinate (Methylprednisolone Sod Succ 40 Mg/Ml Vial) 40 mg IVPUSH Q8H [facility] Last Admin: 12/27/21 05:24 Dose: 40 mg Documented by: DIPAK Venlafaxine HCl (Venlafaxine Hcl 25 Mg Tablet) 37.5 mg PO BID [facility] Last Admin: 12/27/21 07:55 Dose: 37.5 mg Documented by: RONAN Labs CBC & Chem 7: 12/27/21 05:37 12/27/21 05:37 Labs: Laboratory Results - last 24 hr 12/27/21 12/27/21 05:37 05:37 MCV 91.2 MCH 28.1 MCHC 30.8 L RDW 12.9 Plt Count 244 MPV 9.3 L Immature Gran % (Auto) 2.7 H Neut % (Auto) 89.9 H Lymph % (Auto) 4.8 L [place] % (Auto) 2.4 Eos % (Auto) 0.0 Baso % (Auto) 0.2 Lymph # (Auto) 0.6 L [place] # (Auto) 0.3 Eos # (Auto) 0.0 Baso # (Auto) 0.0 Abs Immat Gran (auto) 0.33 H Absolute Neuts (auto) 11.0 H Absolute Nucleated RBC 0.000 Nucleated RBC % (auto) 0.0 Anion Gap 11 L Estim Creat Clear Calc 47.4 Estimated GFR > 60 Fasting Glucose 137 H Calcium 8.8 Total Bilirubin < 0.2 AST 14 ALT 14 Alkaline Phosphatase 91 Total Protein 5.7 L Albumin 3.3 L Assessment and Plan (1) Acute and chronic respiratory failure with hypercapnia: Status: Acute (2) Lung mass: Status: Acute Plan 71-year-old female admitted to ICU initially on BiPAP for acute hypoxic hypercarbic respiratory failure secondary COPD. Patient improved greatly with BiPAP and steroids. Has been tolerating high-flow during the day and rest on BiPAP overnight 1. Hypercapnia hypercarbic respiratory failure secondary to COPD -titrated to nasal cannula; overnight oximetry;ABGs in am -switch steroids to oral taper -DuoNebs as ordered 2. Lung mass -conservatives as patient requests (declines biopsy as would not move on results) 3. Anxiety -at hydroxyzine Full code Heparin Requires ongoing hospitalization to support respiratory effort Quality Stroke Does the patient have a stroke diagnosis?: No VTE Prior VTE?: No VTE Risk Level:: Medical - low VTE Device Contraindication: N/A - Device Ordered VTE Drug Contraindication: N/A - Med Ordered
--- NOTE | 2021-12-27 12:47 | MHC.CM.PN ---
per rounds p0t is not ready for dc at this time at pt eval and home 02 eval needs to be completed
[2021-12-27] MEDS: LORazepam 2 MG/ML VIAL 0.5 MG IVPUSH (13:40)
[2021-12-27] MEDS: Sodium Zirconium Cyclosilicate 10 GM POWD.PACK PO (17:14)
[2021-12-27] MEDS: amLODIPine Besylate 5 MG TABLET PO (20:10)
[2021-12-28] VITALS (10 sets, daily range): BP systolic 96–154; BP diastolic 40–62; PULSE 74–104; RESP 18–20; TEMP 36.7–37.1; O2SAT 91–100
[2021-12-28] MEDS: Heparin Sodium,Porcine 5,000 UNIT/ML VIAL 5000 UNIT SUBCUT ×2 (00:15→11:18)
[2021-12-28 07:31] LABS: Eosinophils Absolute Auto 0.1 X10*3/uL (0.0-0.4); Eosinophils Percent Auto 0.7 % (0-4); Lymphocytes Percent Auto 19.2 % (20-40); PLT CLUMP 1; SCAN SMEAR FLAG 1
[2021-12-28 07:33] LABS: Basophils Percent Auto 0.2 % (0-2); Hematocrit 35.2 % (37.0-47.0); Hemoglobin 10.9 g/dl (12.0-16.0); Imm Gran Pct Auto 4.8 % (0.0-0.4); MANUAL DIFF FLAG SCAN; Mean Corpuscular Hemoglobin 28.2 pg (27.0-33.0); Mean Platelet Volume 10.8 fL (9.4-12.3); Monocytes Absolute Auto 0.9 X10*3/uL (0.1-1.2); Monocytes Percent Auto 8.6 % (2-11); Neutrophils Percent Auto 66.5 % (45-73); Red Blood Count 3.87 X10*6/uL (4.20-5.50); Red Cell Distribution Width 12.9 % (11.0-16.0)
[2021-12-28] MEDS: Albuterol Sulfate (0.083%) 2.5 MG/3 ML VIAL.NEB INHALE ×4 (07:49→19:42)
[2021-12-28 07:51] LABS: Platelet Count 157 X10*3/uL (160-400); White Blood Count 10.5 X10*3/uL (4.8-10.8)
[2021-12-28 07:52] LABS: SLIDE REVIEW VERIFIED
[2021-12-28 07:53] LABS: Alanine Aminotransferase 14 U/L (0-31); Albumin Level 3.1 g/dL (3.5-5.0); Alkaline Phosphatase 79 U/L (39-117); Anion Gap 10 (12-20); Aspartate Amino Transferase 21 U/L (5-31); Bilirubin Total 0.2 mg/dL (0.0-1.0); Blood Urea Nitrogen 22 mg/dL (9-16); Calcium 8.5 mg/dL (8.4-10.2); Carbon Dioxide 34 mmol/L (22-29); Chloride 100 mmol/L (96-108); Creatinine Clr Calc Pharmacy 50.3; Estimated Glomerular Filt Rate > 60; Glucose Fasting 90 mg/dL (60-99); Potassium 4.4 mmol/L (3.3-5.1); Sodium 140 mmol/L (135-145); Total Protein 5.6 g/dL (6.5-8.0)
[2021-12-28 08:09] LABS: ABG Base Excess 18.5 mmol/L; ABG HCO3 46 mmol/L (22-26); ABG pCO2 67 mmHg (32-45); ABG pH 7.44 (7.35-7.45); ABG pO2 181 mmHg (83-108)
[2021-12-28] MEDS: busPIRone HCl 10 MG TABLET PO ×2 (11:17→21:14)
[2021-12-28] MEDS: predniSONE 10 MG TABLET 50 MG PO (11:17)
[2021-12-28] MEDS: Venlafaxine HCL 25 MG TABLET 37.5 MG PO ×2 (11:18→21:14)
[2021-12-28 13:25] LABS: ABG Refer to POC result
[2021-12-28] MEDS: LORazepam 2 MG/ML VIAL 0.5 MG IVPUSH ×2 (14:23→21:19)
--- NOTE | 2021-12-28 16:43 | HO.PM.IMPN ---
Subjective Subjective Date of Service: 12/29/21 Interval History: patient awake alert feeling better this morning, had a poor night sleep due to undergoing overnight oximetry testing, oxygenation dropped overnight therefore placed on 4 L of oxygen this morning placed on 2 L oxygenation stable around 93-94%, denies chest pain, no fevers, no chills . denies worsening shortness of breath, no cough. Review of Systems [employer] no headache, no dizziness CVS no chest pain, no palpatations GI no nausea, no vomiting, no diarrhea skin no rash Review of Systems: Yes all other systems are reviewed and are negative Physical Exam Vital Signs: Vital Signs: Last Vital Signs Temp 98.5 F 12/28/21 14:51 Pulse 97 12/28/21 15:13 Resp 18 12/28/21 15:13 BP 154/56 H 12/28/21 14:51 Pulse Ox 92 12/28/21 14:51 Oxygen Flow Rate 2 12/23/21 20:13 BMI result Body Mass Index 20.9 Const: Other: General awake alert x3, in no acute distress. Neck no JVD. CVS regular rate rhythm, Respiratory lungs diminished breath sounds bilaterally, no respiratory distress, no wheeze, no rhonchi. Gastrointestinal abdomen soft, nontender, bowel sounds audible Extremities no edema. Neuro nonfocal Skin no rash psych appropriate affect Objective Data Active Medications Albuterol Sulfate (Albuterol Sulfate (0.083%) 2.5 Mg/3 Ml Vial.Neb) 2.5 mg INHALE RQ4H [facility] Last Admin: 12/28/21 15:12 Dose: 2.5 mg Documented by: BLACK Albuterol/Ipratropium (Albuterol/Iprat 2.5/0.5mg 3 Ml Ampul.Neb) 3 ml INHALE Q2H PRN PRN Reason: sob Buspirone HCl (Buspirone Hcl 10 Mg Tablet) 10 mg PO BID [facility] Last Admin: 12/28/21 11:17 Dose: 10 mg Documented by: DINORAH Heparin Sodium (Porcine) (Heparin Sodium,Porcine 5,000 Unit/Ml Vial) 5,000 unit SUBCUT Q12H [facility] Last Admin: 12/28/21 11:18 Dose: 5,000 unit Documented by: DINORAH Lorazepam (Lorazepam 2 Mg/Ml Vial) 0.5 mg IVPUSH Q4H PRN PRN Reason: anxiety/restlessness Last Admin: 12/28/21 14:23 Dose: 0.5 mg Documented by: DINORAH Prednisone (Prednisone 10 Mg Tablet) 50 mg PO DAILY [facility] Stop: 12/31/21 08:59 Last Admin: 12/28/21 11:17 Dose: 50 mg Documented by: DINORAH Venlafaxine HCl (Venlafaxine Hcl 25 Mg Tablet) 37.5 mg PO BID [facility] Last Admin: 12/28/21 11:18 Dose: 37.5 mg Documented by: DINORAH Labs CBC & Chem 7: 12/28/21 07:13 12/28/21 07:13 Labs: Laboratory Results - last 24 hr 12/28/21 12/28/21 12/28/21 07:13 07:13 08:00 MCV 91.0 MCH 28.2 MCHC 31.0 RDW 12.9 Plt Count 157 L D MPV 10.8 Immature Gran % (Auto) 4.8 H Neut % (Auto) 66.5 Lymph % (Auto) 19.2 L [place] % (Auto) 8.6 Eos % (Auto) 0.7 Baso % (Auto) 0.2 Lymph # (Auto) 2.0 [place] # (Auto) 0.9 Eos # (Auto) 0.1 Baso # (Auto) 0.0 Abs Immat Gran (auto) 0.50 H Absolute Neuts (auto) 7.0 Absolute Nucleated RBC 0.000 Nucleated RBC % (auto) 0.0 Smear Tech's Comments VERIFIED O2 Saturation 99.0 ABG pH at Pt Temp 7.44 ABG pCO2 at Pt Temp 67 H* ABG pO2 at Pt Temp 181 H ABG HCO3 46 H ABG Base Excess (Actual) 18.5 Anion Gap 10 L Estim Creat Clear Calc 50.3 Estimated GFR > 60 Fasting Glucose 90 Calcium 8.5 Total Bilirubin 0.2 AST 21 D ALT 14 Alkaline Phosphatase 79 Total Protein 5.6 L Albumin 3.1 L Assessment and Plan (1) Acute and chronic respiratory failure with hypercapnia: Status: Acute (2) Lung mass: Status: Acute Plan 71-year-old female admitted to ICU initially on BiPAP for acute hypoxic hypercarbic respiratory failure secondary COPD. Patient improved greatly with BiPAP and steroids. Has been tolerating high-flow during the day and rest on BiPAP overnight 1. acute on chronic hypercarbic and hypoxic respiratory failure secondary to COPD/ chronic bronchitis/ underlying left lung apex cavitary lesion overnight oximetry showed multiple episodes of desaturation oxygenation dropped to mid 50s and had 226 events with oxygenation between 80-84%,ABGs showed pH 7.4, pCO2 of 67 and oxygenation 181, bicarb 46 therefore patient qualifies for noninvasive pressure support ventilation due to persistent hypercarbia and hypoxia she will be discharged on astral due to her severe and life-threatening disease state and to avoid longer hospital stay/ repeat readmissions continue prednisone, DuoNeb scheduled and as needed, wean oxygen to keep finger oximetry around 90% 2. Lung mass patient declined further workup since she does not want to undergo treatment. 3. Anxiety continue BuSpar, Effexor and as needed lorazepam 4. Elevated blood pressure noted to have 1 high blood pressure reading received antihypertensive medication noted to have low blood pressure therefore will DC blood pressure medication likely elevated blood pressures due to anxiety. follow blood pressure closely. Full code DVT prophylaxis on Heparin Requires ongoing hospitalization to support respiratory effort. Quality Stroke Does the patient have a stroke diagnosis?: No VTE Prior VTE?: No VTE Risk Level:: Medical - low VTE Device Contraindication: N/A - Device Ordered VTE Drug Contraindication: N/A - Med Ordered
[2021-12-29 03:05] VITALS: BP 130/63; PULSE 82; RESP 18; TEMP 36.4; O2SAT 99
[2021-12-29 07:47] VITALS: BP 136/62; PULSE 80; RESP 19; TEMP 36.9; O2SAT 98
[2021-12-29] MEDS: busPIRone HCl 10 MG TABLET PO (10:02)
[2021-12-29] MEDS: Venlafaxine HCL 25 MG TABLET 37.5 MG PO (10:07)
[2021-12-29] MEDS: Albuterol Sulfate (0.083%) 2.5 MG/3 ML VIAL.NEB INHALE (10:46)
[2021-12-29 10:47] VITALS: RESP 20; O2SAT 91
--- NOTE | 2021-12-29 11:00 | MHC.CLN ---
F/U PO INTAKE 70% AVERAGE DIET RX: REGULAR-APPROPRIATE PT RECEIVING ENSURE ENLIVE BID PROVIDES 700KCALS, 40G PROTEIN PT REPORTS SHE WAS NOT DRINKING THE SUPPLEMENT BECAUSE SHE HAS A MILK ALLERGY. EDUCATED PT THAT SUPPLEMENT IS LACTOSE FREE AND APPROPRIATE. NOTED NO MILK/LACTOSE ALLERGY LISTED IN EMAR MONITOR PO INTAKE CLOSELY
--- NOTE | 2021-12-29 11:10 | MHC.CM.PN ---
pt dcd home with binh and sonia 02 and bipap
[2021-12-29 11:24] VITALS: BP 138/62; PULSE 60; RESP 18; TEMP 36.6; O2SAT 97
--- NOTE | 2021-12-29 11:35 | W.MHC.F2F ---
Service Date Service Date: 12/29/21 Encounter Date of encounter: 12/29/21 Reasons for Services Signs and symptoms assessed: admitted with shortness of breadth diagnosed to have hypercarbic and hypoxic respiratory failure due to underlying COPD and chronic bronchitis is requiring 1 L of oxygen /being discharged on astral Reason for senior living: medication management and teach disease management Homebound: Leaving the home is medically contraindicated at this time without the asist of a device and/or another person due th the listed conditions above and below. Reason homebound: shortness of breath with minimal effort Homebound supporting statement: Shortness of breath with activity requiring oxygen. Certification: Based on the above findings, I certify that this patient is confined to the home and needs intermittent senior living care, physical therapy and/or speech therapy, or continues to need occupational therapy. The patient is under my care, and I have initiated the establishment of the plan of care. The patient will be followed by a physician who will periodically review the plan of care.
--- NOTE | 2021-12-29 11:47 | PM.DS ---
DS: Providers Provider Date of Service: 12/29/21 Date of admission: 12/23/21 22:10 Primary care physician: Chrissy Pablo MD DS: Diagnosis Discharge Diagnosis (1) Acute and chronic respiratory failure with hypercapnia: Status: Acute (2) Lung mass: Status: Acute DS: Summary Hospital Course Hospital Course: History of presenting illness Chief complaint shortness of breath patient is a 71-year-old female past medical history of smoking, COPD oxygen dependent, COVID in 2019 with chronic hypercarbic respiratory failure with history of left apical lung mass no tissue diagnosis was BIBA after being found at home, unable to be woken up. EMS found patient to be satting 88% on 1 L, when they bumped her up to 2 L oxygen and gave her a Duoneb tx, she was satting at 100%. The patient states she has been feeling sick for the past few days, she describes this as worsening of baseline cough with increasing yellowish secretions, increasingly short of breath despite taking her normal at home COPD medications, she feels more tired, headaches and presyncopal but no actual loss of consciousness.? she states she has to choose between breathing or eating , when I asked her to describe this she said that if she eats, she can not breathe so she chooses to breathe which has caused her to have significant weight loss but states she is actually up from her all time low being 75 lb.? She states she is typically around 110 lb but was told today she is 103 lb. Patient denies any sick contacts, denies chest pain, fevers, nausea, vomiting or diarrhea. ? She states she fell asleep this afternoon and then apparently she was told her son could not wake her up so they called 911.? She states this has happened to her before,? as recently as last July. ? She states she knows she has some kind of small lung mass but she does not want a biopsy because she has no plans to do anything about it so she does not see the point. ? She states she already cannot eat so why take any medicine that is going to make her feel even worse . VS upon arrival HR105, 105/63, 98.3F, RR17, 98% on 2L NC. Labs remarkable for WBC WNL 8.4, serum bicarb 38, VBG 732/114/46/59/75/25.6; Covid negative, CXR unremarkable. Hospital course 71-year-old female admitted to ICU initially on BiPAP for acute hypoxic hypercarbic respiratory failure secondary COPD, patient treated with high-flow oxygen, schedule updraft and steroids patient responded well to above treatment and was subsequently transitioned to intermediate care unit on BiPAP therapy. 1. Patient admitted to [facility] with a diagnosis of acute on chronic hypercarbic? and hypoxic respiratory failure secondary to COPD/ chronic bronchitis/with history of underlying left lung apex cavitary lesion Initially treated with high-dose steroids BiPAP and updraft treatment subsequently transition to floor and had a overnight oximetry study that showed? multiple episodes of desaturation, oxygenation dropped to mid 50s and had 226 events with oxygenation between 80-84%,ABGs showed pH 7.4, pCO2 of 67 and oxygenation 181, bicarb 46, therefore patient qualifies for noninvasive pressure support ventilation due to persistent hypercarbia and hypoxia she will be discharged on astral?due to advance copd to avoid longer hospital stay and repeat readmissions, recommend to continue updraft treatment and tapering dose of steroids as recommended. ?? 2. Lung mass patient declined further workup since she does not want to undergo treatment. 3. Anxiety no acute exacerbation noted, continue? BuSpar, Effexor and as needed lorazepam 4. Elevated blood pressure noted to have few high blood pressure readings recommend close outpatient blood pressure monitoring. Time Spent with Patient Time attestation: Total time spent providing and/or coordinating discharge services: Discharge coordination time: Greater than 30 minutes Quality: Safe Use of Opioids Does Pt have an Active Cancer Diagnosis on the Problem List?: No Quality: Stroke Does the patient have a stroke diagnosis?: No Physical Exam Vital Signs: Vital Signs: Last Vital Signs Temp 97.8 F 12/29/21 11:24 Pulse 60 12/29/21 11:24 Resp 18 12/29/21 11:24 BP 138/62 12/29/21 11:24 Pulse Ox 97 12/29/21 11:24 Oxygen Flow Rate 2 12/23/21 20:13 BMI result Body Mass Index 20.9 Const: Other: General? awake alert x3, in no acute distress.? Neck no JVD. CVS? regular rate rhythm, Respiratory lungs? diminished breath sounds bilaterally, no respiratory distress, no wheeze, no rhonchi. Gastrointestinal abdomen soft, nontender, bowel sounds audible Extremities no? edema. Neuro nonfocal Skin no rash psych appropriate affect DS: Data Data Completed and Pending Completed studies during hospitalization [Text1]: Procedures Assistance with Respiratory Ventilation, Less than 24 Consecutive Hours, Continuous Positive Airway Pressure (07/24/21) Insertion of Endotracheal Airway into Trachea, Via Natural or Artificial Opening (07/26/20) Insertion of Infusion Device into Superior Vena Cava, Percutaneous Approach (07/26/20) Respiratory Ventilation, 24-96 Consecutive Hours (07/26/20) Ultrasonography of Superior Vena Cava, Guidance (07/26/20) Discharge Plan Discharge Patient Disposition: Home Health Service Discharge Diagnosis: Acute on chronic hypercarbic and hypoxic respiratory failure acute COPD exacerbation/chronic bronchitis lung mass Referrals: [facility] [Other] - 1 Week Chrissy Pablo MD [Primary Care Provider] - 1 Week Discharge Medications: New prednisone 10 mg tablet See Taper mg PO DAILY Qty: 30 0RF Taper: Prednisone 40 mg daily for 3 Days and 0 Hour 30 mg daily for 3 Days and 0 Hour 20 mg daily for 3 Days and 0 Hour 10 mg daily for 3 Days and 0 Hour albuterol sulfate 2.5 mg /3 mL (0.083 %) Solution For Nebulization 2.5 mg inhalation Q6H Qty: 100 0RF Continued lorazepam 0.5 mg tablet 0.5 mg PO Q12H PRN (Reason: anxiety) Qty: 10 0RF venlafaxine 37.5 mg tablet 37.5 mg PO BID 0RF albuterol sulfate 90 mcg/actuation HFA aerosol inhaler 2 puff inhalation Q4H PRN (Reason: Shortness Of Breath Or Wheezing) 0RF Spiriva Respimat 2.5 mcg/actuation mist 2 puff inhalation DAILY 0RF Breo Ellipta 200-25 mcg/dose blister with device 1 inh inhalation DAILY 0RF cetirizine 10 mg Tablet 10 mg PO DAILY 0RF buspirone 10 mg tablet 1 tab PO BID 0RF Discharge Orders: Discharge Order (Routine); Ordered 12/29/21 Ordered By: Sorin Jimenez Diet: advance to usual diet Activity on Discharge: As tolerated Stand Alone Forms: Patient Portal Discharge page Care Plan Goals: acute on chronic hypercarbic /hypoxic respiratory failure being discharged home on astral / oxygen 1 L patient is being discharged home with VNA services, has been recommended to use DuoNeb updraft 4 times a day is scheduled for next 3-4 days and then use as needed also being discharged on prednisone tapering dose recommend close outpatient follow-up with primary care physician. Health Concerns: strongly recommend to use a stool at night and 1 L of oxygen, continue all home medications as before. Plan of Treatment: Outpatient follow-up with PCP Assessment: as per discharge summary
[2021-12-29] MEDS: LORazepam 2 MG/ML VIAL 0.5 MG IVPUSH (14:26)
[2021-12-29] MEDS: Heparin Sodium,Porcine 5,000 UNIT/ML VIAL 5000 UNIT SUBCUT (14:27)
== END 2021-12-29 15:15 | disposition home health service (06) | DRG 190 ==
LOC: HO.ED 20:33 → HO.ICU 22:38 → HO.IMC 12-24 17:52
PROVIDERS: Hospitalist; Internal Medicine; Internal Medicine Cardiovascular Disease; Admitting Provider Physician Assistant; Emergency Provider Internal Medicine; PCP Internal Medicine; Visit Provider Hospitalist
DX: J44.1 Chronic obstructive pulmonary disease with (acute) exacerbation (principal); J96.22 Acute and chronic respiratory failure with hypercapnia; J96.21 Acute and chronic respiratory failure with hypoxia; Z20.822 Contact with and (suspected) exposure to COVID-19; R91.8 Other nonspecific abnormal finding of lung field; F41.9 Anxiety disorder, unspecified; R03.0 Elevated blood-pressure reading, without diagnosis of hypertension; Z99.81 Dependence on supplemental oxygen; Z86.16 Personal history of COVID-19; Z87.891 Personal history of nicotine dependence; Z88.0 Allergy status to penicillin; Z88.1 Allergy status to other antibiotic agents; Z88.2 Allergy status to sulfonamides; Z79.899 Other long term (current) drug therapy
CPT/HCPCS: 36415; 36600; 71045; 71250; 80048; 80053; 82803; 83605; 83735; 84100; 84484; 85025; 87040; 87635; 93005; 94640; 94660; 96365; 96375; 99285; 99291; C1758; J0456; J2060; J2920; J2930

== ENCOUNTER 2022-02-20 05:00 | Outpatient (REF) | payer MEDICARE, MEDICAID, SELFPAY | END 2022-02-20 05:01 | disposition home or self-care (01) | LOC: HO.MMNH2L 05:00 | PROVIDERS: Visit Provider Family Medicine | DX: Z13.89 Encounter for screening for other disorder (principal) ==

== ENCOUNTER 2022-07-29 16:05 | Emergency (ER) | payer MEDICARE, MEDICAID, SELFPAY ==
[2022-07-29 16:17] VITALS: BP 180/100; PULSE 102; O2SAT 100
[2022-07-29 16:20] VITALS: BP 145/67; PULSE 100; RESP 18; TEMP 36.1; O2SAT 100; BMI 19.5
--- OUTSIDE RECORDS SUMMARY | 2022-07-29 16:35 | XMS_ITS | Continuity of Care Document ---
:1950
--- NOTE | 2022-07-29 16:45 | ECG_ITS ---
Test Reason : SOB Blood Pressure : / mmHG Vent. Rate : 093 BPM Atrial Rate : 093 BPM P-R Int : 150 ms QRS Dur : 070 ms QT Int : 344 ms P-R-T Axes : 080 076 079 degrees QTc Int : 427 ms Normal sinus rhythm Septal infarct , age undetermined Abnormal ECG When compared with ECG of 23-DEC-2021 20:32, No significant change was found Referred By: Shabbir Goldberg Electronically Signed By:Jared Wisdom
--- NOTE | 2022-07-29 16:46 | ED.URI ---
HPI - URI/Sore Throat General Chief Complaint: Upper Respiratory Symptoms Stated Complaint: SOB Time Seen by Provider: 07/29/22 16:10 Source: patient, EMS and old records reviewed History of Present Illness HPI Narrative: Patient complaining of worsening dyspnea over the past several days. Patient states she has been living in a hotel for the homeless. She has not been able to use her CPAP machine or nebulizer. She has long history of COPD, with her most recent admission in December of this year. Positive increased recent cough with some phlegm intermittently. She states when she walks around she checks her oxygen saturation lately it has gone down to 85%. EMS, however, had her ambulatory saturation at 92%. No chest pain. She states she has had intermittent fevers. No nausea vomiting or diarrhea. Social determine severe care significant for recently living in a motel room. Today that ran out and she is currently homeless. COPD with prior history of tobacco abuse. She states she is tobacco free x1 and half years. Related Data Home Medications Medication Instructions Recorded Confirmed albuterol sulfate 90 mcg/actuation 2 puff inhalation Q4H PRN 07/26/20 12/24/21 aerosol inhaler Shortness Of Breath Or Wheezing fluticasone furoate 200 1 inh inhalation DAILY 07/26/20 12/24/21 mcg-vilanterol 25 mcg/dose inhalation powder (Breo Ellipta) tiotropium bromide 2.5 2 puff inhalation DAILY 07/26/20 12/24/21 mcg/actuation mist for inhalation (Spiriva Respimat) venlafaxine 37.5 mg tablet 37.5 mg PO BID 07/26/20 12/24/21 buspirone 10 mg tablet 1 tab PO BID 07/24/21 12/24/21 cetirizine 10 mg tablet 10 mg PO DAILY 12/24/21 12/24/21 albuterol sulfate 2.5 mg/3 mL 2.5 mg inhalation Q6H PRN Wheezing 07/30/22 (0.083 %) solution for nebulization lorazepam 0.5 mg tablet 0.5 mg PO DAILY PRN anxiety 07/30/22 Allergies Allergy/AdvReac Type Severity Reaction Status Date / Time amoxicillin [AMOXICILLIN] Allergy Unknown HIVES Verified 07/26/20 09:52 Sulfa (Sulfonamide Allergy Unknown DIFFICULTY Verified 07/26/20 09:52 Antibiotics) BREATHING [SULFA (SULFONAMIDE ANTIBIOTICS)] cephalexin [From Keflex] Allergy Unknown Verified 07/26/20 09:52 Review of Systems Constitutional: Comments: No fevers or chills Cardiovascular: Comments: No chest pain Respiratory: Comments: Cough with intermittent sputum. Dyspnea on exertion. Gastrointestinal: Comments: No nausea vomiting diarrhea constipation or abdominal pain Genitourinary: Comments: No urinary symptoms Musculoskeletal: Comments: No pedal edema. No calf pain Integumentary/Breasts: Comments: No rash Neurologic: Comments: No focal weakness Psychiatric: Comments: Increased anxiety over her living situation [facility] Past Medical History Medical History (Updated 07/30/22 @ 09:12 by AQUILINO Garcia) Acute exacerbation of chronic obstructive airways disease Asthmatic bronchitis COPD (chronic obstructive pulmonary disease) COPD (chronic obstructive pulmonary disease) Lung mass Pneumonia Severe protein-calorie malnutrition Surgical History History of cholecystectomy History of hysterectomy Hx of appendectomy Social History Social History Household Members: Children Household Members Other:: son Housing: House Do you presently have visiting nurse or other home services: Yes (saw filer/rn) Alcohol intake: never Patient Tobacco Use Status: Former Tobacco user Smoked in Last 30 Days: No Use of substances other than those prescribed or required for medical reasons: No Substance Use Type: Marijuana Advance Directives: Yes Advance Directives on File: Yes Advance Directives Date on File: 07/27/20 service: No Current occupational status: retired Physical Exam Vital Signs: Vital Signs: Last Vital Signs Temp 97.8 F 07/30/22 07:27 Pulse 75 07/30/22 07:27 Resp 20 07/30/22 07:27 BP 131/71 07/30/22 07:27 Pulse Ox 96 07/30/22 07:27 O2 Del Method 07/30/22 07:27 O2 Flow Rate 1.5 07/30/22 07:27 Oxygen Flow Rate 2 07/29/22 21:34 BMI result Body Mass Index 19.5 Const: Other: Awake and alert. No acute distress Resp: Other: Diminished bilaterally. No wheezes rales or rhonchi. Respiratory rate of 18 without respiratory distress at rest Cardio: Other: Regular rate and rhythm without murmurs rubs or gallops GI: Other: Soft nontender nondistended Skin: Other: Warm pink and dry without rash Neuro: Other: No obvious focal neuro deficits Psych: Other: Anxiety Medications Administered Discontinued Medications Generic Name Dose Route Start Last Admin Trade Name Troy PRN Reason Stop Dose Admin Albuterol/Ipratropium 3 ml 07/29/22 16:43 07/29/22 18:12 Albuterol/Iprat 2.5/0.5mg 3 Ml Ampul.Neb INHALE 07/29/22 16:44 3 ml ONCE ONE Administration Lorazepam 0.5 mg 07/29/22 20:23 07/29/22 20:38 Lorazepam 0.5 Mg Tablet PO 07/29/22 20:24 0.5 mg ONCE ONE Administration Prednisone 60 mg 07/29/22 16:43 07/29/22 17:50 Prednisone 20 Mg Tablet PO 07/29/22 16:44 60 mg ONCE ONE Administration Prednisone 60 mg 07/29/22 20:23 07/29/22 20:38 Prednisone 20 Mg Tablet PO 07/29/22 20:24 60 mg ONCE ONE Administration Medical Decision Making Medical Decision Making MDM Narrative: Patient with a history of COPD with prior hospitalizations for COPD exacerbation. She presents with symptoms similar to prior admissions. Differential diagnosis would include Pneumonia Bronchitis Viral syndrome COPD exacerbation secondary to environmental factors Her care is complicated by social determine its including homelessness at the moment. Lab Data Result Diagrams: 07/29/22 17:07 07/29/22 17:07 Labs: Lab Results 07/29/22 07/29/22 07/29/22 Range/Units 17:07 17:07 17:07 WBC 7.0 (4.8-10.8) X10*3/uL RBC 4.37 (4.20-5.50) X10*6/uL Hgb 12.6 (12.0-16.0) g/dl Hct 38.1 (37.0-47.0) % MCV 87.2 (80.0-98.0) fL MCH 28.8 (27.0-33.0) pg MCHC 33.1 (31.0-35.0) g/dl RDW 13.1 (11.0-16.0) % Plt Count 263 D (160-400) X10*3/uL MPV 9.2 L (9.4-12.3) fL Immature Gran % (Auto) 0.9 H (0.0-0.4) % Neut % (Auto) 68.9 (45-73) % Lymph % (Auto) 20.2 (20-40) % [facility] % (Auto) 7.2 (2-11) % Eos % (Auto) 1.7 (0-4) % Baso % (Auto) 1.1 (0-2) % Lymph # (Auto) 1.4 (1.2-4.9) X10*3/uL [facility] # (Auto) 0.5 (0.1-1.2) X10*3/uL Eos # (Auto) 0.1 (0.0-0.4) X10*3/uL Baso # (Auto) 0.1 (0.0-0.2) X10*3/uL Abs Immat Gran (auto) 0.06 H (0.00-0.03) X10*3/uL Absolute Neuts (auto) 4.8 (2.0-8.3) x10*3/uL Absolute Nucleated RBC 0.000 (0.0-0.012) X10*3/uL Nucleated RBC % (auto) 0.0 (0.0-0.2) /100WBC PT 10.9 (10.0-13.1) SEC INR 1.0 (0.9-1.1) D-Dimer High Sensitivty 239 NG/ML Sodium 141 (135-145) mmol/L Potassium 4.5 (3.3-5.1) mmol/L Chloride 102 (96-108) mmol/L Carbon Dioxide 33 H (22-29) mmol/L Anion Gap 11 L (12-20) BUN 12 (9-16) mg/dL Creatinine 0.93 (0.5-1.4) mg/dL Estim Creat Clear Calc 39.7 Estimated GFR 59 Random Glucose 105 (60-115) mg/dL Lactic Acid (0.5-2.0) mmol/L Calcium 9.5 D (8.4-10.2) mg/dL Total Bilirubin 0.3 (0.0-1.0) mg/dL AST 20 (5-31) U/L ALT 15 (0-31) U/L Alkaline Phosphatase 123 H (39-117) U/L Troponin I High Sens (<3.5-17.0) ng/L B-Natriuretic Peptide (<100) pg/mL Total Protein 6.4 L (6.5-8.0) g/dL Albumin 3.9 (3.5-5.0) g/dL Influenza Type A (PCR) (Negative) Influenza Type B (PCR) (Negative) RSV RNA Qual (PCR) (Negative) SARS-CoV-2 RNA (RT-PCR) (Negative) 07/29/22 07/29/22 07/29/22 Range/Units 17:07 17:07 17:07 WBC (4.8-10.8) X10*3/uL RBC (4.20-5.50) X10*6/uL Hgb (12.0-16.0) g/dl Hct (37.0-47.0) % MCV (80.0-98.0) fL MCH (27.0-33.0) pg MCHC (31.0-35.0) g/dl RDW (11.0-16.0) % Plt Count (160-400) X10*3/uL MPV (9.4-12.3) fL Immature Gran % (Auto) (0.0-0.4) % Neut % (Auto) (45-73) % Lymph % (Auto) (20-40) % [facility] % (Auto) (2-11) % Eos % (Auto) (0-4) % Baso % (Auto) (0-2) % Lymph # (Auto) (1.2-4.9) X10*3/uL [facility] # (Auto) (0.1-1.2) X10*3/uL Eos # (Auto) (0.0-0.4) X10*3/uL Baso # (Auto) (0.0-0.2) X10*3/uL Abs Immat Gran (auto) (0.00-0.03) X10*3/uL Absolute Neuts (auto) (2.0-8.3) x10*3/uL Absolute Nucleated RBC (0.0-0.012) X10*3/uL Nucleated RBC % (auto) (0.0-0.2) /100WBC PT (10.0-13.1) SEC INR (0.9-1.1) D-Dimer High Sensitivty NG/ML Sodium (135-145) mmol/L Potassium (3.3-5.1) mmol/L Chloride (96-108) mmol/L Carbon Dioxide (22-29) mmol/L Anion Gap (12-20) BUN (9-16) mg/dL Creatinine (0.5-1.4) mg/dL Estim Creat Clear Calc Estimated GFR Random Glucose (60-115) mg/dL Lactic Acid 1.2 (0.5-2.0) mmol/L Calcium (8.4-10.2) mg/dL Total Bilirubin (0.0-1.0) mg/dL AST (5-31) U/L ALT (0-31) U/L Alkaline Phosphatase (39-117) U/L Troponin I High Sens < 3.5 (<3.5-17.0) ng/L B-Natriuretic Peptide 21 (<100) pg/mL Total Protein (6.5-8.0) g/dL Albumin (3.5-5.0) g/dL Influenza Type A (PCR) (Negative) Influenza Type B (PCR) (Negative) RSV RNA Qual (PCR) (Negative) SARS-CoV-2 RNA (RT-PCR) (Negative) 07/29/22 Range/Units 17:07 WBC (4.8-10.8) X10*3/uL RBC (4.20-5.50) X10*6/uL Hgb (12.0-16.0) g/dl Hct (37.0-47.0) % MCV (80.0-98.0) fL MCH (27.0-33.0) pg MCHC (31.0-35.0) g/dl RDW (11.0-16.0) % Plt Count (160-400) X10*3/uL MPV (9.4-12.3) fL Immature Gran % (Auto) (0.0-0.4) % Neut % (Auto) (45-73) % Lymph % (Auto) (20-40) % [facility] % (Auto) (2-11) % Eos % (Auto) (0-4) % Baso % (Auto) (0-2) % Lymph # (Auto) (1.2-4.9) X10*3/uL [facility] # (Auto) (0.1-1.2) X10*3/uL Eos # (Auto) (0.0-0.4) X10*3/uL Baso # (Auto) (0.0-0.2) X10*3/uL Abs Immat Gran (auto) (0.00-0.03) X10*3/uL Absolute Neuts (auto) (2.0-8.3) x10*3/uL Absolute Nucleated RBC (0.0-0.012) X10*3/uL Nucleated RBC % (auto) (0.0-0.2) /100WBC PT (10.0-13.1) SEC INR (0.9-1.1) D-Dimer High Sensitivty NG/ML Sodium (135-145) mmol/L Potassium (3.3-5.1) mmol/L Chloride (96-108) mmol/L Carbon Dioxide (22-29) mmol/L Anion Gap (12-20) BUN (9-16) mg/dL Creatinine (0.5-1.4) mg/dL Estim Creat Clear Calc Estimated GFR Random Glucose (60-115) mg/dL Lactic Acid (0.5-2.0) mmol/L Calcium (8.4-10.2) mg/dL Total Bilirubin (0.0-1.0) mg/dL AST (5-31) U/L ALT (0-31) U/L Alkaline Phosphatase (39-117) U/L Troponin I High Sens (<3.5-17.0) ng/L B-Natriuretic Peptide (<100) pg/mL Total Protein (6.5-8.0) g/dL Albumin (3.5-5.0) g/dL Influenza Type A (PCR) NEGATIVE (Negative) Influenza Type B (PCR) NEGATIVE (Negative) RSV RNA Qual (PCR) NEGATIVE (Negative) SARS-CoV-2 RNA (RT-PCR) NEGATIVE (Negative) Discharge Plan Discharge Clinical Impression: COPD (chronic obstructive pulmonary disease) Patient Disposition: Still a Patient Prescriptions: No Action venlafaxine 37.5 mg tablet 37.5 mg PO BID albuterol sulfate 90 mcg/actuation HFA aerosol inhaler 2 puff inhalation Q4H PRN (Reason: Shortness Of Breath Or Wheezing) Spiriva Respimat 2.5 mcg/actuation mist 2 puff inhalation DAILY fluticasone furoate-vilanterol [Breo Ellipta] 200-25 mcg/dose blister with device 1 inh inhalation DAILY cetirizine 10 mg Tablet 10 mg PO DAILY buspirone 10 mg tablet 1 tab PO BID albuterol sulfate 2.5 mg /3 mL (0.083 %) solution for nebulization 2.5 mg inhalation Q6H PRN (Reason: Wheezing) lorazepam 0.5 mg tablet 0.5 mg PO DAILY PRN (Reason: anxiety)
[2022-07-29 17:15] LABS: MANUAL DIFF FLAG NO
[2022-07-29 17:21] LABS: Basophils Absolute Auto 0.1 X10*3/uL (0.0-0.2); Basophils Percent Auto 1.1 % (0-2); Eosinophils Absolute Auto 0.1 X10*3/uL (0.0-0.4); Eosinophils Percent Auto 1.7 % (0-4); Hematocrit 38.1 % (37.0-47.0); Hemoglobin 12.6 g/dl (12.0-16.0); Imm Gran Abs Auto 0.06 X10*3/uL (0.00-0.03); Imm Gran Pct Auto 0.9 % (0.0-0.4); Lymphocytes Absolute Auto 1.4 X10*3/uL (1.2-4.9); Lymphocytes Percent Auto 20.2 % (20-40); Mean Corpuscular HGB Conc 33.1 g/dl (31.0-35.0); Mean Corpuscular Hemoglobin 28.8 pg (27.0-33.0); Mean Corpuscular Volume 87.2 fL (80.0-98.0); Mean Platelet Volume 9.2 fL (9.4-12.3); Monocytes Absolute Auto 0.5 X10*3/uL (0.1-1.2); Monocytes Percent Auto 7.2 % (2-11); Neutrophils Absolute Auto 4.8 x10*3/uL (2.0-8.3); Neutrophils Percent Auto 68.9 % (45-73); Platelet Count 263 X10*3/uL (160-400); Red Blood Count 4.37 X10*6/uL (4.20-5.50); Red Cell Distribution Width 13.1 % (11.0-16.0)
[2022-07-29 17:33] LABS: Lactic Acid 1.2 mmol/L (0.5-2.0)
[2022-07-29 17:38] LABS: Alanine Aminotransferase 15 U/L (0-31); Albumin Level 3.9 g/dL (3.5-5.0); Alkaline Phosphatase 123 U/L (39-117); Anion Gap 11 (12-20); Aspartate Amino Transferase 20 U/L (5-31); Bilirubin Total 0.3 mg/dL (0.0-1.0); Blood Urea Nitrogen 12 mg/dL (9-16); Calcium 9.5 mg/dL (8.4-10.2); Carbon Dioxide 33 mmol/L (22-29); Chloride 102 mmol/L (96-108); Creatinine Clr Calc Pharmacy 39.7; Estimated Glomerular Filt Rate 59; Glucose Random 105 mg/dL (60-115); Potassium 4.5 mmol/L (3.3-5.1); Sodium 141 mmol/L (135-145); Total Protein 6.4 g/dL (6.5-8.0)
[2022-07-29 17:42] LABS: Prothrombin Time 10.9 SEC (10.0-13.1)
[2022-07-29 17:43] LABS: B Type Natriuretic Peptide 21 pg/mL (<100); Troponin-I High Sensitivity < 3.5 ng/L (<3.5-17.0)
[2022-07-29 17:44] LABS: D Dimer High Sensitivity 239 NG/ML
[2022-07-29] MEDS: predniSONE 20 MG TABLET 60 MG PO (17:50)
[2022-07-29 17:59] LABS: Influenza A PCR NEGATIVE (Negative); Influenza B PCR NEGATIVE (Negative); Resp Syncy Virus RNA Qual PCR NEGATIVE (Negative); SARS COV2 PCR INHOUSE NEGATIVE (Negative)
[2022-07-29 18:12] VITALS: PULSE 85; RESP 16; O2SAT 96
[2022-07-29] MEDS: Albuterol/Iprat 2.5/0.5MG 3 ML AMPUL.NEB INHALE (18:12)
--- NOTE | 2022-07-29 20:36 | PC.NURSE ---
Resumed care of the pt at 1900. Pt assisted with bedpan. Per pot, she was unable to take the prednisone documented prior to my shift. Pt is also requesting ativan for anxiety. Spoke with MD who ordered a repeat dose of prednisone and a dose of ativan. also requested pt be walked with O2 monitoring. Medications given at this time, Will walk pt after medications
[2022-07-29 21:30] VITALS: BP 125/60; PULSE 98; RESP 16; TEMP 36.9; O2SAT 96
[2022-07-29 21:34] VITALS: PULSE 96; O2SAT 97
--- NOTE | 2022-07-29 21:53 | PC.NURSE ---
Pt ambulated with Tech. Pt walked with 2 LPM O2 via NC. Pt made it approximately 10 feet to a bed in the hallway before needing to sit. Pt O2 got down to 92% but came back to high 90's after resting for a few moments. Pt was unable to continue and returned back to bed. MD vuong.
[2022-07-30] VITALS (9 sets, daily range): BP systolic 112–163; BP diastolic 47–93; PULSE 74–121; RESP 19–26; TEMP 36.6–36.8; O2SAT 91–99
--- NOTE | 2022-07-30 11:05 | PHA.MEDREC ---
Pharmacy Consult ? Medication Reconciliation Pharmacy has completed the medication reconciliation.
--- NOTE | 2022-07-30 12:00 | MHC.CM.PN ---
Addendum entered by Gisele Jimenez RN 07/30/22 12:44: REFERRAL NOW INCLUDES [facility] AND [facility], [facility] IS NOT RESPONDING YET Original Note: PATIENT IS ACTIVE WITH [facility] (NEW SERVICE) SHE REPORTS THAT SHE AND HER SON RECENTLY LOST THEIR MOTEL STAY BUT THAT SHE IS FIRST ON THE LIST FOR [facility] IN [place]. HER ADULT SON IS CURRENTLY WITH PATIENT'S SISTER. SHE ASKS FOR A REFERRAL TO [facility], NOW PLACED.
--- NOTE | 2022-07-30 13:31 | MHC.CM.ED ---
REHAB REFERRALS UPDATED TO INCLUDE [facility] NO OTHER FACILITIES HAVE RESPONDED OF THIS NOTE
--- NOTE | 2022-07-30 13:44 | MHC.CM.ED ---
[facility] is reviewing. Covering CM made aware
--- NOTE | 2022-07-30 15:34 | MHC.CM.PN ---
message left for pts son carlyle vines [phone] re dc
--- NOTE | 2022-07-30 20:41 | MHC.EDTECH ---
At 2032 spoke with Margot from [facility] to get an update on patients transport to [facility],she stated that there is no truck availability at this time,she did try to pass with no availability. She stated she will try to get patient out tonight if unable to it will have to wait until the AM.Rn and fire sprinkler service technician aware.
[2022-07-31 00:34] VITALS: RESP 19; O2SAT 96
--- NOTE | 2022-07-31 00:35 | PC.NURSE ---
Pt aox3 in no apparent distress. Resting at the bedside. Breaths are even and unlabored. O2 sat 96% with 1L NC. Reports no issues or concerns at this time. Pt aware of plan of care.
[2022-07-31 03:31] VITALS: PULSE 84; RESP 16; RESP 20; O2SAT 97
[2022-07-31 05:29] VITALS: RESP 16
--- NOTE | 2022-07-31 05:30 | PC.NURSE ---
Pt sleeping at the bedside in no apparent distress. Breaths are equal and unlabored. 16bpm. Pt is on 2L nc. Will continue to monitor.
--- NOTE | 2022-07-31 07:53 | PC.NURSE ---
pt sleeping, breakfast tray in room. awaiting transport to SNF
--- NOTE | 2022-07-31 09:50 | PC.NURSE ---
PT IS AWAKE AND USED THE BED [facility]OREL. SHE IS MILD SOB AT REST, SHE STATES SHE IS AT HER BASELINE. ATE SOME BREAKFAST
== END 2022-07-31 09:54 | disposition skilled nursing facility (03) ==
PROVIDERS: Emergency Provider Emergency Medicine
DX: J44.9 Chronic obstructive pulmonary disease, unspecified (principal); R06.02 Shortness of breath; R26.2 Difficulty in walking, not elsewhere classified; Z20.822 Contact with and (suspected) exposure to COVID-19; Z79.899 Other long term (current) drug therapy
CPT/HCPCS: 0241U; 71046; 80053; 83605; 83880; 84484; 85025; 85379; 85610; 87040; 93005; 94640; 97162; 99285